=== PATIENT | male | born 1940 | race Caucasian/White ===

== ENCOUNTER → 2017-12-29 09:47 | Outpatient (CLI) | payer MEDICARE, SELFPAY ==
--- NOTE | 2017-12-29 09:50 | RDU_ITS ---
Reason For Study: CKD stage 3 Right Renal Artery Left Renal Artery Right renal artery ostium Left renal artery ostium 155.0/42.8 150.0/42.9 RSV/EDV. PSV/EDV. Right renal artery proximal Left renal artery proximal PSV/EDV 160.0/39.7 PSV/EDV. 166.0/50.1 . Right renal artery mid 163.0/51.6 Left renal artery mid 165.0/45.2 PSV/EDV. PSV/EDV . Right renal artery distal Left renal artery distal 144.0/32.0 144.0/38.5 PSV/EDV. PSV/EDV. Right RAR 1.8. Left RAR 1.9. Right Renal Parenchyma Left Renal Parenchyma Upper Pole Medula 34.8/12.2 Left upper pole medulla 47.1/13.4 PSV/EDV. PSV/EDV . Right upper pole medulla EDR .35 . Left upper pole medulla EDR .28 . Right upper pole medulla R.I. .65 . Left upper pole medulla R.I. .71 . Upper [place] Cortx 36.7/10.1 PSV/EDV. UP Cortex 38.5/11.6 PSV/EDV. Right upper pole cortex EDR .28 . Left upper pole cortex EDR .30 . Right upper pole cortex R.I. .73 . Left upper pole cortex R.I. .70 . Right lower Pole medulla 38.2/11.0 Left lower Pole medulla 31.2/6.4 PSV/EDV . PSV/EDV . Right lower pole medulla EDR .29 . Left lower pole medulla EDR .21 . Right lower pole medulla R.I. .71 . Left lower pole medulla R.I. .79 . Lower Pole Cortex 29.0/7.6 PSV/EDV. Lower Pole Cortx 30.9/8.3 PSV/EDV. Right lower pole cortex EDR .26 . Left lower pole cortex EDR .27 . Right lower pole cortex R.I. .74 . Left lower pole cortex R.I. .73 . Right Renal Hilar Left Renal Hilar Right Hilar avg 50.7/15.9 PSV/EDV. LT Hilar avg 52.3/15.3 PSV/EDV . Right hilar acceleration time 51 Left hilar acceleration time 51 m/sec. m/sec. Right Renal Dimensions Left Renal Dimensions Right kidney size 9.2 cm . Left kidney size 9.0 cm . Right cortical dimension 1.5 cm . Left cortical dimension 1.5 cm . Aorta Proximal abdominal aorta 1.9 x 1.9 cm . Distal abdominal aorta 1.5 x 1.6 cm . Proximal abdominal aorta peak systolic velocity is 88.5 cm/sec . Distal abdominal aorta peak systolic velocity is 97.6 cm/sec . Interpretation Summary Dimensions of the intra-abdominal aorta appear normal, without evidence of aneurysmal dilatation. Renal artery velocities are bilaterally normal. Acceleration times are normal bilaterally. Renal- aortic ratios are also bilaterally normal. There is no evidence of hemodynamically significant renal artery stenosis on either side. Renovascular resistance appears to be bilaterally elevated . Cortical dimensions are bilaterally normal. Kidneys appear normal in size bilaterally. Ordering Physician: Dick Chan Referring Physician: Dick Chan Performed By: Carol Amaya RVT
== END ==
PROVIDERS: Family Provider Family Medicine; PCP Family Medicine; Visit Provider Family Medicine
DX: N18.3 Chronic kidney disease, stage 3 (moderate) (principal); I73.9 Peripheral vascular disease, unspecified
CPT/HCPCS: 36415; 80048; 93975

== ENCOUNTER → 2017-12-29 11:40 | Outpatient (CLI) | payer MEDICARE, SELFPAY ==
[2017-12-29 14:33] LABS: Anion Gap 10 (5-15); BUN 36 mg/dL (7-18); BUN/Creat Ratio 20.9 RATIO (10-20); Calcium,Total 9.2 mg/dL (8.5-10.1); Chloride 108 mmol/L (98-107); Creatinine, Serum 1.72 mg/dL (0.70-1.30); EST Glomerular Filtration Rate 41 mL/min (>60); Est Glom Filt Rate - Afr Amer 50 mL/min (>60); Glucose 99 mg/dL (70-110); Potassium 4.6 mmol/L (3.5-5.1); Sodium Level 141 mmol/L (136-145)
== END ==
PROVIDERS: Family Provider Family Medicine; PCP Family Medicine; Visit Provider Family Medicine
DX: N18.3 Chronic kidney disease, stage 3 (moderate) (principal)
CPT/HCPCS: 36415; 80048

== ENCOUNTER → 2018-02-01 15:39 | Outpatient (CLI) | payer MEDICARE, SELFPAY ==
[2018-02-01 17:04] LABS: Albumin, Serum 3.8 g/dL (3.2-5.0); BUN 37 mg/dL (7-18); BUN/Creat Ratio 25.5 RATIO (10-20); Calcium,Total 9.1 mg/dL (8.5-10.1); Chloride 107 mmol/L (98-107); Creatinine, Serum 1.45 mg/dL (0.70-1.30); EST Glomerular Filtration Rate 50 mL/min (>60); Est Glom Filt Rate - Afr Amer 61 mL/min (>60); Glucose 77 mg/dL (74-106); Phosphorus 3.2 mg/dL (2.5-4.9); Potassium 4.2 mmol/L (3.5-5.1); Sodium Level 141 mmol/L (136-145)
== END ==
PROVIDERS: Family Provider Family Medicine; PCP Family Medicine; Visit Provider Internal Medicine Nephrology
DX: N17.9 Acute kidney failure, unspecified (principal)
CPT/HCPCS: 36415; 80069

== ENCOUNTER → 2018-02-04 10:12 | Outpatient (CLI) | payer MEDICARE, SELFPAY ==
--- NOTE | 2018-02-04 10:16 | US_ITS ---
STUDY: RENAL ULTRASOUND - COMPLETE REASON FOR EXAM: Male, 77 years old. Renal failure TECHNIQUE: Transverse and longitudinal imaging of the kidneys and bladder was obtained using real-time ultrasound. COMPARISON: None. FINDINGS: RIGHT KIDNEY: The right kidney is normal in location. The right kidney measures 10.0 x 5.3 x 5.0 cm. The renal cortex is normal in appearance. The renal cortex measures 1.2 cm. There is no demonstrated renal mass. There is no dilatation of the collecting system. LEFT KIDNEY: The left kidney is normal in location. The left kidney measures 9.7 x 5.1 x 4.3 cm. The renal cortex is normal in appearance. The renal cortex measures 1.4 cm. There is no demonstrated renal mass. There is no dilatation of the collecting system. BLADDER: The urinary bladder has a volume of 62 ml. The bladder shows a normal wall thickness. There is no demonstrated mass in the bladder. The right ureteral jet was not demonstrated. The left ureteral jet was visualized. US/Kidney and Bladder IMPRESSION: The kidneys are normal in size and echogenicity without hydronephrosis. Electronically Signed: Maureen Billings MD at 18:51 EST Tel Direct: [phone], Service support ,
== END ==
PROVIDERS: Family Provider Family Medicine; PCP Family Medicine; Visit Provider Internal Medicine Nephrology
DX: N17.9 Acute kidney failure, unspecified (principal)
CPT/HCPCS: 76770

== ENCOUNTER → 2018-02-08 09:27 | Outpatient (CLI) | payer MEDICARE, SELFPAY ==
[2018-02-08 13:54] LABS: Albumin, Serum 3.6 g/dL (3.2-5.0); BUN 27 mg/dL (7-18); BUN/Creat Ratio 16.9 RATIO (10-20); Calcium,Total 8.9 mg/dL (8.5-10.1); Chloride 104 mmol/L (98-107); EST Glomerular Filtration Rate 45 mL/min (>60); Est Glom Filt Rate - Afr Amer 54 mL/min (>60); Glucose 79 mg/dL (74-106); Phosphorus 2.8 mg/dL (2.5-4.9); Potassium 4.4 mmol/L (3.5-5.1); Sodium Level 139 mmol/L (136-145)
== END ==
PROVIDERS: Family Provider Family Medicine; PCP Family Medicine; Visit Provider Internal Medicine Nephrology
DX: N17.9 Acute kidney failure, unspecified (principal)
CPT/HCPCS: 36415; 80069

== ENCOUNTER → 2018-03-08 09:08 | Outpatient (CLI) | payer MEDICARE, SELFPAY ==
[2018-03-08 10:37] LABS: Albumin, Serum 3.6 g/dL (3.2-5.0); BUN 37 mg/dL (7-18); BUN/Creat Ratio 23.4 RATIO (10-20); Calcium,Total 8.4 mg/dL (8.5-10.1); Chloride 109 mmol/L (98-107); Creatinine, Serum 1.58 mg/dL (0.70-1.30); EST Glomerular Filtration Rate 45 mL/min (>60); Est Glom Filt Rate - Afr Amer 55 mL/min (>60); Glucose 73 mg/dL (74-106); Phosphorus 3.1 mg/dL (2.5-4.9); Potassium 4.1 mmol/L (3.5-5.1); Sodium Level 142 mmol/L (136-145)
== END ==
PROVIDERS: Family Provider Family Medicine; PCP Family Medicine; Visit Provider Internal Medicine Nephrology
DX: N17.9 Acute kidney failure, unspecified (principal); N18.9 Chronic kidney disease, unspecified
CPT/HCPCS: 36415; 80069

== ENCOUNTER → 2018-03-15 15:26 | Outpatient (CLI) | payer MEDICARE, SELFPAY ==
[2018-03-15 15:30] LABS: Bacteria 0 SEEN /hpf (None Seen); Squamous Epithelial Cells - UA 0 SEEN /hpf (0-5)
[2018-03-15 16:17] LABS: Color, Urine Yellow (Yellow); Glucose, Dipstick Normal (Normal); Ketone-Dipstick Negative (Negative); Leukocyte Esterase-Dipstick Negative /ul (Negative); Nitrite-Dipstick Negative (Negative); Occult Blood-Urine 10 /ul (Negative); Protein-Dipstick 30 mg/dl (Negative); Specific Gravity, Urine 1.015 (1.002-1.030); Urine Bilirubin Dipstick Negative (Negative); Urine Clarity Clear (Clear); Urine Urobilinogen 1 mg/dl (Normal)
[2018-03-15 16:29] LABS: Hyaline Cast 10-25 SEEN /lpf (0-5); Mucous, Urine 2+ /hpf (<or=2+)
[2018-03-15 16:32] LABS: White Blood Cells 0-5 SEEN /hpf (0-5)
[2018-03-15 16:33] LABS: Red Blood Cells-Urine 0-5 SEEN /hpf (0-5)
== END ==
PROVIDERS: Family Provider Family Medicine; PCP Family Medicine; Visit Provider Internal Medicine Nephrology
DX: N18.3 Chronic kidney disease, stage 3 (moderate) (principal)
CPT/HCPCS: 36415; 81001

== ENCOUNTER → 2018-04-15 09:51 | Outpatient (CLI) | payer MEDICARE, SELFPAY ==
--- NOTE | 2018-04-15 09:54 | CDU_ITS ---
Reason For Study: vertigo Rt. Velocities/BP Lt. Velocities/BP Prox CCA 67.6/7.86 cm/sec. Prox CCA 94.4/15.2 cm/sec. Mid CCA 60.9/11.0 cm/sec. Mid CCA 82.1/15.2 cm/sec. Dist CCA 65.2/11.0 cm/sec. Dist CCA 71.5/17.0 cm/sec. Prox ICA 41.3/14.5 cm/sec. Prox ICA 59.8/17.6 cm/sec. Mid ICA 60.9/16.1 cm/sec. Mid ICA 71.5/22.3 cm/sec. Dist ICA 94.4/29.3 cm/sec. Dist ICA 93.2/27.0 cm/sec. Rt. ICA/CCA = 94.4/60.9=1.5. Lt. ICA/CCA = 93.2/82.1=1.1. Prox ECA 97.9/7.62 cm/sec. Prox ECA 87.9/8.21 cm/sec. Rt. Vert. 43.2/9.82 cm/sec. Lt. Vert. 49.1/15.3 cm/sec. Right Extracranial There is intimal thickening but no significant atherosclerotic plaque noted in the right common carotid artery. There is homogeneous, smooth atherosclerotic plaque noted in the right internal carotid artery. There is intimal thickening but no significant atherosclerotic plaque noted in the right external carotid artery. Antegrade flow is noted in the right vertebral artery. Left Extracranial There is homogeneous, smooth atherosclerotic plaque noted in the left common carotid artery. There is homogeneous, smooth atherosclerotic plaque noted in the left internal carotid artery. There is intimal thickening but no significant atherosclerotic plaque noted in the left external carotid artery. Antegrade flow is noted in the left vertebral artery. Procedure Carotid Duplex 13720. The exam was diagnostic. Exam performed in department. Interpretation Summary No hemodynamically significant plague or stenosis bilateral extracranial internal carotids Normal flow bilateral external carotids Patent and antegrade bilateral vertebrals. Ordering Physician: Oscar Junior Referring Physician: Dick Chan Performed By: Lillie Carbone, CHATA, RVT
== END ==
PROVIDERS: Family Provider Family Medicine; PCP Family Medicine; Visit Provider Nurse Practitioner Family
DX: R00.1 Bradycardia, unspecified (principal); R42 Dizziness and giddiness; R55 Syncope and collapse
CPT/HCPCS: 93225; 93226; 93880

== ENCOUNTER → 2018-06-06 13:58 | Outpatient (CLI) | payer MEDICARE, SELFPAY ==
[2018-06-06 14:10] LABS: Bacteria 0 SEEN /hpf (None Seen); Mucous, Urine 0 SEEN /hpf (<or=2+); Red Blood Cells-Urine 0 SEEN /hpf (0-5); Squamous Epithelial Cells - UA 0 SEEN /hpf (0-5); White Blood Cells 0 SEEN /hpf (0-5)
[2018-06-06 15:17] LABS: Albumin, Serum 3.3 g/dL (3.2-5.0); BUN 35 mg/dL (7-18); BUN/Creat Ratio 23.6 RATIO (10-20); Calcium,Total 8.5 mg/dL (8.5-10.1); Chloride 108 mmol/L (98-107); Creatinine, Serum 1.48 mg/dL (0.70-1.30); EST Glomerular Filtration Rate 49 mL/min (>60); Est Glom Filt Rate - Afr Amer 59 mL/min (>60); Glucose 81 mg/dL (74-106); Phosphorus 3.5 mg/dL (2.5-4.9); Potassium 4.4 mmol/L (3.5-5.1); Sodium Level 143 mmol/L (136-145)
[2018-06-06 15:47] LABS: Color, Urine Yellow (Yellow); Glucose, Dipstick Normal (Normal); Ketone-Dipstick Negative (Negative); Leukocyte Esterase-Dipstick Negative /ul (Negative); Nitrite-Dipstick Negative (Negative); Occult Blood-Urine Negative /ul (Negative); Protein-Dipstick 30 mg/dl (Negative); Specific Gravity, Urine 1.015 (1.002-1.030); Urine Bilirubin Dipstick Negative (Negative); Urine Clarity Clear (Clear); Urine Urobilinogen Normal (Normal)
== END ==
PROVIDERS: Family Provider Family Medicine; PCP Family Medicine; Visit Provider Internal Medicine Nephrology
DX: N18.3 Chronic kidney disease, stage 3 (moderate) (principal)
CPT/HCPCS: 36415; 80069; 81001

== ENCOUNTER → 2018-06-16 10:29 | Outpatient (CLI) | payer MEDICARE, SELFPAY ==
--- NOTE | 2018-06-16 10:57 | MRI_ITS ---
STUDY: MRI BRAIN WITHOUT CONTRAST REASON FOR EXAM: Male, 77 years old. Dizziness, weakness x one year. Overall weakness. TECHNIQUE: Standardized multiplanar fat and water weighted pulse sequences were obtained. COMPARISON: None. FINDINGS: No restricted diffusion to suspect acute or subacute ischemic infarct. No remote cortical-based ischemic infarct. Normal size of the ventricles and extra-axial spaces for the patient's age. Subcortical white matter T2 FLAIR hyperintensity foci in both cerebral hemispheres are presumably chronic white matter ischemic changes. No midline shift and no mass effects. Normal bilateral basal ganglia. Normal thalami. There is no extra-axial fluid accumulation. Normal flow voids within the major intracranial circulation suggesting patency by spin echo criteria. Normal sella turcica, pituitary gland, infundibular stalk, optic chiasm and hypothalamus. Normal tectal plate and pineal gland. Normal midbrain, valentin and medulla. Normal cerebellum. Normal basal cisterns. Normal bilateral temporal bones. Normal bilateral internal auditory canals. No demonstrated orbital abnormality, within the constraints of a routine brain study. Normal visualized paranasal sinuses. Normal calvarium and skull base. Normal visualized soft tissue structures. Normal visualized upper cervical spine. MRI/Brain without Contrast IMPRESSION: 1. No MRI evidence of acute or subacute ischemic infarct. 2. No MRI evidence of remote cortical-based ischemic infarct. 3. Chronic subcortical white matter ischemic changes in both cerebral hemispheres. Electronically Signed: Keven Lopez MD at 15:48 EDT , Service support ,
--- NOTE | 2018-06-16 12:17 | NM_ITS ---
CLINICAL: 77-year-old male with history of early satiety. SEMI-SOLID PHASE 99m Tc SULFUR COLLOID GASTRIC EMPTYING STUDY COMPARISON: None available FINDINGS: The patient was administered 1.1 mCi of 99m Tc sulfur colloid mixed with oatmeal and consumed per os. Image acquisitions in the anterior-posterior projections for a total of 60 minutes. There is prompt visualization of the stomach with persistent delineation of the esophagus during imaging. There is no gastroesophageal reflux identified. The T1/2 linear fit was calculated to be 33.25 minutes, (Normal: 12-56 minutes). NM/Gastric Emptying Study IMPRESSION: 1. NORMAL 99m Tc sulfur colloid semi-solid phase (oatmeal) gastric emptying imaging examination. A. There is normal and preserved semi-solid phase gastric emptying compared to normal controls with maintained first order kinetics throughout all components of the examination. (Shelly et al, J Nucl Med Tech 38: 186, 2010). Electronically Signed: Jacky Williamson DO at 9:38 EDT Tel , Service support ,
== END ==
PROVIDERS: Family Provider Family Medicine; PCP Family Medicine; Visit Provider Family Medicine
DX: R42 Dizziness and giddiness (principal); R68.81 Early satiety
CPT/HCPCS: 70551; 78264; A9541

== ENCOUNTER → 2018-06-21 08:28 | Outpatient (CLI) | payer MEDICARE, SELFPAY ==
[2018-06-21 08:46] LABS: Hematocrit 41.6 % (40-54); Hemoglobin 14.1 g/dl (13.0-16.5); Mean Corp Hgb Conc 33.9 g/gl (32-36); Mean Corpuscular Hgb 29.3 pg (27.0-32.0); Mean Corpuscular Volume 86.3 fL (80-94); Mean Platelet Vol. 10.4 fl (6.2-12.0); Platelet Count 318 K/mm3 (150-450); RBC Distribution Width CV 14.2 % (11.6-14.6); RBC Distribution Width SD 44.6 fl (35.1-43.9); Red Blood Count 4.82 M/mm3 (4.6-6.2); White Blood Count 7.2 K/mm3 (4.4-11.0)
[2018-06-21 08:51] LABS: Scan Indicated on CBC? Y/N NO
[2018-06-21 09:04] LABS: Anion Gap 7 (5-15); BUN 24 mg/dL (7-18); BUN/Creat Ratio 15.6 RATIO (10-20); Calcium,Total 9.5 mg/dL (8.5-10.1); Chloride 106 mmol/L (98-107); Creatinine, Serum 1.54 mg/dL (0.70-1.30); EST Glomerular Filtration Rate 47 mL/min (>60); Est Glom Filt Rate - Afr Amer 57 mL/min (>60); Glucose 87 mg/dL (74-106); Potassium 4.3 mmol/L (3.5-5.1); Sodium Level 137 mmol/L (136-145)
== END ==
PROVIDERS: Family Provider Family Medicine; PCP Family Medicine; Visit Provider Psychiatry & Neurology Neurology
DX: R55 Syncope and collapse (principal)
CPT/HCPCS: 36415; 80048; 85027; 96523; J7030; A4216

== ENCOUNTER → 2018-06-24 07:15 | Outpatient (CLI) | payer MEDICARE, SELFPAY ==
--- NOTE | 2018-06-27 16:06 | EEG ---
- Electroencephalogram Date of service 06/24/2018 History EEG is being done in this 77 yr M to rule out seizures EEG Description: This is an 18 channel EEG with 10-20 lead placement system. Bipolar montages, Referential and Circumferential montages were reviewed. Photic stimulation and Hyperventilation were performed. The posterior dominant rhythm is 9 HZ synchronous, symmetric, reacting to eye opening and closing. Photo stimulation elicited normal driving response but no abnormal photoparoxysmal response, Hyperventilation did not elicit any abnormal photoparoxysmal response. Sleep was identified. There is no abnormal background slowing noted. There was no epileptiform discharges or electrographic seizures noted during this recording. EEG Interpretation This is a normal awake and asleep EEG. There is no epileptiform discharges or electrographic seizures noted during the record.
== END ==
PROVIDERS: Family Provider Family Medicine; PCP Family Medicine; Visit Provider Psychiatry & Neurology Neurology
DX: R55 Syncope and collapse (principal)

== ENCOUNTER → 2018-06-28 15:40 | Outpatient (CLI) | payer MEDICARE, SELFPAY ==
--- NOTE | 2018-06-28 15:42 | CT_ITS ---
STUDY: CT ABDOMEN WITH AND WITHOUT CONTRAST REASON FOR EXAM: Male, 77 years old. Upper abdominal pain radiating into flank. Feeling of fullness. RADIATION DOSAGE (If Supplied By Facility): CTDIvol = ( 21.05 ) mGy, DLP = ( 1482.21 ) mGycm TECHNIQUE: Transaxial images were obtained pre and post I.V. administration of 100 ml of Isovue 300, and oral contrast. Sagittal and coronal images were reconstructed. Individualized dose optimization techniques were used for this CT. COMPARISON: Renal ultrasound February 04, 2018. FINDINGS: The visualized lung bases are unremarkable. The visualized portions of the heart are within normal limits. Normal liver. Normal gallbladder and extrahepatic biliary system. Normal spleen. Normal pancreas. Normal bilateral adrenal glands. Normal right kidney. Normal left kidney. Normal visualized stomach. Suture line right upper quadrant. Normal small intestine. Stool present throughout the colon which may represent constipation. There is non-visualization of the appendix. Normal abdominal aorta. Normal inferior vena cava. Normal retroperitoneum. No intra-abdominal free air. Normal abdominal wall. Multilevel degenerative changes of the lumbar spine. Lumbar levoscoliosis. CT/Abdomen W/WO IV Contrast IMPRESSION: No acute findings in the abdomen or pelvis. No evidence of bowel obstruction. Possible constipation. Electronically Signed: Augustus Talamantes MD at 6:28 EDT , Service support ,
== END ==
PROVIDERS: Family Provider Family Medicine; PCP Family Medicine; Visit Provider Family Medicine
DX: R68.81 Early satiety (principal)
CPT/HCPCS: 74170; Q9967

== ENCOUNTER → 2018-07-04 15:46 | Outpatient (CLI) | payer MEDICARE, SELFPAY ==
--- NOTE | 2018-07-04 16:00 | RAD_ITS ---
STUDY: X-RAY - ABDOMEN/PELVIS REASON FOR EXAM: Male, 77 years old. CONSTIPATION SINCE CT ON 06/28 TECHNIQUE: AP supine and upright views of the abdomen and pelvis. COMPARISON: CT June 28, 2018 FINDINGS: The right hemidiaphragm is elevated. There are multiple air-fluid levels in the right abdomen without significant dilatation suggesting an enteritis. There is mild retained stool in the left colon. There is no demonstrated free abdominal air. The visualized liver, spleen and kidneys are grossly normal in size and morphology. Normal soft tissue structures. There are diffuse degenerative changes of the visualized lumbar spine. RAD/Abd Inc Decub and/or Erect IMPRESSION: There are multiple air-fluid levels in the right abdomen without significant dilatation suggesting an enteritis. There is mild retained stool in the left colon. Electronically Signed: America Simpson MD at 13:25 EDT , Service support ,
== END ==
PROVIDERS: Family Provider Family Medicine; PCP Family Medicine; Visit Provider Family Medicine
DX: K59.00 Constipation, unspecified (principal)
CPT/HCPCS: 74019

== ENCOUNTER → 2018-07-07 10:45 | Outpatient (REF) | payer MEDICARE, SELFPAY | LOC: CVS 10:45 | PROVIDERS: Family Provider Family Medicine; PCP Family Medicine; Visit Provider Internal Medicine Cardiovascular Disease | DX: R00.1 Bradycardia, unspecified (principal); R42 Dizziness and giddiness; R07.9 Chest pain, unspecified | CPT/HCPCS: 93270 ==

== ENCOUNTER 2018-07-07 15:46 | Emergency (ER) | payer MEDICARE, SELFPAY ==
[2018-07-07 15:47] VITALS: BP 135/77; PULSE 88; RESP 14; TEMP 37.3; O2SAT 99; BMI 22.6
--- NOTE | 2018-07-07 16:04 | ED.DCSUM_ITS ---
- ER Visit Summary Date of Service: 07/07/18 Chief Complaint: Needs pacemaker History of Present Illness: The patient is a 77 M presenting with lightheadedness. Patient states he has been lightheaded for the past year. He has been worked up by cardiology, neurology, and ENT. He has had multiple Holter monitors. Today he started a 30 day monitor. He was called after he was found to have a 4.[address] Nielson is out of town and transfer is recommended for pacemaker. Patient denies chest pain. He has chronic shortness of breath. This is not changed with exertion. Denies other complaints. Physical Examination: Vitals are stable. Patient is afebrile. Alert no acute distress. HEENT exam is unremarkable. Neck is supple. Lungs are clear and equal bilaterally. Heart is regular rate and rhythm. Abdomen is soft nontender nondistended. Extremities are unremarkable. Skin is warm and dry. No focal neurologic deficit. Remainder of exam is unremarkable. Emergency Department Course and Treatment: EKG is sinus rate is 76 with first- degree AV block. CBC shows hemoglobin 12.8. Chemistries show BUN 28, creatinine 1.53. INR is 1.1. Troponin 0.031. Chest x-ray shows no acute disease. While in the emergency department patient had an episode of dizziness. His heart rate went down to the 30s. This lasted approximately 5 minutes. He is now feeling improved. His blood pressure remained stable. Patient has [facility] care and is requesting transfer [facility]. Disposition: Transfer [facility] Impression: Bradycardia, sinus pause This note was generated with [employer] dictation software. It may contain incorrect words, spelling, and punctuation that were not noted in review of the chart prior to signing ED Disposition - Plan for ED Patient: Chief Complaint: Syncope Referrals: Dick Chan MD [Primary Care Provider] -
--- NOTE | 2018-07-07 16:05 | RAD_ITS ---
STUDY: X-RAY CHEST REASON FOR EXAM: Male, 77 years old. Chest pain TECHNIQUE: Single frontal view of the chest. COMPARISON: October 01, 2017 FINDINGS: New electronic device projects over the right upper quadrant of the abdomen. The lungs are clear and expanded. There is no demonstrated pleural abnormality. Normal size heart. Normal mediastinum and gopal. Normal visualized pulmonary arteries. Normal visualized aortic arch and descending thoracic aorta. Normal visualized thoracic spine. Normal visualized ribs, clavicles, and shoulders. There is no demonstrated abnormality of the visualized soft tissue structures of the upper abdomen. RAD/Chest 1 View (Portable) IMPRESSION: New Electronic device right upper quadrant abdomen otherwise no acute disease Electronically Signed: Clarence Burkett MD at 17:02 EDT , Service support ,
[2018-07-07 16:30] VITALS: BP 157/80; PULSE 73; RESP 17; O2SAT 98; O2SAT 99
[2018-07-07 16:38] LABS: Absolute Lymphocyte Count 2.53 X10^3/ul (0.83-4.51); Absolute Neutrophil Count 4.6 X10^3/uL (2.0-7.7); Basophil# 0.05 X10^3/uL; Basophil% 0.6 % (0-1); Eosinophil# 0.28 X10^3/uL; Eosinophils% 3.4 % (0-5); Hematocrit 38.3 % (40-54); Hemoglobin 12.8 g/dl (13.0-16.5); Lymphocyte # 2.53 X10^3/ul (4.0); Lymphocyte % 30.7 % (19-41); Mean Corp Hgb Conc 33.4 g/gl (32-36); Mean Corpuscular Hgb 29.1 pg (27.0-32.0); Mean Platelet Vol. 9.9 fl (6.2-12.0); Monocyte# 0.79 X10^3/uL; Monocyte% 9.6 % (0-10); Neutrophil # 4.59 X10^3/uL (2.7-7.7); Neutrophil % 55.7 % (47-70); Platelet Count 357 K/mm3 (150-450); RBC Distribution Width CV 14.6 % (11.6-14.6); RBC Distribution Width SD 46.1 fl (35.1-43.9); White Blood Count 8.2 K/mm3 (4.4-11.0)
[2018-07-07 16:42] LABS: POSITIVE COUNT NO; POSITIVE DIFFERENTIAL NO; POSITIVE MORPHOLOGY NO
[2018-07-07 16:44] LABS: Anion Gap 8 (5-15); BUN 28 mg/dL (7-18); BUN/Creat Ratio 18.3 RATIO (10-20); Calcium,Total 8.9 mg/dL (8.5-10.1); Chloride 109 mmol/L (98-107); Creatinine, Serum 1.53 mg/dL (0.70-1.30); EST Glomerular Filtration Rate 47 mL/min (>60); Est Glom Filt Rate - Afr Amer 57 mL/min (>60); Estimated Creatinine Clearance 44.62 ml/min; Glucose 114 mg/dL (74-106); Potassium 4.1 mmol/L (3.5-5.1); Sodium Level 142 mmol/L (136-145)
[2018-07-07 17:25] VITALS: BP 152/66; PULSE 44; RESP 14; O2SAT 100
[2018-07-07 17:27] LABS: International Normalized Ratio 1.1; Prothrombin Time (Protime)PT. 13.7 SECONDS (11.7-14.9)
[2018-07-07 18:49] VITALS: BP 158/64; PULSE 41; RESP 17; O2SAT 100
== END 2018-07-07 18:50 | disposition short-term general hospital (02) ==
LOC: ED 16:25
PROVIDERS: Emergency Provider Emergency Medicine; Family Provider Family Medicine; PCP Family Medicine
DX: R00.1 Bradycardia, unspecified (principal); I44.0 Atrioventricular block, first degree; R06.02 Shortness of breath; K21.9 Gastro-esophageal reflux disease without esophagitis; Z79.899 Other long term (current) drug therapy
CPT/HCPCS: 71045; 80048; 84484; 85025; 85610; 93005; 99285

== ENCOUNTER → 2018-07-27 11:53 | Outpatient (CLI) | payer MEDICARE, SELFPAY ==
[2018-07-27 14:19] LABS: Absolute Lymphocyte Count 2.26 X10^3/ul (0.83-4.51); Absolute Neutrophil Count 4.9 X10^3/uL (2.0-7.7); Basophil# 0.08 X10^3/uL; Basophil% 0.9 % (0-1); Eosinophil# 0.27 X10^3/uL; Eosinophils% 3.2 % (0-5); Hematocrit 38.7 % (40-54); Hemoglobin 12.8 g/dl (13.0-16.5); Lymphocyte # 2.26 X10^3/ul (4.0); Lymphocyte % 26.6 % (19-41); Mean Corp Hgb Conc 33.1 g/gl (32-36); Mean Corpuscular Volume 87.6 fL (80-94); Mean Platelet Vol. 9.9 fl (6.2-12.0); Monocyte# 0.98 X10^3/uL; Monocyte% 11.5 % (0-10); Neutrophil # 4.89 X10^3/uL (2.7-7.7); Neutrophil % 57.7 % (47-70); Platelet Count 403 K/mm3 (150-450); RBC Distribution Width CV 14.6 % (11.6-14.6); RBC Distribution Width SD 46.8 fl (35.1-43.9); Red Blood Count 4.42 M/mm3 (4.6-6.2); White Blood Count 8.5 K/mm3 (4.4-11.0)
[2018-07-27 14:21] LABS: POSITIVE COUNT NO; POSITIVE DIFFERENTIAL NO; POSITIVE MORPHOLOGY NO
[2018-07-27 14:46] LABS: ALB/GLOB Ratio 0.9 RATIO (0.9-2.4); AST(SGOT) 20 U/L (15-37); Alanine Aminotransfer ALT/SGPT 23 U/L (16-61); Albumin, Serum 3.7 g/dL (3.2-5.0); Alkaline Phosphatase 103 U/L (45-117); Anion Gap 13 (5-15); BUN 35 mg/dL (7-18); BUN/Creat Ratio 19.3 RATIO (10-20); CRP 3.18 mg/L (0.0-3.0); Calcium,Total 9.3 mg/dL (8.5-10.1); Chloride 104 mmol/L (98-107); Creatinine, Serum 1.81 mg/dL (0.70-1.30); EST Glomerular Filtration Rate 39 mL/min (>60); Est Glom Filt Rate - Afr Amer 47 mL/min (>60); Globulin 4.1 g/dL (2.2-4.2); Glucose 77 mg/dL (74-106); Magnesium 2.4 mg/dL (1.6-2.6); Potassium 4.2 mmol/L (3.5-5.1); Protein, Total 7.8 g/dL (6.4-8.2); Sodium Level 139 mmol/L (136-145); T4 Free Direct 1.58 ng/dL (0.76-1.46); Thyroid Stim Hormone (TSH) 5.07 uIU/mL (0.358-3.74)
[2018-07-27 18:29] LABS: Erythrocyte Sedimentation Rate 35 mm/hr (0-20)
== END ==
PROVIDERS: Family Provider Family Medicine; PCP Family Medicine; Visit Provider Family Medicine
DX: R53.83 Other fatigue (principal); M62.81 Muscle weakness (generalized); M62.9 Disorder of muscle, unspecified
CPT/HCPCS: 36415; 80053; 83735; 84439; 84443; 85025; 85652; 86140; 87040; 97162; G8978; G8979

== ENCOUNTER → 2018-08-02 10:22 | Outpatient (CLI) | payer MEDICARE, SELFPAY ==
[2018-08-02 12:36] LABS: ALB/GLOB Ratio 0.9 RATIO (0.9-2.4); AST(SGOT) 21 U/L (15-37); Alanine Aminotransfer ALT/SGPT 23 U/L (16-61); Albumin, Serum 3.5 g/dL (3.2-5.0); Alkaline Phosphatase 101 U/L (45-117); Anion Gap 14 (5-15); BUN 31 mg/dL (7-18); BUN/Creat Ratio 19.1 RATIO (10-20); CRP 3.53 mg/L (0.0-3.0); Calcium,Total 9.6 mg/dL (8.5-10.1); Chloride 107 mmol/L (98-107); Creatinine, Serum 1.62 mg/dL (0.70-1.30); EST Glomerular Filtration Rate 44 mL/min (>60); Est Glom Filt Rate - Afr Amer 53 mL/min (>60); Glucose 87 mg/dL (74-106); Potassium 4.2 mmol/L (3.5-5.1); Protein, Total 7.5 g/dL (6.4-8.2); Sodium Level 142 mmol/L (136-145)
[2018-08-02 12:39] LABS: Erythrocyte Sedimentation Rate 42 mm/hr (0-20)
[2018-08-02 12:40] LABS: Absolute Lymphocyte Count 1.79 X10^3/ul (0.83-4.51); Absolute Neutrophil Count 4.6 X10^3/uL (2.0-7.7); Basophil% 1.4 % (0-1); Eosinophil# 0.24 X10^3/uL; Eosinophils% 3.3 % (0-5); Hematocrit 36.9 % (40-54); Hemoglobin 12.6 g/dl (13.0-16.5); Lymphocyte # 1.79 X10^3/ul (4.0); Lymphocyte % 24.5 % (19-41); Mean Corp Hgb Conc 34.1 g/gl (32-36); Mean Corpuscular Hgb 29.6 pg (27.0-32.0); Mean Corpuscular Volume 86.8 fL (80-94); Mean Platelet Vol. 10.4 fl (6.2-12.0); Monocyte# 0.57 X10^3/uL; Monocyte% 7.8 % (0-10); Neutrophil # 4.61 X10^3/uL (2.7-7.7); Neutrophil % 62.9 % (47-70); Platelet Count 359 K/mm3 (150-450); RBC Distribution Width CV 14.5 % (11.6-14.6); RBC Distribution Width SD 45.3 fl (35.1-43.9); Red Blood Count 4.25 M/mm3 (4.6-6.2); White Blood Count 7.3 K/mm3 (4.4-11.0)
[2018-08-02 12:45] LABS: POSITIVE COUNT NO; POSITIVE DIFFERENTIAL NO; POSITIVE MORPHOLOGY NO
== END ==
PROVIDERS: Family Provider Family Medicine; PCP Family Medicine; Visit Provider Family Medicine
DX: R53.83 Other fatigue (principal)
CPT/HCPCS: 80053; 85025; 85652; 86140

== ENCOUNTER → 2018-08-08 11:27 | Outpatient (CLI) | payer MEDICARE, SELFPAY ==
[2018-08-08 14:11] LABS: CRP 4.87 mg/L (0.0-3.0)
[2018-08-08 14:30] LABS: Erythrocyte Sedimentation Rate 31 mm/hr (0-20)
[2018-08-08 14:42] LABS: Absolute Lymphocyte Count 2.01 X10^3/ul (0.83-4.51); Absolute Neutrophil Count 4.4 X10^3/uL (2.0-7.7); Basophil# 0.07 X10^3/uL; Basophil% 0.9 % (0-1); Eosinophil# 0.36 X10^3/uL; Eosinophils% 4.7 % (0-5); Hematocrit 38.4 % (40-54); Hemoglobin 12.6 g/dl (13.0-16.5); Lymphocyte # 2.01 X10^3/ul (4.0); Lymphocyte % 26.5 % (19-41); Mean Corp Hgb Conc 32.8 g/gl (32-36); Mean Corpuscular Hgb 28.7 pg (27.0-32.0); Mean Corpuscular Volume 87.5 fL (80-94); Mean Platelet Vol. 10.1 fl (6.2-12.0); Monocyte# 0.72 X10^3/uL; Monocyte% 9.5 % (0-10); Neutrophil # 4.41 X10^3/uL (2.7-7.7); Neutrophil % 58.3 % (47-70); POSITIVE DIFFERENTIAL NO; Platelet Count 363 K/mm3 (150-450); RBC Distribution Width CV 14.9 % (11.6-14.6); RBC Distribution Width SD 47.7 fl (35.1-43.9); Red Blood Count 4.39 M/mm3 (4.6-6.2); White Blood Count 7.6 K/mm3 (4.4-11.0)
[2018-08-08 14:43] LABS: POSITIVE COUNT NO; POSITIVE MORPHOLOGY NO
== END ==
PROVIDERS: Family Provider Family Medicine; PCP Family Medicine; Visit Provider Family Medicine
DX: R53.83 Other fatigue (principal)
CPT/HCPCS: 36415; 85025; 85652; 86140; 87040

== ENCOUNTER → 2018-08-12 12:06 | Outpatient (CLI) | payer MEDICARE, SELFPAY ==
--- NOTE | 2018-08-12 12:09 | RAD_ITS ---
STUDY: X-RAY - ABDOMEN/PELVIS REASON FOR EXAM: Male, 77 years old. ABDOMEN PAIN AND BLOATING FOR ABOUT 2 MONTHS. CONSTIPATION PER PATIENT OFF AND ON FOR YEARS. TECHNIQUE: AP supine and upright views of the abdomen and pelvis. COMPARISON: None. FINDINGS: Normal visualized lung bases. There is a moderate amount of colonic fecal material. There is no demonstrated free abdominal air. The visualized liver, spleen and kidneys are grossly normal in size and morphology. Normal soft tissue structures. There are diffuse degenerative changes of the visualized lumbar spine. RAD/Abd Inc Decub and/or Erect IMPRESSION: CONSTIPATION Electronically Signed: Irvin Scruggs MD at 22:28 EDT , Service support ,
== END ==
PROVIDERS: Family Provider Family Medicine; PCP Family Medicine; Visit Provider Family Medicine
DX: R10.9 Unspecified abdominal pain (principal)
CPT/HCPCS: 74019

== ENCOUNTER → 2018-09-05 11:20 | Outpatient (CLI) | payer MEDICARE, SELFPAY ==
--- NOTE | 2018-09-05 11:22 | RAD_ITS ---
STUDY: X-RAY - ABDOMEN/PELVIS REASON FOR EXAM: Male, 77 years old. Constipation. TECHNIQUE: AP supine and upright views. COMPARISON: 08/12/2018. FINDINGS: Normal visualized lung bases. Fecal contents throughout the colon suggesting constipation. No bowel obstruction. There is no demonstrated free abdominal air. The visualized liver, spleen and kidneys are grossly normal in size and morphology. Normal soft tissue structures. Mild dextroscoliosis. Pronounced at L3-L4 disc space height narrowing. Mild right lateral subluxation of L4 on L5. RAD/Abd Inc Decub and/or Erect IMPRESSION: 1. Mild constipation. 2. Pronounced at L3-L4 disc space height narrowing and mild right lateral subluxation of L4 on L5. 3. No significant interval change since 08/12/2018. Electronically Signed: Keven Lopez MD at 13:15 EDT , Service support ,
== END ==
PROVIDERS: Family Provider Family Medicine; PCP Family Medicine; Referring Provider Family Medicine; Visit Provider Family Medicine
DX: K59.00 Constipation, unspecified (principal)
CPT/HCPCS: 74019

== ENCOUNTER 2018-09-06 07:00 | Outpatient (RCR) | payer MEDICARE, SELFPAY ==
--- NOTE | 2018-08-09 07:39 | HP.PTEVAL_ITS ---
Patient's Visit Information ANTONIO HAGER is a 77 year old M referred to Physical Therapy by Dick Chan with a diagnosis of Generalized weakness. Date of Evaluation: 07/27/18 Physical Therapist: Monty Gold - Visit Plan Frequency: 2x /Week Duration: 8 weeks Plan: Start with BLE strengthening, CKC stability/exercises, progressing to functional strengthenign and cardio exercises as tolerated. Add in balance activities to increase stability in stance/gait. - Subjective Subjective: Pt. is here today for his initial evaluation with diagnosis of generalized weakness and muscle stiffness. Pt. reports getting worse over later year. Pt. did have a pacemaker a few months ago. He reports feeling well for ~2 weeks, but two weeks ago he started to feel off again. Pt. reports general fatigue, difficulty walking, muscle weakness as his main complaints. Pt. denies fever and chills. He reports being tested or PD, but was negative. He feels like he is getting weaker and weaker and does not know why. He is not doing much exercise at home, due to increased overall fatigue. He is to get is pacemaker checked out later this week. He reports prior to feeling ill 2 weeks ago he was starting to feel a lot better and was getting around I with all ADLs and light household work.He is hopeful to increas in engery and get back to all house hold and recreational activiteis without issues. - Objective POSTURE: Pt. has generally flexed posture, rounded shoulders, slumped posture. PALPATION: Pt. has not pain with all palaption. Pt. has decreased overall muscle girth in bilateral LEs. No pain with UE palpation. NEURO: normal DTR and senation. Pt. does ahve decreased difficulty with heel and toes raises secondary to balance. ROM: Pt. has normal hip ROM bilaterally, but does have tight HS and hip flexors bilaterally. Min loss globally throughout thoracic and lumbar spine without increase in pain. MMT: RLE- ankle 5/5 throught; knee- ext 4+/5, flexion 4+/5; hip- flexion 4/5, abd 4/5, ext 4/5. LLE ankle 5/5 throught; knee- ext 4+/5, flexion 4+/5; hip- flexion 4/5, abd 4/5, ext 4/5. COre strength - poor. GAIT: pt. ambulates today with cane, but decreased tempo throughout. Pt. reports no pain, but increased fatigue. Pt. decreased step length bilaterally. STAIRS: Pt. is able to negotiate with step to pattern with use of BHR. NO pain, increased fatigue noted. Pt. was able to ambulate 250ft. prior to needing to sit due to fatigue. - Balance Scores Functional Gait Assessment Score: 18 % Disability: 40.0000 - Goals Goal 1:: Pt. to be I with HEP. Goal Time Frame: 4-6 Weeks Goal 2:: Pt. to have increased BLE strength by 1/2 grade of all effected musculature. Goal Time Frame: 4-6 Weeks Goal 3:: Pt. to ambulate with least restrictive device 500+ft. with increased tolerance allowing for increased tolerance/safety with all community mobility. Goal Time Frame: 4-6 Weeks Goal 4:: Pt. to negotiate steps with reciprocal pattern with 1 HR without LOB, independently. - Rehabilitation Potential Physical Therapy Diagnosis: Pt. has signs and symptoms consistent with generalized weakness. Pt. would benefit from PT to increase BLE strength, increase stability with gait and increase general endurance to increase tolerance/safety to functional mobility. Rehabilitation Potential: Good - Anticipated Interventions Patient/Client Instruction: Educate patient on: Condition, Plan of Care, Risk Factors, Benefits of Fitness Program For the Purpose of:: To foster healthy habits, To improve decision making, To facilitate caregiver knowledge, To improve self management, To prevent re-injury , To improve ability to perform tasks related to life management, To improve tolerance to ADL's Therapeutic Exercise to Include: Strength training, Power training, Endurance training, Balance training, Body mechanics, Postural training, Flexibilty training, Gait and locomotor training, Passive ROM, Active ROM, Dynamic Lumbar Stabilization For the Purpose of:: To increase ROM, To improve nutrient delivery to tissue, To increase oxygenation perfusion, To improve muscle performance and motor function, To improve ability to perform ADL's, To improve ability of physical actions for home/community/work/leisure, To improve gait and locomotor functions , To improve health of tissue, To decrease soft tissue restriction, To increase flexibility/ROM, To improve endurance, To improve balance, To improve safety with gait Thank you for the opportunity to evaluate your patient. For Medicare and Medicare HMO plans, please review the plan of care and approve it. It will need to be FAXED BACK to us at [phone] for Medicare purposes. Please let me know if there are questions or concerns regarding this plan of care. Physician Signature: Date:
--- NOTE | 2019-01-26 15:36 | HP.PTDCNRP_ITS ---
HP - Discharge Summary (1) - Patient Information ANTONIO HAGER was seen in my office for initial evaluation on 07/27/18. The following Plan of Care was established for this patient: Initial Frequency: 2x /Week Initial Duration: 8 weeks - Anticipated Interventions Patient/Client Instruction: Educate patient on: Condition, Plan of Care, Risk Factors, Benefits of Fitness Program For the Purpose of:: To foster healthy habits, To improve decision making, To facilitate caregiver knowledge, To improve self management, To prevent re- injury, To improve ability to perform tasks related to life management, To improve tolerance to ADL's Therapeutic Exercise to Include: Strength training, Power training, Endurance training, Balance training, Body mechanics, Postural training, Flexibilty training, Gait and locomotor training, Passive ROM, Active ROM, Dynamic Lumbar Stabilization For the Purpose of:: To increase ROM, To improve nutrient delivery to tissue, To increase oxygenation perfusion, To improve muscle performance and motor function, To improve ability to perform ADL's, To improve ability of physical actions for home/community/work/leisure, To improve gait and locomotor functions, To improve health of tissue, To decrease soft tissue restriction, To increase flexibility/ROM, To improve endurance, To improve balance, To improve safety with gait This patient was last seen in our office 09/06/18. Pertinent comments regarding their Physical therapy will appear below: Pt. was treated for his general debility and weakness with BLE strengthening progressing to functional strenght. Pt. has not been seen in several month and jeanine be DC from PT at this point in time. At this point I will be discontinuing this patient from physical therapy. I would be happy to see this patient again in the future if found appropriate by the physician. Thank you! Monty Gold, DARCYT
== END 2018-09-06 19:00 | disposition home or self-care (01) ==
LOC: PT 07:00
PROVIDERS: Family Provider Family Medicine; PCP Family Medicine; Visit Provider Family Medicine
DX: M62.81 Muscle weakness (generalized) (principal)
CPT/HCPCS: 97110; 97162

== ENCOUNTER → 2018-12-13 11:14 | Outpatient (CLI) | payer MEDICARE, SELFPAY ==
[2018-12-16 09:33] LABS: H. PYLORI STOOL AG Negative (Negative)
== END ==
PROVIDERS: Family Provider Family Medicine; PCP Family Medicine; Visit Provider Family Medicine
DX: K21.9 Gastro-esophageal reflux disease without esophagitis (principal)

== ENCOUNTER → 2019-03-21 10:09 | Outpatient (CLI) | payer MEDICARE, SELFPAY ==
--- NOTE | 2019-03-21 10:13 | RAD_ITS ---
STUDY: X-RAY CHEST REASON FOR EXAM: Male, 78 years old. SOB TECHNIQUE: Frontal and lateral views of the chest. COMPARISON: 07/07/2018 FINDINGS: Dual-chamber pacemaker on the left. Central vascular congestion. Bibasilar atelectasis. Right pleural effusion. Normal size heart. Normal mediastinum and gopal. Normal visualized pulmonary arteries. Normal visualized aortic arch and descending thoracic aorta. Normal visualized thoracic spine. Normal visualized ribs, clavicles, and shoulders. There is no demonstrated abnormality of the visualized soft tissue structures of the upper abdomen. RAD/Chest PA and Lateral IMPRESSION: Central vascular congestion. Bibasilar atelectasis. Right pleural effusion. Electronically Signed: Dennis Cervantes MD at 10:35 EDT Tel , Service support ,
[2019-03-21 12:50] LABS: ALB/GLOB Ratio 0.8 RATIO (0.9-2.4); AST(SGOT) 30 U/L (15-37); Alanine Aminotransfer ALT/SGPT 23 U/L (16-61); Alkaline Phosphatase 169 U/L (45-117); Anion Gap 6 (5-15); BUN 31 mg/dL (7-18); BUN/Creat Ratio 16.9 RATIO (10-20); Calcium,Total 8.5 mg/dL (8.5-10.1); Chloride 113 mmol/L (98-107); Creatinine, Serum 1.83 mg/dL (0.70-1.30); EST Glomerular Filtration Rate 38 mL/min (>60); Est Glom Filt Rate - Afr Amer 46 mL/min (>60); Globulin 3.7 g/dL (2.2-4.2); Glucose 79 mg/dL (74-106); Potassium 3.7 mmol/L (3.5-5.1); Protein, Total 6.7 g/dL (6.4-8.2); Sodium Level 142 mmol/L (136-145); Thyroid Stim Hormone (TSH) 5.82 uIU/mL (0.358-3.74)
[2019-03-21 12:51] LABS: BNP,B-Type NATRIURETIC PEPTIDE 1005.5 pg/mL (0-100)
[2019-03-21 13:08] LABS: Absolute Lymphocyte Count 1.21 X10^3/ul (0.83-4.51); Basophil# 0.05 X10^3/uL; Basophil% 0.7 % (0-1); Eosinophil# 0.15 X10^3/uL; Hematocrit 22.9 % (40-54); Lymphocyte # 1.21 X10^3/ul (4.0); Lymphocyte % 16.5 % (19-41); Mean Corp Hgb Conc 30.6 g/gl (32-36); Mean Corpuscular Hgb 22.2 pg (27.0-32.0); Mean Corpuscular Volume 72.7 fL (80-94); Mean Platelet Vol. 9.7 fl (6.2-12.0); Monocyte# 0.94 X10^3/uL; Monocyte% 12.8 % (0-10); Neutrophil # 4.98 X10^3/uL (2.7-7.7); Neutrophil % 67.7 % (47-70); Platelet Count 581 K/mm3 (150-450); RBC Distribution Width CV 17.4 % (11.6-14.6); RBC Distribution Width SD 46.4 fl (35.1-43.9); Red Blood Count 3.15 M/mm3 (4.6-6.2); White Blood Count 7.4 K/mm3 (4.4-11.0)
[2019-03-21 13:13] LABS: Differential Indicated SCAN CRITERIA MET; POSITIVE COUNT NO; POSITIVE DIFFERENTIAL NO; POSITIVE MORPHOLOGY YES
== END ==
PROVIDERS: Family Provider Family Medicine; PCP Family Medicine; Referring Provider Nurse Practitioner Adult Health; Visit Provider Nurse Practitioner Adult Health
DX: R06.02 Shortness of breath (principal); R53.83 Other fatigue
CPT/HCPCS: 36415; 71046; 80053; 83880; 84443; 85025

== ENCOUNTER 2019-03-21 11:32 | Inpatient (IN) | payer MEDICARE, SELFPAY ==
[2019-03-21] VITALS (14 sets, daily range): BP systolic 114–150; BP diastolic 54–75; PULSE 72–84; RESP 10–24; TEMP 36.4–36.8; O2SAT 97–99; BMI 22.6; BMI 22.3; BMI 22.7
--- NOTE | 2019-03-21 12:13 | ED.VISSUMM ---
- ER Visit Summary Date of Service: 03/21/19 Chief Complaint: Edema and weight gain History of Present Illness: The patient is a 78 M who presents with edema and weight gain that has been getting worse over the past 4 days. Patient states he has gained 11 pounds in the last 12 days. Patient states the swelling is worse in his legs, hands, and eyes. Patient states he does have some shortness of breath with exertion. Patient denies any chest pain. Patient admits to a cough but denies any sputum production. Patient denies any fevers or chills. Patient denies any nausea or vomiting. Patient had some labs and a chest x-ray drawn today at the primary care physician's office prior to being transferred to the emergency department. Physical Examination: Vital signs are stable. Patient is afebrile. Patient is in no acute distress. Oral mucosa is pink and moist. Neck is supple. Trachea is midline. There is no JVD noted. Heart was regular rate and rhythm. Lungs are clear and equal bilateral. Abdomen is soft. Bowel sounds are normal. There is no tenderness. There is no guarding noted. Skin is warm dry. Cranial nerves II through XII are intact. There are no focal motor or sensory deficits noted. There is 1+ pitting edema of the lower extremities bilaterally. The remaining physical exam is within normal limits. Test Results: CBC showed a hemoglobin of 7.0. Hematocrit was 22.9. Creatinine was 1.83. Liver function tests were normal. INR was 1.2. Urinalysis does not show any evidence of urinary tract infection. BNP was elevated at 1005. Chest x-ray showed central vascular congestion and a right pleural effusion. Emergency Department Course and Treatment: Patient was given a dose of Lasix here. Patient was typed and crossmatched for 1 unit of packed red blood cells. Patient will be transfused 1 unit. Case was discussed with the hospitalist. She will admit the patient to her service. Patient understood and was agreeable with the plan. All questions were answered. Disposition: Admit to hospital Impression: 1. New onset congestive heart failure 2. Anemia This note was generated with [employer] dictation software. It may contain incorrect words, spelling, and punctuation that were not noted in review of the chart prior to signing ED Disposition - Plan for ED Patient: Disposition: Acute Care Hospital [facility] Diagnosis: New onset of congestive heart failure, Acute anemia
--- NOTE | 2019-03-21 12:18 | ED.DCSUM_ITS ---
- ER Visit Summary Date of Service: 03/21/19 Chief Complaint: Edema and weight gain History of Present Illness: The patient is a 78 M who presents with edema and weight gain that has been getting worse over the past 4 days. Patient states he has gained 11 pounds in the last 12 days. Patient states the swelling is worse in his legs, hands, and eyes. Patient states he does have some shortness of breath with exertion. Patient denies any chest pain. Patient admits to a cough but denies any sputum production. Patient denies any fevers or chills. Patient denies any nausea or vomiting. Patient had some labs and a chest x-ray drawn today at the primary care physician's office prior to being transferred to the emergency department. Physical Examination: Vital signs are stable. Patient is afebrile. Patient is in no acute distress. Oral mucosa is pink and moist. Neck is supple. Trachea is midline. There is no JVD noted. Heart was regular rate and rhythm. Lungs are clear and equal bilateral. Abdomen is soft. Bowel sounds are normal. There is no tenderness. There is no guarding noted. Skin is warm dry. Cranial nerves II through XII are intact. There are no focal motor or sensory deficits noted. There is 1+ pitting edema of the lower extremities bilaterally. The remaining physical exam is within normal limits. Test Results: CBC showed a hemoglobin of 7.0. Hematocrit was 22.9. Creatinine was 1.83. Liver function tests were normal. INR was 1.2. Urinalysis does not show any evidence of urinary tract infection. BNP was elevated at 1005. Chest x-ray showed central vascular congestion and a right pleural effusion. Emergency Department Course and Treatment: Patient was given a dose of Lasix here. Patient was typed and crossmatched for 1 unit of packed red blood cells. Patient will be transfused 1 unit. Case was discussed with the hospitalist. She will admit the patient to her service. Patient understood and was agreeable with the plan. All questions were answered. Disposition: Admit to hospital Impression: 1. New onset congestive heart failure 2. Anemia This note was generated with [employer] dictation software. It may contain incorrect words, spelling, and punctuation that were not noted in review of the chart prior to signing ED Disposition - Plan for ED Patient: Disposition: Acute Care Hospital [facility] Diagnosis: New onset of congestive heart failure, Acute anemia
[2019-03-21 12:22] LABS: International Normalized Ratio 1.2; Prothrombin Time (Protime)PT. 14.6 SECONDS (11.7-14.9)
[2019-03-21 12:23] LABS: Partial Thromboplast Time 32.2 Seconds (24.1-36.2)
[2019-03-21 12:32] LABS: Bacteria 0 SEEN /hpf (None Seen); Mucous, Urine 0 SEEN /hpf (<or=2+); Red Blood Cells-Urine 0 SEEN /hpf (0-5); Squamous Epithelial Cells - UA 0 SEEN /hpf (0-5); White Blood Cells 0 SEEN /hpf (0-5)
[2019-03-21 12:34] LABS: Color, Urine Yellow (Yellow); Glucose, Dipstick Normal (Normal); Ketone-Dipstick Negative (Negative); Leukocyte Esterase-Dipstick Negative /ul (Negative); Nitrite-Dipstick Negative (Negative); Occult Blood-Urine Negative /ul (Negative); Protein-Dipstick 100 mg/dl (Negative); Specific Gravity, Urine 1.015 (1.002-1.030); Urine Bilirubin Dipstick Negative (Negative); Urine Clarity Clear (Clear); Urine Urobilinogen Normal (Normal)
--- NOTE | 2019-03-21 14:37 | PCM.HP.STD ---
Problem List (1) CHF exacerbation Status: Acute Qualifiers: Heart failure type: unspecified Qualified Code(s): I50.9 - Heart failure, unspecified (2) Acute anemia Status: Acute (3) Bradycardia Status: Chronic (4) PVD (peripheral vascular disease) Status: Chronic (5) Hypothyroidism Status: Chronic Qualifiers: Hypothyroidism type: unspecified Qualified Code(s): E03.9 - Hypothyroidism, unspecified (6) GERD (gastroesophageal reflux disease) Status: Chronic Qualifiers: Esophagitis presence: esophagitis presence not specified Qualified Code(s): K21.9 - Gastro-esophageal reflux disease without esophagitis History of Present Illness Date of Admission: 03/21/19 Chief Complaint: Dyspnea, cough, BL LE edema, 11 lb weight gain The patient is a 78 y/o M w/ PMHx: CKD stage III (baseline Cr 1.6-1.8), Sinus Bradycardia s/p pacemaker, BPH, Hypothyroidism, Chronic Anemia who presents to the [facility] ED on 03/21/19 following PCP evaluation with history of ongoing progressively worsening dyspnea with dry cough x ~ 2 weeks with now onset over the last 4 days of BL LE edema as well as swelling in his hands w/ 11 lb weight gain over the last near 2 weeks w/ outpatient evaluation per his PCP office [employer] which included CBC w/ WBC 7.4, Hgb 7, Plts 581 without marked left shift (baseline Hgb noted 08/08/2018 prior 12), CMP w/ chloride 113, BUN/Cr 31/1.83, alk phos 169, BNP 1005.5, TSH 5.82, CXR w/ central vascular congestion with bibasilar atelectasis and a right pleural effusion. He denies any orthopnea associated w/ recent presentation. He does become fatigued and perhaps mild dyspnea with notable effort. He does report c-scope and upper endoscopy in 09/[address] Hightower w/ poly x 3 removed on c-scope and noted esophagus irritation only, placed on PPI at that time. ED work-up included unremarkable coags, unremarkable UA, EKG w/ SR, s/p pacemaker status. In the ED patient administered lasix 40 mg IV x 1. Past Medical History Past Medical History (Chronic Problems): Chronic Problems (Last Updated 04/07/18 @ 11:54 by Oscar Junior NP-C) Bradycardia (Chronic) Dizziness (Chronic) PVD (peripheral vascular disease) (Chronic) Hypothyroidism (Chronic) GERD (gastroesophageal reflux disease) (Chronic) Medical History: Medical History (Last Updated 04/07/18 @ 11:54 by BRINA Abrams) Bradycardia (Chronic) R00.1 Dizziness (Chronic) R42 PVD (peripheral vascular disease) (Chronic) I73.9 Syncope and collapse (Acute) R55 Hypothyroidism (Chronic) E03.9 GERD (gastroesophageal reflux disease) (Chronic) K21.9 Chest pain (Acute) R07.9 Postural vertigo H81.10 lower extremity vein surgery Allergies No Known Allergies Allergy (Verified 03/21/19 11:34) Home Medications: Ambulatory Orders Medication Instructions Recorded Levothyroxine [Synthroid] 50 mcg PO DAILY 12/30/15 Saw Waterproof Fruit [Saw Waterproof] 450 mg PO DAILY 10/01/17 Fludrocortisone Acetate 0.1 mg PO DAILY 03/21/19 Methylphenidate HCl 20 mg PO DAILY 03/21/19 [Methylphenidate HCl ER] Methylphenidate HCl [Ritalin (G)] 5 mg PO TID 03/21/19 Multivit-Min/FA/Lycopen/Lutein 1 tab PO DAILY 03/21/19 [Centrum Silver Men Tablet] Pantoprazole Sodium [Protonix] 40 mg PO DAILY 03/21/19 Surgical History: Surgical History (Last Reviewed 04/07/18 @ 09:34 by Monse Sofia) H/O cataract removal with insertion of prosthetic lens Z98.49, Z96.1 History of hydrocelectomy Z98.890 Surgical History: - - Cataract removal with insertion of prosthetic lens, pacemaker placement 06/2018 at [facility], left leg vein stripping, right hydrocele intervention. Psychiatric History: No pertinent psych hx Lives: Spouse/ Significant Other Smoking Status: Never smoker Tobacco Use: Non-smoker Alcohol: None Drugs: None - *Family History Maternal Family History: Family History (Last Reviewed 04/07/18 @ 09:34 by Monse Sofia) Brother CAD (coronary artery disease) History Items: Pulmonary Disease - Patient notes his mother with severe COPD, emphysema secondary to heavy tobacco use history. Paternal Family History: Family History (Last Reviewed 04/07/18 @ 09:34 by Monse Sofia) Brother CAD (coronary artery disease) History Items: - - Patient notes that his father was very healthy with no history of heart disease, diabetes or cancer. Review of Systems Constitutional: Reports: Malaise, Weakness, Fatigue. Denies: Chills, Fever, Weight Change HEENT: Denies: Head Aches, Sinus Drainage Cardiovascular: Reports: Edema, Light Headedness. Denies: Chest Pain, Chest Pressure, Chest Tightness, Heaviness, Orthopnea, Palpitations, Syncope Respiratory: Reports: Cough, Shortness of breath upon exertion. Denies: Shortness of breath at rest, Sputum production Gastrointestinal: Denies: Abdominal Pain, Nausea, Vomiting Genitourinary: Denies: Dysuria Musculoskeletal: Reports: Joint Pain. Denies: Joint Tenderness Skin: Reports: Skin Changes. Denies: Rash, Wounds Neurological: Denies: Numbness, Tingling, Focal weakness Psychiatric: Denies: Anxiety, Depression, Homicidal Ideations, Suicidal Ideations Hematologic/ Lymphatic: Reports: Anemia, Easy Bruising, Easy Bleeding VTE Information - Inpt Only VTE Present on Admission: No VTE Mechan Device Prophylaxis: SCD's VTE Pharm Prophylaxis ordered?: No Reason prophylaxis not ordered:: Medical Contraindication Patient Problems: Active and Suspected Problems (Last Updated 04/07/18 @ 11:54 by Oscar Junior [employer]PERATOR-C) CHF exacerbation (Acute) Acute anemia (Acute) Subjective: Seated upright in the ED bed, no acute distress, fatigued appearance, pale appearing. Objective: Physical Examination: General: awake, alert, oriented x 3 and cooperative, seated upright in the ED bed in no apparent distress, pale appearance. Skin: pale color, turgor, no icterus, cyanosis, LLE venous stasis skin changes, s/p ? vein stripping. HEENT: AT/NC, EOMI, PERRLA, mildly dry MM, no carotid bruits, mild JVD noted. Lungs: CTA bilaterally, moderate effort, moderate decrease BL bases, R>L, minimal R>L base rales, no ronchi or wheezing. Heart: Regular rate and rhythm; no gallop, rub audible. Abdomen: soft, NTTP, ND, normal BS, no HSM. Extremities: no cyanosis, clubbing, BL LE 2+ pitting pedal edema to proximal dugan BL. Neurological: patient awake, alert, oriented x 3; cognitive function intact; pupils equally reactive to light and accomodation; cranial nerves II-XII grossly normal, moving all 4 extremities, no focal deficits, strength moderately to severely globally decreased secondary to acute presentation. Psychiatric: affect appears fatigued, no acute evidence of depressive or anxiety feelings. - Physical Exam Vital Signs Temp Pulse Resp BP Pulse Ox 98.1 F 77 10 L 136/59 H 98 03/21/19 11:33 03/21/19 11:52 03/21/19 11:52 03/21/19 11:52 03/21/19 14:01 Oxygen Delivery Method Room Air Weight: 171 lb 11.841 oz Body Mass Index (BMI) 22.6 Laboratory Tests Past 24 Hrs 03/21/19 03/21/19 11:52 12:28 PT 14.6 INR 1.2 APTT 32.2 Urine Color Yellow Urine Clarity Clear Urine pH 5.0 Ur Specific [place] 1.015 Urine Protein 100 H Urine Glucose (UA) Normal Urine Ketones Negative Urine Occult Blood Negative Urine Nitrite Negative Urine Bilirubin Negative Urine Urobilinogen Normal Ur Leukocyte Esterase Negative Urine RBC 0 SEEN Urine WBC 0 SEEN Ur Squamous Epith Cells 0 SEEN Urine Bacteria 0 SEEN Urine Mucus 0 SEEN Assessment/Plan All Active Problems (Last Updated 04/07/18 @ 11:54 by Oscar Junior, [employer]PERATOR-C) CHF exacerbation (Acute) Acute anemia (Acute) Syncope and collapse (Acute) Chest pain (Acute) The patient is a 78 y/o M w/ PMHx: CKD stage III, Sinus Bradycardia s/p pacemaker, BPH, Hypothyroidism, Chronic Anemia who presents to the [facility] ED on 03/21/19 following PCP evaluation with history of ongoing progressively worsening dyspnea with dry cough x ~ 2 weeks with now onset over the last 4 days of BL LE edema as well as swelling in his hands w/ 11 lb weight gain over the last near 2 weeks. (1) Acute Decompensated CHF, Unclear Type: PCP [employer] evaluation included CBC w/ WBC 7.4, Hgb 7, Plts 581 without marked left shift (baseline Hgb noted 08/08/2018 prior 12), CMP w/ chloride 113, BUN/Cr 31/1.83, alk phos 169, BNP 1005.5, TSH 5.82, CXR w/ central vascular congestion with bibasilar atelectasis and a right pleural effusion. Patient administered IV lasix in the ED, will admit to PCU, maintain on cardiac telemetry obtain cardiac enzyme series, obtain serial EKGs, continue IV lasix diuresis, monitor I/Os, maintain on intake restriction, continue medical therapy w/ IV lasix as noted, consideration BB following improvement, FLP in AM w/ statin addition moderate dose given age. Holding ASA pending stool guiac given acute on chronic anemia, microcytic, unclear etiology. Will obtain TSH and magnesium level. Most recent ECHO > 6 months, will repeat. Patient following w/ Dr. Nielson, will request consultation given change in status. (2) Acute on Chronic Anemia, Microcytic: Patient w/ no history of hematemesis, hematochezia, melenotic stools w/ admission Hgb 7, prior baseline noted 2018 10. Pending T+C 1 u per ED. Will obtain serial H+H q 6 hours, will maintain on IV PPI. Will allow clears now and NPO after midnight w/ General surgery consultation requested. Patient s/p self reported c-scope and upper endoscopy 09/2018 with as noted polyps and irritation. (3) Hx Sinus Bradycardia, Symptomatic: s/p pacemaker, noted history prior of syncope events associated, chronic lightheadedness, dizziness he notes, maintained on fludrocortisone. (4) Chronic Kidney Disease Stage III: Admission BUN/Cr 31/1.83, baseline renal function 1.5-1.8, stable, repeat BMP in AM. (5) Hypothyroidism w/ elevated TSH: Recent outpatient TSH 5.82, will obtain FT4 level. (6) ? Somnolence: Not clear, placed on methylphenidate he notes secondary to marked fatigue, will continue, although given presentation may be secondary to worsening anemia. (7) GERD: PPI IV as noted. (8) DVT Prophylaxis: SCDs, defer chemoprophylaxis given acute anemia. Code Visit Inpatient E&M: 75814 Init Hosp L3
--- NOTE | 2019-03-21 14:56 | HP.PCM_ITS ---
Problem List (1) CHF exacerbation Status: Acute Qualifiers: Heart failure type: unspecified Qualified Code(s): I50.9 - Heart failure, unspecified (2) Acute anemia Status: Acute (3) Bradycardia Status: Chronic (4) PVD (peripheral vascular disease) Status: Chronic (5) Hypothyroidism Status: Chronic Qualifiers: Hypothyroidism type: unspecified Qualified Code(s): E03.9 - Hypothyroidism, unspecified (6) GERD (gastroesophageal reflux disease) Status: Chronic Qualifiers: Esophagitis presence: esophagitis presence not specified Qualified Code(s): K21.9 - Gastro-esophageal reflux disease without esophagitis History of Present Illness Date of Admission: 03/21/19 Chief Complaint: Dyspnea, cough, BL LE edema, 11 lb weight gain The patient is a 78 y/o M w/ PMHx: CKD stage III (baseline Cr 1.6-1.8), Sinus Bradycardia s/p pacemaker, BPH, Hypothyroidism, Chronic Anemia who presents to the [facility] ED on 03/21/19 following PCP evaluation with history of ongoing progressively worsening dyspnea with dry cough x ~ 2 weeks with now onset over the last 4 days of BL LE edema as well as swelling in his hands w/ 11 lb weight gain over the last near 2 weeks w/ outpatient evaluation per his PCP office [facility] [employer] which included CBC w/ WBC 7.4, Hgb 7, Plts 581 without marked left shift (baseline Hgb noted 08/08/2018 prior 12), CMP w/ chloride 113, BUN/Cr 31/1.83, alk phos 169, BNP 1005.5, TSH 5.82, CXR w/ central vascular congestion with bibasilar atelectasis and a right pleural effusion. He denies any orthopnea associated w/ recent presentation. He does become fatigued and perhaps mild dyspnea with notable effort. He does report c-scope and upper endoscopy in 09/[address] Hightower w/ poly x 3 removed on c-scope and noted esophagus irritation only, placed on PPI at that time. ED work-up included unremarkable coags, unremarkable UA, EKG w/ SR, s/p pacemaker status. In the ED patient adm inistered lasix 40 mg IV x 1. Past Medical History Past Medical History (Chronic Problems): Chronic Problems (Last Updated 04/07/18 @ 11:54 by Oscar Junior NP-C) Bradycardia (Chronic) Dizziness (Chronic) PVD (peripheral vascular disease) (Chronic) Hypothyroidism (Chronic) GERD (gastroesophageal reflux disease) (Chronic) Medical History: Medical History (Last Updated 04/07/18 @ 11:54 by BRINA Abrams) Bradycardia (Chronic) R00.1 Dizziness (Chronic) R42 PVD (peripheral vascular disease) (Chronic) I73.9 Syncope and collapse (Acute) R55 Hypothyroidism (Chronic) E03.9 GERD (gastroesophageal reflux disease) (Chronic) K21.9 Chest pain (Acute) R07.9 Postural vertigo H81.10 lower extremity vein surgery Allergies No Known Allergies Allergy (Verified 03/21/19 11:34) Home Medications: Ambulatory Orders Medication Instructions Recorded Levothyroxine [Synthroid] 50 mcg PO DAILY 12/30/15 Saw [place] Fruit [Saw [place]] 450 mg PO DAILY 10/01/17 Fludrocortisone Acetate 0.1 mg PO DAILY 03/21/19 Methylphenidate HCl 20 mg PO DAILY 03/21/19 [Methylphenidate HCl ER] Methylphenidate HCl [Ritalin (G)] 5 mg PO TID 03/21/19 Multivit-Min/FA/Lycopen/Lutein 1 tab PO DAILY 03/21/19 [Centrum Silver Men Tablet] Pantoprazole Sodium [Protonix] 40 mg PO DAILY 03/21/19 Surgical History: Surgical History (Last Reviewed 04/07/18 @ 09:34 by Monse Sofia) H/O cataract removal with insertion of prosthetic lens Z98.49, Z96.1 History of hydrocelectomy Z98.890 Surgical History: - - Cataract removal with insertion of prosthetic lens, pacema ker placement 06/2018 at [facility], left leg vein stripping, right hydrocele intervention. Psychiatric History: No pertinent psych hx Lives: Spouse/ Significant Other Smoking Status: Never smoker Tobacco Use: Non-smoker Alcohol: None Drugs: None - *Family History Maternal Family History: Family History (Last Reviewed 04/07/18 @ 09:34 by Monse Sofia) Brother CAD (coronary artery disease) History Items: Pulmonary Disease - Patient notes his mother with severe COPD, emphysema secondary to heavy tobacco use history. Paternal Family History: Family History (Last Reviewed 04/07/18 @ 09:34 by Monse Sofia) Brother CAD (coronary artery disease) History Items: - - Patient notes that his father was very healthy with no history of heart disease, diabetes or cancer. Review of Systems Constitutional: Reports: Malaise, Weakness, Fatigue. Denies: Chills, Fever, Weight Change HEENT: Denies: Head Aches, Sinus Drainage Cardiovascular: Reports: Edema, Light Headedness. Denies: Chest Pain, Chest Pressure, Chest Tightness, Heaviness, Orthopnea, Palpitations, Syncope Respiratory: Reports: Cough, Shortness of breath upon exertion. Denies: Shortness of breath at rest, Sputum production Gastrointestinal: Denies: Abdominal Pain, Nausea, Vomiting Genitourinary: Denies: Dysuria Musculoskeletal: Reports: Joint Pain. Denies: Joint Tenderness Skin: Reports: Skin Changes. Denies: Rash, Wounds Neurological: Denies: Numbness, Tingling, Focal weakness Psychiatric: Denies: Anxiety, Depression, Homicidal Ideations, Suicidal Ideations Hematologic/ Lymphatic: Reports: Anemia, Easy Bruising, Easy Bleeding VTE Information - Inpt Only VTE Present on Admission: No VTE Mechan Device Prophylaxis: SCD's VTE Pharm Prophylaxis ordered?: No Reason prophylaxis not ordered:: Medical Contraindication Patient Problems: Active and Suspected Problems (Last Updated 04/07/18 @ 11:54 by Oscar Junior, [employer]- C) CHF exacerbation (Acute) Acute anemia (Acute) Subjective: Seated upright in the ED bed, no acute distress, fatigued appearance, pale appearing. Objective: Physical Examination: General: awake, alert, oriented x 3 and cooperative, seated upright in the ED bed in no apparent distress, pale appearance. Skin: pale color, turgor, no icterus, cyanosis, LLE venous stasis skin changes, s/p ? vein stripping. HEENT: AT/NC, EOMI, PERRLA, mildly dry MM, no carotid bruits, mild JVD noted. Lungs: CTA bilaterally, moderate effort, moderate decrease BL bases, R>L, minimal R>L base rales, no ronchi or wheezing. Heart: Regular rate and rhythm; no gallop, rub audible. Abdomen: soft, NTTP, ND, normal BS, no HSM. Extremities: no cyanosis, clubbing, BL LE 2+ pitting pedal edema to proximal dugan BL. Neurological: patient awake, alert, oriented x 3; cognitive function intact; pupils equally reactive to light and accomodation; cranial nerves II-XII grossly normal, moving all 4 extremities, no focal deficits, strength moderately to severely globally decreased secondary to acute presentation. Psychiatric: affect appears fatigued, no acute evidence of depressive or anxiety feelings. - Physical Exam Vital Signs Temp Pulse Resp BP Pulse Ox 98.1 F 77 10 L 136/59 H 98 03/21/19 11:33 03/21/19 11:52 03/21/19 11:52 03/21/19 11:52 03/21/19 14:01 Oxygen Delivery Method Room Air Weight: 171 lb 11.841 oz Body Mass Index (BMI) 22.6 Laboratory Tests Past 24 Hrs 03/21/19 03/21/19 11:52 12:28 PT 14.6 INR 1.2 APTT 32.2 Urine Color Yellow Urine Clarity Clear Urine pH 5.0 Ur Specific [place] 1.015 Urine Protein 100 H Urine Glucose (UA) Normal Urine Ketones Negative Urine Occult Blood Negative Urine Nitrite Negative Urine Bilirubin Negative Urine Urobilinogen Normal Ur Leukocyte Esterase Negative Urine RBC 0 SEEN Urine WBC 0 SEEN Ur Squamous Epith Cells 0 SEEN Urine Bacteria 0 SEEN Urine Mucus 0 SEEN Assessment/Plan All Active Problems (Last Updated 04/07/18 @ 11:54 by Oscar Junior, BELEN-C) CHF exacerbation (Acute) Acute anemia (Acute) Syncope and collapse (Acute) Chest pain (Acute) The patient is a 78 y/o M w/ PMHx: CKD stage III, Sinus Bradycardia s/p pacemaker, BPH, Hypothyroidism, Chronic Anemia who presents to the [facility] ED on 03/21/19 following PCP evaluation with history of ongoing progressively worsening dyspnea with dry cough x ~ 2 weeks with now onset over the last 4 days of BL LE edema as well as swelling in his hands w/ 11 lb weight gain over the last near 2 weeks. (1) Acute Decompensated CHF, Unclear Type: PCP [employer] [employer] evaluation included CBC w/ WBC 7.4, Hgb 7, Plts 581 without marked left shift (baseline Hgb noted 08/08/2018 prior 12), CMP w/ chloride 113, BUN/Cr 31/1.83, alk phos 169, BNP 1005.5, TSH 5.82, CXR w/ central vascular congestion with bibasilar atelectasis and a right pleural effusion. Patient administered IV lasix in the ED, will admit to PCU, maintain on cardiac telemetry obtain cardiac enzyme series, obtain serial EKGs, continue IV lasix diuresis, monitor I/Os, maintain on intake restriction, continue medical therapy w/ IV lasix as noted, consideration BB following improvement, FLP in AM w/ statin addition moderate dose given age. Holding ASA pending stool guiac given acute on chronic anemia, microcytic, unclear etiology. Will obtain TSH and magnesium level. Most recent ECHO > 6 months, will repeat. Patient following w/ Dr. Nielson, will request consultation given change in status. (2) Acute on Chronic Anemia, Microcytic: Patient w/ no history of hematemesis, hematochezia, melenotic stools w/ admission Hgb 7, prior baseline noted 2018 10. Pending T+C 1 u per ED. Will obtain serial H+H q 6 hours, will maintain on IV PPI. Will allow clears now and NPO after midnight w/ General surgery consultation requested. Patient s/p self reported c-scope and upper endoscopy 09/2018 with as noted polyps and irritation. (3) Hx Sinus Bradycardia, Symptomatic: s/p pacemaker, noted history prior of syncope events associated, chronic lightheadedness, dizziness he notes, maintained on fludrocortisone. (4) Chronic Kidney Disease Stage III: Admission BUN/Cr 31/1.83, baseline renal function 1.5-1.8, stable, repeat BMP in AM. (5) Hypothyroidism w/ elevated TSH: Recent outpatient TSH 5.82, will obtain FT4 level. (6) ? Somnolence: Not clear, placed on methylphenidate he notes secondary to marked fatigue, will continue, although given presentation may be secondary to worsening anemia. (7) GERD: PPI IV as noted. (8) DVT Prophylaxis: SCDs, defer chemoprophylaxis given acute anemia. Code Visit Inpatient E&M: 80112 Init Hosp L3
--- NOTE | 2019-03-21 14:58 | EKG12_ITS ---
Test Reason : Blood Pressure : / mmHG Vent. Rate : 070 BPM Atrial Rate : 070 BPM P-R Int : 218 ms QRS Dur : 108 ms QT Int : 448 ms P-R-T Axes : 048 119 068 degrees QTc Int : 483 ms Suspect unspecified pacemaker failure Sinus rhythm with 1st degree A-V block with frequent Premature ventricular complexes Right axis deviation Anterior infarct , age undetermined Abnormal ECG Confirmed by NIGEL STEELE ([id number]), editor & co founder TIFFANIE PALMER ([id number]) on 03/23/2019 10:55:28 AM Referred By: ARLETH Confirmed By:NIGEL STEELE
[2019-03-21] MEDS: Furosemide 40 MG/4 ML Vial IV ×2 (15:05→22:33)
--- NOTE | 2019-03-21 15:18 | CASEMGMT ---
RN CM Assessment Introduced role of RN CM to patient and at bedside.? Patient is alert, oriented and able?to participate in RN CM Assessment. ?Care providers, pharmacy, and demographics verified. Presentation: Edema, Weight Gain-11Lbs in the last 12 days, SOB with exertion Admit Dx: CHF, Acute Anemia Re-Admit: No Barriers/Issues: None PCP: Dick Chan Specialists: Neuro- Dr Oseguera, Cardio- Dr Ball Preferred Pharmacy: [facility] Insurance: [employer] [facility] Rx Benefit:?Yes LNOK: Yari Mendez LW/HPOA: Yes, HPOA- Yari Mendez Living Arrangements:? Lives with in a SS home, 3 steps to enter ADL?s: Independent with ambulation but uses a Cane As needed, Independent with ADL's Transportation: [employer] and will upon DC DME: Cane, [employer]. has a Shower Chair that patient was Discussing on plan to use d/t Dizziness. HHC: None SNF: None Goal: Home DC PLAN: Home with no anticipated needs identified at this time. Dulce Bentley RNCM
--- NOTE | 2019-03-21 16:04 | ECHOD_ITS ---
Reason For Study: CHF Left Ventricle Moderately dilated left ventricle. The estimated ejection fraction is 55 %. Septal motion consistent with IVCD. There is mild global hypokinesis of the left ventricle. Right Ventricle Normal size and thickness. Normal systolic function. Atria The left atrium is moderately enlarged. Normal right atrium. Prominent eustachian valve. Normal atrial septum. Mitral Valve The mitral valve is structurally normal. No prolapse or stenosis seen. Trivial mitral valve insufficiency. Tricuspid Valve Normal tricuspid valve. Trivial tricuspid valve insufficiency. Right ventricular systolic pressure estimated to be 27 mmHg. Aortic Valve Trisinus/trileaflet aortic valve. Mild diffuse aortic valve thickening. Mild (1+) aortic valve insufficiency. Pulmonic Valve Normal pulmonic valve. Great Vessels Normal aortic root. Normal arch. Normal inferior vena cava. Inferior vena cava collapse with sniff. Pericardium/Pleural No pericardial effusion. Small left pleural effusion. MMode/2D Measurements & Calculations LVIDd: 5.8 cm IVSd: 1.4 cm Ao root diam: 3.4 cm LVIDs: 4.1 cm LVPWd: 1.4 cm RVDd: 3.4 cm FS: 28.6 % LAV(MOD-bp): 77.5 ml LVAd ap4: 36.6 cm2 SV(MOD-sp4): 68.8 ml LAV(MOD-bp) Indexed: 39.4 ml/m2 EDV(MOD-sp4): 132.5 ml LAV(MOD-sp2): 89.3 ml EDV(sp4-el): 136.8 ml LAV(MOD-sp4): 64.8 ml LVAs ap4: 23.6 cm2 ESV(MOD-sp4): 63.6 ml ESV(sp4-el): 63.5 ml EF(MOD-sp4): 52.0 % EF(sp4-el): 53.6 % SV(sp4-el): 73.3 ml LA dimension(2D): 4.5 cm LA A4 area: 21.6 cm2 RA A4 area: 17.1 cm2 Doppler Measurements & Calculations MV E max rian: 95.1 cm/sec Lat Peak E' Rian: 7.7 cm/sec Med Peak E' Rian: 3.6 cm/sec MV A max rian: 83.8 cm/sec E/E' lat: 12.3 E/E' med: 26.3 MV E/A: 1.1 Ao V2 max: 177.8 cm/sec AI max rian: 387.6 cm/sec LV V1 max: 104.2 cm/sec Ao max P.6 mmHg AI max P.3 mmHg LV V1 max P.3 mmHg Ao V2 mean: 124.2 cm/sec Ao mean P.7 mmHg AI dec slope: 219.6 cm/sec2 Ao V2 VTI: 38.4 cm AI P1/2t: 517.0 msec PA V2 max: 116.3 cm/sec TR max rian: 236.5 cm/sec TR max P.4 mmHg Interpretation Summary The estimated ejection fraction is 55 %. There is mild global hypokinesis of the left ventricle. The left atrium is moderately enlarged. Trivial mitral valve insufficiency. Trivial tricuspid valve insufficiency. Right ventricular systolic pressure estimated to be 27 mmHg. Small left pleural effusion. Compared to echo report dated 11/24/2017, no appreciable changes noted. Ordering Physician: Maria Luisa Tenorio Referring Physician: Dick Chan Performed By: Zuly Junior, CHATA, RVT
--- NOTE | 2019-03-21 16:26 | CHAPLAIN ---
Type of Pastoral Visit _x__ Initial Visit ___ Follow-up Visit ___ On-call Visit ___ General Patient Visit ___ Spiritual Assessment ___ Family Conference ___ Bereavement ___ Rapid Response ___ Code Blue ___ Other (describe below) Pastoral Care Referral From ___ Patient _x__ Family ___ Nurse ___ Physician ___ Flaring Machine Operator ___ Information Assurance Manager ___ Other (describe below) Sacrament/Intervention _x__ Active listening ___ Anointing ___ Islam ___ Bereavement ___ Communion ___ Leela exploration ___ ___ Life review _x__ Prayer ___ Reconciliation ___ Sacrament of Sick _x__ Supportive presence ___ Wedding ___ Other (describe below) Pastoral Comments spouse asked for ceramic mold designer to contact their sabianist about admission; contact made; prayer and presence given upon admission with offer of follow up as needed
--- NOTE | 2019-03-21 16:47 | CON.PCM_ITS ---
Problem List (1) CHF exacerbation Status: Acute Qualifiers: Heart failure type: unspecified Qualified Code(s): I50.9 - Heart failure, unspecified (2) Acute anemia Status: Acute Reason for Consult Date of Consultation: 03/21/19 Reason for Consultation: Acute anemia History of Present Illness: The patient is a 78 year old M who presents with a several week history of lightheadedness and swelling of the bilateral lower legs. Patient noted swelling of his hands and face 4 days ago. He was evaluated by his PCP today where he ob tained lab work showing a hemoglobin of 7. Patient was referred to the ED. He notes having a pacemaker. His office services associate is out of [facility]. He denies previous history of CHF or anemia. Patient notes he last had a colonoscopy in 09/2018, where Dr. Hightower removed 3 polyps with benign pathology. PAtient also had an EGD in 11/15 which demonstrated Rossi's esophagus and moderate gastritis. Pathology was positive for H. Pylori. Patient noted he was treated for this. Patient denies recent change in bowel habits. He notes having rabbit pellet stools his whole life. He notes taking Linzess without any difference in stool. Patient denies melena, bright red blood per rectum. He notes LUQ discomfort which has been ongoing for 1 year. He notes intermittent, sharp at times. He is unsure of any aggravating factors. Past Medical History Past Medical History (Chronic Problems): Chronic Problems (Last Reviewed 03/21/19 @ 16:50 by Jenny Manzano PA-C) Bradycardia (Chronic) Dizziness (Chronic) PVD (peripheral vascular disease) (Chronic) Hypothyroidism (Chronic) GERD (gastroesophageal reflux disease) (Chronic) Medical History: Medical History (Last Reviewed 03/21/19 @ 16:50 by Jenny Manzano PA-C) Bradycardia (Chronic) R00.1 Dizziness (Chronic) R42 PVD (peripheral vascular disease) (Chronic) I73.9 Syncope and collapse (Acute) R55 Hypothyroidism (Chronic) E03.9 GERD (gastroesophageal reflux disease) (Chronic) K21.9 Chest pain (Acute) R07.9 Postural vertigo H81.10 lower extremity vein surgery Allergies No Known Allergies Allergy (Verified 03/21/19 11:34) Home Medications: Ambulatory Orders Medication Instructions Recorded Levothyroxine [Synthroid] 50 mcg PO DAILY 12/30/15 Saw [place] Fruit [Saw [place]] 450 mg PO DAILY 10/01/17 Fludrocortisone Acetate 0.1 mg PO DAILY 03/21/19 Methylphenidate HCl 20 mg PO DAILY 03/21/19 [Methylphenidate HCl ER] Methylphenidate HCl [Ritalin (G)] 5 mg PO TID 03/21/19 Multivit-Min/FA/Lycopen/Lutein 1 tab PO DAILY 03/21/19 [Centrum Silver Men Tablet] Pantoprazole Sodium [Protonix] 40 mg PO DAILY 03/21/19 Surgical History: Surgical History (Last Reviewed 03/21/19 @ 16:50 by Jenny Manzano PA-C) H/O cataract removal with insertion of prosthetic lens Z98.49, Z96.1 History of hydrocelectomy Z98.890 Surgical History: - - Cataract removal with insertion of prosthetic lens, pacemaker placement 06/2018 at [facility], left leg vein stripping, right hydrocele intervention. Psychiatric History: No pertinent psych hx Lives: Spouse/ Significant Other Smoking Status: Never smoker Tobacco Use: Non-smoker Alcohol: None Drugs: None - *Family History Maternal Family History: Family History (Last Reviewed 03/21/19 @ 16:50 by Jenny Manzano PA-C) Brother CAD (coronary artery disease) History Items: Pulmonary Disease - Patient notes his mother with severe COPD, emphysema secondary to heavy tobacco use history. Paternal Family History: Family History (Last Reviewed 03/21/19 @ 16:50 by Jenny Manzano PA-C) Brother CAD (coronary artery disease) History Items: - - Patient notes that his father was very healthy with no history of heart disease, diabetes or cancer. Review of Systems Constitutional: Reports: Malaise, Weakness, Fatigue HEENT: Denies: Head Aches, Sinus Congestion, Sinus Drainage Cardiovascular: Denies: Chest Pain, Palpitations Respiratory: Reports: Shortness of Breath Gastrointestinal: Reports: Abdominal Pain, Constipation Genitourinary: Denies: Dysuria Musculoskeletal: Denies: Joint Pain, Joint Tenderness Skin: Denies: Rash, Wounds Neurological: Denies: Numbness, Tingling, Focal weakness Psychiatric: Denies: Anxiety, Depression, Homicidal Ideations, Suicidal Ideations Hematologic/ Lymphatic: Reports: Anemia. Denies: Easy Bruising, Easy Bleeding Patient Problems: Active and Suspected Problems (Last Reviewed 03/21/19 @ 16:50 by Jenny Manzano PA-C) CHF exacerbation (Acute) Acute anemia (Acute) - Physical Exam General: Alert, Oriented x3, Cooperative HEENT: Atraumatic, PERRLA, EOMI, Normocephalic Neck: Supple, No JVD, Negative Carotid Bruits Lungs: Clear to auscultation, Normal air movement Cardiovascular: Regular rate, No murmurs Abdomen: Bowel Sounds Present, Soft, Tender - LUQ Extremities: Capillary Refill Less than 3 Seconds, No Calf Tenderness, Edema Skin: No rashes, No breakdown Musculoskeletal: No Tenderness to Palpation of Joints or Extremities Neurological: Neuro grossly intact Psych/Mental Status: Normal Affect, Appropriate Vital Signs Temp Pulse Resp BP Pulse Ox 97.5 F L 84 16 124/54 H 99 03/21/19 16:12 03/21/19 16:12 03/21/19 16:12 03/21/19 16:14 03/21/19 16:12 Oxygen Delivery Method Room Air Weight: 168 lb 6.931 oz Body Mass Index (BMI) 22.3 Microbiology Past 72 Hours 03/21/19 15:00 Stool Occult Blood (FAITH) - Final Stool Laboratory Tests Past 24 Hrs 03/21/19 03/21/19 03/21/19 11:52 11:52 12:28 PT 14.6 INR 1.2 APTT 32.2 Magnesium Pending Free T4 Pending Urine Color Yellow Urine Clarity Clear Urine pH 5.0 Ur Specific [place] 1.015 Urine Protein 100 H Urine Glucose (UA) Normal Urine Ketones Negative Urine Occult Blood Negative Urine Nitrite Negative Urine Bilirubin Negative Urine Urobilinogen Normal Ur Leukocyte Esterase Negative Urine RBC 0 SEEN Urine WBC 0 SEEN Ur Squamous Epith Cells 0 SEEN Urine Bacteria 0 SEEN Urine Mucus 0 SEEN Blood Type Antibody Screen Crossmatch 03/21/19 03/21/19 15:15 15:15 PT INR APTT Magnesium Free T4 Urine Color Urine Clarity Urine pH Ur Specific [place] Urine Protein Urine Glucose (UA) Urine Ketones Urine Occult Blood Urine Nitrite Urine Bilirubin Urine Urobilinogen Ur Leukocyte Esterase Urine RBC Urine WBC Ur Squamous Epith Cells Urine Bacteria Urine Mucus Blood Type Pending Antibody Screen Pending Crossmatch See Detail Assessment/Plan All Active Problems (Last Reviewed 03/21/19 @ 16:50 by Jenny Manzano PA-C) CHF exacerbation (Acute) Acute anemia (Acute) Syncope and collapse (Acute) Chest pain (Acute) I have been consulted in conjunction with Dr. Padilla Impression: Acute anemia Plan: Patient was discussed with Dr. Padilla. Dr. Padilla will plan to perform an EGD with possible biopsies. Procedure details, risks and benefits have been explained to the patient. Patient and his have had the opportunity to ask and have questions answered. Patient verbally understands and agrees to proceed with the proposed procedure. Thank you for allowing us to participate in this patient's care. Code Visit Office Visits / Consults: [id number] IP Consult L3
[2019-03-21 16:50] LABS: Magnesium 2.5 mg/dL (1.6-2.6)
[2019-03-21 17:27] LABS: Hematocrit 22.3 % (40-54); Hemoglobin 6.9 g/dl (13.0-16.5)
--- NOTE | 2019-03-21 17:45 | PCM.CONS.C ---
Problem List (1) New onset of congestive heart failure Status: Acute (2) Bradycardia Status: Chronic (3) PAF (paroxysmal atrial fibrillation) Status: Chronic (4) Cardiac pacemaker Status: Chronic (5) GERD (gastroesophageal reflux disease) Status: Chronic Qualifiers: Esophagitis presence: esophagitis presence not specified Qualified Code(s): K21.9 - Gastro-esophageal reflux disease without esophagitis (6) Acute anemia Status: Acute Reason for Consult Date of Consultation: 03/21/19 History of Present Illness: The patient is a 78 year old white male with a past cardiovascular history based on previous outpatient ambulatory monitor reports demonstrates underlying sinus bradycardia, junctional rhythm, paroxysmal atrial fibrillation, and prolonged pauses greater than 4 seconds, status post permanent pacemaker placement placed at [facility] in [place], [place], who was referred for evaluation of concerns of new onset CHF in the setting of a history of GERD and the appearance of marked anemia. The patient notes he has been more tired and fatigued. He also notes that his appetite is been off. He states he eats but he gets full quickly thus he cannot continue eating. He notes that over the last 4 days he has noted edema which he believes involves his upper and lower extremities. There is been no ongoing chest discomfort. He has not noted any significant change in his respiratory status. There is been no near syncope or syncope. He denies any obvious gastrointestinal bleeding with respect to hematemesis hematochezia or melena. He states that he was evaluated by his senior water/wastewater engineer in [place], [place] in January of this year for his routine pacemaker interrogation. He notes was functioning appropriately at the time. He does not recall any other cardiovascular testing being performed. He has been evaluated laboratory studies. He has had a hemoglobin level reported at 6.9. A troponin I level was reported at 0.072. His ECG demonstrated what appeared to be an underlying pattern compatible with electronic ventricular paced rhythm with occasional PVCs and a rightward axis and low voltage QRS in the limb leads-however, based upon low amplitude pacemaker spikes an underlying sinus rhythm with a pattern compatible with an anterior [place] of indeterminate age cannot be excluded. He has been treated medically. He has received IV furosemide/Lasix. [] Past Medical History Allergies/Adverse Reactions: Allergies No Known Allergies Allergy (Verified 03/21/19 11:34) Home Medications: Ambulatory Orders Medication Instructions Recorded Levothyroxine [Synthroid] 50 mcg PO DAILY 12/30/15 Saw Gustine Fruit [Saw Gustine] 450 mg PO DAILY 10/01/17 Fludrocortisone Acetate 0.1 mg PO DAILY 03/21/19 Methylphenidate HCl 20 mg PO DAILY 03/21/19 [Methylphenidate HCl ER] Multivit-Min/FA/Lycopen/Lutein 1 tab PO DAILY 03/21/19 [Centrum Silver Men Tablet] Pantoprazole Sodium [Protonix] 40 mg PO DAILY 03/21/19 Past Medical History (Chronic Problems): Chronic Problems (Last Reviewed 03/21/19 @ 16:50 by Jenny Manzano PA-C) PAF (paroxysmal atrial fibrillation) (Chronic) Cardiac pacemaker (Chronic) Bradycardia (Chronic) Dizziness (Chronic) PVD (peripheral vascular disease) (Chronic) Hypothyroidism (Chronic) GERD (gastroesophageal reflux disease) (Chronic) Surgical History: pacemaker implantation, - - Cataract removal with insertion of prosthetic lens, pacemaker placement 06/2018 at [facility], left leg vein stripping, right hydrocele intervention. Psychiatric History: No pertinent psych hx - *Family History Maternal Family History: Family History (Last Reviewed 03/21/19 @ 16:50 by Jenny Manzaon PA-C) Brother CAD (coronary artery disease) History Items: Pulmonary Disease - Patient notes his mother with severe COPD, emphysema secondary to heavy tobacco use history. Paternal Family History: Family History (Last Reviewed 03/21/19 @ 16:50 by Jenny Manzano PA-C) Brother CAD (coronary artery disease) History Items: - - Patient notes that his father was very healthy with no history of heart disease, diabetes or cancer. Lives: Spouse/ Significant Other Smoking Status: Never smoker Tobacco Use: Non-smoker Alcohol: None Drugs: None Review of Systems - Review of Systems General: Reports: Fatigue, Decreased Appetite. Denies: Fever, Night Sweats Cardiovascular: Reports: Peripheral Edema. Denies: Chest Discomfort, Shortness of Breath, Orthopnea, PND, Palpitations, Lightheadedness, Dizziness, Near Syncope, Syncope Respiratory: Denies: Cough, Sputum Production, Hemoptysis Gastrointestinal: Denies: Hematemesis, Hematochezia, Melena Genitourinary: Reports: Dysuria Skin: Denies: Rash Subjectve: This is a 78-year-old white male who appears to be resting comfortably at the moment in no acute distress. Objective: Vital Signs Temp Pulse Resp BP Pulse Ox 97.5 F L 84 16 124/54 H 99 03/21/19 16:12 03/21/19 16:12 03/21/19 16:12 03/21/19 16:14 03/21/19 16:12 Oxygen Delivery Method Room Air Weight: 168 lb 6.931 oz Body Mass Index (BMI) 22.3 Intake and Output for Last 24 Hours 03/19/19 03/20/19 03/21/19 23:59 23:59 23:59 Intake Total 180 / 180 Balance 180 / 180 General: Awake, Alert, Oriented x 3, Cooperative, No Acute Distress HEENT: Atraumatic, Normocephalic, PERRL, EOMI, Sclera Non Icteric Oral: Moist Mucosa Neck: Supple, Good ROM, No JVD Lungs: Diminished Colin Bases Cardiovascular: Regular Rhythm, Premature Ectopic Beats, Normal S1, Normal S2 Vascular: No Carotid Bruits Abdomen: Bowel Sounds Present, Soft, Non Tender Extremities: Mild RLE Edema, Mild LLE Edema, - - Bilateral lower extremities now on Leo wraps Neurological: No Focal Motor or Sensory Deficit Psych/Mental Status: Appropriate 03/21/19 11:52: PT 14.6, INR 1.2, APTT 32.2 03/21/19 11:52: Magnesium 2.5 03/21/19 12:28: Urine Color Yellow, Urine Clarity Clear, Urine pH 5.0, Ur Specific [place] 1.015, Urine Protein 100 H, Urine Glucose (UA) Normal, Urine Ketones Negative, Urine Occult Blood Negative, Urine Nitrite Negative, Urine Bilirubin Negative, Urine Urobilinogen Normal, Ur Leukocyte Esterase Negative, Urine RBC 0 SEEN, Urine WBC 0 SEEN 03/21/19 16:40: Hgb 6.9 L, Hct 22.3 L 03/21/19 16:40: Troponin I 0.072 H Rhythm: Rhythm appearing compatible with episodes of sinus rhythm with AV synchronous pacing and occasional PVCs EKG: As noted above ECHO: 11/24/2017: Left ventricle reported with an LVEF of 50%; mild MR; Stress Test: 10/01/2017: Pharmacologic stress nuclear imaging study: Reported as negative with respect to myocardial perfusion changes concerning for stress-induced myocardial ischemia and a gated LVEF of 51% CXR: Preliminary evaluation: Dual-chamber permanent pacemaker present: Increased pulmonary vascularity: Positive bilateral pleural effusions: Please see official report Assessment/Plan 1. Congestive heart failure The patient presents with symptoms concerning for volume overload based upon his examination with respect to his pulmonary process and findings as well as his lower extremity edema. This is raise concerns about the possibility of congestive heart failure. However other etiologies that may present this way cannot necessarily be excluded. The present time the patient is being monitored. His cardiac enzymes will be followed. His ECG will be followed. He will have an echocardiogram to reassess his ventricular size, wall motion, and systolic function. He will be treated medically as deemed appropriate. At the moment this will include diuretic therapy with follow-up of his vital signs, electrolytes, renal function, etc. He also needs to be further evaluated for his anemia which may be contributing to these ongoing findings. Thus he is being evaluated for upcoming endoscopy procedures. 2. Cardiac dysrhythmia The patient has had various cardiac arrhythmias with respect to sinus bradycardia, junctional rhythm, paroxysmal atrial fibrillation, and prolonged pauses. He has received a permanent pacemaker. He states that has been functioning appropriately. His cardiac rate and rhythm will be followed. His pacemaker will be reassessed with respect to his battery status and to ensure that is functioning appropriately at this time. 3. Permanent pacemaker He states he has a [employer] permanent pacemaker. The details are unknown. He will be asked to have pacemaker interrogation to reassess the battery status and to assure that it is not functioning appropriately. 4. Hypertension The patient's blood pressure will be followed. His medications can be his adjusted as needed. 5. GERD The patient states he has a history of GERD previously diagnosed by endoscopy procedures. He has been on medical management. He now has a history of underlying anemia. There is concern of gastrointestinal bleeding. He is going to be reassessed with endoscopy procedures. 6. Anemia The patient has a marked anemia at this time. The etiology is unknown. He will undergo evaluation for the possibility of gastrointestinal bleeding. In the meantime based upon his cardiovascular concerns it is not unreasonable to consider PRBC transfusions which may help his oxygen carrying capacity. Comment: The above was discussed and reviewed with the patient. He was agreeable to this approach. This note was generated with [employer] software. It may contain incorrect words, spelling, and punctuation that were not noted in checking the note before signing.
[2019-03-21 22:15] LABS: Hematocrit 24.2 % (40-54); Hemoglobin 7.5 g/dl (13.0-16.5)
[2019-03-21] MEDS: 0.9% NaCl Peripheral Flush Adult/Peds IV ×2 (22:33→22:36)
[2019-03-22] VITALS (21 sets, daily range): BP systolic 110–143; BP diastolic 48–72; PULSE 59–89; RESP 16–22; TEMP 36.2–37.1; O2SAT 94–100
[2019-03-22 04:01] LABS: International Normalized Ratio 1.2; Prothrombin Time (Protime)PT. 14.7 SECONDS (11.7-14.9)
[2019-03-22 04:02] LABS: Partial Thromboplast Time 33.2 Seconds (24.1-36.2)
[2019-03-22 04:10] LABS: Absolute Lymphocyte Count 1.31 X10^3/ul (0.83-4.51); Absolute Neutrophil Count 4.6 X10^3/uL (2.0-7.7); Basophil# 0.06 X10^3/uL; Basophil% 0.8 % (0-1); Eosinophil# 0.17 X10^3/uL; Eosinophils% 2.2 % (0-5); Hematocrit 25.5 % (40-54); Lymphocyte # 1.31 X10^3/ul (4.0); Lymphocyte % 17.1 % (19-41); Mean Corp Hgb Conc 31.4 g/gl (32-36); Mean Corpuscular Volume 73.3 fL (80-94); Mean Platelet Vol. 9.1 fl (6.2-12.0); Monocyte# 1.52 X10^3/uL; Monocyte% 19.8 % (0-10); Neutrophil # 4.59 X10^3/uL (2.7-7.7); Platelet Count 518 K/mm3 (150-450); RBC Distribution Width CV 17.3 % (11.6-14.6); RBC Distribution Width SD 46.9 fl (35.1-43.9); Red Blood Count 3.48 M/mm3 (4.6-6.2); White Blood Count 7.7 K/mm3 (4.4-11.0)
[2019-03-22 04:12] LABS: Differential Indicated SCAN CRITERIA MET; POSITIVE COUNT NO; POSITIVE DIFFERENTIAL YES; POSITIVE MORPHOLOGY NO
[2019-03-22 04:58] LABS: Anion Gap 10 (5-15); BUN 31 mg/dL (7-18); BUN/Creat Ratio 15.3 RATIO (10-20); Calcium,Total 8.6 mg/dL (8.5-10.1); Chloride 111 mmol/L (98-107); Cholesterol 195 mg/dL (200); Creatinine, Serum 2.03 mg/dL (0.70-1.30); EST Glomerular Filtration Rate 34 mL/min (>60); Est Glom Filt Rate - Afr Amer 41 mL/min (>60); Estimated Creatinine Clearance 32.41 ml/min; Glucose 79 mg/dL (74-106); High Density Lipoprotein 55 mg/dL; Potassium 3.3 mmol/L (3.5-5.1); Sodium Level 146 mmol/L (136-145); Thyroid Stim Hormone (TSH) 4.89 uIU/mL (0.358-3.74); Triglycerides 83 mg/dL; Very Low Density Lipoprotein 17 mg/dL (5-40)
[2019-03-22] MEDS: Furosemide 40 MG/4 ML Vial IV ×3 (05:09→21:20)
[2019-03-22] MEDS: Levothyroxine 50 MCG Tablet PO (05:11)
[2019-03-22] MEDS: 0.9% NaCl Peripheral Flush Adult/Peds IV ×7 (05:11→22:26)
--- NOTE | 2019-03-22 05:55 | EKG12_ITS ---
Test Reason : AM EKG Blood Pressure : / mmHG Vent. Rate : 082 BPM Atrial Rate : 234 BPM P-R Int : 000 ms QRS Dur : 100 ms QT Int : 422 ms P-R-T Axes : 000 115 043 degrees QTc Int : 493 ms Atrial fibrillation with frequent ventricular-paced complexes Right axis deviation Septal infarct , age undetermined , cannot be excluded Abnormal ECG Confirmed by JOSE SOLORZANO, MELANY ([id number]), editorial cartoonist TIFFANIE PALMER ([id number]) on 03/27/2019 12:32:02 PM Referred By: Lora Blanco Confirmed By:MELANY GARCIA MD
[2019-03-22] MEDS: Potassium Chloride 10mEq/100mL 10 MEQ/100 ML IV.SOLN. 100 MEQ IV BOLUS ×2 (08:11→08:54)
[2019-03-22] MEDS: Fludrocortisone Acetate 0.1 MG Tablet PO (13:08)
--- NOTE | 2019-03-22 15:59 | PCM.PN.HOSP ---
Patient Problems: Active and Suspected Problems (Last Reviewed 03/21/19 @ 16:50 by Jenny Manzano PA-C) CHF exacerbation (Acute) Acute anemia (Acute) New onset of congestive heart failure (Acute) Subjective: Patient seen and examined. Patient had H&H 6.9/22.3 which went up/25.5 after 1 unit of PRBC transfusion. Stool for occult blood is negative. Patient had EGD done. Has bilateral lower extremity wrapped up. Shortness of breath is better. Patient seen by embossing toolsetter and surgeon Dr. Padilla Vitals/I&O's: Vital Signs Temp Pulse Resp BP Pulse Ox 97.6 F L 75 18 137/48 H 97 03/22/19 12:00 03/22/19 15:03 03/22/19 12:00 03/22/19 12:00 03/22/19 12:00 Oxygen Flow Rate (L/min) 2 Oxygen Delivery Method Room Air Weight: 163 lb 12.855 oz Body Mass Index (BMI) 22.3 Intake and Output for Last 24 Hours 03/20/19 03/21/19 03/22/19 23:59 23:59 23:59 Intake Total 1710 / 1710 440 / 440 Balance 1710 / 1710 440 / 440 General: Alert, Oriented x3, Cooperative HEENT: Atraumatic, PERRLA, EOMI, Normocephalic Neck: Supple, No JVD, Negative Carotid Bruits Lungs: Diminished, Rales - Air entry is diminished. Cardiovascular: Regular rate, Regular Rhythm, Normal S1, Normal S2, No murmurs Abdomen: Bowel Sounds Present, Soft, Non Tender, Non-Distended Extremities: Capillary Refill Less than 3 Seconds, Edema Skin: No rashes, No breakdown Musculoskeletal: No Tenderness to Palpation of Joints or Extremities, Arthritic Changes Lymphatic: No Cervical, Supraclavicular, or Inguinal Adenopathy Neurological: Cranial nerves II-XII grossly intact, Deep Tendon Reflexes 2+/4 and Symmetrical, Neuro grossly intact Psych/Mental Status: Normal Affect, Appropriate Microbiology Past 72 Hours 03/21/19 15:00 Stool Stool Occult Blood (FAITH) - Final Laboratory Results 03/21/19 11:52: Magnesium 2.5, Free T4 1.40 03/21/19 15:15: Blood Type B POSITIVE, Antibody Screen NEGATIVE 03/21/19 15:15: Crossmatch See Detail 03/21/19 16:40: Hgb 6.9 L, Hct 22.3 L 03/21/19 16:40: Troponin I 0.072 H 03/21/19 19:40: Troponin I 0.063 H 03/21/19 22:05: Hgb 7.5 L, Hct 24.2 L 03/21/19 22:05: Troponin I 0.067 H 03/22/19 03:46: WBC 7.7, RBC 3.48 L, Hgb 8.0 L, Hct 25.5 L, MCV 73.3 L, MCH 23.0 L, MCHC 31.4 L, RDW 17.3 H, RDW Differential 46.9 H, Plt Count 518 H, MPV 9.1, Immature Gran % (Auto) 0.100, Neut % (Auto) 60.0, Lymph % (Auto) 17.1 L, [place] % (Auto) 19.8 H, Eos % (Auto) 2.2, Baso % (Auto) 0.8, Absolute Neuts (auto) 4.6, Absolute Lymphs (auto) 1.31, Total Counted Not Reportable 03/22/19 03:46: Sodium 146 H, Potassium 3.3 L, Chloride 111 H, Carbon Dioxide 25.0, Anion Gap 10, BUN 31 H, Creatinine 2.03 H, Estim Creat Clear Calc 32.41, Est GFR (MDRD) Af Amer 41 L, Est GFR (MDRD) Non-Af 34 L, BUN/Creatinine Ratio 15.3, Glucose 79, Calcium 8.6, Triglycerides 83, Cholesterol 195, LDL Cholesterol 123, VLDL Cholesterol 17, HDL Cholesterol 55, TSH 4.89 H 03/22/19 03:46: PT 14.7, INR 1.2, APTT 33.2 Current Medications Acetaminophen (Tylenol) 650 mg PO Q6H PRN PRN PRN Reason: Non-cardiac pain (mod-severe) Hydrocodone Bitart/Acetaminophen ([place] 5mg-325mg) 1 - 2 tablet PO Q6H PRN PRN PRN Reason: MOD-SEVERE PAIN (4-10/10) Al Hydroxide/Mg Hydroxide (Mylanta Ii) 15 - 30 ml PO Q4H PRN PRN PRN Reason: INDIGESTION Albuterol Sulfate (Ventolin Aerosols) 2.5 mg INHALATION Q2H PRN PRN PRN Reason: dyspnea, wheezing Fludrocortisone Acetate (Florinef) 0.1 mg PO DAILY@0800 [facility] Last Admin: 03/22/19 13:08 Dose: 0.1 mg Furosemide (Lasix) 40 mg IV Q8 [facility] Last Admin: 03/22/19 13:08 Dose: 40 mg Hydralazine HCl (Apresoline Iv) 10 mg IV Q4H PRN PRN PRN Reason: SBP > 160 Pantoprazole Sodium 40 mg/ (Sodium Chloride) 110 mls @ 330 mls/hr IV Q12 [facility] Last Admin: 03/22/19 13:08 Dose: 330 mls/hr Levothyroxine Sodium (Synthroid) 50 mcg PO DAILY@0600 [facility] Last Admin: 03/22/19 05:11 Dose: 50 mcg Magnesium Hydroxide (Milk Of Magnesia) 30 ml PO DAILY PRN PRN Reason: Constipation Methylphenidate HCl (Methylphenidate Hcl Er (Cd)) 20 mg PO DAILY [facility] Last Admin: 03/22/19 13:08 Dose: 20 mg Morphine Sulfate () 1 - 2 mg IV Q4H PRN PRN PRN Reason: PAIN Nitroglycerin (Nitrostat) 0.4 mg SUBLINGUAL Q5M PRN PRN Reason: CARDIAC/CHEST PAIN Ondansetron HCl (Zofran) 4 mg IV Q8H PRN PRN PRN Reason: NAUSEA/VOMITING Sodium Chloride () 5 - 15 ml IV UD PRN PRN Reason: SALINE FLUSH Last Admin: 03/22/19 13:08 Dose: 10 ml Medical Necessity - Tobacco Use Smoking Status: Never smoker Tobacco Use: Non-smoker Assessment/Plan All Active Problems (Last Reviewed 03/21/19 @ 16:50 by Jenny Manzano PA-C) CHF exacerbation (Acute) Acute anemia (Acute) New onset of congestive heart failure (Acute) Syncope and collapse (Acute) Chest pain (Acute) The patient is a 78 y/o M with PMHx: CKD stage III, Sinus Bradycardia s/p pacemaker, BPH, Hypothyroidism, Chronic Anemia was admitted with progressive worsening of shortness of breath with dry cough for about 2 weeks, bilateral lower extremity edema and swelling and had an 11 pound weight gain over last 2 weeks consistent with acute decompensated heart failure. Patient also had low hemoglobin on admission, hemoglobin 7.0, with baseline around 12 in July 2018. (1) Acute on chronic heart failure, systolic: BNP 1005.5, TSH 5.82, CXR w/ central vascular congestion with bibasilar atelectasis and a right pleural effusion. Patient is on IV Lasix. Seen by embossing toolsetter. Patient had good diuresis and decrease Lasix to 40 mg q. 12 hourly. Troponin is mildly elevated at 0.072, 0.063 and 0.067; ALT mildly elevated, plateau and indeterminate range, Reflects demand ischemia. TSH 4.89. Free T4 1.4 normal range. Last echo in October 2017 reported as EF 50% with systolic function lower limit of normal. Normal LV size. Impaired relaxation of LV. No regional wall motion abnormality. mild eccentric MR and AR. Repeat echo is ordered. (2) Acute on Chronic Anemia, Microcytic: Patient w/ no history of hematemesis, hematochezia, melenotic stools w/ admission Hgb 7, prior baseline noted 2018 10. Patient had 1 unit of PRBC transfusion done. Repeat H&H ordered. Patient had EGD and colonoscopy done and no significant lesion found as per verbal report. (3) Hx Sinus Bradycardia, Symptomatic: s/p pacemaker, noted history prior of syncope events associated, chronic lightheadedness, dizziness he notes, maintained on fludrocortisone. Patient had pacemaker interrogation done today. (4) Chronic Kidney Disease Stage III: Admission BUN/Cr 31/1.83, baseline renal function 1.5-1.8, stable. BUN/creatinine 31/2.03. K3.3. Mostly secondary to diuretic effect (5) Hypothyroidism w/ elevated TSH: Recent outpatient TSH 5.82. Free T4 normal (6) GERD: PPI IV as noted. (7) DVT Prophylaxis: SCDs, defer chemoprophylaxis given acute anemia. Active Medications Acetaminophen (Tylenol) 650 mg PO Q6H PRN PRN PRN Reason: Non-cardiac pain (mod-severe) Hydrocodone Bitart/Acetaminophen ([place] 5mg-325mg) 1 - 2 tablet PO Q6H PRN PRN PRN Reason: MOD-SEVERE PAIN (4-10/10) Al Hydroxide/Mg Hydroxide (Mylanta Ii) 15 - 30 ml PO Q4H PRN PRN PRN Reason: INDIGESTION Albuterol Sulfate (Ventolin Aerosols) 2.5 mg INHALATION Q2H PRN PRN PRN Reason: dyspnea, wheezing Fludrocortisone Acetate (Florinef) 0.1 mg PO DAILY@0800 [facility] Last Admin: 03/22/19 13:08 Dose: 0.1 mg Furosemide (Lasix) 40 mg IV Q8 [facility] Last Admin: 03/22/19 13:08 Dose: 40 mg Hydralazine HCl (Apresoline Iv) 10 mg IV Q4H PRN PRN PRN Reason: SBP > 160 Pantoprazole Sodium 40 mg/ (Sodium Chloride) 110 mls @ 330 mls/hr IV Q12 [facility] Last Admin: 03/22/19 13:08 Dose: 330 mls/hr Levothyroxine Sodium (Synthroid) 50 mcg PO DAILY@0600 [facility] Last Admin: 03/22/19 05:11 Dose: 50 mcg Magnesium Hydroxide (Milk Of Magnesia) 30 ml PO DAILY PRN PRN Reason: Constipation Methylphenidate HCl (Methylphenidate Hcl Er (Cd)) 20 mg PO DAILY [facility] Last Admin: 03/22/19 13:08 Dose: 20 mg Morphine Sulfate () 1 - 2 mg IV Q4H PRN PRN PRN Reason: PAIN Nitroglycerin (Nitrostat) 0.4 mg SUBLINGUAL Q5M PRN PRN Reason: CARDIAC/CHEST PAIN Ondansetron HCl (Zofran) 4 mg IV Q8H PRN PRN PRN Reason: NAUSEA/VOMITING Sodium Chloride () 5 - 15 ml IV UD PRN PRN Reason: SALINE FLUSH Last Admin: 03/22/19 13:08 Dose: 10 ml Microbiology Past 72 Hours 03/21/19 15:00 Stool Stool Occult Blood (FAITH) - Final Laboratory Results 03/21/19 11:52: Magnesium 2.5, Free T4 1.40 03/21/19 15:15: Blood Type B POSITIVE, Antibody Screen NEGATIVE 03/21/19 15:15: Crossmatch See Detail 03/21/19 16:40: Hgb 6.9 L, Hct 22.3 L 03/21/19 16:40: Troponin I 0.072 H 03/21/19 19:40: Troponin I 0.063 H 03/21/19 22:05: Hgb 7.5 L, Hct 24.2 L 03/21/19 22:05: Troponin I 0.067 H 03/22/19 03:46: WBC 7.7, RBC 3.48 L, Hgb 8.0 L, Hct 25.5 L, MCV 73.3 L, MCH 23.0 L, MCHC 31.4 L, RDW 17.3 H, RDW Differential 46.9 H, Plt Count 518 H, MPV 9.1, Immature Gran % (Auto) 0.100, Neut % (Auto) 60.0, Lymph % (Auto) 17.1 L, [place] % (Auto) 19.8 H, Eos % (Auto) 2.2, Baso % (Auto) 0.8, Absolute Neuts (auto) 4.6, Absolute Lymphs (auto) 1.31, Total Counted Not Reportable 03/22/19 03:46: Sodium 146 H, Potassium 3.3 L, Chloride 111 H, Carbon Dioxide 25.0, Anion Gap 10, BUN 31 H, Creatinine 2.03 H, Estim Creat Clear Calc 32.41, Est GFR (MDRD) Af Amer 41 L, Est GFR (MDRD) Non-Af 34 L, BUN/Creatinine Ratio 15.3, Glucose 79, Calcium 8.6, Triglycerides 83, Cholesterol 195, LDL Cholesterol 123, VLDL Cholesterol 17, HDL Cholesterol 55, TSH 4.89 H 03/22/19 03:46: PT 14.7, INR 1.2, APTT 33.2 Code Visit Inpatient E&M: 35125 Subs Hosp L3
--- NOTE | 2019-03-22 16:13 | PN_ITS ---
Patient Problems: Active and Suspected Problems (Last Reviewed 03/21/19 @ 16:50 by Jenny Manzano PA-C) CHF exacerbation (Acute) Acute anemia (Acute) New onset of congestive heart failure (Acute) Subjective: Patient seen and examined. Patient had H&H 6.9/22.3 which went up/25.5 after 1 unit of PRBC transfusion. Stool for occult blood is negative. Patient had EGD done. Has bilateral lower extremity wrapped up. Shortness of breath is better. Patient seen by help desk analyst and surgeon Dr. Padilla Vitals/I&O's: Vital Signs Temp Pulse Resp BP Pulse Ox 97.6 F L 75 18 137/48 H 97 03/22/19 12:00 03/22/19 15:03 03/22/19 12:00 03/22/19 12:00 03/22/19 12:00 Oxygen Flow Rate (L/min) 2 Oxygen Delivery Method Room Air Weight: 163 lb 12.855 oz Body Mass Index (BMI) 22.3 Intake and Output for Last 24 Hours 03/20/19 03/21/19 03/22/19 23:59 23:59 23:59 Intake Total 1710 / 1710 440 / 440 Balance 1710 / 1710 440 / 440 General: Alert, Oriented x3, Cooperative HEENT: Atraumatic, PERRLA, EOMI, Normocephalic Neck: Supple, No JVD, Negative Carotid Bruits Lungs: Diminished, Rales - Air entry is diminished. Cardiovascular: Regular rate, Regular Rhythm, Normal S1, Normal S2, No murmurs Abdomen: Bowel Sounds Present, Soft, Non Tender, Non-Distended Extremities: Capillary Refill Less than 3 Seconds, Edema Skin: No rashes, No breakdown Musculoskeletal: No Tenderness to Palpation of Joints or Extremities, Arthritic Changes Lymphatic: No Cervical, Supraclavicular, or Inguinal Adenopathy Neurological: Cranial nerves II-XII grossly intact, Deep Tendon Reflexes 2+/4 and Symmetrical, Neuro grossly intact Psych/Mental Status: Normal Affect, Appropriate Microbiology Past 72 Hours 03/21/19 15:00 Stool Stool Occult Blood (FAITH) - Final Laboratory Results 03/21/19 11:52: Magnesium 2.5, Free T4 1.40 03/21/19 15:15: Blood Type B POSITIVE, Antibody Screen NEGATIVE 03/21/19 15:15: Crossmatch See Detail 03/21/19 16:40: Hgb 6.9 L, Hct 22.3 L 03/21/19 16:40: Troponin I 0.072 H 03/21/19 19:40: Troponin I 0.063 H 03/21/19 22:05: Hgb 7.5 L, Hct 24.2 L 03/21/19 22:05: Troponin I 0.067 H 03/22/19 03:46: WBC 7.7, RBC 3.48 L, Hgb 8.0 L, Hct 25.5 L, MCV 73.3 L, MCH 23.0 L, MCHC 31.4 L, RDW 17.3 H, RDW Differential 46.9 H, Plt Count 518 H, MPV 9.1, Immature Gran % (Auto) 0.100, Neut % (Auto) 60.0, Lymph % (Auto) 17.1 L, [place] % (Auto) 19.8 H, Eos % (Auto) 2.2, Baso % (Auto) 0.8, Absolute Neuts (auto) 4.6, Absolute Lymphs (auto) 1.31, Total Counted Not Reportable 03/22/19 03:46: Sodium 146 H, Potassium 3.3 L, Chloride 111 H, Carbon Dioxide 25.0, Anion Gap 10, BUN 31 H, Creatinine 2.03 H, Estim Creat Clear Calc 32.41, Est GFR (MDRD) Af Amer 41 L, Est GFR (MDRD) Non-Af 34 L, BUN/Creatinine Ratio 15.3, Glucose 79, Calcium 8.6, Triglycerides 83, Cholesterol 195, LDL Cholesterol 123, VLDL Cholesterol 17, HDL Cholesterol 55, TSH 4.89 H 03/22/19 03:46: PT 14.7, INR 1.2, APTT 33.2 Current Medications Acetaminophen (Tylenol) 650 mg PO Q6H PRN PRN PRN Reason: Non-cardiac pain (mod-severe) Hydrocodone Bitart/Acetaminophen ([place] 5mg-325mg) 1 - 2 tablet PO Q6H PRN PRN PRN Reason: MOD-SEVERE PAIN (4-10/10) Al Hydroxide/Mg Hydroxide (Mylanta Ii) 15 - 30 ml PO Q4H PRN PRN PRN Reason: INDIGESTION Albuterol Sulfate (Ventolin Aerosols) 2.5 mg INHALATION Q2H PRN PRN PRN Reason: dyspnea, wheezing Fludrocortisone Acetate (Florinef) 0.1 mg PO DAILY@0800 [facility] Last Admin: 03/22/19 13:08 Dose: 0.1 mg Furosemide (Lasix) 40 mg IV Q8 [facility] Last Admin: 03/22/19 13:08 Dose: 40 mg Hydralazine HCl (Apresoline Iv) 10 mg IV Q4H PRN PRN PRN Reason: SBP > 160 Pantoprazole Sodium 40 mg/ (Sodium Chloride) 110 mls @ 330 mls/hr IV Q12 [facility] Last Admin: 03/22/19 13:08 Dose: 330 mls/hr Levothyroxine Sodium (Synthroid) 50 mcg PO DAILY@0600 [facility] Last Admin: 03/22/19 05:11 Dose: 50 mcg Magnesium Hydroxide (Milk Of Magnesia) 30 ml PO DAILY PRN PRN Reason: Constipation Methylphenidate HCl (Methylphenidate Hcl Er (Cd)) 20 mg PO DAILY [facility] Last Admin: 03/22/19 13:08 Dose: 20 mg Morphine Sulfate () 1 - 2 mg IV Q4H PRN PRN PRN Reason: PAIN Nitroglycerin (Nitrostat) 0.4 mg SUBLINGUAL Q5M PRN PRN Reason: CARDIAC/CHEST PAIN Ondansetron HCl (Zofran) 4 mg IV Q8H PRN PRN PRN Reason: NAUSEA/VOMITING Sodium Chloride () 5 - 15 ml IV UD PRN PRN Reason: SALINE FLUSH Last Admin: 03/22/19 13:08 Dose: 10 ml Medical Necessity - Tobacco Use Smoking Status: Never smoker Tobacco Use: Non-smoker Assessment/Plan All Active Problems (Last Reviewed 03/21/19 @ 16:50 by Jenny Manzano PA-C) CHF exacerbation (Acute) Acute anemia (Acute) New onset of congestive heart failure (Acute) Syncope and collapse (Acute) Chest pain (Acute) The patient is a 78 y/o M with PMHx: CKD stage III, Sinus Bradycardia s/p pacemaker, BPH, Hypothyroidism, Chronic Anemia was admitted with progressive worsening of shortness of breath with dry cough for about 2 weeks, bilateral lower extremity edema and swelling and had an 11 pound weight gain over last 2 weeks consistent with acute decompensated heart failure. Patient also had low hemoglobin on admission, hemoglobin 7.0, with baseline around 12 in July 2018. (1) Acute on chronic heart failure, systolic: BNP 1005.5, TSH 5.82, CXR w/ central vascular congestion with bibasilar atelectasis and a right pleural effusion. Patient is on IV Lasix. Seen by help desk analyst. Patient had good diuresis and decrease Lasix to 40 mg q. 12 hourly. Troponin is mildly elevated at 0.072, 0.063 and 0.067; ALT mildly elevated, plateau and indeterminate range, Reflects demand ischemia. TSH 4.89. Free T4 1.4 normal range. Last echo in October 2017 reported as EF 50% with systolic function lower limit of normal. Normal LV size. Impaired relaxation of LV. No regional wall motion abnormality. mild eccentric MR and AR. Repeat echo is ordered. (2) Acute on Chronic Anemia, Microcytic: Patient w/ no history of hematemesis, hematochezia, melenotic stools w/ admission Hgb 7, prior baseline noted 2018 10. Patient had 1 unit of PRBC transfusion done. Repeat H&H ordered. Patient had EGD and colonoscopy done and no significant lesion found as per verbal report. (3) Hx Sinus Bradycardia, Symptomatic: s/p pacemaker, noted history prior of syncope events associated, chronic lightheadedness, dizziness he notes, maintained on fludrocortisone. Patient had pacemaker interrogation done today. (4) Chronic Kidney Disease Stage III: Admission BUN/Cr 31/1.83, baseline renal function 1.5-1.8, stable. BUN/creatinine 31/2.03. K3.3. Mostly secondary to diuretic effect (5) Hypothyroidism w/ elevated TSH: Recent outpatient TSH 5.82. Free T4 normal (6) GERD: PPI IV as noted. (7) DVT Prophylaxis: SCDs, defer chemoprophylaxis given acute anemia. Active Medications Acetaminophen (Tylenol) 650 mg PO Q6H PRN PRN PRN Reason: Non-cardiac pain (mod-severe) Hydrocodone Bitart/Acetaminophen ([place] 5mg-325mg) 1 - 2 tablet PO Q6H PRN PRN PRN Reason: MOD-SEVERE PAIN (4-10/10) Al Hydroxide/Mg Hydroxide (Mylanta Ii) 15 - 30 ml PO Q4H PRN PRN PRN Reason: INDIGESTION Albuterol Sulfate (Ventolin Aerosols) 2.5 mg INHALATION Q2H PRN PRN PRN Reason: dyspnea, wheezing Fludrocortisone Acetate (Florinef) 0.1 mg PO DAILY@0800 [facility] Last Admin: 03/22/19 13:08 Dose: 0.1 mg Furosemide (Lasix) 40 mg IV Q8 [facility] Last Admin: 03/22/19 13:08 Dose: 40 mg Hydralazine HCl (Apresoline Iv) 10 mg IV Q4H PRN PRN PRN Reason: SBP > 160 Pantoprazole Sodium 40 mg/ (Sodium Chloride) 110 mls @ 330 mls/hr IV Q12 [facility] Last Admin: 03/22/19 13:08 Dose: 330 mls/hr Levothyroxine Sodium (Synthroid) 50 mcg PO DAILY@0600 [facility] Last Admin: 03/22/19 05:11 Dose: 50 mcg Magnesium Hydroxide (Milk Of Magnesia) 30 ml PO DAILY PRN PRN Reason: Constipation Methylphenidate HCl (Methylphenidate Hcl Er (Cd)) 20 mg PO DAILY [facility] Last Admin: 03/22/19 13:08 Dose: 20 mg Morphine Sulfate () 1 - 2 mg IV Q4H PRN PRN PRN Reason: PAIN Nitroglycerin (Nitrostat) 0.4 mg SUBLINGUAL Q5M PRN PRN Reason: CARDIAC/CHEST PAIN Ondansetron HCl (Zofran) 4 mg IV Q8H PRN PRN PRN Reason: NAUSEA/VOMITING Sodium Chloride () 5 - 15 ml IV UD PRN PRN Reason: SALINE FLUSH Last Admin: 03/22/19 13:08 Dose: 10 ml Microbiology Past 72 Hours 03/21/19 15:00 Stool Stool Occult Blood (FAITH) - Final Laboratory Results 03/21/19 11:52: Magnesium 2.5, Free T4 1.40 03/21/19 15:15: Blood Type B POSITIVE, Antibody Screen NEGATIVE 03/21/19 15:15: Crossmatch See Detail 03/21/19 16:40: Hgb 6.9 L, Hct 22.3 L 03/21/19 16:40: Troponin I 0.072 H 03/21/19 19:40: Troponin I 0.063 H 03/21/19 22:05: Hgb 7.5 L, Hct 24.2 L 03/21/19 22:05: Troponin I 0.067 H 03/22/19 03:46: WBC 7.7, RBC 3.48 L, Hgb 8.0 L, Hct 25.5 L, MCV 73.3 L, MCH 23.0 L, MCHC 31.4 L, RDW 17.3 H, RDW Differential 46.9 H, Plt Count 518 H, MPV 9.1, Immature Gran % (Auto) 0.100, Neut % (Auto) 60.0, Lymph % (Auto) 17.1 L, [place] % (Auto) 19.8 H, Eos % (Auto) 2.2, Baso % (Auto) 0.8, Absolute Neuts (auto) 4.6, Absolute Lymphs (auto) 1.31, Total Counted Not Reportable 03/22/19 03:46: Sodium 146 H, Potassium 3.3 L, Chloride 111 H, Carbon Dioxide 25.0, Anion Gap 10, BUN 31 H, Creatinine 2.03 H, Estim Creat Clear Calc 32.41, Est GFR (MDRD) Af Amer 41 L, Est GFR (MDRD) Non-Af 34 L, BUN/Creatinine Ratio 15.3, Glucose 79, Calcium 8.6, Triglycerides 83, Cholesterol 195, LDL Cholesterol 123, VLDL Cholesterol 17, HDL Cholesterol 55, TSH 4.89 H 03/22/19 03:46: PT 14.7, INR 1.2, APTT 33.2 Code Visit Inpatient E&M: 91355 Subs Hosp L3
--- NOTE | 2019-03-22 16:41 | OP.ENDO_ITS ---
03/22/2019 Dick Chan [address] [place] [address] Re : Upper GI endoscopy procedure for Shailesh Wootenz Dear Dr. Chan This procedure was performed on Friday, March 22, 2019. My impressions and recommendations are as follows: Impressions : - LA Grade D reflux esophagitis. No specimens collected. - Normal stomach. No specimens collected. - Normal examined duodenum. No specimens collected. Recommendations : - Return patient to hospital wills for ongoing care. - Advance diet as tolerated. - Continue present medications. - Repeat upper endoscopy in 3 months to evaluate the response to therapy. - Return to my office in 1 week. My findings are described in the full procedure note, which is enclosed. If I can be of further assistance, please feel free to contact me at Doctor phone number(s): , Fax: [phone], Work: . Sincerely, MD Flip Joe MD 03/22/2019 4:40:57 PM This report has been signed electronically.
--- NOTE | 2019-03-22 19:07 | PCM.PN.CARD ---
Subjectve: The patient states he is feeling better with respect to his breathing. He notes his lower extremity edema is better. Objective: Vital Signs Temp Pulse Resp BP Pulse Ox 98.0 F 74 20 H 129/57 H 98 03/22/19 16:45 03/22/19 16:45 03/22/19 16:45 03/22/19 16:45 03/22/19 16:45 Oxygen Flow Rate (L/min) 2 Oxygen Delivery Method Room Air Weight: 163 lb 12.855 oz Body Mass Index (BMI) 22.3 Intake and Output for Last 24 Hours 03/20/19 03/21/19 03/22/19 23:59 23:59 23:59 Intake Total 1710 / 1710 829 / 829 Balance 1710 / 1710 829 / 829 General: Awake, Alert, Oriented x 3, Cooperative, No Acute Distress HEENT: Atraumatic, Normocephalic, PERRL, EOMI Oral: Moist Mucosa Neck: Supple, Good ROM, No JVD Lungs: Diminished Colin Bases Cardiovascular: Regular Rhythm, Premature Ectopic Beats, Normal S1, Normal S2 Abdomen: Bowel Sounds Present, Soft, Non Tender Extremities: Mild RLE Edema, Mild LLE Edema, - - Bilateral lower extremity Leo wraps Psych/Mental Status: Appropriate 03/21/19 19:40: Troponin I 0.063 H 03/21/19 22:05: Hgb 7.5 L, Hct 24.2 L 03/21/19 22:05: Troponin I 0.067 H 03/22/19 03:46: WBC 7.7, RBC 3.48 L, Hgb 8.0 L, Hct 25.5 L, MCV 73.3 L, MCH 23.0 L, MCHC 31.4 L, RDW 17.3 H, RDW Differential 46.9 H, Plt Count 518 H, MPV 9.1, Immature Gran % (Auto) 0.100, Neut % (Auto) 60.0, Lymph % (Auto) 17.1 L, [place] % (Auto) 19.8 H, Eos % (Auto) 2.2, Baso % (Auto) 0.8, Absolute Neuts (auto) 4.6, Total Counted Not Reportable 03/22/19 03:46: Sodium 146 H, Potassium 3.3 L, Chloride 111 H, Carbon Dioxide 25.0, Anion Gap 10, BUN 31 H, Creatinine 2.03 H, Est GFR (MDRD) Af Amer 41 L, Est GFR (MDRD) Non-Af 34 L, BUN/Creatinine Ratio 15.3, Glucose 79, Calcium 8.6, Triglycerides 83, Cholesterol 195, LDL Cholesterol 123, VLDL Cholesterol 17, HDL Cholesterol 55 03/22/19 03:46: PT 14.7, INR 1.2, APTT 33.2 ECHO: Interpretation Summary The estimated ejection fraction is 55 %. There is mild global hypokinesis of the left ventricle. The left atrium is moderately enlarged. Trivial mitral valve insufficiency. Trivial tricuspid valve insufficiency. Right ventricular systolic pressure estimated to be 27 mmHg. Small left pleural effusion. Compared to echo report dated 11/24/2017, no appreciable changes noted. PPM: PPM interrogation performed earlier this day: Battery longevity approximately 13 years: Atrial pacing approximately 39% of the time and ventricular pacing approximately 14% of the time: Episodes of atrial fibrillation noted on 03/22/2019 early a.m.: 2 episodes of nonsustained wide-complex tachycardia concerning for nonsustained VT being reported on 03/15/19 and 03/21/19 lasting approximately 8-9 beats in duration. Overall normal pacemaker function. Medical Necessity - Tobacco Use Smoking Status: Never smoker Tobacco Use: Non-smoker Assessment/Plan 1. Congestive heart failure The patient presents with symptoms concerning for volume overload based upon his examination with respect to his pulmonary process and findings as well as his lower extremity edema. This is raise concerns about the possibility of congestive heart failure. However other etiologies that may present this way cannot necessarily be excluded. The present time the patient is being monitored. He has undergone evaluation with cardiac enzymes which have been indeterminate. He is undergone evaluation with a transthoracic echocardiogram with the findings as noted above He will be treated medically as deemed appropriate. At the moment this will include diuretic therapy with follow-up of his vital signs, electrolytes, renal function, etc. In addition to diuretic therapy would not be unreasonable, based upon a combination of his cardiovascular findings, to consider additional medical therapy such as beta blockers and afterload reducing agents. 2. Cardiac dysrhythmia The patient has had various cardiac arrhythmias with respect to sinus bradycardia, junctional rhythm, paroxysmal atrial fibrillation, and prolonged pauses. He has received a permanent pacemaker. His pacemaker interrogation is as noted above. Present time he will continue to be followed. Again it would not be unreasonable to consider additional agents such as beta blockers. Ideally he would be on anticoagulant secondary to concerns of atrial fibrillation however this would be on hold based on concerns of his anemia and possible gastrointestinal bleeding process. 3. Permanent pacemaker He states he has a Medtronic permanent pacemaker. His pacemaker interrogation is as noted above. 4. Hypertension The patient's blood pressure will be followed. His medications can be his adjusted as needed. 5. GERD The patient states he has a history of GERD previously diagnosed by endoscopy procedures. He has been on medical management. He has undergoing evaluation with EGD. He was found to have esophagitis. It is unclear as to whether this is the sole etiology for his anemia. He is being treated medically. 6. Anemia The patient has a marked anemia at this time. Again it is unclear whether his anemia is only related to his esophagitis. He may need additional evaluation care depending upon his response to medical therapy and clinical course. In the interim he did receive 1 unit of PRBCs. His hemoglobin improved somewhat. However it still remains low which may be a concerning factor in light of his underlying cardiovascular disease. Thus it may not be unreasonable to provide him with an additional unit of PRBCs and follow his response. Comment: The above was discussed and reviewed with the patient. He was agreeable to this approach. This note was generated with [employer] software. It may contain incorrect words, spelling, and punctuation that were not noted in checking the note before signing.
[2019-03-22] MEDS: Metoprolol Tartrate 25 MG Tablet PO (21:23)
[2019-03-23] VITALS (16 sets, daily range): BP systolic 127–146; BP diastolic 65–82; PULSE 59–83; RESP 16–24; TEMP 36.3–37.1; O2SAT 96–98
[2019-03-23] MEDS: 0.9% NaCl Peripheral Flush Adult/Peds IV ×4 (02:27→21:47)
[2019-03-23] MEDS: Furosemide 40 MG/4 ML Vial IV (02:38)
[2019-03-23] MEDS: Levothyroxine 50 MCG Tablet PO (05:47)
[2019-03-23 06:29] LABS: Absolute Lymphocyte Count 1.35 X10^3/ul (0.83-4.51); Absolute Neutrophil Count 5.6 X10^3/uL (2.0-7.7); Basophil# 0.05 X10^3/uL; Basophil% 0.6 % (0-1); Eosinophil# 0.16 X10^3/uL; Eosinophils% 1.9 % (0-5); Hematocrit 29.2 % (40-54); Hemoglobin 9.2 g/dl (13.0-16.5); Lymphocyte # 1.35 X10^3/ul (4.0); Lymphocyte % 16.3 % (19-41); Mean Corp Hgb Conc 31.5 g/gl (32-36); Mean Corpuscular Hgb 23.5 pg (27.0-32.0); Mean Corpuscular Volume 74.7 fL (80-94); Mean Platelet Vol. 9.4 fl (6.2-12.0); Monocyte# 1.17 X10^3/uL; Monocyte% 14.1 % (0-10); Neutrophil # 5.55 X10^3/uL (2.7-7.7); Platelet Count 537 K/mm3 (150-450); RBC Distribution Width CV 17.6 % (11.6-14.6); RBC Distribution Width SD 47.7 fl (35.1-43.9); Red Blood Count 3.91 M/mm3 (4.6-6.2); White Blood Count 8.3 K/mm3 (4.4-11.0)
[2019-03-23 06:30] LABS: POSITIVE COUNT NO; POSITIVE DIFFERENTIAL NO; POSITIVE MORPHOLOGY NO
[2019-03-23 06:39] LABS: Anion Gap 10 (5-15); BUN 44 mg/dL (7-18); BUN/Creat Ratio 12.5 RATIO (10-20); Calcium,Total 8.3 mg/dL (8.5-10.1); Chloride 108 mmol/L (98-107); Creatinine, Serum 3.52 mg/dL (0.70-1.30); EST Glomerular Filtration Rate 18 mL/min (>60); Est Glom Filt Rate - Afr Amer 22 mL/min (>60); Estimated Creatinine Clearance 18.15 ml/min; Glucose 106 mg/dL (74-106); Potassium 3.8 mmol/L (3.5-5.1); Sodium Level 144 mmol/L (136-145)
[2019-03-23] MEDS: Fludrocortisone Acetate 0.1 MG Tablet PO (08:10)
[2019-03-23] MEDS: Metoprolol Tartrate 25 MG Tablet PO ×2 (08:14→21:47)
--- NOTE | 2019-03-23 09:56 | PN.CARD_ITS ---
Subjectve: The patient is awake and alert. He states he feels better overall. According to the nursing staff he has been incontinent. Thus it is difficulty engaging his eyes and O's. Objective: Vital Signs Temp Pulse Resp BP Pulse Ox 98.8 F 83 21 H 141/65 H 97 03/23/19 04:20 03/23/19 08:14 03/23/19 04:20 03/23/19 04:20 03/23/19 07:46 Oxygen Flow Rate (L/min) 2 Oxygen Delivery Method Room Air Weight: 163 lb 9.328 oz Body Mass Index (BMI) 22.3 Intake and Output for Last 24 Hours 03/21/19 03/22/19 03/23/19 23:59 23:59 23:59 Intake Total 1710 / 1710 1668 / 1668 706 / 706 Balance 1710 / 1710 1668 / 1668 706 / 706 General: Awake, Alert, Oriented x 3, Cooperative, No Acute Distress HEENT: Atraumatic, Normocephalic, PERRL Oral: Moist Mucosa Neck: Supple, Good ROM Lungs: Diminished Colin Bases Cardiovascular: Regular Rhythm, Premature Ectopic Beats, Normal S1, Normal S2 Abdomen: Bowel Sounds Present, Soft, Non Tender Extremities: No edema Psych/Mental Status: Appropriate 03/23/19 05:45: WBC 8.3, RBC 3.91 L, Hgb 9.2 L, Hct 29.2 L, MCV 74.7 L, MCH 23.5 L, MCHC 31.5 L, RDW 17.6 H, RDW Differential 47.7 H, Plt Count 537 H, MPV 9.4, Immature Gran % (Auto) 0.100, Neut % (Auto) 67.0, Lymph % (Auto) 16.3 L, [place] % (Auto) 14.1 H, Eos % (Auto) 1.9, Baso % (Auto) 0.6, Absolute Neuts (auto) 5.6, Total Counted Not Reportable 03/23/19 05:45: Sodium 144, Potassium 3.8, Chloride 108 H, Carbon Dioxide 26.0, Anion Gap 10, BUN 44 H, Creatinine 3.52 H, Est GFR (MDRD) Af Amer 22 L, Est GFR (MDRD) Non-Af 18 L, BUN/Creatinine Ratio 12.5, Glucose 106, Calcium 8.3 L Rhythm: Sinus rhythm; electronic atrial paced rhythm; PVCs Medical Necessity - Tobacco Use Smoking Status: Never smoker Tobacco Use: Non-smoker Assessment/Plan 1. Congestive heart failure The patient has been undergoing noninvasive evaluation. He has been treated medically with IV diuretics. He states he does feel better. His lower extremity edema appears improved. His creatinine level is increasing. Thus his diuretics will be placed on hold at this time pending further evaluation and follow-up. 2. Cardiac dysrhythmia The patient has had various cardiac arrhythmias with respect to sinus bradycardia, junctional rhythm, paroxysmal atrial fibrillation, and prolonged pauses. He has received a permanent pacemaker. He has pacemaker was reported as functioning appropriately. He has been placed on beta-edgar therapy which hopefully will help with resp ect to his PAF and his nonsustained wide-complex tachycardia. Depending upon his follow-up he may or may not need additional evaluation and/or therapy. 3. Permanent pacemaker He states he has a Medtronic permanent pacemaker. His pacemaker was interrogated. It appears to be functioning appropriately. 4. Hypertension The patient's blood pressure will be followed. His medications can be his adjusted as needed. 5. GERD The patient states he has a history of GERD previously diagnosed by endoscopy procedures. He has been on medical management. He has undergoing evaluation with EGD. He was found to have esophagitis. It is unclear as to whether this is the sole etiology for his anemia. He is being treated medically. 6. Anemia He is now status post 2 units of PRBC. His hemoglobin has improved to greater than 9. Hopefully this will help from a cardiovascular standpoint with his oxygen carrying capacity. Comment: The above was discussed and reviewed with the patient and Dr. Lassiter. This note was generated with [employer] software. It may contain incorrect words, spelling, and punctuation that were not noted in checking the note before signing.
--- NOTE | 2019-03-23 10:33 | PCM.PN.SRG ---
Patient Problems: Active and Suspected Problems (Last Reviewed 03/21/19 @ 16:50 by Jenny Manzano PA-C) CHF exacerbation (Acute) Acute anemia (Acute) New onset of congestive heart failure (Acute) Subjective: Patient evaluated resting comfortably in bed. He denies abdominal pain/discomfort. He notes feeling improved. Dr. Padilla found esophagitis on patient's upper scope. No active bleeding noted. - Physical Exam General: Alert, Oriented x3, Cooperative Abdomen: Bowel Sounds Present, Soft, Non Tender Vital Signs Temp Pulse Resp BP Pulse Ox 98.8 F 83 21 H 141/65 H 97 03/23/19 04:20 03/23/19 08:14 03/23/19 04:20 03/23/19 04:20 03/23/19 07:46 Oxygen Flow Rate (L/min) 2 Oxygen Delivery Method Room Air Weight: 163 lb 9.328 oz Body Mass Index (BMI) 22.3 Intake and Output for Last 24 Hours 03/21/19 03/22/19 03/23/19 23:59 23:59 23:59 Intake Total 1710 / 1710 1668 / 1668 706 / 706 Balance 1710 / 1710 1668 / 1668 706 / 706 Microbiology Past 72 Hours 03/21/19 15:00 Stool Occult Blood (FAITH) - Final Stool Laboratory Tests Past 24 Hrs 03/22/19 03/23/19 03/23/19 15:15 05:45 05:45 WBC 8.3 RBC 3.91 L Hgb 9.2 L Hct 29.2 L MCV 74.7 L MCH 23.5 L MCHC 31.5 L RDW 17.6 H RDW Differential 47.7 H Plt Count 537 H MPV 9.4 Immature Gran % (Auto) 0.100 Neut % (Auto) 67.0 Lymph % (Auto) 16.3 L [place] % (Auto) 14.1 H Eos % (Auto) 1.9 Baso % (Auto) 0.6 Absolute Neuts (auto) 5.6 Absolute Lymphs (auto) 1.35 Total Counted Not Reportable Sodium 144 Potassium 3.8 Chloride 108 H Carbon Dioxide 26.0 Anion Gap 10 BUN 44 H Creatinine 3.52 H Estim Creat Clear Calc 18.15 Est GFR (MDRD) Af Amer 22 L Est GFR (MDRD) Non-Af 18 L BUN/Creatinine Ratio 12.5 Glucose 106 Calcium 8.3 L Crossmatch See Detail Medical Necessity - Tobacco Use Smoking Status: Never smoker Tobacco Use: Non-smoker Assessment/Plan All Active Problems (Last Reviewed 03/21/19 @ 16:50 by Jenny Manzano PA-C) CHF exacerbation (Acute) Acute anemia (Acute) New onset of congestive heart failure (Acute) Syncope and collapse (Acute) Chest pain (Acute) I am following this patient in conjunction with Dr. Padilla. Acute anemia. Esophagitis Recommend Protonix 40 mg orally as an outpatient for 3 months Follow-up upper scope in [address] Padilla We will sign off. Please reconsult if needed. Code Visit Inpatient E&M: 09699 Subs Hosp L1
--- NOTE | 2019-03-23 15:05 | CASEMGMT ---
KEIKO spoke with patient and his . KEIKO let them know [facility] does not have a copy of his HCPOA or HCLW. His gave SW a laminated card which had patient's living will wishes and his Healthcare POA agents. SW copied the card and placed them in his chart. Aline JAMES MSW
--- NOTE | 2019-03-23 15:58 | PCM.PN.HOSP ---
Patient Problems: Active and Suspected Problems (Last Reviewed 03/21/19 @ 16:50 by Jenny Manzano PA-C) CHF exacerbation (Acute) Acute anemia (Acute) New onset of congestive heart failure (Acute) Subjective: Patient had EGD which showed esophagitis. On Protonix. Discussed with Dr. Domínguez. Diuretic is being held as creatinine went up. Blood pressure is good. Heart rate in 60s- 70s. On 2 L of oxygen. Vitals/I&O's: Vital Signs Temp Pulse Resp BP Pulse Ox 97.3 F L 61 18 146/68 H 98 03/23/19 10:20 03/23/19 14:53 03/23/19 10:20 03/23/19 10:20 03/23/19 10:20 Oxygen Flow Rate (L/min) 2 Oxygen Delivery Method Room Air Weight: 163 lb 9.328 oz Body Mass Index (BMI) 22.3 Intake and Output for Last 24 Hours 03/21/19 03/22/19 03/23/19 23:59 23:59 23:59 Intake Total 1710 / 1710 1668 / 1668 1066 / 1066 Balance 1710 / 1710 1668 / 1668 1066 / 1066 General: Alert, Oriented x3, Cooperative HEENT: Atraumatic, PERRLA, EOMI, Normocephalic Neck: Supple, No JVD, Negative Carotid Bruits Lungs: Clear to auscultation, No rhonchi, No wheeze, No rales, Diminished Cardiovascular: Regular rate, Regular Rhythm, Normal S1, Normal S2, No murmurs Abdomen: Bowel Sounds Present, Soft, Non Tender, Non-Distended Extremities: No edema, Capillary Refill Less than 3 Seconds Skin: No rashes, No breakdown Musculoskeletal: No Tenderness to Palpation of Joints or Extremities, Arthritic Changes Neurological: Cranial nerves II-XII grossly intact, Deep Tendon Reflexes 2+/4 and Symmetrical, Neuro grossly intact Psych/Mental Status: Normal Affect, Appropriate Microbiology Past 72 Hours 03/21/19 15:00 Stool Stool Occult Blood (FAITH) - Final Laboratory Results 03/22/19 15:15: Crossmatch See Detail 03/23/19 05:45: WBC 8.3, RBC 3.91 L, Hgb 9.2 L, Hct 29.2 L, MCV 74.7 L, MCH 23.5 L, MCHC 31.5 L, RDW 17.6 H, RDW Differential 47.7 H, Plt Count 537 H, MPV 9.4, Immature Gran % (Auto) 0.100, Neut % (Auto) 67.0, Lymph % (Auto) 16.3 L, [place] % (Auto) 14.1 H, Eos % (Auto) 1.9, Baso % (Auto) 0.6, Absolute Neuts (auto) 5.6, Absolute Lymphs (auto) 1.35, Total Counted Not Reportable 03/23/19 05:45: Sodium 144, Potassium 3.8, Chloride 108 H, Carbon Dioxide 26.0, Anion Gap 10, BUN 44 H, Creatinine 3.52 H, Estim Creat Clear Calc 18.15, Est GFR (MDRD) Af Amer 22 L, Est GFR (MDRD) Non-Af 18 L, BUN/Creatinine Ratio 12.5, Glucose 106, Calcium 8.3 L Current Medications Acetaminophen (Tylenol) 650 mg PO Q6H PRN PRN PRN Reason: Non-cardiac pain (mod-severe) Hydrocodone Bitart/Acetaminophen ([place] 5mg-325mg) 1 - 2 tablet PO Q6H PRN PRN PRN Reason: MOD-SEVERE PAIN (4-10/10) Al Hydroxide/Mg Hydroxide (Mylanta Ii) 15 - 30 ml PO Q4H PRN PRN PRN Reason: INDIGESTION Albuterol Sulfate (Ventolin Aerosols) 2.5 mg INHALATION Q2H PRN PRN PRN Reason: dyspnea, wheezing Fludrocortisone Acetate (Florinef) 0.1 mg PO DAILY@0800 [facility] Last Admin: 03/23/19 08:10 Dose: 0.1 mg Hydralazine HCl (Apresoline Iv) 10 mg IV Q4H PRN PRN PRN Reason: SBP > 160 Pantoprazole Sodium 40 mg/ (Sodium Chloride) 110 mls @ 330 mls/hr IV Q12 [facility] Last Admin: 03/23/19 08:11 Dose: 330 mls/hr Levothyroxine Sodium (Synthroid) 50 mcg PO DAILY@0600 [facility] Last Admin: 03/23/19 05:47 Dose: 50 mcg Magnesium Hydroxide (Milk Of Magnesia) 30 ml PO DAILY PRN PRN Reason: Constipation Methylphenidate HCl (Methylphenidate Hcl Er (Cd)) 20 mg PO DAILY [facility] Last Admin: 03/23/19 08:11 Dose: 20 mg Metoprolol Tartrate (Lopressor (Beta Daryl)) 25 mg PO BID [facility] Last Admin: 03/23/19 08:14 Dose: 25 mg Morphine Sulfate () 1 - 2 mg IV Q4H PRN PRN PRN Reason: PAIN Nitroglycerin (Nitrostat) 0.4 mg SUBLINGUAL Q5M PRN PRN Reason: CARDIAC/CHEST PAIN Ondansetron HCl (Zofran) 4 mg IV Q8H PRN PRN PRN Reason: NAUSEA/VOMITING Sodium Chloride () 5 - 15 ml IV UD PRN PRN Reason: SALINE FLUSH Last Admin: 03/23/19 08:11 Dose: 10 ml Medical Necessity - Tobacco Use Smoking Status: Never smoker Tobacco Use: Non-smoker Assessment/Plan All Active Problems (Last Reviewed 03/21/19 @ 16:50 by Jenny Manzano PA-C) CHF exacerbation (Acute) Acute anemia (Acute) New onset of congestive heart failure (Acute) Syncope and collapse (Acute) Chest pain (Acute) The patient is a 78 y/o M with PMHx: CKD stage III, Sinus Bradycardia s/p pacemaker, BPH, Hypothyroidism, Chronic Anemia was admitted with progressive worsening of shortness of breath with dry cough for about 2 weeks, bilateral lower extremity edema and swelling and had an 11 pound weight gain over last 2 weeks consistent with acute decompensated heart failure. Patient also had low hemoglobin on admission, hemoglobin 7.0, with baseline around 12 in July 2018. (1) Acute on chronic heart failure, systolic: BNP 1005.5, TSH 5.82, CXR w/ central vascular congestion with bibasilar atelectasis and a right pleural effusion. The patient was started on IV Lasix but was held on 03/23 secondary to elevated creatinine. Discussed with manufacturing planner. Troponin is mildly elevated at 0.072, 0.063 and 0.067; ALT mildly elevated, plateau and indeterminate range, Reflects demand ischemia. TSH 4.89. Free T4 1.4 normal range. Last echo in October 2017 reported as EF 50% with systolic function lower limit of normal. Normal LV size. Impaired relaxation of LV. No regional wall motion abnormality. mild eccentric MR and AR. Repeat echo (2) Acute on Chronic Anemia, Microcytic: Patient w/ no history of hematemesis, hematochezia, melenotic stools w/ admission Hgb 7, prior baseline noted 2018 10. Patient had 1 unit of PRBC transfusion done. Repeat H&H ordered. Patient had EGD and colonoscopy done and mild esophagitis was found. Was advised Protonix 40 mg daily for 3 months and then follow-up with Dr. Padilla as an outpatient. Probably will need repeat EGD after 3 months. General surgery signed off. (3) Hx Sinus Bradycardia, Symptomatic: s/p pacemaker, noted history prior of syncope events associated, chronic lightheadedness, dizziness he notes, maintained on fludrocortisone. Patient had pacemaker interrogation done today. (4) acute kidney injury on CKD stage III: Admission BUN/Cr 31/1.83, baseline renal function 1.5-1.8. BUN/creatinine 31/2.03. K3.3. On 03/23 BUN, 44, creatinine 3.52. Diuretic on hold. (5) Hypothyroidism w/ elevated TSH: Recent outpatient TSH 5.82. Free T4 normal (6) GERD: PPI IV as noted. (7) DVT Prophylaxis: SCDs, defer chemoprophylaxis given acute anemia. Active Medications Acetaminophen (Tylenol) 650 mg PO Q6H PRN PRN PRN Reason: Non-cardiac pain (mod-severe) Hydrocodone Bitart/Acetaminophen ([place] 5mg-325mg) 1 - 2 tablet PO Q6H PRN PRN PRN Reason: MOD-SEVERE PAIN (4-10/10) Al Hydroxide/Mg Hydroxide (Mylanta Ii) 15 - 30 ml PO Q4H PRN PRN PRN Reason: INDIGESTION Albuterol Sulfate (Ventolin Aerosols) 2.5 mg INHALATION Q2H PRN PRN PRN Reason: dyspnea, wheezing Fludrocortisone Acetate (Florinef) 0.1 mg PO DAILY@0800 [facility] Last Admin: 03/23/19 08:10 Dose: 0.1 mg Hydralazine HCl (Apresoline Iv) 10 mg IV Q4H PRN PRN PRN Reason: SBP > 160 Pantoprazole Sodium 40 mg/ (Sodium Chloride) 110 mls @ 330 mls/hr IV Q12 [facility] Last Admin: 03/23/19 08:11 Dose: 330 mls/hr Levothyroxine Sodium (Synthroid) 50 mcg PO DAILY@0600 [facility] Last Admin: 03/23/19 05:47 Dose: 50 mcg Magnesium Hydroxide (Milk Of Magnesia) 30 ml PO DAILY PRN PRN Reason: Constipation Methylphenidate HCl (Methylphenidate Hcl Er (Cd)) 20 mg PO DAILY [facility] Last Admin: 03/23/19 08:11 Dose: 20 mg Metoprolol Tartrate (Lopressor (Beta Daryl)) 25 mg PO BID [facility] Last Admin: 03/23/19 08:14 Dose: 25 mg Morphine Sulfate () 1 - 2 mg IV Q4H PRN PRN PRN Reason: PAIN Nitroglycerin (Nitrostat) 0.4 mg SUBLINGUAL Q5M PRN PRN Reason: CARDIAC/CHEST PAIN Ondansetron HCl (Zofran) 4 mg IV Q8H PRN PRN PRN Reason: NAUSEA/VOMITING Sodium Chloride () 5 - 15 ml IV UD PRN PRN Reason: SALINE FLUSH Last Admin: 03/23/19 08:11 Dose: 10 ml Code Visit Inpatient E&M: 61204 Subs Hosp L2
--- NOTE | 2019-03-23 16:06 | PN_ITS ---
Patient Problems: Active and Suspected Problems (Last Reviewed 03/21/19 @ 16:50 by Jenny Manzano PA-C) CHF exacerbation (Acute) Acute anemia (Acute) New onset of congestive heart failure (Acute) Subjective: Patient had EGD which showed esophagitis. On Protonix. Discussed with Dr. Domínguez. Diuretic is being held as creatinine went up. Blood pressure is good. Heart rate in 60s- 70s. On 2 L of oxygen. Vitals/I&O's: Vital Signs Temp Pulse Resp BP Pulse Ox 97.3 F L 61 18 146/68 H 98 03/23/19 10:20 03/23/19 14:53 03/23/19 10:20 03/23/19 10:20 03/23/19 10:20 Oxygen Flow Rate (L/min) 2 Oxygen Delivery Method Room Air Weight: 163 lb 9.328 oz Body Mass Index (BMI) 22.3 Intake and Output for Last 24 Hours 03/21/19 03/22/19 03/23/19 23:59 23:59 23:59 Intake Total 1710 / 1710 1668 / 1668 1066 / 1066 Balance 1710 / 1710 1668 / 1668 1066 / 1066 General: Alert, Oriented x3, Cooperative HEENT: Atraumatic, PERRLA, EOMI, Normocephalic Neck: Supple, No JVD, Negative Carotid Bruits Lungs: Clear to auscultation, No rhonchi, No wheeze, No rales, Diminished Cardiovascular: Regular rate, Regular Rhythm, Normal S1, Normal S2, No murmurs Abdomen: Bowel Sounds Present, Soft, Non Tender, Non-Distended Extremities: No edema, Capillary Refill Less than 3 Seconds Skin: No rashes, No breakdown Musculoskeletal: No Tenderness to Palpation of Joints or Extremities, Arthritic Changes Neurological: Cranial nerves II-XII grossly intact, Deep Tendon Reflexes 2+/4 and Symmetrical, Neuro grossly intact Psych/Mental Status: Normal Affect, Appropriate Microbiology Past 72 Hours 03/21/19 15:00 Stool Stool Occult Blood (FAITH) - Final Laboratory Results 03/22/19 15:15: Crossmatch See Detail 03/23/19 05:45: WBC 8.3, RBC 3.91 L, Hgb 9.2 L, Hct 29.2 L, MCV 74.7 L, MCH 23.5 L, MCHC 31.5 L, RDW 17.6 H, RDW Differential 47.7 H, Plt Count 537 H, MPV 9.4, Immature Gran % (Auto) 0.100, Neut % (Auto) 67.0, Lymph % (Auto) 16.3 L, [place] % (Auto) 14.1 H, Eos % (Auto) 1.9, Baso % (Auto) 0.6, Absolute Neuts (auto) 5.6, Absolute Lymphs (auto) 1.35, Total Counted Not Reportable 03/23/19 05:45: Sodium 144, Potassium 3.8, Chloride 108 H, Carbon Dioxide 26.0, Anion Gap 10, BUN 44 H, Creatinine 3.52 H, Estim Creat Clear Calc 18.15, Est GFR (MDRD) Af Amer 22 L, Est GFR (MDRD) Non-Af 18 L, BUN/Creatinine Ratio 12.5, Glucose 106, Calcium 8.3 L Current Medications Acetaminophen (Tylenol) 650 mg PO Q6H PRN PRN PRN Reason: Non-cardiac pain (mod-severe) Hydrocodone Bitart/Acetaminophen ([place] 5mg-325mg) 1 - 2 tablet PO Q6H PRN PRN PRN Reason: MOD-SEVERE PAIN (4-10/10) Al Hydroxide/Mg Hydroxide (Mylanta Ii) 15 - 30 ml PO Q4H PRN PRN PRN Reason: INDIGESTION Albuterol Sulfate (Ventolin Aerosols) 2.5 mg INHALATION Q2H PRN PRN PRN Reason: dyspnea, wheezing Fludrocortisone Acetate (Florinef) 0.1 mg PO DAILY@0800 [facility] Last Admin: 03/23/19 08:10 Dose: 0.1 mg Hydralazine HCl (Apresoline Iv) 10 mg IV Q4H PRN PRN PRN Reason: SBP > 160 Pantoprazole Sodium 40 mg/ (Sodium Chloride) 110 mls @ 330 mls/hr IV Q12 [facility] Last Admin: 03/23/19 08:11 Dose: 330 mls/hr Levothyroxine Sodium (Synthroid) 50 mcg PO DAILY@0600 [facility] Last Admin: 03/23/19 05:47 Dose: 50 mcg Magnesium Hydroxide (Milk Of Magnesia) 30 ml PO DAILY PRN PRN Reason: Constipation Methylphenidate HCl (Methylphenidate Hcl Er (Cd)) 20 mg PO DAILY [facility] Last Admin: 03/23/19 08:11 Dose: 20 mg Metoprolol Tartrate (Lopressor (Beta Daryl)) 25 mg PO BID [facility] Last Admin: 03/23/19 08:14 Dose: 25 mg Morphine Sulfate () 1 - 2 mg IV Q4H PRN PRN PRN Reason: PAIN Nitroglycerin (Nitrostat) 0.4 mg SUBLINGUAL Q5M PRN PRN Reason: CARDIAC/CHEST PAIN Ondansetron HCl (Zofran) 4 mg IV Q8H PRN PRN PRN Reason: NAUSEA/VOMITING Sodium Chloride () 5 - 15 ml IV UD PRN PRN Reason: SALINE FLUSH Last Admin: 03/23/19 08:11 Dose: 10 ml Medical Necessity - Tobacco Use Smoking Status: Never smoker Tobacco Use: Non-smoker Assessment/Plan All Active Problems (Last Reviewed 03/21/19 @ 16:50 by Jenny Manzano PA-C) CHF exacerbation (Acute) Acute anemia (Acute) New onset of congestive heart failure (Acute) Syncope and collapse (Acute) Chest pain (Acute) The patient is a 78 y/o M with PMHx: CKD stage III, Sinus Bradycardia s/p pacemaker, BPH, Hypothyroidism, Chronic Anemia was admitted with progressive worsening of shortness of breath with dry cough for about 2 weeks, bilateral lower extremity edema and swelling and had an 11 pound weight gain over last 2 weeks consistent with acute decompensated heart failure. Patient also had low hemoglobin on admission, hemoglobin 7.0, with baseline around 12 in July 2018. (1) Acute on chronic heart failure, systolic: BNP 1005.5, TSH 5.82, CXR w/ central vascular congestion with bibasilar atelectasis and a right pleural effusion. The patient was started on IV Lasix but was held on 03/23 secondary to elevated creatinine. Discussed with pumper helper. Troponin is mildly elevated at 0.072, 0.063 and 0.067; ALT mildly elevated, plateau and indeterminate range, Reflects demand ischemia. TSH 4.89. Free T4 1.4 normal range. Last echo in October 2017 reported as EF 50% with systolic function lower limit of normal. Normal LV size. Impaired relaxation of LV. No regional wall motion abnormality. mild eccentric MR and AR. Repeat echo (2) Acute on Chronic Anemia, Microcytic: Patient w/ no history of hematemesis, hematochezia, melenotic stools w/ admission Hgb 7, prior baseline noted 2018 10. Patient had 1 unit of PRBC transfusion done. Repeat H&H ordered. Patient had EGD and colonoscopy done and mild esophagitis was found. Was advised Protonix 40 mg daily for 3 months and then follow-up with Dr. Padilla as an outpatient. Probably will need repeat EGD after 3 months. General surgery signed off. (3) Hx Sinus Bradycardia, Symptomatic: s/p pacemaker, noted history prior of syncope events associated, chronic lightheadedness, dizziness he notes, maint ained on fludrocortisone. Patient had pacemaker interrogation done today. (4) acute kidney injury on CKD stage III: Admission BUN/Cr 31/1.83, baseline renal function 1.5-1.8. BUN/creatinine 31/2.03. K3.3. On 03/23 BUN, 44, creatinine 3.52. Diuretic on hold. (5) Hypothyroidism w/ elevated TSH: Recent outpatient TSH 5.82. Free T4 normal (6) GERD: PPI IV as noted. (7) DVT Prophylaxis: SCDs, defer chemoprophylaxis given acute anemia. Active Medications Acetaminophen (Tylenol) 650 mg PO Q6H PRN PRN PRN Reason: Non-cardiac pain (mod-severe) Hydrocodone Bitart/Acetaminophen ([place] 5mg-325mg) 1 - 2 tablet PO Q6H PRN PRN PRN Reason: MOD-SEVERE PAIN (4-10/10) Al Hydroxide/Mg Hydroxide (Mylanta Ii) 15 - 30 ml PO Q4H PRN PRN PRN Reason: INDIGESTION Albuterol Sulfate (Ventolin Aerosols) 2.5 mg INHALATION Q2H PRN PRN PRN Reason: dyspnea, wheezing Fludrocortisone Acetate (Florinef) 0.1 mg PO DAILY@0800 [facility] Last Admin: 03/23/19 08:10 Dose: 0.1 mg Hydralazine HCl (Apresoline Iv) 10 mg IV Q4H PRN PRN PRN Reason: SBP > 160 Pantoprazole Sodium 40 mg/ (Sodium Chloride) 110 mls @ 330 mls/hr IV Q12 [facility] Last Admin: 03/23/19 08:11 Dose: 330 mls/hr Levothyroxine Sodium (Synthroid) 50 mcg PO DAILY@0600 [facility] Last Admin: 03/23/19 05:47 Dose: 50 mcg Magnesium Hydroxide (Milk Of Magnesia) 30 ml PO DAILY PRN PRN Reason: Constipation Methylphenidate HCl (Methylphenidate Hcl Er (Cd)) 20 mg PO DAILY [facility] Last Admin: 03/23/19 08:11 Dose: 20 mg Metoprolol Tartrate (Lopressor (Beta Daryl)) 25 mg PO BID [facility] Last Admin: 03/23/19 08:14 Dose: 25 mg Morphine Sulfate () 1 - 2 mg IV Q4H PRN PRN PRN Reason: PAIN Nitroglycerin (Nitrostat) 0.4 mg SUBLINGUAL Q5M PRN PRN Reason: CARDIAC/CHEST PAIN Ondansetron HCl (Zofran) 4 mg IV Q8H PRN PRN PRN Reason: NAUSEA/VOMITING Sodium Chloride () 5 - 15 ml IV UD PRN PRN Reason: SALINE FLUSH Last Admin: 03/23/19 08:11 Dose: 10 ml Code Visit Inpatient E&M: 53838 Subs Hosp L2
--- NOTE | 2019-03-23 16:57 | CHAPLAIN ---
Type of Pastoral Visit ___ Initial Visit _x__ Follow-up Visit ___ On-call Visit ___ General Patient Visit ___ Spiritual Assessment ___ Family Conference ___ Bereavement ___ Rapid Response ___ Code Blue ___ Other (describe below) Pastoral Care Referral From _x__ Patient ___ Family ___ Nurse ___ Physician ___ Chipper Operator ___ Broadcast News Producer ___ Other (describe below) Sacrament/Intervention _x__ Active listening ___ Anointing ___ Congregation ___ Bereavement ___ Communion ___ Leela exploration ___ ___ Life review ___ Prayer ___ Reconciliation ___ Sacrament of Sick ___ Supportive presence ___ Wedding ___ Other (describe below) Pastoral Comments
[2019-03-24] VITALS (12 sets, daily range): BP systolic 122–142; BP diastolic 56–70; PULSE 60–67; RESP 12–18; TEMP 36.5–37; O2SAT 95–98
[2019-03-24 06:28] LABS: Absolute Lymphocyte Count 1.54 X10^3/ul (0.83-4.51); Absolute Neutrophil Count 5.7 X10^3/uL (2.0-7.7); Basophil# 0.04 X10^3/uL; Basophil% 0.5 % (0-1); Eosinophil# 0.19 X10^3/uL; Eosinophils% 2.1 % (0-5); Hematocrit 28.3 % (40-54); Lymphocyte # 1.54 X10^3/ul (4.0); Lymphocyte % 17.4 % (19-41); Mean Corp Hgb Conc 31.8 g/gl (32-36); Mean Corpuscular Hgb 23.6 pg (27.0-32.0); Mean Corpuscular Volume 74.3 fL (80-94); Monocyte# 1.36 X10^3/uL; Monocyte% 15.4 % (0-10); Neutrophil % 64.4 % (47-70); Platelet Count 536 K/mm3 (150-450); RBC Distribution Width CV 18.2 % (11.6-14.6); RBC Distribution Width SD 47.3 fl (35.1-43.9); Red Blood Count 3.81 M/mm3 (4.6-6.2); White Blood Count 8.9 K/mm3 (4.4-11.0)
[2019-03-24 06:29] LABS: POSITIVE COUNT NO; POSITIVE DIFFERENTIAL NO; POSITIVE MORPHOLOGY NO
[2019-03-24 06:51] LABS: Anion Gap 9 (5-15); BUN 54 mg/dL (7-18); BUN/Creat Ratio 12.9 RATIO (10-20); Calcium,Total 8.3 mg/dL (8.5-10.1); Chloride 109 mmol/L (98-107); EST Glomerular Filtration Rate 15 mL/min (>60); Est Glom Filt Rate - Afr Amer 18 mL/min (>60); Estimated Creatinine Clearance 15.34 ml/min; Glucose 86 mg/dL (74-106); Potassium 3.8 mmol/L (3.5-5.1); Sodium Level 143 mmol/L (136-145)
[2019-03-24] MEDS: Levothyroxine 50 MCG Tablet PO (06:52)
[2019-03-24] MEDS: 0.9% NaCl Peripheral Flush Adult/Peds IV ×2 (06:53→09:00)
[2019-03-24] MEDS: Metoprolol Tartrate 25 MG Tablet PO ×2 (09:01→21:04)
[2019-03-24] MEDS: Fludrocortisone Acetate 0.1 MG Tablet PO (09:01)
--- NOTE | 2019-03-24 09:33 | RAD_ITS ---
STUDY: X-RAY CHEST REASON FOR EXAM: Male, 78 years old. Shortness of breath, cough TECHNIQUE: Single AP portable view of the chest. COMPARISON: 03/21/2019 FINDINGS: EKG leads overlie the chest Dual-chamber pacemaker on the left. Central vascular congestion. Bibasilar atelectasis. Right pleural effusion. Normal size heart. Normal mediastinum and gopal. Normal visualized pulmonary arteries. Normal visualized aortic arch and descending thoracic aorta. Normal visualized thoracic spine. Normal visualized ribs, clavicles, and shoulders. There is no demonstrated abnormality of the visualized soft tissue structures of the upper abdomen. RAD/Chest 1 View (Portable) IMPRESSION: Central vascular congestion. Bibasilar atelectasis. Right pleural effusion. No interval change Electronically Signed: Armando Terrazas MD at 10:23 EDT , Service support ,
--- NOTE | 2019-03-24 09:35 | PN.CARD_ITS ---
Subjectve: The patient believes his breathing has improved overall since medical management and PRBCs. He denies ongoing chest discomfort. Objective: Vital Signs Temp Pulse Resp BP Pulse Ox 97.9 F 63 12 130/70 H 98 03/24/19 09:32 03/24/19 09:32 03/24/19 09:32 03/24/19 09:32 03/24/19 09:32 Oxygen Flow Rate (L/min) 2 Oxygen Delivery Method Room Air Weight: 164 lb 14.492 oz Body Mass Index (BMI) 22.3 Intake and Output for Last 24 Hours 03/22/19 03/23/19 03/24/19 23:59 23:59 23:59 Intake Total 1668 / 1668 1726 / 1726 50 / 50 Balance 1668 / 1668 1726 / 1726 50 / 50 General: Awake, Alert, Oriented x 3, Cooperative, No Acute Distress HEENT: Atraumatic, Normocephalic, PERRL, EOMI, Sclera Non Icteric Oral: Moist Mucosa Neck: Supple, Good ROM, No JVD Lungs: Rales - Colin Bases Cardiovascular: Regular Rhythm, Premature Ectopic Beats, Normal S1, Normal S2 Abdomen: Bowel Sounds Present, Soft, Non Tender Extremities: No edema Psych/Mental Status: Appropriate 03/24/19 06:00: WBC 8.9, RBC 3.81 L, Hgb 9.0 L, Hct 28.3 L, MCV 74.3 L, MCH 23.6 L, MCHC 31.8 L, RDW 18.2 H, RDW Differential 47.3 H, Plt Count 536 H, MPV 10.0, Immature Gran % (Auto) 0.200, Neut % (Auto) 64.4, Lymph % (Auto) 17.4 L, [place] % (Auto) 15.4 H, Eos % (Auto) 2.1, Baso % (Auto) 0.5, Absolute Neuts (auto) 5.7, Total Counted Not Reportable 03/24/19 06:00: Sodium 143, Potassium 3.8, Chloride 109 H, Carbon Dioxide 25.0, Anion Gap 9, BUN 54 H, Creatinine 4.20 H, Est GFR (MDRD) Af Amer 18 L, Est GFR (MDRD) Non-Af 15 L, BUN/Creatinine Ratio 12.9, Glucose 86, Calcium 8.3 L Rhythm: Electronic atrial paced rhythm; PVCs Medical Necessity - Tobacco Use Smoking Status: Never smoker Tobacco Use: Non-smoker Assessment/Plan 1. Congestive heart failure The patient has been undergoing noninvasive evaluation. He has been treated medically with IV diuretics. He states he does feel better. His lower extremity edema appears improved. His creatinine level is increasing. His diuretics will continue to be on hold at this time. He will have a follow-up chest x-ray to reassess his pulmonary process/pleural effusions. 2. Cardiac dysrhythmia The patient has had various cardiac arrhythmias with respect to sinus bradycardia, junctional rhythm, paroxysmal atrial fibrillation, and prolonged pauses. He has received a permanent pacemaker. He has pacemaker was reported as functioning appropriately. He has been placed on beta-edgar therapy which hopefully will help with respect to his PAF and his nonsustained wide-complex tachycardia. Depending upon his follow-up he may or may not need additional evaluation and/or therapy. 3. Permanent pacemaker He states he has a [employer]tronic permanent pacemaker. His pacemaker was interrogated. It appears to be functioning appropriately. 4. Hypertension The patient's blood pressure will be followed. His medications can be his adjusted as needed. 5. GERD The patient states he has a history of GERD previously diagnosed by endoscopy procedures. He has been on medical management. He has undergoing evaluation with EGD. He was found to have esophagitis. It is unclear as to whether this is the sole etiology for his anemia. He is being treated medically. 6. Anemia He is now status post 2 units of PRBC. His hemoglobin has improved to greater than 9. Hopefully this will help from a cardiovascular standpoint with his oxygen carrying capacity. Comment: The above was discussed and reviewed with the patient and his spouse. This note was generated with [employer] software. It may contain incorrect words, spelling, and punctuation that were not noted in checking the note before signing.
--- NOTE | 2019-03-24 12:19 | PCM.CONS.R ---
Problem List (1) ABEL (acute kidney injury) Status: Acute Consultation - Renal 03/24/19 PCP/ Referring MD: Requesting physician: Dr Lassiter Primary care physician: Dick Chan MD Reason for Consultation:: ABEL - History of Present Illness History of Present Illness: The patient is a 78 year old M who was admitted to the hospital about 2 days ago with progressively worsening lower extremity edema, severe anemia. He has known history of coronary artery disease with prior pacemaker placement at [facility]. Admitted with lower extremity edema. Echocardiogram showed ejection fraction of 55%. Incidentally found to have severe anemia with hemoglobin of 6.9. Prior baseline hemoglobin was around 12 or so. No history of melena, hematemesis, hemoptysis, bright red blood per rectum. Endoscopy showed esophagitis with no significant ulceration. Received blood transfusion and hemoglobin has improved. Received diuretics and that improved edema. Creatinine was around 1.6-1.8 at baseline has now increased to 4.2. History of prostate enlargement in the past. Takes saw [facility]. Currently does not offer any complaints. - Allergies Allergies: Allergies No Known Allergies Allergy (Verified 03/21/19 11:34) - Current Medications Current Medications: Current Medications Acetaminophen (Tylenol) 650 mg PO Q6H PRN PRN PRN Reason: Non-cardiac pain (mod-severe) Hydrocodone Bitart/Acetaminophen ([place] 5mg-325mg) 1 - 2 tablet PO Q6H PRN PRN PRN Reason: MOD-SEVERE PAIN (4-10/10) Al Hydroxide/Mg Hydroxide (Mylanta Ii) 15 - 30 ml PO Q4H PRN PRN PRN Reason: INDIGESTION Albuterol Sulfate (Ventolin Aerosols) 2.5 mg INHALATION Q2H PRN PRN PRN Reason: dyspnea, wheezing Fludrocortisone Acetate (Florinef) 0.1 mg PO DAILY@0800 [facility] Last Admin: 03/24/19 09:01 Dose: 0.1 mg Hydralazine HCl (Apresoline Iv) 10 mg IV Q4H PRN PRN PRN Reason: SBP > 160 Levothyroxine Sodium (Synthroid) 50 mcg PO DAILY@0600 [facility] Last Admin: 03/24/19 06:52 Dose: 50 mcg Magnesium Hydroxide (Milk Of Magnesia) 30 ml PO DAILY PRN PRN Reason: Constipation Methylphenidate HCl (Methylphenidate Hcl Er (Cd)) 20 mg PO DAILY [facility] Last Admin: 03/24/19 09:02 Dose: 20 mg Metoprolol Tartrate (Lopressor (Beta Daryl)) 25 mg PO BID [facility] Last Admin: 03/24/19 09:01 Dose: 25 mg Morphine Sulfate () 1 - 2 mg IV Q4H PRN PRN PRN Reason: PAIN Nitroglycerin (Nitrostat) 0.4 mg SUBLINGUAL Q5M PRN PRN Reason: CARDIAC/CHEST PAIN Ondansetron HCl (Zofran) 4 mg IV Q8H PRN PRN PRN Reason: NAUSEA/VOMITING Pantoprazole Sodium (Protonix) 40 mg PO BID [facility] Sodium Chloride () 5 - 15 ml IV UD PRN PRN Reason: SALINE FLUSH Last Admin: 03/24/19 09:00 Dose: 10 ml Tamsulosin HCl (Flomax) 0.4 mg PO DAILY@1730 [facility] Tamsulosin HCl (Flomax) 0.4 mg PO DAILY@1730 [facility] - Past Medical History Past Medical History (Chronic Problems): Chronic Problems (Last Reviewed 03/21/19 @ 16:50 by Jenny Manzano PA-C) PAF (paroxysmal atrial fibrillation) (Chronic) Cardiac pacemaker (Chronic) Bradycardia (Chronic) Dizziness (Chronic) PVD (peripheral vascular disease) (Chronic) Hypothyroidism (Chronic) GERD (gastroesophageal reflux disease) (Chronic) - Past Surgical History Surgical History: pacemaker implantation, - - Cataract removal with insertion of prosthetic lens, pacemaker placement 06/2018 at [facility], left leg vein stripping, right hydrocele intervention. - Social History Smoking Status: Never smoker Alcohol: None Drugs: None - Family History Maternal Family History: Family History (Last Reviewed 03/21/19 @ 16:50 by Jenny Manzano PA-C) Brother CAD (coronary artery disease) History Items: Pulmonary Disease - Patient notes his mother with severe COPD, emphysema secondary to heavy tobacco use history. Paternal Family History: Family History (Last Reviewed 03/21/19 @ 16:50 by Jenny Manzano PA-C) Brother CAD (coronary artery disease) History Items: - - Patient notes that his father was very healthy with no history of heart disease, diabetes or cancer. Review of Systems Constitutional: Denies: Chills, Fever, Weight Change HEENT: Denies: Head Aches, Sinus Congestion, Sinus Drainage Cardiovascular: Denies: Chest Pain, Palpitations Respiratory: Denies: Cough, Shortness of breath at rest, Sputum production Gastrointestinal: Denies: Abdominal Pain, Nausea, Vomiting Genitourinary: Denies: Dysuria Musculoskeletal: Denies: Joint Pain, Joint Tenderness Skin: Denies: Rash, Wounds Neurological: Denies: Numbness, Tingling, Focal weakness Psychiatric: Denies: Anxiety, Depression, Homicidal Ideations, Suicidal Ideations Hematologic/ Lymphatic: Denies: Easy Bruising, Easy Bleeding Patient Problems: Active and Suspected Problems (Last Reviewed 03/21/19 @ 16:50 by Jenny Manzano PA-C) CHF exacerbation (Acute) Acute anemia (Acute) New onset of congestive heart failure (Acute) ABEL (acute kidney injury) (Acute) - Physical Exam General: Alert, Oriented x3, Cooperative HEENT: Atraumatic, PERRLA, EOMI, Normocephalic Neck: Supple, No JVD, Negative Carotid Bruits Lungs: Clear to auscultation, Normal air movement Cardiovascular: Regular rate, No murmurs Abdomen: Bowel Sounds Present, Soft, Non Tender Extremities: No edema, Capillary Refill Less than 3 Seconds Skin: No rashes, No breakdown Musculoskeletal: No Tenderness to Palpation of Joints or Extremities Neurological: Cranial nerves II-XII grossly intact Psych/Mental Status: Normal Affect, Appropriate Vital Signs Temp Pulse Resp BP Pulse Ox 97.9 F 63 12 130/70 H 98 03/24/19 09:32 03/24/19 09:32 03/24/19 09:32 03/24/19 09:32 03/24/19 09:32 Oxygen Flow Rate (L/min) 2 Oxygen Delivery Method Room Air Weight: 74.8 kg Body Mass Index (BMI) 22.3 Intake and Output for Last 24 Hours 03/22/19 03/23/19 03/24/19 23:59 23:59 23:59 Intake Total 1668 / 1668 1726 / 1726 50 / 50 Balance 1668 / 1668 1726 / 1726 50 / 50 Microbiology Past 72 Hours 03/21/19 15:00 Stool Occult Blood (FAITH) - Final Stool Laboratory Tests Past 24 Hrs 03/24/19 03/24/19 06:00 06:00 WBC 8.9 RBC 3.81 L Hgb 9.0 L Hct 28.3 L MCV 74.3 L MCH 23.6 L MCHC 31.8 L RDW 18.2 H RDW Differential 47.3 H Plt Count 536 H MPV 10.0 Immature Gran % (Auto) 0.200 Neut % (Auto) 64.4 Lymph % (Auto) 17.4 L [place] % (Auto) 15.4 H Eos % (Auto) 2.1 Baso % (Auto) 0.5 Absolute Neuts (auto) 5.7 Absolute Lymphs (auto) 1.54 Total Counted Not Reportable Sodium 143 Potassium 3.8 Chloride 109 H Carbon Dioxide 25.0 Anion Gap 9 BUN 54 H Creatinine 4.20 H Estim Creat Clear Calc 15.34 Est GFR (MDRD) Af Amer 18 L Est GFR (MDRD) Non-Af 15 L BUN/Creatinine Ratio 12.9 Glucose 86 Calcium 8.3 L Assessment/Plan All Active Problems (Last Reviewed 03/21/19 @ 16:50 by Jenny Manzano PA-C) CHF exacerbation (Acute) Acute anemia (Acute) New onset of congestive heart failure (Acute) ABEL (acute kidney injury) (Acute) Syncope and collapse (Acute) Chest pain (Acute) Acute renal failure CKD stage III. Plan creatinine was around 1.6-1.8 in the past. Urine analysis looks fairly benign except for 2+ protein. Blood pressure is acceptable. On examination he has significant suprapubic fullness. Bedside bladder scan was done immediately and he had more than 1000 cc of urine. We will place a Avila catheter. He will also need urology evaluation for suspected prostate enlargement. Agree with holding Lasix. Volume status looks acceptable. Anemia. Suspected GI bleed. Better with blood transfusion CHF. Volume status looks acceptable. Continue to hold Lasix for now. Not sure why he takes Florinef. He tells me at some point he was fairly dizzy with low blood pressure. No documented history of adrenal insufficiency. We will try to find out from primary care doctor. discussed with hospitalist
--- NOTE | 2019-03-24 12:23 | CON.PCM_ITS ---
Problem List (1) ABEL (acute kidney injury) Status: Acute Consultation - Renal 03/24/19 PCP/ Referring MD: Requesting physician: Dr Lassiter Primary care physician: Dick Chan MD Reason for Consultation:: ABEL - History of Present Illness History of Present Illness: The patient is a 78 year old M who was admitted to the hospital about 2 days ago with progressively worsening lower extremity edema, severe anemia. He has known history of coronary artery disease with prior pacemaker placement at [facility]. Admitted with lower extremity edema. Echocardiogram showed ejection fraction of 55%. Incidentally found to have severe anemia with hemoglobin of 6.9. Prior baseline hemoglobin was around 12 or so. No history of melena, hematemesis, hemoptysis, bright red blood per rectum. Endoscopy showed esophagitis with no significant ulceration. Received blood transfusion and hemoglobin has improved. Received diuretics and that improved edema. Creatinine was around 1.6-1.8 at baseline has now increased to 4.2. History of prostate enlargement in the past. Takes saw [facility]. Currently does not offer any complaints. - Allergies Allergies: Allergies No Known Allergies Allergy (Verified 03/21/19 11:34) - Current Medications Current Medications: Current Medications Acetaminophen (Tylenol) 650 mg PO Q6H PRN PRN PRN Reason: Non-cardiac pain (mod-severe) Hydrocodone Bitart/Acetaminophen ([place] 5mg-325mg) 1 - 2 tablet PO Q6H PRN PRN PRN Reason: MOD-SEVERE PAIN (4-10/10) Al Hydroxide/Mg Hydroxide (Mylanta Ii) 15 - 30 ml PO Q4H PRN PRN PRN Reason: INDIGESTION Albuterol Sulfate (Ventolin Aerosols) 2.5 mg INHALATION Q2H PRN PRN PRN Reason: dyspnea, wheezing Fludrocortisone Acetate (Florinef) 0.1 mg PO DAILY@0800 [facility] Last Admin: 03/24/19 09:01 Dose: 0.1 mg Hydralazine HCl (Apresoline Iv) 10 mg IV Q4H PRN PRN PRN Reason: SBP > 160 Levothyroxine Sodium (Synthroid) 50 mcg PO DAILY@0600 [facility] Last Admin: 03/24/19 06:52 Dose: 50 mcg Magnesium Hydroxide (Milk Of Magnesia) 30 ml PO DAILY PRN PRN Reason: Constipation Methylphenidate HCl (Methylphenidate Hcl Er (Cd)) 20 mg PO DAILY [facility] Last Admin: 03/24/19 09:02 Dose: 20 mg Metoprolol Tartrate (Lopressor (Beta Daryl)) 25 mg PO BID [facility] Last Admin: 03/24/19 09:01 Dose: 25 mg Morphine Sulfate () 1 - 2 mg IV Q4H PRN PRN PRN Reason: PAIN Nitroglycerin (Nitrostat) 0.4 mg SUBLINGUAL Q5M PRN PRN Reason: CARDIAC/CHEST PAIN Ondansetron HCl (Zofran) 4 mg IV Q8H PRN PRN PRN Reason: NAUSEA/VOMITING Pantoprazole Sodium (Protonix) 40 mg PO BID [facility] Sodium Chloride () 5 - 15 ml IV UD PRN PRN Reason: SALINE FLUSH Last Admin: 03/24/19 09:00 Dose: 10 ml Tamsulosin HCl (Flomax) 0.4 mg PO DAILY@1730 [facility] Tamsulosin HCl (Flomax) 0.4 mg PO DAILY@1730 [facility] - Past Medical History Past Medical History (Chronic Problems): Chronic Problems (Last Reviewed 03/21/19 @ 16:50 by Jenny Manzano PA-C) PAF (paroxysmal atrial fibrillation) (Chronic) Cardiac pacemaker (Chronic) Bradycardia (Chronic) Dizziness (Chronic) PVD (peripheral vascular disease) (Chronic) Hypothyroidism (Chronic) GERD (gastroesophageal reflux disease) (Chronic) - Past Surgical History Surgical History: pacemaker implantation, - - Cataract removal with insertion of prosthetic lens, pacemaker placement 06/2018 at [facility], left leg vein stripping, right hydrocele intervention. - Social History Smoking Status: Never smoker Alcohol: None Drugs: None - Family History Maternal Family History: Family History (Last Reviewed 03/21/19 @ 16:50 by Jenny Manzano PA-C) Brother CAD (coronary artery disease) History Items: Pulmonary Disease - Patient notes his mother with severe COPD, emphysema secondary to heavy tobacco use history. Paternal Family History: Family History (Last Reviewed 03/21/19 @ 16:50 by Jenny Manzano PA-C) Brother CAD (coronary artery disease) History Items: - - Patient notes that his father was very healthy with no history of heart disease, diabetes or cancer. Review of Systems Constitutional: Denies: Chills, Fever, Weight Change HEENT: Denies: Head Aches, Sinus Congestion, Sinus Drainage Cardiovascular: Denies: Chest Pain, Palpitations Respiratory: Denies: Cough, Shortness of breath at rest, Sputum production Gastrointestinal: Denies: Abdominal Pain, Nausea, Vomiting Genitourinary: Denies: Dysuria Musculoskeletal: Denies: Joint Pain, Joint Tenderness Skin: Denies: Rash, Wounds Neurological: Denies: Numbness, Tingling, Focal weakness Psychiatric: Denies: Anxiety, Depression, Homicidal Ideations, Suicidal Ideations Hematologic/ Lymphatic: Denies: Easy Bruising, Easy Bleeding Patient Problems: Active and Suspected Problems (Last Reviewed 03/21/19 @ 16:50 by Jenny Manzano PA-C) CHF exacerbation (Acute) Acute anemia (Acute) New onset of congestive heart failure (Acute) ABEL (acute kidney injury) (Acute) - Physical Exam General: Alert, Oriented x3, Cooperative HEENT: Atraumatic, PERRLA, EOMI, Normocephalic Neck: Supple, No JVD, Negative Carotid Bruits Lungs: Clear to auscultation, Normal air movement Cardiovascular: Regular rate, No murmurs Abdomen: Bowel Sounds Present, Soft, Non Tender Extremities: No edema, Capillary Refill Less than 3 Seconds Skin: No rashes, No breakdown Musculoskeletal: No Tenderness to Palpation of Joints or Extremities Neurological: Cranial nerves II-XII grossly intact Psych/Mental Status: Normal Affect, Appropriate Vital Signs Temp Pulse Resp BP Pulse Ox 97.9 F 63 12 130/70 H 98 03/24/19 09:32 03/24/19 09:32 03/24/19 09:32 03/24/19 09:32 03/24/19 09:32 Oxygen Flow Rate (L/min) 2 Oxygen Delivery Method Room Air Weight: 74.8 kg Body Mass Index (BMI) 22.3 Intake and Output for Last 24 Hours 03/22/19 03/23/19 03/24/19 23:59 23:59 23:59 Intake Total 1668 / 1668 1726 / 1726 50 / 50 Balance 1668 / 1668 1726 / 1726 50 / 50 Microbiology Past 72 Hours 03/21/19 15:00 Stool Occult Blood ([facility]ITH) - Final Stool Laboratory Tests Past 24 Hrs 03/24/19 03/24/19 06:00 06:00 WBC 8.9 RBC 3.81 L Hgb 9.0 L Hct 28.3 L MCV 74.3 L MCH 23.6 L MCHC 31.8 L RDW 18.2 H RDW Differential 47.3 H Plt Count 536 H MPV 10.0 Immature Gran % (Auto) 0.200 Neut % (Auto) 64.4 Lymph % (Auto) 17.4 L [place] % (Auto) 15.4 H Eos % (Auto) 2.1 Baso % (Auto) 0.5 Absolute Neuts (auto) 5.7 Absolute Lymphs (auto) 1.54 Total Counted Not Reportable Sodium 143 Potassium 3.8 Chloride 109 H Carbon Dioxide 25.0 Anion Gap 9 BUN 54 H Creatinine 4.20 H Estim Creat Clear Calc 15.34 Est GFR (MDRD) Af Amer 18 L Est GFR (MDRD) Non-Af 15 L BUN/Creatinine Ratio 12.9 Glucose 86 Calcium 8.3 L Assessment/Plan All Active Problems (Last Reviewed 03/21/19 @ 16:50 by Jenny Manzano PA-C) CHF exacerbation (Acute) Acute anemia (Acute) New onset of congestive heart failure (Acute) ABEL (acute kidney injury) (Acute) Syncope and collapse (Acute) Chest pain (Acute) Acute renal failure CKD stage III. Plan creatinine was around 1.6-1.8 in the past. Urine analysis looks fairly benign except for 2+ protein. Blood pressure is acceptable. On examination he has significant suprapubic fullness. Bedside bladder scan was done immediately and he had more than 1000 cc of urine. We will place a Avila catheter. He will also need urology evaluation for suspected prostate enlargement. Agree with holding Lasix. Volume status looks acceptable. Anemia. Suspected GI bleed. Better with blood transfusion CHF. Volume status looks acceptable. Continue to hold Lasix for now. Not sure why he takes Florinef. He tells me at some point he was fairly dizzy with low blood pressure. No documented history of adrenal insufficiency. We will try to find out from primary care doctor. discussed with hospitalist
[2019-03-24] MEDS: Lidocaine Jelly 2% 20 ML Syringe (URO-JET) 20 APPLIC TOPICAL (12:24)
[2019-03-24] MEDS: Tamsulosin HCl 0.4 MG Capsule PO (12:33)
--- NOTE | 2019-03-24 14:26 | PCM.CONS.U ---
Reason for Consult Date of Consultation: 03/24/19 Reason for Consultation: Retention of urine History of Present Illness: The patient is a 78 year old male admitted to the hospital with congestive heart failure he was given a lot of fluids and Lasix to try to do reduce the patient's fluid load perhaps this caused the distention of the bladder he then developed retention of urine elevated creatinine Avila catheter was placed. He does relate having difficulty urinating for the last several years but just described as a slow flow and no other significant symptoms. He reports that his family physician checked his prostate torment a prostate a 50-year-old. Is been started on Flomax which is reasonable. He can go home with a catheter and see me in the office to remove the catheter and do a prostate check and evaluation with a prostate ultrasound to see the size of the prostate. Past Medical History Past Medical History (Chronic Problems): Chronic Problems (Last Reviewed 03/21/19 @ 16:50 by Jenny Manzano PA-C) PAF (paroxysmal atrial fibrillation) (Chronic) Cardiac pacemaker (Chronic) Bradycardia (Chronic) Dizziness (Chronic) PVD (peripheral vascular disease) (Chronic) Hypothyroidism (Chronic) GERD (gastroesophageal reflux disease) (Chronic) Medical History: Medical History (Last Reviewed 03/24/19 @ 14:27 by Kurt Resendez MD) Bradycardia (Chronic) R00.1 Dizziness (Chronic) R42 PVD (peripheral vascular disease) (Chronic) I73.9 Syncope and collapse (Acute) R55 Hypothyroidism (Chronic) E03.9 GERD (gastroesophageal reflux disease) (Chronic) K21.9 Chest pain (Acute) R07.9 Postural vertigo H81.10 lower extremity vein surgery Allergies No Known Allergies Allergy (Verified 03/21/19 11:34) Home Medications: Ambulatory Orders Medication Instructions Recorded Levothyroxine [Synthroid] 50 mcg PO DAILY 12/30/15 Saw Mulino Fruit [Saw Mulino] 450 mg PO DAILY 10/01/17 Fludrocortisone Acetate 0.1 mg PO DAILY 03/21/19 Methylphenidate HCl 20 mg PO DAILY 03/21/19 [Methylphenidate HCl ER] Multivit-Min/FA/Lycopen/Lutein 1 tab PO DAILY 03/21/19 [Centrum Silver Men Tablet] Pantoprazole Sodium [Protonix] 40 mg PO DAILY 03/21/19 Surgical History: Surgical History (Last Reviewed 03/24/19 @ 14:27 by Kurt Resendez MD) H/O cataract removal with insertion of prosthetic lens Z98.49, Z96.1 History of hydrocelectomy Z98.890 Surgical History: pacemaker implantation, - - Cataract removal with insertion of prosthetic lens, pacemaker placement 06/2018 at [facility], left leg vein stripping, right hydrocele intervention. Lives: Spouse/ Significant Other Smoking Status: Never smoker Tobacco Use: Non-smoker Alcohol: None Drugs: None - *Family History Maternal Family History: Family History (Last Reviewed 03/24/19 @ 14:27 by Kurt Resendez MD) Brother CAD (coronary artery disease) History Items: Pulmonary Disease - Patient notes his mother with severe COPD, emphysema secondary to heavy tobacco use history. Paternal Family History: Family History (Last Reviewed 03/24/19 @ 14:27 by Kurt Resendez MD) Brother CAD (coronary artery disease) History Items: - - Patient notes that his father was very healthy with no history of heart disease, diabetes or cancer. Review of Systems Constitutional: Denies: Chills, Fever, Weight Change HEENT: Denies: Head Aches, Sinus Congestion, Sinus Drainage Cardiovascular: Denies: Chest Pain, Palpitations Respiratory: Denies: Cough, Shortness of breath at rest, Sputum production Gastrointestinal: Denies: Abdominal Pain, Nausea, Vomiting Genitourinary: Reports: Nocturia, Retention Musculoskeletal: Denies: Joint Pain, Joint Tenderness Skin: Denies: Rash, Wounds Neurological: Denies: Numbness, Tingling, Focal weakness Psychiatric: Denies: Anxiety, Depression, Homicidal Ideations, Suicidal Ideations Hematologic/ Lymphatic: Denies: Easy Bruising, Easy Bleeding Physical Exam - Physical Exam Vital Signs Temp 97.9 F 03/24/19 09:32 Pulse 63 03/24/19 09:32 Resp 12 03/24/19 09:32 BP 130/70 H 03/24/19 09:32 Pulse Ox 98 03/24/19 09:32 Intake & Output 03/22/19 03/23/19 03/24/19 23:59 23:59 23:59 Intake Total 1668 / 1668 1726 / 1726 575 / 575 Output Total 850 / 850 Balance 1668 / 1668 1726 / 1726 -275 / -275 Weight: 74.3 kg 74.2 kg 74.8 kg Intake: Oral 797 / 797 860 / 860 425 / 425 IV fluid/meds 871 / 871 466 / 466 150 / 150 IV #1 200 / 200 Blood Product 0 / 0 400 / 400 Leuko-Reduced Red Blood Cells 0 / 0 400 / 400 Unit [id number] Output: Urine 850 / 850 Other: Number of Voids 1 Number of times incontinent 1 1 2 Incontinent Amount Large Large Incontinent Amount Urine #2 Large Number of times incontinent 2 Urine #2 General: Alert, Oriented x3 HEENT: Atraumatic Oral: Moist Mucosa Neck: Supple Lungs: Normal air movement Cardiovascular: Regular rate Abdomen: Soft Rectal: Exam deferred Microbiology Past 72 Hours 03/21/19 15:00 Stool Occult Blood (FAITH) - Final Stool Laboratory Tests Past 24 Hrs 03/24/19 03/24/19 06:00 06:00 WBC 8.9 RBC 3.81 L Hgb 9.0 L Hct 28.3 L MCV 74.3 L MCH 23.6 L MCHC 31.8 L RDW 18.2 H RDW Differential 47.3 H Plt Count 536 H MPV 10.0 Immature Gran % (Auto) 0.200 Neut % (Auto) 64.4 Lymph % (Auto) 17.[address] [place] % (Auto) 15.4 H Eos % (Auto) 2.1 Baso % (Auto) 0.5 Absolute Neuts (auto) 5.7 Absolute Lymphs (auto) 1.54 Total Counted Not Reportable Sodium 143 Potassium 3.8 Chloride 109 H Carbon Dioxide 25.0 Anion Gap 9 BUN 54 H Creatinine 4.20 H Estim Creat Clear Calc 15.34 Est GFR (MDRD) Af Amer 18 L Est GFR (MDRD) Non-Af 15 L BUN/Creatinine Ratio 12.9 Glucose 86 Calcium 8.3 L Assessment/Plan All Active Problems (Last Reviewed 03/21/19 @ 16:50 by Jenny Manzano PA-C) CHF exacerbation (Acute) Acute anemia (Acute) New onset of congestive heart failure (Acute) ABEL (acute kidney injury) (Acute) Syncope and collapse (Acute) Chest pain (Acute) 78-year-old male with admission to the hospital for edemaCHF he was undergoing Lasix treatments during hospitalization apparently developed retention of urine Avila catheter was placed started on Flomax he can go home with a catheter and follow-up in my office for removal of the catheter probably will do work-up of his prostate BPH symptoms to see what would be necessary to restore normal voiding he can follow-up in my office call with any questions.
--- NOTE | 2019-03-24 15:15 | PCM.PN.HOSP ---
Patient Problems: Active and Suspected Problems (Last Reviewed 03/24/19 @ 14:27 by Kurt Resendez MD) CHF exacerbation (Acute) Acute anemia (Acute) New onset of congestive heart failure (Acute) ABEL (acute kidney injury) (Acute) Subjective: Patient has retention of more than 1000 mL urine on bladder scan. Patient denies shortness of breath, chest pain. Overall kidney function worsened. Patient denies any suprapubic pain. Silk Screen Etcher consulted. Discussed with exhibition organiser. Avila catheter inserted. Kidneys and bladder ultrasound ordered. Urology is consulted too. Vitals/I&O's: Vital Signs Temp Pulse Resp BP Pulse Ox 97.7 F L 67 14 122/68 H 96 03/24/19 15:11 03/24/19 15:11 03/24/19 15:11 03/24/19 15:11 03/24/19 15:11 Oxygen Flow Rate (L/min) 2 Oxygen Delivery Method Room Air Weight: 164 lb 14.492 oz Body Mass Index (BMI) 22.3 Intake and Output for Last 24 Hours 03/22/19 03/23/19 03/24/19 23:59 23:59 23:59 Intake Total 1668 / 1668 1726 / 1726 575 / 575 Output Total 850 / 850 Balance 1668 / 1668 1726 / 1726 -275 / -275 General: Alert, Oriented x3, Cooperative HEENT: Atraumatic, PERRLA, EOMI, Normocephalic Neck: Supple, No JVD, Negative Carotid Bruits Lungs: Clear to auscultation, No rhonchi, No wheeze, No rales, Diminished Cardiovascular: Regular rate, Regular Rhythm, Normal S1, No murmurs Abdomen: Bowel Sounds Present, Soft, Non Tender, Non-Distended, - - Suprapubic fullness. Bladder scans is more than 1000 mL. On Avila catheterization 850 mill urine output Extremities: No edema, Capillary Refill Less than 3 Seconds Skin: No rashes, No breakdown Musculoskeletal: No Tenderness to Palpation of Joints or Extremities, Arthritic Changes Neurological: Cranial nerves II-XII grossly intact, Deep Tendon Reflexes 2+/4 and Symmetrical, Neuro grossly intact Psych/Mental Status: Normal Affect, Appropriate Microbiology Past 72 Hours 03/21/19 15:00 Stool Stool Occult Blood (FAITH) - Final Laboratory Results 03/24/19 06:00: WBC 8.9, RBC 3.81 L, Hgb 9.0 L, Hct 28.3 L, MCV 74.3 L, MCH 23.6 L, MCHC 31.8 L, RDW 18.2 H, RDW Differential 47.3 H, Plt Count 536 H, MPV 10.0, Immature Gran % (Auto) 0.200, Neut % (Auto) 64.4, Lymph % (Auto) 17.4 L, [place] % (Auto) 15.4 H, Eos % (Auto) 2.1, Baso % (Auto) 0.5, Absolute Neuts (auto) 5.7, Absolute Lymphs (auto) 1.54, Total Counted Not Reportable 03/24/19 06:00: Sodium 143, Potassium 3.8, Chloride 109 H, Carbon Dioxide 25.0, Anion Gap 9, BUN 54 H, Creatinine 4.20 H, Estim Creat Clear Calc 15.34, Est GFR (MDRD) Af Amer 18 L, Est GFR (MDRD) Non-Af 15 L, BUN/Creatinine Ratio 12.9, Glucose 86, Calcium 8.3 L Current Medications Acetaminophen (Tylenol) 650 mg PO Q6H PRN PRN PRN Reason: Non-cardiac pain (mod-severe) Hydrocodone Bitart/Acetaminophen (Winn 5mg-325mg) 1 - 2 tablet PO Q6H PRN PRN PRN Reason: MOD-SEVERE PAIN (4-10/10) Al Hydroxide/Mg Hydroxide (Mylanta Ii) 15 - 30 ml PO Q4H PRN PRN PRN Reason: INDIGESTION Albuterol Sulfate (Ventolin Aerosols) 2.5 mg INHALATION Q2H PRN PRN PRN Reason: dyspnea, wheezing Fludrocortisone Acetate (Florinef) 0.1 mg PO DAILY@0800 [facility] Last Admin: 03/24/19 09:01 Dose: 0.1 mg Hydralazine HCl (Apresoline Iv) 10 mg IV Q4H PRN PRN PRN Reason: SBP > 160 Levothyroxine Sodium (Synthroid) 50 mcg PO DAILY@0600 [facility] Last Admin: 03/24/19 06:52 Dose: 50 mcg Magnesium Hydroxide (Milk Of Magnesia) 30 ml PO DAILY PRN PRN Reason: Constipation Methylphenidate HCl (Methylphenidate Hcl Er (Cd)) 20 mg PO DAILY [facility] Last Admin: 03/24/19 09:02 Dose: 20 mg Metoprolol Tartrate (Lopressor (Beta Daryl)) 25 mg PO BID [facility] Last Admin: 03/24/19 09:01 Dose: 25 mg Morphine Sulfate () 1 - 2 mg IV Q4H PRN PRN PRN Reason: PAIN Nitroglycerin (Nitrostat) 0.4 mg SUBLINGUAL Q5M PRN PRN Reason: CARDIAC/CHEST PAIN Ondansetron HCl (Zofran) 4 mg IV Q8H PRN PRN PRN Reason: NAUSEA/VOMITING Pantoprazole Sodium (Protonix) 40 mg PO BID [facility] Sodium Chloride () 5 - 15 ml IV UD PRN PRN Reason: SALINE FLUSH Last Admin: 03/24/19 09:00 Dose: 10 ml Tamsulosin HCl (Flomax) 0.4 mg PO DAILY@1730 [facility] Last Admin: 03/24/19 12:33 Dose: 0.4 mg Tamsulosin HCl (Flomax) 0.4 mg PO DAILY@1730 [facility] Medical Necessity - Tobacco Use Smoking Status: Never smoker Tobacco Use: Non-smoker Assessment/Plan All Active Problems (Last Reviewed 03/24/19 @ 14:27 by Kurt Resendez MD) CHF exacerbation (Acute) Acute anemia (Acute) New onset of congestive heart failure (Acute) ABEL (acute kidney injury) (Acute) Syncope and collapse (Acute) Chest pain (Acute) The patient is a 78 y/o M with PMHx: CKD stage III, Sinus Bradycardia s/p pacemaker, BPH, Hypothyroidism, Chronic Anemia was admitted with progressive worsening of shortness of breath with dry cough for about 2 weeks, bilateral lower extremity edema and swelling and had an 11 pound weight gain over last 2 weeks consistent with acute decompensated heart failure. Patient also had low hemoglobin on admission, hemoglobin 7.0, with baseline around 12 in July 2018. (1) Acute on chronic heart failure, systolic: BNP 1005.5, TSH 5.82, CXR w/ central vascular congestion with bibasilar atelectasis and a right pleural effusion. The patient was started on IV Lasix but was held on 03/23 secondary to elevated creatinine. Discussed with supervisor cigar making machine. Troponin is mildly elevated at 0.072, 0.063 and 0.067; ALT mildly elevated, plateau and indeterminate range, Reflects demand ischemia. TSH 4.89. Free T4 1.4 normal range. Last echo in October 2017 reported as EF 50% with systolic function lower limit of normal. Normal LV size. Impaired relaxation of LV. No regional wall motion abnormality. mild eccentric MR and AR. Repeat echo on 03/23 reported as EF 55% with moderately dilated LV. Mild global hypokinesis. Total motion consistent with IVCD. Normal RV size and function. Left moderately enlarged. Normal right atrium. Trivial MR, trivial TR. RVSP 37 mmHg. (2) Acute on Chronic Anemia, Microcytic: Patient w/ no history of hematemesis, hematochezia, melenotic stools w/ admission Hgb 7, prior baseline noted 2018 10. Patient had 1 unit of PRBC transfusion done. Patient had EGD and colonoscopy done and mild esophagitis was found. Was advised Protonix 40 mg daily for 3 months and then follow-up with Dr. Padilla as an outpatient. Probably will need repeat EGD after 3 months. General surgery signed off. Repeat H&H is improved 9.0/25.3. Platelet count 536. (3) Hx Sinus Bradycardia, Symptomatic: s/p pacemaker, noted history prior of syncope events associated, chronic lightheadedness, dizziness he notes, maintained on fludrocortisone. Patient had pacemaker interrogation done today. (4) acute kidney injury on CKD stage III; mostly secondary to diuretic and urine retention/postobstructive uropathy: Admission BUN/Cr 31/1.83, baseline renal function 1.5-1.8. Patient has history of BPH and is on saw palmetto. Started on Flomax. Urologist consulted. Kidneys and bladder ultrasound ordered. BUN/creatinine 31/2.03. K3.3. On 03/23 BUN, 44, creatinine 3.52. On 03/24 BUN/creatinine 54/4.2. Diuretic on hold. Nephrology is consulted, note reviewed and appreciated. (5) Hypothyroidism w/ elevated TSH: Recent outpatient TSH 5.82. Free T4 normal (6) GERD: PPI IV as noted. (7) DVT Prophylaxis: SCDs, defer chemoprophylaxis given acute anemia. Active Medications Acetaminophen (Tylenol) 650 mg PO Q6H PRN PRN PRN Reason: Non-cardiac pain (mod-severe) Hydrocodone Bitart/Acetaminophen (Winn 5mg-325mg) 1 - 2 tablet PO Q6H PRN PRN PRN Reason: MOD-SEVERE PAIN (4-10/10) Al Hydroxide/Mg Hydroxide (Mylanta Ii) 15 - 30 ml PO Q4H PRN PRN PRN Reason: INDIGESTION Albuterol Sulfate (Ventolin Aerosols) 2.5 mg INHALATION Q2H PRN PRN PRN Reason: dyspnea, wheezing Fludrocortisone Acetate (Florinef) 0.1 mg PO DAILY@0800 [facility] Last Admin: 03/23/19 08:10 Dose: 0.1 mg Hydralazine HCl (Apresoline Iv) 10 mg IV Q4H PRN PRN PRN Reason: SBP > 160 Pantoprazole Sodium 40 mg/ (Sodium Chloride) 110 mls @ 330 mls/hr IV Q12 [facility] Last Admin: 03/23/19 08:11 Dose: 330 mls/hr Levothyroxine Sodium (Synthroid) 50 mcg PO DAILY@0600 [facility] Last Admin: 03/23/19 05:47 Dose: 50 mcg Magnesium Hydroxide (Milk Of Magnesia) 30 ml PO DAILY PRN PRN Reason: Constipation Methylphenidate HCl (Methylphenidate Hcl Er (Cd)) 20 mg PO DAILY [facility] Last Admin: 03/23/19 08:11 Dose: 20 mg Metoprolol Tartrate (Lopressor (Beta Daryl)) 25 mg PO BID [facility] Last Admin: 03/23/19 08:14 Dose: 25 mg Morphine Sulfate () 1 - 2 mg IV Q4H PRN PRN PRN Reason: PAIN Nitroglycerin (Nitrostat) 0.4 mg SUBLINGUAL Q5M PRN PRN Reason: CARDIAC/CHEST PAIN Ondansetron HCl (Zofran) 4 mg IV Q8H PRN PRN PRN Reason: NAUSEA/VOMITING Sodium Chloride () 5 - 15 ml IV UD PRN PRN Reason: SALINE FLUSH Last Admin: 03/23/19 08:11 Dose: 10 ml Clinical Impression(s) from Imaging Studies Chest X-Ray 03/24/19 09:33 IMPRESSION: Central vascular congestion. Bibasilar atelectasis. Right pleural effusion. Code Visit Inpatient E&M: [id number] [facility] Hosp
--- NOTE | 2019-03-24 15:22 | PN_ITS ---
Patient Problems: Active and Suspected Problems (Last Reviewed 03/24/19 @ 14:27 by Kurt Resendez MD) CHF exacerbation (Acute) Acute anemia (Acute) New onset of congestive heart failure (Acute) ABEL (acute kidney injury) (Acute) Subjective: Patient has retention of more than 1000 mL urine on bladder scan. Patient denies shortness of breath, chest pain. Overall kidney function worsened. Patient denies any suprapubic pain. Music Educator consulted. Discussed with pricing supervisor. Avila catheter inserted. Kidneys and bladder ultrasound ordered. Urology is consulted too. Vitals/I&O's: Vital Signs Temp Pulse Resp BP Pulse Ox 97.7 F L 67 14 122/68 H 96 03/24/19 15:11 03/24/19 15:11 03/24/19 15:11 03/24/19 15:11 03/24/19 15:11 Oxygen Flow Rate (L/min) 2 Oxygen Delivery Method Room Air Weight: 164 lb 14.492 oz Body Mass Index (BMI) 22.3 Intake and Output for Last 24 Hours 03/22/19 03/23/19 03/24/19 23:59 23:59 23:59 Intake Total 1668 / 1668 1726 / 1726 575 / 575 Output Total 850 / 850 Balance 1668 / 1668 1726 / 1726 -275 / -275 General: Alert, Oriented x3, Cooperative HEENT: Atraumatic, PERRLA, EOMI, Normocephalic Neck: Supple, No JVD, Negative Carotid Bruits Lungs: Clear to auscultation, No rhonchi, No wheeze, No rales, Diminished Cardiovascular: Regular rate, Regular Rhythm, Normal S1, No murmurs Abdomen: Bowel Sounds Present, Soft, Non Tender, Non-Distended, - - Suprapubic fullness. Bladder scans is more than 1000 mL. On Avila catheterization 850 mill urine output Extremities: No edema, Capillary Refill Less than 3 Seconds Skin: No rashes, No breakdown Musculoskeletal: No Tenderness to Palpation of Joints or Extremities, Arthritic Changes Neurological: Cranial nerves II-XII grossly intact, Deep Tendon Reflexes 2+/4 and Symmetrical, Neuro grossly intact Psych/Mental Status: Normal Affect, Appropriate Microbiology Past 72 Hours 03/21/19 15:00 Stool Stool Occult Blood ([facility]) - Final Laboratory Results 03/24/19 06:00: WBC 8.9, RBC 3.81 L, Hgb 9.0 L, Hct 28.3 L, MCV 74.3 L, MCH 23.6 L, MCHC 31.8 L, RDW 18.2 H, RDW Differential 47.3 H, Plt Count 536 H, MPV 10.0, Immature Gran % (Auto) 0.200, Neut % (Auto) 64.4, Lymph % (Auto) 17.4 L, [place] % (Auto) 15.4 H, Eos % (Auto) 2.1, Baso % (Auto) 0.5, Absolute Neuts (auto) 5.7, Absolute Lymphs (auto) 1.54, Total Counted Not Reportable 03/24/19 06:00: Sodium 143, Potassium 3.8, Chloride 109 H, Carbon Dioxide 25.0, Anion Gap 9, BUN 54 H, Creatinine 4.20 H, Estim Creat Clear Calc 15.34, Est GFR (MDRD) Af Amer 18 L, Est GFR (MDRD) Non-Af 15 L, BUN/Creatinine Ratio 12.9, Glucose 86, Calcium 8.3 L Current Medications Acetaminophen (Tylenol) 650 mg PO Q6H PRN PRN PRN Reason: Non-cardiac pain (mod-severe) Hydrocodone Bitart/Acetaminophen ([place] 5mg-325mg) 1 - 2 tablet PO Q6H PRN PRN PRN Reason: MOD-SEVERE PAIN (4-10/10) Al Hydroxide/Mg Hydroxide (Mylanta Ii) 15 - 30 ml PO Q4H PRN PRN PRN Reason: INDIGESTION Albuterol Sulfate (Ventolin Aerosols) 2.5 mg INHALATION Q2H PRN PRN PRN Reason: dyspnea, wheezing Fludrocortisone Acetate (Florinef) 0.1 mg PO DAILY@0800 [facility] Last Admin: 03/24/19 09:01 Dose: 0.1 mg Hydralazine HCl (Apresoline Iv) 10 mg IV Q4H PRN PRN PRN Reason: SBP > 160 Levothyroxine Sodium (Synthroid) 50 mcg PO DAILY@0600 [facility] Last Admin: 03/24/19 06:52 Dose: 50 mcg Magnesium Hydroxide (Milk Of Magnesia) 30 ml PO DAILY PRN PRN Reason: Constipation Methylphenidate HCl (Methylphenidate Hcl Er (Cd)) 20 mg PO DAILY [facility] Last Admin: 03/24/19 09:02 Dose: 20 mg Metoprolol Tartrate (Lopressor (Beta Daryl)) 25 mg PO BID [facility] Last Admin: 03/24/19 09:01 Dose: 25 mg Morphine Sulfate () 1 - 2 mg IV Q4H PRN PRN PRN Reason: PAIN Nitroglycerin (Nitrostat) 0.4 mg SUBLINGUAL Q5M PRN PRN Reason: CARDIAC/CHEST PAIN Ondansetron HCl (Zofran) 4 mg IV Q8H PRN PRN PRN Reason: NAUSEA/VOMITING Pantoprazole Sodium (Protonix) 40 mg PO BID [facility] Sodium Chloride () 5 - 15 ml IV UD PRN PRN Reason: SALINE FLUSH Last Admin: 03/24/19 09:00 Dose: 10 ml Tamsulosin HCl (Flomax) 0.4 mg PO DAILY@1730 [facility] Last Admin: 03/24/19 12:33 Dose: 0.4 mg Tamsulosin HCl (Flomax) 0.4 mg PO DAILY@1730 [facility] Medical Necessity - Tobacco Use Smoking Status: Never smoker Tobacco Use: Non-smoker Assessment/Plan All Active Problems (Last Reviewed 03/24/19 @ 14:27 by Kurt Resendez MD) CHF exacerbation (Acute) Acute anemia (Acute) New onset of congestive heart failure (Acute) ABEL (acute kidney injury) (Acute) Syncope and collapse (Acute) Chest pain (Acute) The patient is a 78 y/o M with PMHx: CKD stage III, Sinus Bradycardia s/p pacemaker, BPH, Hypothyroidism, Chronic Anemia was admitted with progressive worsening of shortness of breath with dry cough for about 2 weeks, bilateral lower extremity edema and swelling and had an 11 pound weight gain over last 2 weeks consistent with acute decompensated heart failure. Patient also had low hemoglobin on admission, hemoglobin 7.0, with baseline around 12 in July 2018. (1) Acute on chronic heart failure, systolic: BNP 1005.5, TSH 5.82, CXR w/ central vascular congestion with bibasilar atelectasis and a right pleural effusion. The patient was started on IV Lasix but was held on 03/23 secondary to elevated creatinine. Discussed with executive coach. Troponin is mildly elevated at 0.072, 0.063 and 0.067; ALT mildly elevated, plateau and indeterminate range, Reflects demand ischemia. TSH 4.89. Free T4 1.4 normal range. Last echo in October 2017 reported as EF 50% with systolic function lower limit of normal. Normal LV size. Impaired relaxation of LV. No regional wall motion abnormality. mild eccentric MR and AR. Repeat echo on 03/23 reported as EF 55% with moderately dilated LV. Mild global hypokinesis. Total motion consistent with IVCD. Normal RV size and function. Left moderately enlarged. Normal right atrium. Trivial MR, trivial TR. RVSP 37 mmHg. (2) Acute on Chronic Anemia, Microcytic: Patient w/ no history of hematemesis, hematochezia, melenotic stools w/ admission Hgb 7, prior baseline noted 2018 10. Patient had 1 unit of PRBC transfusion done. Patient had EGD and colonoscopy done and mild esophagitis was found. Was advised Protonix 40 mg daily for 3 months and then follow-up with Dr. Padilla as an outpatient. Probably will need repeat EGD after 3 months. General surgery signed off. Repeat H&H is improved 9.0/25.3. Platelet count 536. (3) Hx Sinus Bradycardia, Symptomatic: s/p pacemaker, noted history prior of syncope events associated, chronic lightheadedness, dizziness he notes, zacharyi elsy on fludrocortisone. Patient had pacemaker interrogation done today. (4) acute kidney injury on CKD stage III; mostly secondary to diuretic and urine retention/postobstructive uropathy: Admission BUN/Cr 31/1.83, baseline renal function 1.5-1.8. Patient has history of BPH and is on saw palmetto. Started on Flomax. Urologist consulted. Kidneys and bladder ultrasound ordered. BUN/creatinine 31/2.03. K3.3. On 03/23 BUN, 44, creatinine 3.52. On 03/24 BUN/creatinine 54/4.2. Diuretic on hold. Nephrology is consulted, note reviewed and appreciated. (5) Hypothyroidism w/ elevated TSH: Recent outpatient TSH 5.82. Free T4 normal (6) GERD: PPI IV as noted. (7) DVT Prophylaxis: SCDs, defer chemoprophylaxis given acute anemia. Active Medications Acetaminophen (Tylenol) 650 mg PO Q6H PRN PRN PRN Reason: Non-cardiac pain (mod-severe) Hydrocodone Bitart/Acetaminophen (Jackson 5mg-325mg) 1 - 2 tablet PO Q6H PRN PRN PRN Reason: MOD-SEVERE PAIN (4-10/10) Al Hydroxide/Mg Hydroxide (Mylanta Ii) 15 - 30 ml PO Q4H PRN PRN PRN Reason: INDIGESTION Albuterol Sulfate (Ventolin Aerosols) 2.5 mg INHALATION Q2H PRN PRN PRN Reason: dyspnea, wheezing Fludrocortisone Acetate (Florinef) 0.1 mg PO DAILY@0800 [facility] Last Admin: 03/23/19 08:10 Dose: 0.1 mg Hydralazine HCl (Apresoline Iv) 10 mg IV Q4H PRN PRN PRN Reason: SBP > 160 Pantoprazole Sodium 40 mg/ (Sodium Chloride) 110 mls @ 330 mls/hr IV Q12 [facility] Last Admin: 03/23/19 08:11 Dose: 330 mls/hr Levothyroxine Sodium (Synthroid) 50 mcg PO DAILY@0600 [facility] Last Admin: 03/23/19 05:47 Dose: 50 mcg Magnesium Hydroxide (Milk Of Magnesia) 30 ml PO DAILY PRN PRN Reason: Constipation Methylphenidate HCl (Methylphenidate Hcl Er (Cd)) 20 mg PO DAILY [facility] Last Admin: 03/23/19 08:11 Dose: 20 mg Metoprolol Tartrate (Lopressor (Beta Daryl)) 25 mg PO BID [facility] Last Admin: 03/23/19 08:14 Dose: 25 mg Morphine Sulfate () 1 - 2 mg IV Q4H PRN PRN PRN Reason: PAIN Nitroglycerin (Nitrostat) 0.4 mg SUBLINGUAL Q5M PRN PRN Reason: CARDIAC/CHEST PAIN Ondansetron HCl (Zofran) 4 mg IV Q8H PRN PRN PRN Reason: NAUSEA/VOMITING Sodium Chloride () 5 - 15 ml IV UD PRN PRN Reason: SALINE FLUSH Last Admin: 03/23/19 08:11 Dose: 10 ml Clinical Impression(s) from Imaging Studies Chest X-Ray 03/24/19 09:33 IMPRESSION: Central vascular congestion. Bibasilar atelectasis. Right pleural effusion. Code Visit Inpatient E&M: [id number] [facility] Hosp L3
[2019-03-24] MEDS: Pantoprazole Sodium 40 MG Tablet PO (21:04)
[2019-03-25] VITALS (13 sets, daily range): BP systolic 130–143; BP diastolic 58–75; PULSE 60–78; RESP 12–18; TEMP 36.6–36.8; O2SAT 95–98
[2019-03-25] MEDS: Levothyroxine 50 MCG Tablet PO (06:25)
[2019-03-25 06:53] LABS: Absolute Lymphocyte Count 1.27 X10^3/ul (0.83-4.51); Absolute Neutrophil Count 7.3 X10^3/uL (2.0-7.7); Basophil# 0.04 X10^3/uL; Basophil% 0.4 % (0-1); Eosinophil# 0.16 X10^3/uL; Eosinophils% 1.6 % (0-5); Hematocrit 28.2 % (40-54); Hemoglobin 8.9 g/dl (13.0-16.5); Lymphocyte # 1.27 X10^3/ul (4.0); Lymphocyte % 12.5 % (19-41); Mean Corp Hgb Conc 31.6 g/gl (32-36); Mean Corpuscular Hgb 23.4 pg (27.0-32.0); Monocyte# 1.36 X10^3/uL; Monocyte% 13.3 % (0-10); Neutrophil # 7.34 X10^3/uL (2.7-7.7); POSITIVE COUNT NO; POSITIVE DIFFERENTIAL NO; POSITIVE MORPHOLOGY NO; Platelet Count 563 K/mm3 (150-450); RBC Distribution Width CV 18.5 % (11.6-14.6); RBC Distribution Width SD 47.9 fl (35.1-43.9); Red Blood Count 3.81 M/mm3 (4.6-6.2); White Blood Count 10.2 K/mm3 (4.4-11.0)
[2019-03-25 07:08] LABS: Anion Gap 8 (5-15); BUN 53 mg/dL (7-18); BUN/Creat Ratio 16.1 RATIO (10-20); Calcium,Total 8.1 mg/dL (8.5-10.1); Chloride 113 mmol/L (98-107); Creatinine, Serum 3.29 mg/dL (0.70-1.30); EST Glomerular Filtration Rate 19 mL/min (>60); Est Glom Filt Rate - Afr Amer 24 mL/min (>60); Glucose 106 mg/dL (74-106); Potassium 3.4 mmol/L (3.5-5.1); Sodium Level 146 mmol/L (136-145)
[2019-03-25] MEDS: Pantoprazole Sodium 40 MG Tablet PO ×2 (09:18→21:36)
[2019-03-25] MEDS: Metoprolol Tartrate 25 MG Tablet PO ×2 (09:18→21:36)
[2019-03-25] MEDS: Fludrocortisone Acetate 0.1 MG Tablet PO (09:18)
--- NOTE | 2019-03-25 12:51 | PN.CARD_ITS ---
Subjectve: The patient has been up in the chair. He states he has done some ambulation in the hallway. He denies ongoing chest discomfort. His breathing has improved overall. He now has a Avila catheter in place. Objective: Vital Signs Temp Pulse Resp BP Pulse Ox 98.3 F 60 16 143/70 H 97 03/25/19 08:19 03/25/19 09:18 03/25/19 08:19 03/25/19 08:19 03/25/19 08:19 Oxygen Flow Rate (L/min) 2 Oxygen Delivery Method Room Air Weight: 164 lb 3.91 oz Body Mass Index (BMI) 22.3 Intake and Output for Last 24 Hours 03/23/19 03/24/19 03/25/19 23:59 23:59 23:59 Intake Total 1726 / 1726 950 / 950 715 / 715 Output Total 1600 / 1600 2049 / 2049 Balance 1726 / 1726 -650 / -650 -1335 / -1335 General: Awake, Alert, Oriented x 3, Cooperative, No Acute Distress HEENT: Atraumatic, Normocephalic, PERRL, EOMI, Sclera Non Icteric Oral: Moist Mucosa Neck: Supple, Good ROM, No JVD Lungs: Diminished Left Base Cardiovascular: Regular Rhythm, Premature Ectopic Beats, Normal S1, Normal S2 Abdomen: Bowel Sounds Present, Soft, Non Tender Extremities: No edema Psych/Mental Status: Appropriate 03/25/19 06:36: Sodium 146 H, Potassium 3.4 L, Chloride 113 H, Carbon Dioxide 25.0, Anion Gap 8, BUN 53 H, Creatinine 3.29 H, Est GFR (MDRD) Af Amer 24 L, Est GFR (MDRD) Non-Af 19 L, BUN/Creatinine Ratio 16.1, Glucose 106, Calcium 8.1 L 03/25/19 06:36: WBC 10.2, RBC 3.81 L, Hgb 8.9 L, Hct 28.2 L, MCV 74.0 L, MCH 23.4 L, MCHC 31.6 L, RDW 18.5 H, RDW Differential 47.9 H, Plt Count 563 H, MPV 10.0, Immature Gran % (Auto) 0.200, Neut % (Auto) 72.0 H, Lymph % (Auto) 12.5 L, [place] % (Auto) 13.3 H, Eos % (Auto) 1.6, Baso % (Auto) 0.4, Absolute Neuts (auto) 7.3, Total Counted Not Reportable Rhythm: Electronic atrial paced rhythm; PVCs Medical Necessity - Tobacco Use Smoking Status: Never smoker Tobacco Use: Non-smoker Assessment/Plan 1. Congestive heart failure The patient has been undergoing noninvasive evaluation. He has been treated medically with IV diuretics. He states he does feel better. His lower extremity edema appears improved. His portable chest x-ray from yesterday demonstrated the improvement of fluid status with respect to his right pleural effusion. His diuretics have been placed on hold secondary to his elevated creatinine level. His creatinine level is now noted to be decreasing. He will continue to be followed with respect to his volume status and need for additional diuretic therapy. 2. Cardiac dysrhythmia The patient has had various cardiac arrhythmias with respect to sinus bradycardia, junctional rhythm, paroxysmal atrial fibrillation, and prolonged pauses. He has received a permanent pacemaker. He has pacemaker was reported as functioning appropriately. He has been placed on beta-edgar therapy which hopefully will help with respect to his PAF and his nonsustained wide-complex tachycardia. Depending upon his follow-up he may or may not need additional evaluation and/or therapy. 3. Permanent pacemaker He states he has a Medtronic permanent pacemaker. His pacemaker was interrogated. It appears to be functioning appropriately. 4. Hypertension The patient's blood pressure will be followed. His medications can be his adjusted as needed. 5. GERD The patient states he has a history of GERD previously diagnosed by endoscopy procedures. He has been on medical management. He has undergoing evaluation with EGD. He was found to have esophagitis. It is unclear as to whether this is the sole etiology for his anemia. He is being treated medically. 6. Anemia He is now status post 2 units of PRBC. His hemoglobin has improved overall. Comment: The above was discussed and reviewed with the patient. This note was generated with [employer] dictation software. It may contain incorrect words, spelling, and punctuation that were not noted in checking the note before signing.
--- NOTE | 2019-03-25 13:04 | PCM.PN.HOSP ---
Patient Problems: Active and Suspected Problems (Last Reviewed 03/24/19 @ 14:27 by Kurt Resendez MD) CHF exacerbation (Acute) Acute anemia (Acute) New onset of congestive heart failure (Acute) ABEL (acute kidney injury) (Acute) Subjective: Patient seen and examined. He had no complaints this morning. Review of symptoms otherwise negative. Labs and vitals reviewed. Vitals/I&O's: Vital Signs Temp Pulse Resp BP Pulse Ox 98.3 F 60 16 143/70 H 97 03/25/19 08:19 03/25/19 09:18 03/25/19 08:19 03/25/19 08:19 03/25/19 08:19 Oxygen Flow Rate (L/min) 2 Oxygen Delivery Method Room Air Weight: 164 lb 3.91 oz Body Mass Index (BMI) 22.3 Intake and Output for Last 24 Hours 03/23/19 03/24/19 03/25/19 23:59 23:59 23:59 Intake Total 1726 / 1726 950 / 950 715 / 715 Output Total 1600 / 1600 2049 Balance 1726 / 1726 -650 / -650 -1335 / -1335 General: Alert, Oriented x3, Cooperative, No apparent distress HEENT: Atraumatic, PERRLA, EOMI, Normocephalic Oral: Moist Mucosa Neck: Supple, No JVD, Negative Carotid Bruits Lungs: Clear to auscultation, Normal air movement, No rhonchi, No wheeze, No rales Cardiovascular: Regular rate, Regular Rhythm, Normal S1, Normal S2, No murmurs Abdomen: Bowel Sounds Present, Soft, Non Tender, Non-Distended, No Hepato-splenomegaly Extremities: No clubbing, No cyanosis, No edema, Capillary Refill Less than 3 Seconds Skin: No rashes, No breakdown Musculoskeletal: No Tenderness to Palpation of Joints or Extremities Lymphatic: No Cervical, Supraclavicular, or Inguinal Adenopathy Neurological: Cranial nerves II-XII grossly intact, Neuro grossly intact, Motor Exam 5/5 strength throughout Psych/Mental Status: Normal Affect, Appropriate, Alert and oriented to time, place, person, mood and affect Laboratory Results 03/25/19 06:36: Sodium 146 H, Potassium 3.4 L, Chloride 113 H, Carbon Dioxide 25.0, Anion Gap 8, BUN 53 H, Creatinine 3.29 H, Estim Creat Clear Calc 19.50, Est GFR (MDRD) Af Amer 24 L, Est GFR (MDRD) Non-Af 19 L, BUN/Creatinine Ratio 16.1, Glucose 106, Calcium 8.1 L 03/25/19 06:36: WBC 10.2, RBC 3.81 L, Hgb 8.9 L, Hct 28.2 L, MCV 74.0 L, MCH 23.4 L, MCHC 31.6 L, RDW 18.5 H, RDW Differential 47.9 H, Plt Count 563 H, MPV 10.0, Immature Gran % (Auto) 0.200, Neut % (Auto) 72.0 H, Lymph % (Auto) 12.5 L, [place] % (Auto) 13.3 H, Eos % (Auto) 1.6, Baso % (Auto) 0.4, Absolute Neuts (auto) 7.3, Absolute Lymphs (auto) 1.27, Total Counted Not Reportable Diagnostic Data Chest X-Ray 03/24/19 09:33 IMPRESSION: Central vascular congestion. Bibasilar atelectasis. Right pleural effusion. No interval change Electronically Signed: Armando Terrazas MD at 10:23 EDT , Service support , Current Medications Acetaminophen (Tylenol) 650 mg PO Q6H PRN PRN PRN Reason: Non-cardiac pain (mod-severe) Hydrocodone Bitart/Acetaminophen ([place] 5mg-325mg) 1 - 2 tablet PO Q6H PRN PRN PRN Reason: MOD-SEVERE PAIN (4-10/10) Al Hydroxide/Mg Hydroxide (Mylanta Ii) 15 - 30 ml PO Q4H PRN PRN PRN Reason: INDIGESTION Albuterol Sulfate (Ventolin Aerosols) 2.5 mg INHALATION Q2H PRN PRN PRN Reason: dyspnea, wheezing Fludrocortisone Acetate (Florinef) 0.1 mg PO DAILY@0800 [facility] Last Admin: 03/25/19 09:18 Dose: 0.1 mg Hydralazine HCl (Apresoline Iv) 10 mg IV Q4H PRN PRN PRN Reason: SBP > 160 Levothyroxine Sodium (Synthroid) 50 mcg PO DAILY@0600 [facility] Last Admin: 03/25/19 06:25 Dose: 50 mcg Magnesium Hydroxide (Milk Of Magnesia) 30 ml PO DAILY PRN PRN Reason: Constipation Methylphenidate HCl (Methylphenidate Hcl Er (Cd)) 20 mg PO DAILY [facility] Last Admin: 03/25/19 09:22 Dose: 20 mg Metoprolol Tartrate (Lopressor (Beta Daryl)) 25 mg PO BID [facility] Last Admin: 03/25/19 09:18 Dose: 25 mg Morphine Sulfate () 1 - 2 mg IV Q4H PRN PRN PRN Reason: PAIN Nitroglycerin (Nitrostat) 0.4 mg SUBLINGUAL Q5M PRN PRN Reason: CARDIAC/CHEST PAIN Ondansetron HCl (Zofran) 4 mg IV Q8H PRN PRN PRN Reason: NAUSEA/VOMITING Pantoprazole Sodium (Protonix) 40 mg PO BID [facility] Last Admin: 03/25/19 09:18 Dose: 40 mg Sodium Chloride () 5 - 15 ml IV UD PRN PRN Reason: SALINE FLUSH Last Admin: 03/24/19 09:00 Dose: 10 ml Tamsulosin HCl (Flomax) 0.4 mg PO DAILY@1730 [facility] Last Admin: 03/24/19 12:33 Dose: 0.4 mg Medical Necessity - Tobacco Use Smoking Status: Never smoker Tobacco Use: Non-smoker Assessment/Plan All Active Problems (Last Reviewed 03/24/19 @ 14:27 by Kurt Resendez MD) CHF exacerbation (Acute) Acute anemia (Acute) New onset of congestive heart failure (Acute) ABEL (acute kidney injury) (Acute) Syncope and collapse (Acute) Chest pain (Acute) 1. 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 found to have urinary retention lasix on hold and has Avila catheter in situ urology on board; recommend that patient be discharged with Avila catheter and to follow-up with urology for prostate assessment. Creatinine is trended down to 3.29. 2. Acute on chronic diastolic heart failure Known EF was 55%. BNP was 7000 on admission. Lasix currently on hold on account of ABEL on CKD will monitor; in cumulative positive balance by 3.1L since admission' urine output was 1.6L over last 24 hours 3. Acute on chronic anemia Hemoglobin on admission was 7. Status post 2 units of PRBC transfusion. EGD and colonoscopy done showed mild esophagitis. Currently on p.o. Protonix. Hemoglobin today is 8.9. 4. Hypernatremia: Na is 146 today. May be due to lasix being dc'd. Will monitor for now. 5. Hypokalemia: K is 3.4 today. Will replace and monitor 6. History of sinus bradycardia: Status post pacemaker. Currently stable. Pacemaker interrogated during this admission. On fludrocortisone. 7. Hypothyroidism: TSH was 4.89 on admission. Free T4 was 1.4. Will maintain current Synthroid dose. 8. GERD: PPI. 9. DVT prophylaxis: SCDs. Code Visit Inpatient E&M: 27198 Subs Hosp L3
--- NOTE | 2019-03-25 13:13 | PN_ITS ---
Patient Problems: Active and Suspected Problems (Last Reviewed 03/24/19 @ 14:27 by Kurt Resendez MD) CHF exacerbation (Acute) Acute anemia (Acute) New onset of congestive heart failure (Acute) ABEL (acute kidney injury) (Acute) Subjective: Patient seen and examined. He had no complaints this morning. Review of symptoms otherwise negative. Labs and vitals reviewed. Vitals/I&O's: Vital Signs Temp Pulse Resp BP Pulse Ox 98.3 F 60 16 143/70 H 97 03/25/19 08:19 03/25/19 09:18 03/25/19 08:19 03/25/19 08:19 03/25/19 08:19 Oxygen Flow Rate (L/min) 2 Oxygen Delivery Method Room Air Weight: 164 lb 3.91 oz Body Mass Index (BMI) 22.3 Intake and Output for Last 24 Hours 03/23/19 03/24/19 03/25/19 23:59 23:59 23:59 Intake Total 1726 / 1726 950 / 950 715 / 715 Output Total 1600 / 1600 2049 Balance 1726 / 1726 -650 / -650 -1335 / -1335 General: Alert, Oriented x3, Cooperative, No apparent distress HEENT: Atraumatic, PERRLA, EOMI, Normocephalic Oral: Moist Mucosa Neck: Supple, No JVD, Negative Carotid Bruits Lungs: Clear to auscultation, Normal air movement, No rhonchi, No wheeze, No rales Cardiovascular: Regular rate, Regular Rhythm, Normal S1, Normal S2, No murmurs Abdomen: Bowel Sounds Present, Soft, Non Tender, Non-Distended, No Hepato- splenomegaly Extremities: No clubbing, No cyanosis, No edema, Capillary Refill Less than 3 Seconds Skin: No rashes, No breakdown Musculoskeletal: No Tenderness to Palpation of Joints or Extremities Lymphatic: No Cervical, Supraclavicular, or Inguinal Adenopathy Neurological: Cranial nerves II-XII grossly intact, Neuro grossly intact, Motor Exam 5/5 strength throughout Psych/Mental Status: Normal Affect, Appropriate, Alert and oriented to time, place, person, mood and affect Laboratory Results 03/25/19 06:36: Sodium 146 H, Potassium 3.4 L, Chloride 113 H, Carbon Dioxide 25.0, Anion Gap 8, BUN 53 H, Creatinine 3.29 H, Estim Creat Clear Calc 19.50, Est GFR (MDRD) Af Amer 24 L, Est GFR (MDRD) Non-Af 19 L, BUN/Creatinine Ratio 16.1, Glucose 106, Calcium 8.1 L 03/25/19 06:36: WBC 10.2, RBC 3.81 L, Hgb 8.9 L, Hct 28.2 L, MCV 74.0 L, MCH 23.4 L, MCHC 31.6 L, RDW 18.5 H, RDW Differential 47.9 H, Plt Count 563 H, MPV 10.0, Immature Gran % (Auto) 0.200, Neut % (Auto) 72.0 H, Lymph % (Auto) 12.5 L, [place] % (Auto) 13.3 H, Eos % (Auto) 1.6, Baso % (Auto) 0.4, Absolute Neuts (auto) 7.3, Absolute Lymphs (auto) 1.27, Total Counted Not Reportable Diagnostic Data Chest X-Ray 03/24/19 09:33 IMPRESSION: Central vascular congestion. Bibasilar atelectasis. Right pleural effusion. No interval change Electronically Signed: Armando Terrazas MD at 10:23 EDT , Service support , Current Medications Acetaminophen (Tylenol) 650 mg PO Q6H PRN PRN PRN Reason: Non-cardiac pain (mod-severe) Hydrocodone Bitart/Acetaminophen ([place] 5mg-325mg) 1 - 2 tablet PO Q6H PRN PRN PRN Reason: MOD-SEVERE PAIN (4-10/10) Al Hydroxide/Mg Hydroxide (Mylanta Ii) 15 - 30 ml PO Q4H PRN PRN PRN Reason: INDIGESTION Albuterol Sulfate (Ventolin Aerosols) 2.5 mg INHALATION Q2H PRN PRN PRN Reason: dyspnea, wheezing Fludrocortisone Acetate (Florinef) 0.1 mg PO DAILY@0800 [facility] Last Admin: 03/25/19 09:18 Dose: 0.1 mg Hydralazine HCl (Apresoline Iv) 10 mg IV Q4H PRN PRN PRN Reason: SBP > 160 Levothyroxine Sodium (Synthroid) 50 mcg PO DAILY@0600 [facility] Last Admin: 03/25/19 06:25 Dose: 50 mcg Magnesium Hydroxide (Milk Of Magnesia) 30 ml PO DAILY PRN PRN Reason: Constipation Methylphenidate HCl (Methylphenidate Hcl Er (Cd)) 20 mg PO DAILY [facility] Last Admin: 03/25/19 09:22 Dose: 20 mg Metoprolol Tartrate (Lopressor (Beta Daryl)) 25 mg PO BID [facility] Last Admin: 03/25/19 09:18 Dose: 25 mg Morphine Sulfate () 1 - 2 mg IV Q4H PRN PRN PRN Reason: PAIN Nitroglycerin (Nitrostat) 0.4 mg SUBLINGUAL Q5M PRN PRN Reason: CARDIAC/CHEST PAIN Ondansetron HCl (Zofran) 4 mg IV Q8H PRN PRN PRN Reason: NAUSEA/VOMITING Pantoprazole Sodium (Protonix) 40 mg PO BID [facility] Last Admin: 03/25/19 09:18 Dose: 40 mg Sodium Chloride () 5 - 15 ml IV UD PRN PRN Reason: SALINE FLUSH Last Admin: 03/24/19 09:00 Dose: 10 ml Tamsulosin HCl (Flomax) 0.4 mg PO DAILY@1730 [facility] Last Admin: 03/24/19 12:33 Dose: 0.4 mg Medical Necessity - Tobacco Use Smoking Status: Never smoker Tobacco Use: Non-smoker Assessment/Plan All Active Problems (Last Reviewed 03/24/19 @ 14:27 by Kurt Resendez MD) CHF exacerbation (Acute) Acute anemia (Acute) New onset of congestive heart failure (Acute) ABEL (acute kidney injury) (Acute) Syncope and collapse (Acute) Chest pain (Acute) 1. ABEL on CKD 3 * due to post obstructive uropathy * Cr trended up to 4.2, with baseline of 1.8. * found to have urinary retention * lasix on hold and has Avila catheter in situ * urology on board; recommend that patient be discharged with Avila catheter and to follow-up with urology for prostate assessment. * Creatinine is trended down to 3.29. * * 2. Acute on chronic diastolic heart failure * Known EF was 55%. BNP was 7000 on admission. * Lasix currently on hold on account of ABEL on CKD * will monitor; in cumulative positive balance by 3.1L since admission' * urine output was 1.6L over last 24 hours * 3. Acute on chronic anemia * Hemoglobin on admission was 7. Status post 2 units of PRBC transfusion. * EGD and colonoscopy done showed mild esophagitis. Currently on p.o. Protonix. * Hemoglobin today is 8.9. * 4. Hypernatremia: Na is 146 today. May be due to lasix being dc'd. Will monitor for now. 5. Hypokalemia: K is 3.4 today. Will replace and monitor 6. History of sinus bradycardia: Status post pacemaker. Currently stable. Pacemaker interrogated during this admission. On fludrocortisone. 7. Hypothyroidism: TSH was 4.89 on admission. Free T4 was 1.4. Will maintain current Synthroid dose. 8. GERD: PPI. 9. DVT prophylaxis: SCDs. Code Visit Inpatient E&M: 48127 Subs Hosp L3
--- NOTE | 2019-03-25 16:11 | PCM.PN.REN ---
Patient Problems: Active and Suspected Problems (Last Reviewed 03/24/19 @ 14:27 by Kurt Resendez MD) CHF exacerbation (Acute) Acute anemia (Acute) New onset of congestive heart failure (Acute) ABEL (acute kidney injury) (Acute) Subjective: No acute complaints. Breathing is stable. edema is improving. No CP No nausea No vomiting - Physical Exam General: Alert, Oriented x3 HEENT: Atraumatic Oral: Moist Mucosa Neck: Supple, No JVD Lungs: - - B/L lungs bases crackles Cardiovascular: Regular rate, Regular Rhythm, Normal S1, Normal S2 Abdomen: Bowel Sounds Present, Soft, Non Tender Extremities: No clubbing, No cyanosis, No edema Skin: No rashes Musculoskeletal: No Tenderness to Palpation of Joints or Extremities Lymphatic: No Cervical, Supraclavicular, or Inguinal Adenopathy Neurological: Cranial nerves II-XII grossly intact, Neuro grossly intact Psych/Mental Status: Appropriate Vital Signs Temp Pulse Resp BP Pulse Ox 98.3 F 60 16 143/70 H 97 03/25/19 08:19 03/25/19 09:18 03/25/19 08:19 03/25/19 08:19 03/25/19 08:19 Oxygen Flow Rate (L/min) 2 Oxygen Delivery Method Room Air Weight: 74.5 kg Body Mass Index (BMI) 22.3 Intake and Output for Last 24 Hours 03/23/19 03/24/19 03/25/19 23:59 23:59 23:59 Intake Total 1726 / 1726 950 / 950 715 / 715 Output Total 1600 / 1600 2049 / 2049 Balance 1726 / 1726 -650 / -650 -1335 / -1335 Laboratory Tests Past 24 Hrs 03/25/19 03/25/19 06:36 06:36 WBC 10.2 RBC 3.81 L Hgb 8.9 L Hct 28.2 L MCV 74.0 L MCH 23.4 L MCHC 31.6 L RDW 18.5 H RDW Differential 47.9 H Plt Count 563 H MPV 10.0 Immature Gran % (Auto) 0.200 Neut % (Auto) 72.0 H Lymph % (Auto) 12.5 L [place] % (Auto) 13.3 H Eos % (Auto) 1.6 Baso % (Auto) 0.4 Absolute Neuts (auto) 7.3 Absolute Lymphs (auto) 1.27 Total Counted Not Reportable Sodium 146 H Potassium 3.4 L Chloride 113 H Carbon Dioxide 25.0 Anion Gap 8 BUN 53 H Creatinine 3.29 H Estim Creat Clear Calc 19.50 Est GFR (MDRD) Af Amer 24 L Est GFR (MDRD) Non-Af 19 L BUN/Creatinine Ratio 16.1 Glucose 106 Calcium 8.1 L Medical Necessity - Tobacco Use Smoking Status: Never smoker Tobacco Use: Non-smoker Assessment/Plan All Active Problems (Last Reviewed 03/24/19 @ 14:27 by Kurt Resendez MD) CHF exacerbation (Acute) Acute anemia (Acute) New onset of congestive heart failure (Acute) ABEL (acute kidney injury) (Acute) Syncope and collapse (Acute) Chest pain (Acute) 1- ABEL due to post renal from MEEK. s/p jones cath. kidney function is improving 2- CKD stage 3 3- Hypokalemia 4- Hypernatremia. mild 5- CHF. better. 6- Anemia: s/p RBC transfusion. EGD showed esophagitis Plan: Continue urine drain via [email or web address] renal function in am Jones care as per urology service K was replaced. monitor K level Might use lasix if resp status worsens Monitor H and H continue PPI Renal team will continue please call if any question Terrence Espinoza MD [phone]
[2019-03-25] MEDS: Tamsulosin HCl 0.4 MG Capsule PO (17:19)
[2019-03-26] VITALS (14 sets, daily range): BP systolic 121–144; BP diastolic 53–64; PULSE 60–91; RESP 16–20; TEMP 36.4–36.8; O2SAT 96–99
[2019-03-26 06:10] LABS: Absolute Lymphocyte Count 1.55 X10^3/ul (0.83-4.51); Absolute Neutrophil Count 4.8 X10^3/uL (2.0-7.7); Basophil% 1.3 % (0-1); Eosinophils% 2.6 % (0-5); Hematocrit 28.3 % (40-54); Hemoglobin 8.8 g/dl (13.0-16.5); Lymphocyte # 1.55 X10^3/ul (4.0); Lymphocyte % 20.1 % (19-41); Mean Corp Hgb Conc 31.1 g/gl (32-36); Mean Corpuscular Hgb 23.2 pg (27.0-32.0); Mean Corpuscular Volume 74.7 fL (80-94); Mean Platelet Vol. 9.5 fl (6.2-12.0); Monocyte# 1.03 X10^3/uL; Monocyte% 13.3 % (0-10); Neutrophil # 4.83 X10^3/uL (2.7-7.7); Neutrophil % 62.4 % (47-70); Platelet Count 522 K/mm3 (150-450); RBC Distribution Width CV 18.2 % (11.6-14.6); RBC Distribution Width SD 49.9 fl (35.1-43.9); Red Blood Count 3.79 M/mm3 (4.6-6.2); White Blood Count 7.7 K/mm3 (4.4-11.0)
[2019-03-26 06:19] LABS: POSITIVE COUNT NO; POSITIVE DIFFERENTIAL NO; POSITIVE MORPHOLOGY NO
[2019-03-26] MEDS: Levothyroxine 50 MCG Tablet PO (06:37)
[2019-03-26 07:02] LABS: Anion Gap 8 (5-15); BUN 46 mg/dL (7-18); BUN/Creat Ratio 20.6 RATIO (10-20); Calcium,Total 8.2 mg/dL (8.5-10.1); Chloride 115 mmol/L (98-107); Creatinine, Serum 2.23 mg/dL (0.70-1.30); EST Glomerular Filtration Rate 30 mL/min (>60); Est Glom Filt Rate - Afr Amer 37 mL/min (>60); Estimated Creatinine Clearance 28.38 ml/min; Glucose 85 mg/dL (74-106); Magnesium 2.3 mg/dL (1.6-2.6); Potassium 3.8 mmol/L (3.5-5.1); Sodium Level 147 mmol/L (136-145)
[2019-03-26] MEDS: Metoprolol Tartrate 25 MG Tablet PO ×2 (09:15→22:11)
[2019-03-26] MEDS: Pantoprazole Sodium 40 MG Tablet PO ×2 (09:15→22:11)
--- NOTE | 2019-03-26 10:06 | PCM.PN.HOSP ---
Patient Problems: Active and Suspected Problems (Last Reviewed 03/24/19 @ 14:27 by Kurt Resendez MD) CHF exacerbation (Acute) Acute anemia (Acute) New onset of congestive heart failure (Acute) ABEL (acute kidney injury) (Acute) Subjective: Patient seen and examined. He had no complaints. Review of systems otherwise negative. Vitals/I&O's: Vital Signs Temp Pulse Resp BP Pulse Ox 97.8 F 63 17 142/57 H 96 03/26/19 08:55 03/26/19 09:15 03/26/19 08:55 03/26/19 08:55 03/26/19 08:55 Oxygen Flow Rate (L/min) 2 Oxygen Delivery Method Room Air Weight: 162 lb 0.636 oz Body Mass Index (BMI) 22.3 Intake and Output for Last 24 Hours 03/24/19 03/25/19 03/26/19 23:59 23:59 23:59 Intake Total 950 / 950 1100 / 1100 240 / 240 Output Total 1600 / 1600 2650 / 2650 1400 / 1400 Balance -650 / -650 -1550 / -1550 -1160 / -1160 General: Alert, Oriented x3, Cooperative, No apparent distress HEENT: Atraumatic, PERRLA, EOMI, Normocephalic Oral: Moist Mucosa Neck: Supple, No JVD, Negative Carotid Bruits Lungs: Clear to auscultation, Normal air movement, No rhonchi, No wheeze, No rales Cardiovascular: Regular rate, Regular Rhythm, Normal S1, Normal S2, No murmurs Abdomen: Bowel Sounds Present, Soft, Non Tender, Non-Distended, No Hepato-splenomegaly Extremities: No clubbing, No cyanosis, No edema, Capillary Refill Less than 3 Seconds Skin: No rashes, No breakdown Musculoskeletal: No Tenderness to Palpation of Joints or Extremities Lymphatic: No Cervical, Supraclavicular, or Inguinal Adenopathy Neurological: Cranial nerves II-XII grossly intact, Neuro grossly intact, Motor Exam 5/5 strength throughout Psych/Mental Status: Normal Affect, Appropriate, Alert and oriented to time, place, person, mood and affect Laboratory Results 03/26/19 05:42: WBC 7.7, RBC 3.79 L, Hgb 8.8 L, Hct 28.3 L, MCV 74.7 L, MCH 23.2 L, MCHC 31.1 L, RDW 18.2 H, RDW Differential 49.9 H, Plt Count 522 H, MPV 9.5, Immature Gran % (Auto) 0.300, Neut % (Auto) 62.4, Lymph % (Auto) 20.1, [place] % (Auto) 13.3 H, Eos % (Auto) 2.6, Baso % (Auto) 1.3 H, Absolute Neuts (auto) 4.8, Absolute Lymphs (auto) 1.55, Total Counted Not Reportable 03/26/19 05:42: Sodium 147 H, Potassium 3.8, Chloride 115 H, Carbon Dioxide 24.0, Anion Gap 8, BUN 46 H, Creatinine 2.23 H, Estim Creat Clear Calc 28.38, Est GFR (MDRD) Af Amer 37 L, Est GFR (MDRD) Non-Af 30 L, BUN/Creatinine Ratio 20.6 H, Glucose 85, Calcium 8.2 L, Magnesium 2.3 Current Medications Acetaminophen (Tylenol) 650 mg PO Q6H PRN PRN PRN Reason: Non-cardiac pain (mod-severe) Hydrocodone Bitart/Acetaminophen ([place] 5mg-325mg) 1 - 2 tablet PO Q6H PRN PRN PRN Reason: MOD-SEVERE PAIN (4-10/10) Al Hydroxide/Mg Hydroxide (Mylanta Ii) 15 - 30 ml PO Q4H PRN PRN PRN Reason: INDIGESTION Albuterol Sulfate (Ventolin Aerosols) 2.5 mg INHALATION Q2H PRN PRN PRN Reason: dyspnea, wheezing Fludrocortisone Acetate (Florinef) 0.1 mg PO DAILY@0800 [facility] Last Admin: 03/25/19 09:18 Dose: 0.1 mg Hydralazine HCl (Apresoline Iv) 10 mg IV Q4H PRN PRN PRN Reason: SBP > 160 Levothyroxine Sodium (Synthroid) 50 mcg PO DAILY@0600 [facility] Last Admin: 03/26/19 06:37 Dose: 50 mcg Magnesium Hydroxide (Milk Of Magnesia) 30 ml PO DAILY PRN PRN Reason: Constipation Methylphenidate HCl (Methylphenidate Hcl Er (Cd)) 20 mg PO DAILY [facility] Last Admin: 03/26/19 09:17 Dose: 20 mg Metoprolol Tartrate (Lopressor (Beta Daryl)) 25 mg PO BID [facility] Last Admin: 03/26/19 09:15 Dose: 25 mg Morphine Sulfate () 1 - 2 mg IV Q4H PRN PRN PRN Reason: PAIN Nitroglycerin (Nitrostat) 0.4 mg SUBLINGUAL Q5M PRN PRN Reason: CARDIAC/CHEST PAIN Ondansetron HCl (Zofran) 4 mg IV Q8H PRN PRN PRN Reason: NAUSEA/VOMITING Pantoprazole Sodium (Protonix) 40 mg PO BID [facility] Last Admin: 03/26/19 09:15 Dose: 40 mg Sodium Chloride () 5 - 15 ml IV UD PRN PRN Reason: SALINE FLUSH Last Admin: 03/24/19 09:00 Dose: 10 ml Tamsulosin HCl (Flomax) 0.4 mg PO DAILY@1730 [facility] Last Admin: 03/25/19 17:19 Dose: 0.4 mg Medical Necessity - Tobacco Use Smoking Status: Never smoker Tobacco Use: Non-smoker Assessment/Plan All Active Problems (Last Reviewed 03/24/19 @ 14:27 by Kurt Resendez MD) CHF exacerbation (Acute) Acute anemia (Acute) New onset of congestive heart failure (Acute) ABEL (acute kidney injury) (Acute) Syncope and collapse (Acute) Chest pain (Acute) 1. 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 Creatinine today is down to 2.23. lasix on hold and has Avila catheter in situ urology on board; recommend that patient be discharged with Avila catheter and to follow-up with urology for prostate assessment. nephrology on board 2. Acute on chronic diastolic heart failure Known EF was 55%. BNP was on admission was 1000 Lasix currently on hold on account of ABEL on CKD will monitor; in cumulative positive balance by 1.74L since admission urine output was 2.65L over last 24 hours 3. Acute on chronic anemia Hemoglobin on admission was 7. Status post 2 units of PRBC transfusion. EGD and colonoscopy done showed mild esophagitis. Currently on p.o. Protonix. Hemoglobin today is 88.8 4. Hypernatremia: Na is 147 today. May be due to lasix being dc'd. will hold fludrocortisone as it can cause sodium retention; if Na keeps rising, will consider resuming lasix. 5. Hypokalemia: resolved 6. History of sinus bradycardia: Status post pacemaker. Currently stable. Pacemaker interrogated during this admission. 7. Hypothyroidism: TSH was 4.89 on admission. Free T4 was 1.4. Will maintain current Synthroid dose. 8. GERD: PPI. 9. DVT prophylaxis: SCDs. Code Visit Inpatient E&M: 52088 Subs Hosp L3
--- NOTE | 2019-03-26 10:20 | PN_ITS ---
Patient Problems: Active and Suspected Problems (Last Reviewed 03/24/19 @ 14:27 by Kurt Resendez MD) CHF exacerbation (Acute) Acute anemia (Acute) New onset of congestive heart failure (Acute) ABEL (acute kidney injury) (Acute) Subjective: Patient seen and examined. He had no complaints. Review of systems otherwise negative. Vitals/I&O's: Vital Signs Temp Pulse Resp BP Pulse Ox 97.8 F 63 17 142/57 H 96 03/26/19 08:55 03/26/19 09:15 03/26/19 08:55 03/26/19 08:55 03/26/19 08:55 Oxygen Flow Rate (L/min) 2 Oxygen Delivery Method Room Air Weight: 162 lb 0.636 oz Body Mass Index (BMI) 22.3 Intake and Output for Last 24 Hours 03/24/19 03/25/19 03/26/19 23:59 23:59 23:59 Intake Total 950 / 950 1100 / 1100 240 / 240 Output Total 1600 / 1600 2650 / 2650 1400 / 1400 Balance -650 / -650 -1550 / -1550 -1160 / -1160 General: Alert, Oriented x3, Cooperative, No apparent distress HEENT: Atraumatic, PERRLA, EOMI, Normocephalic Oral: Moist Mucosa Neck: Supple, No JVD, Negative Carotid Bruits Lungs: Clear to auscultation, Normal air movement, No rhonchi, No wheeze, No rales Cardiovascular: Regular rate, Regular Rhythm, Normal S1, Normal S2, No murmurs Abdomen: Bowel Sounds Present, Soft, Non Tender, Non-Distended, No Hepato- splenomegaly Extremities: No clubbing, No cyanosis, No edema, Capillary Refill Less than 3 Seconds Skin: No rashes, No breakdown Musculoskeletal: No Tenderness to Palpation of Joints or Extremities Lymphatic: No Cervical, Supraclavicular, or Inguinal Adenopathy Neurological: Cranial nerves II-XII grossly intact, Neuro grossly intact, Motor Exam 5/5 strength throughout Psych/Mental Status: Normal Affect, Appropriate, Alert and oriented to time, place, person, mood and affect Laboratory Results 03/26/19 05:42: WBC 7.7, RBC 3.79 L, Hgb 8.8 L, Hct 28.3 L, MCV 74.7 L, MCH 23.2 L, MCHC 31.1 L, RDW 18.2 H, RDW Differential 49.9 H, Plt Count 522 H, MPV 9.5, Immature Gran % (Auto) 0.300, Neut % (Auto) 62.4, Lymph % (Auto) 20.1, Charlton % (Auto) 13.3 H, Eos % (Auto) 2.6, Baso % (Auto) 1.3 H, Absolute Neuts (auto) 4.8, Absolute Lymphs (auto) 1.55, Total Counted Not Reportable 03/26/19 05:42: Sodium 147 H, Potassium 3.8, Chloride 115 H, Carbon Dioxide 24.0, Anion Gap 8, BUN 46 H, Creatinine 2.23 H, Estim Creat Clear Calc 28.38, Est GFR (MDRD) Af Amer 37 L, Est GFR (MDRD) Non-Af 30 L, BUN/Creatinine Ratio 20.6 H, Glucose 85, Calcium 8.2 L, Magnesium 2.3 Current Medications Acetaminophen (Tylenol) 650 mg PO Q6H PRN PRN PRN Reason: Non-cardiac pain (mod-severe) Hydrocodone Bitart/Acetaminophen ([place] 5mg-325mg) 1 - 2 tablet PO Q6H PRN PRN PRN Reason: MOD-SEVERE PAIN (4-10/10) Al Hydroxide/Mg Hydroxide (Mylanta Ii) 15 - 30 ml PO Q4H PRN PRN PRN Reason: INDIGESTION Albuterol Sulfate (Ventolin Aerosols) 2.5 mg INHALATION Q2H PRN PRN PRN Reason: dyspnea, wheezing Fludrocortisone Acetate (Florinef) 0.1 mg PO DAILY@0800 PENDING SALE TO [facility] Last Admin: 03/25/19 09:18 Dose: 0.1 mg Hydralazine HCl (Apresoline Iv) 10 mg IV Q4H PRN PRN PRN Reason: SBP > 160 Levothyroxine Sodium (Synthroid) 50 mcg PO DAILY@0600 PENDING SALE TO [facility] Last Admin: 03/26/19 06:37 Dose: 50 mcg Magnesium Hydroxide (Milk Of Magnesia) 30 ml PO DAILY PRN PRN Reason: Constipation Methylphenidate HCl (Methylphenidate Hcl Er (Cd)) 20 mg PO DAILY PENDING SALE TO [facility] Last Admin: 03/26/19 09:17 Dose: 20 mg Metoprolol Tartrate (Lopressor (Beta Daryl)) 25 mg PO BID PENDING SALE TO [facility] Last Admin: 03/26/19 09:15 Dose: 25 mg Morphine Sulfate () 1 - 2 mg IV Q4H PRN PRN PRN Reason: PAIN Nitroglycerin (Nitrostat) 0.4 mg SUBLINGUAL Q5M PRN PRN Reason: CARDIAC/CHEST PAIN Ondansetron HCl (Zofran) 4 mg IV Q8H PRN PRN PRN Reason: NAUSEA/VOMITING Pantoprazole Sodium (Protonix) 40 mg PO BID PENDING SALE TO [facility] Last Admin: 03/26/19 09:15 Dose: 40 mg Sodium Chloride () 5 - 15 ml IV UD PRN PRN Reason: SALINE FLUSH Last Admin: 03/24/19 09:00 Dose: 10 ml Tamsulosin HCl (Flomax) 0.4 mg PO DAILY@1730 PENDING SALE TO [facility] Last Admin: 03/25/19 17:19 Dose: 0.4 mg Medical Necessity - Tobacco Use Smoking Status: Never smoker Tobacco Use: Non-smoker Assessment/Plan All Active Problems (Last Reviewed 03/24/19 @ 14:27 by Kurt Resendez MD) CHF exacerbation (Acute) Acute anemia (Acute) New onset of congestive heart failure (Acute) ABEL (acute kidney injury) (Acute) Syncope and collapse (Acute) Chest pain (Acute) 1. ABEL on CKD 3 * due to post obstructive uropathy * Cr trended up to 4.2, with baseline of 1.8. * Creatinine today is down to 2.23. * lasix on hold and has Avila catheter in situ * urology on board; recommend that patient be discharged with Avila catheter and to follow-up with urology for prostate assessment. * nephrology on board * * 2. Acute on chronic diastolic heart failure * Known EF was 55%. BNP was on admission was 1000 * Lasix currently on hold on account of ABEL on CKD * will monitor; in cumulative positive balance by 1.74L since admission * urine output was 2.65L over last 24 hours * 3. Acute on chronic anemia * Hemoglobin on admission was 7. Status post 2 units of PRBC transfusion. * EGD and colonoscopy done showed mild esophagitis. Currently on p.o. Protonix. * Hemoglobin today is 88.8 * 4. Hypernatremia: * Na is 147 today. May be due to lasix being dc'd. * will hold fludrocortisone as it can cause sodium retention; * if Na keeps rising, will consider resuming lasix. 5. Hypokalemia: resolved 6. History of sinus bradycardia: Status post pacemaker. Currently stable. Pacemaker interrogated during this admission. 7. Hypothyroidism: TSH was 4.89 on admission. Free T4 was 1.4. Will maintain current Synthroid dose. 8. GERD: PPI. 9. DVT prophylaxis: SCDs. Code Visit Inpatient E&M: 69827 Subs Hosp L3
--- NOTE | 2019-03-26 13:03 | PCM.PN.CARD ---
Subjectve: The patient states he continues to feel his breathing is stable. He has had no significant recurrence of lower extremity edema. He has no other acute complaint at this time. Objective: Vital Signs Temp Pulse Resp BP Pulse Ox 97.8 F 66 17 142/57 H 96 03/26/19 08:55 03/26/19 12:02 03/26/19 08:55 03/26/19 08:55 03/26/19 09:35 Oxygen Flow Rate (L/min) 2 Oxygen Delivery Method Room Air Weight: 162 lb 0.636 oz Body Mass Index (BMI) 22.3 Intake and Output for Last 24 Hours 03/24/19 03/25/19 03/26/19 23:59 23:59 23:59 Intake Total 950 / 950 1100 / 1100 240 / 240 Output Total 1600 / 1600 2650 / 2650 1400 / 1400 Balance -650 / -650 -1550 / -1550 -1160 / -1160 General: Awake, Alert, Oriented x 3, Cooperative, No Acute Distress HEENT: Atraumatic, Normocephalic, PERRL, EOMI Oral: Moist Mucosa Neck: Supple, Good ROM, No JVD Lungs: Diminished Left Base Cardiovascular: Regular Rhythm, Normal S1, Normal S2 Abdomen: Bowel Sounds Present, Soft, Non Tender Extremities: No edema Psych/Mental Status: Appropriate 03/26/19 05:42: WBC 7.7, RBC 3.79 L, Hgb 8.8 L, Hct 28.3 L, MCV 74.7 L, MCH 23.2 L, MCHC 31.1 L, RDW 18.2 H, RDW Differential 49.9 H, Plt Count 522 H, MPV 9.5, Immature Gran % (Auto) 0.300, Neut % (Auto) 62.4, Lymph % (Auto) 20.1, [place] % (Auto) 13.3 H, Eos % (Auto) 2.6, Baso % (Auto) 1.3 H, Absolute Neuts (auto) 4.8, Total Counted Not Reportable 03/26/19 05:42: Sodium 147 H, Potassium 3.8, Chloride 115 H, Carbon Dioxide 24.0, Anion Gap 8, BUN 46 H, Creatinine 2.23 H, Est GFR (MDRD) Af Amer 37 L, Est GFR (MDRD) Non-Af 30 L, BUN/Creatinine Ratio 20.6 H, Glucose 85, Calcium 8.2 L, Magnesium 2.3 Rhythm: Electronic atrial/ventricular paced rhythm Medical Necessity - Tobacco Use Smoking Status: Never smoker Tobacco Use: Non-smoker Assessment/Plan 1. Congestive heart failure The patient has been undergoing noninvasive evaluation. He has been treated medically with IV diuretics. He states he does feel better. His right-sided pleural effusion appears to have improved. His lower extremity edema appears improved. His diuretics have been placed on hold secondary to his elevated creatinine level. His creatinine level is now noted to be decreasing. He will continue to be followed with respect to his volume status and need for additional diuretic therapy. 2. Cardiac dysrhythmia The patient has had various cardiac arrhythmias with respect to sinus bradycardia, junctional rhythm, paroxysmal atrial fibrillation, and prolonged pauses. He has received a permanent pacemaker. He has pacemaker was reported as functioning appropriately. He has been placed on beta-edgar therapy which hopefully will help with respect to his PAF and his nonsustained wide-complex tachycardia. Depending upon his follow-up he may or may not need additional evaluation and/or therapy. 3. Permanent pacemaker He states he has a Medtronic permanent pacemaker. His pacemaker was interrogated. It appears to be functioning appropriately. 4. Hypertension The patient's blood pressure will be followed. His medications can be his adjusted as needed. 5. GERD The patient states he has a history of GERD previously diagnosed by endoscopy procedures. He has been on medical management. He has undergoing evaluation with EGD. He was found to have esophagitis. It is unclear as to whether this is the sole etiology for his anemia. He is being treated medically. 6. Anemia He is now status post 2 units of PRBC. His hemoglobin has improved overall. 7. Renal insufficiency His creatinine level is improving. He has a Avila catheter and placed. His urine appears to be clear today than yesterday. He has been evaluated by nephrology and urology. Comment: The above was discussed and reviewed with the patient. This note was generated with [employer] dictation software. It may contain incorrect words, spelling, and punctuation that were not noted in checking the note before signing.
[2019-03-26] MEDS: Tamsulosin HCl 0.4 MG Capsule PO (16:41)
[2019-03-27] VITALS (7 sets, daily range): BP systolic 115–145; BP diastolic 56–64; PULSE 58–69; RESP 18; TEMP 36.7–36.8; O2SAT 95–97
[2019-03-27] MEDS: Levothyroxine 50 MCG Tablet PO (06:32)
[2019-03-27 07:06] LABS: Anion Gap 5 (5-15); BUN 46 mg/dL (7-18); BUN/Creat Ratio 21.8 RATIO (10-20); Calcium,Total 8.3 mg/dL (8.5-10.1); Chloride 114 mmol/L (98-107); Creatinine, Serum 2.11 mg/dL (0.70-1.30); EST Glomerular Filtration Rate 32 mL/min (>60); Est Glom Filt Rate - Afr Amer 39 mL/min (>60); Estimated Creatinine Clearance 29.67 ml/min; Glucose 92 mg/dL (74-106); Sodium Level 143 mmol/L (136-145)
[2019-03-27 07:07] LABS: Absolute Lymphocyte Count 1.55 X10^3/ul (0.83-4.51); Absolute Neutrophil Count 5.3 X10^3/uL (2.0-7.7); Basophil# 0.13 X10^3/uL; Basophil% 1.5 % (0-1); Eosinophil# 0.28 X10^3/uL; Eosinophils% 3.2 % (0-5); Hematocrit 29.2 % (40-54); Lymphocyte # 1.55 X10^3/ul (4.0); Lymphocyte % 17.8 % (19-41); Mean Corp Hgb Conc 30.8 g/gl (32-36); Mean Corpuscular Hgb 23.1 pg (27.0-32.0); Mean Corpuscular Volume 75.1 fL (80-94); Mean Platelet Vol. 9.7 fl (6.2-12.0); Monocyte# 1.38 X10^3/uL; Monocyte% 15.9 % (0-10); Neutrophil # 5.33 X10^3/uL (2.7-7.7); Neutrophil % 61.4 % (47-70); Platelet Count 555 K/mm3 (150-450); RBC Distribution Width CV 18.5 % (11.6-14.6); RBC Distribution Width SD 50.8 fl (35.1-43.9); Red Blood Count 3.89 M/mm3 (4.6-6.2); White Blood Count 8.7 K/mm3 (4.4-11.0)
[2019-03-27 07:19] LABS: POSITIVE COUNT NO; POSITIVE DIFFERENTIAL NO; POSITIVE MORPHOLOGY NO
[2019-03-27] MEDS: Pantoprazole Sodium 40 MG Tablet PO (09:24)
[2019-03-27] MEDS: Metoprolol Tartrate 25 MG Tablet PO (09:24)
--- NOTE | 2019-03-27 09:36 | PCM.PN.REN ---
Patient Problems: Active and Suspected Problems (Last Reviewed 03/24/19 @ 14:27 by Kurt Resendez MD) CHF exacerbation (Acute) Acute anemia (Acute) New onset of congestive heart failure (Acute) ABEL (acute kidney injury) (Acute) Subjective: No complaints. No nausea No vomiting. No SOB - Physical Exam General: Alert, Oriented x3 HEENT: Atraumatic Oral: Moist Mucosa Neck: Supple, No JVD Lungs: Clear to auscultation, Normal air movement, No rhonchi, No wheeze Cardiovascular: Regular rate, Regular Rhythm, Normal S1, Normal S2 Abdomen: Bowel Sounds Present, Soft, Non Tender, Non-Distended Extremities: No clubbing, No cyanosis, No edema Skin: No rashes Musculoskeletal: No Tenderness to Palpation of Joints or Extremities Lymphatic: No Cervical, Supraclavicular, or Inguinal Adenopathy Neurological: Cranial nerves II-XII grossly intact, Neuro grossly intact Psych/Mental Status: Normal Affect Vital Signs Temp Pulse Resp BP Pulse Ox 98.2 F 64 18 145/64 H 95 03/27/19 07:51 03/27/19 09:24 03/27/19 07:51 03/27/19 07:51 03/27/19 07:51 Oxygen Flow Rate (L/min) 2 Oxygen Delivery Method Room Air Weight: 72.7 kg Body Mass Index (BMI) 22.3 Intake and Output for Last 24 Hours 03/25/19 03/26/19 03/27/19 23:59 23:59 23:59 Intake Total 1100 / 1100 590 / 590 440 / 440 Output Total 2650 / 2650 2150 / 2150 1550 / 1550 Balance -1550 / -1550 -1560 / -1560 -1110 / -1110 Laboratory Tests Past 24 Hrs 03/27/19 03/27/19 06:05 06:05 WBC 8.7 RBC 3.89 L Hgb 9.0 L Hct 29.2 L MCV 75.1 L MCH 23.1 L MCHC 30.8 L RDW 18.5 H RDW Differential 50.8 H Plt Count 555 H MPV 9.7 Immature Gran % (Auto) 0.200 Neut % (Auto) 61.4 Lymph % (Auto) 17.8 L [place] % (Auto) 15.9 H Eos % (Auto) 3.2 Baso % (Auto) 1.5 H Absolute Neuts (auto) 5.3 Absolute Lymphs (auto) 1.55 Total Counted Not Reportable Sodium 143 Potassium 4.0 Chloride 114 H Carbon Dioxide 24.0 Anion Gap 5 BUN 46 H Creatinine 2.11 H Estim Creat Clear Calc 29.67 Est GFR (MDRD) Af Amer 39 L Est GFR (MDRD) Non-Af 32 L BUN/Creatinine Ratio 21.8 H Glucose 92 Calcium 8.3 L Medical Necessity - Tobacco Use Smoking Status: Never smoker Tobacco Use: Non-smoker Assessment/Plan All Active Problems (Last Reviewed 03/24/19 @ 14:27 by Kurt Resendez MD) CHF exacerbation (Acute) Acute anemia (Acute) New onset of congestive heart failure (Acute) ABEL (acute kidney injury) (Acute) Syncope and collapse (Acute) Chest pain (Acute) 1- ABEL on CKD stage 3. Baseline Cr 1.8 mg/dL. ABEL is due to post renal from MEEK. kidney function is improving after relieving the obstruction with jones cath placement. last Cr trend 2.23->2.11 mg/dL No polyuria. electrolytes are okay. volume status is well controlled Will continue to monitor kidney function, volume status Check renal panel in am if remains inpatient 2- Bladder outlet obstruction from BPH. Pt will be discharged with jones in and to follow with outpatient urology clinic 3- Hypokalemia. resolved. 4- Hypernatremia.resolved with holding lasix. 5- CHF. improved. Cardiology service is following. Last EF is 40% might use lasix 6- Anemia: s/p RBC transfusion. EGD showed esophagitis H and H have been stable Renal team will continue please call if any question Plan of care was discussed with Dr. Maikol Espinoza MD [phone]
--- NOTE | 2019-03-27 11:34 | DCINST_ITS ---
- Discharge Diagnoses Current Active Problems: Current Active and Chronic Problems (Last Reviewed 03/24/19 @ 14:27 by Kurt Resendez MD) CHF exacerbation (Acute) Acute anemia (Acute) New onset of congestive heart failure (Acute) PAF (paroxysmal atrial fibrillation) (Chronic) Cardiac pacemaker (Chronic) ABEL (acute kidney injury) (Acute) You will use the following diet at home:: Cardiac Your liquids should be the consistency of: Regular/Thin Discharge Activity: May Not Drive Call your doctor if you observe: Fever of 101 or Higher, Inability to have a bowel movement, Shortness of breath, Fainting spells, Chest pain Allergies/Adverse Reactions: Allergies No Known Allergies Allergy (Verified 03/21/19 11:34) Medications to take at Discharge Levothyroxine [Synthroid] 50 mcg PO DAILY 12/30/15 Fludrocortisone Acetate 0.1 mg PO DAILY 03/21/19 Methylphenidate HCl [Methylphenidate HCl ER (Cd)] 20 mg PO DAILY 03/21/19 Multivit-Min/FA/Lycopen/Lutein [Centrum Silver Men Tablet] 1 tab PO DAILY 03/21/19 Metoprolol Tartrate [Lopressor (beta edgar)] 25 mg PO BID #60 tablet 03/27/19 Pantoprazole Sodium [Protonix] 40 mg PO DAILY #30 tablet 03/27/19 Tamsulosin HCl [Flomax] 0.4 mg PO DAILY@1730 #30 capsule 03/27/19 The following prescriptions were given: Pantoprazole Sodium [Protonix] 40 mg PO DAILY #30 tablet Tamsulosin HCl [Flomax] 0.4 mg PO DAILY@1730 #30 capsule Metoprolol Tartrate [Lopressor (beta edgar)] 25 mg PO BID #60 tablet Primary Care Physician: Dick Chan MD [Primary Care Provider] - Please follow up with your Primary Care Physician in: in 2 week Test Results: Test results from this visit will be discussed in further detail at your follow- up appointment, if applicable. Please Follow Up With: Terrence Espinoza MD When: in 2-3 week Please Follow Up With: Kurt Resendez MD When: in 1 week for jones removal Please Follow Up With: Tyree Domínguez MD When: in 2-3 week
--- NOTE | 2019-03-27 11:34 | PCM.DC.SUM ---
Discharge Date and Diagnosis Date of Admission: 03/21/19 Date of Discharge: 03/27/19 - Primary Discharge Diagnosis Active and Suspected Problems (Last Reviewed 03/24/19 @ 14:27 by Kurt Resendez MD) CHF exacerbation (Acute) Acute anemia (Acute) New onset of congestive heart failure (Acute) ABEL (acute kidney injury) (Acute) - Secondary Discharge Diagnosis Chronic Problems (Last Reviewed 03/24/19 @ 14:27 by Kurt Resendez MD) PAF (paroxysmal atrial fibrillation) (Chronic) Cardiac pacemaker (Chronic) Bradycardia (Chronic) Dizziness (Chronic) PVD (peripheral vascular disease) (Chronic) Hypothyroidism (Chronic) GERD (gastroesophageal reflux disease) (Chronic) Hospital Course and Treatment Operations: None Summary of Care Provided: [] The patient is a 78 y/o M with PMHx: CKD stage III, Sinus Bradycardia s/p pacemaker, BPH, Hypothyroidism, Chronic Anemia was admitted with progressive worsening of shortness of breath with dry cough for about 2 weeks, bilateral lower extremity edema and swelling and had an 11 pound weight gain over last 2 weeks consistent with acute decompensated heart failure. Patient also had low hemoglobin on admission, hemoglobin 7.0, with baseline around 12 in July 2018. (1) Acute on chronic heart failure, systolic: BNP 1005.5, TSH 5.82, CXR w/ central vascular congestion with bibasilar atelectasis and a right pleural effusion. The patient was started on IV Lasix but was held on 03/23 secondary to elevated creatinine. Discussed with homicide squad commanding officer. Troponin is mildly elevated at 0.072, 0.063 and 0.067; ALT mildly elevated, plateau and indeterminate range, Reflects demand ischemia. TSH 4.89. Free T4 1.4 normal range. Last echo in October 2017 reported as EF 50% with systolic function lower limit of normal. Normal LV size. Impaired relaxation of LV. No regional wall motion abnormality. mild eccentric MR and AR. Repeat echo on 03/23 reported as EF 55% with moderately dilated LV. Mild global hypokinesis. Total motion consistent with IVCD. Normal RV size and function. Left moderately enlarged. Normal right atrium. Trivial MR, trivial TR. RVSP 37 mmHg. (2) Acute on Chronic Anemia, Microcytic: Patient w/ no history of hematemesis, hematochezia, melenotic stools w/ admission Hgb 7, prior baseline noted 2018 10. Patient had 1 unit of PRBC transfusion done. Patient had EGD and colonoscopy done and mild esophagitis was found. Was advised Protonix 40 mg daily for 3 months and then follow-up with Dr. Padilla as an outpatient. Probably will need repeat EGD after 3 months. General surgery signed off. Repeat H&H is improved 9.0/25.3. Platelet count 536. H&H is stable. On Protonix 40 mg daily (3) Hx Sinus Bradycardia, Symptomatic: s/p pacemaker, noted history prior of syncope events associated, chronic lightheadedness, dizziness he notes, maintained on fludrocortisone. Patient had pacemaker interrogation done today. (4) acute kidney injury on CKD stage III; mostly secondary to diuretic and urine retention/postobstructive uropathy: Admission BUN/Cr 31/1.83, baseline renal function 1.5-1.8. Patient has history of BPH and is on saw palmetto. Started on Flomax. Patient was seen by urologist. BUN/creatinine 31/2.03. K3.3. On 03/23 BUN, 44, creatinine 3.52. On 03/24 BUN/creatinine 54/4.2. Lasix is being held but it can be resumed at lower doses when patient feels symptomatic with ankle edema or shortness of breath. Nephrology is consulted, note reviewed and appreciated and discussed with him. (5) Hypothyroidism w/ elevated TSH: Recent outpatient TSH 5.82. Free T4 normal. (6) GERD: PPI IV as noted. (7) DVT Prophylaxis: SCDs, defer chemoprophylaxis given acute anemia. Discharge medication reconciliation done. Discharge follow-up instructions completed. Discharge process discussed with the patient and all questions were answered to patient's satisfaction. Patient is being discharged with Jones catheter on Flomax 0.4 mg daily. Follow-up with the urologist Dr. Resendez in 1 week for Jones catheter removal and spontaneous voiding trial. Follow-up with nephrology in 2 weeks. Total time spent, exact 35 minutes on discharge meds reconciliation, examination, review of imaging and blood test and discussion with the patient on follow-up instructions. Clinical Impression(s) from Imaging Studies Chest X-Ray 03/24/19 09:33 IMPRESSION: Central vascular congestion. Bibasilar atelectasis. Right pleural effusion. No interval change Subjective: Seen and examined. Urine output is 2100 mL since midnight. - Physical Exam General: Alert, Oriented x3, Cooperative HEENT: Atraumatic, PERRLA, EOMI, Normocephalic Neck: Supple, No JVD, Negative Carotid Bruits Lungs: Clear to auscultation, Normal air movement, No rhonchi, No wheeze, No rales Cardiovascular: Regular rate, Regular Rhythm, Normal S1, Normal S2, No murmurs Abdomen: Bowel Sounds Present, Soft, Non Tender, Non-Distended Extremities: No edema, Capillary Refill Less than 3 Seconds Skin: No rashes, No breakdown, - - Chronic skin changes of stasis dermatitis. Musculoskeletal: No Tenderness to Palpation of Joints or Extremities, Arthritic Changes Neurological: Cranial nerves II-XII grossly intact, Deep Tendon Reflexes 2+/4 and Symmetrical, Neuro grossly intact Psych/Mental Status: Normal Affect, Appropriate Vital Signs Temp Pulse Resp BP Pulse Ox 98.2 F 64 18 145/64 H 95 03/27/19 07:51 03/27/19 09:24 03/27/19 07:51 03/27/19 07:51 03/27/19 07:51 Oxygen Flow Rate (L/min) 2 Oxygen Delivery Method Room Air Weight: 160 lb 4.417 oz Body Mass Index (BMI) 22.3 Intake and Output for Last 24 Hours 03/25/19 03/26/19 03/27/19 23:59 23:59 23:59 Intake Total 1100 / 1100 590 / 590 440 / 440 Output Total 2650 / 2650 2150 / 2150 1550 / 1550 Balance -1550 / -1550 -1560 / -1560 -1110 / -1110 Laboratory Tests Past 24 Hrs 03/27/19 03/27/19 06:05 06:05 WBC 8.7 RBC 3.89 L Hgb 9.0 L Hct 29.2 L MCV 75.1 L MCH 23.1 L MCHC 30.8 L RDW 18.5 H RDW Differential 50.8 H Plt Count 555 H MPV 9.7 Immature Gran % (Auto) 0.200 Neut % (Auto) 61.4 Lymph % (Auto) 17.8 L [place] % (Auto) 15.9 H Eos % (Auto) 3.2 Baso % (Auto) 1.5 H Absolute Neuts (auto) 5.3 Absolute Lymphs (auto) 1.55 Total Counted Not Reportable Sodium 143 Potassium 4.0 Chloride 114 H Carbon Dioxide 24.0 Anion Gap 5 BUN 46 H Creatinine 2.11 H Estim Creat Clear Calc 29.67 Est GFR (MDRD) Af Amer 39 L Est GFR (MDRD) Non-Af 32 L BUN/Creatinine Ratio 21.8 H Glucose 92 Calcium 8.3 L Discharge Activity: May Not Drive Call your doctor if you observe: Fever of 101 or Higher, Inability to have a bowel movement, Shortness of breath, Fainting spells, Chest pain Home Medications: Medications to take at Discharge Levothyroxine [Synthroid] 50 mcg PO DAILY 12/30/15 Fludrocortisone Acetate 0.1 mg PO DAILY 03/21/19 Methylphenidate HCl [Methylphenidate HCl ER (Cd)] 20 mg PO DAILY 03/21/19 Multivit-Min/FA/Lycopen/Lutein [Centrum Silver Men Tablet] 1 tab PO DAILY 03/21/19 Metoprolol Tartrate [Lopressor (beta edgar)] 25 mg PO BID #60 tablet 03/27/19 Pantoprazole Sodium [Protonix] 40 mg PO DAILY #30 tablet 03/27/19 Tamsulosin HCl [Flomax] 0.4 mg PO DAILY@1730 #30 capsule 03/27/19 Following Prescrptions Were Given to Patient: Pantoprazole Sodium [Protonix] 40 mg PO DAILY #30 tablet Tamsulosin HCl [Flomax] 0.4 mg PO DAILY@1730 #30 capsule Metoprolol Tartrate [Lopressor (beta edgar)] 25 mg PO BID #60 tablet Primary Care Physician: Dick Chan MD [Primary Care Provider] - Please follow up with your Primary Care Physician in: in 2 week Please Follow Up With: Terrence Espinoza MD When: in 2-3 week Please Follow Up With: Kurt Resendez MD When: in 1 week for jones removal Please Follow Up With: Tyree Domínguez MD When: in 2-3 week Medical Necessity - Tobacco Use Smoking Status: Never smoker Tobacco Use: Non-smoker Meaningful Use Info Meaningful Use Diagnoses (Choose all that apply): None applicable Code Visit Inpatient E&M: 03043 Disch Hosp
--- NOTE | 2019-03-29 13:56 | CASEMGMT ---
KYLE DUNBAR Discharge F/U Phone Call LACE: 12 Strata: 4 Discharge date: 03/27/19 Call date: 03/29/19 Call time: [id number] Duration: 2 minutes Admission dx: CHF, Acute anemia Pt states has been doing 'ok' since discharge. Pt states no questions regarding discharge instructions/medications at this time. Pt states has all f/u appt's scheduled and plans to keep them. Pt states no suggestions for [facility] at this time. Pt voices no further questions/concerns/needs at this time. [place] KYLE DUNBAR
== END 2019-03-27 14:29 | disposition home or self-care (01) | DRG 291 ==
LOC: ED 12:17 → PCU 15:06
PROVIDERS: Internal Medicine Cardiovascular Disease; Student in an Organized Health Care Education/Training Program; Surgery; Admitting Provider Family Medicine; Emergency Provider Emergency Medicine; Family Provider Family Medicine; PCP Family Medicine; Visit Provider Internal Medicine
PROC: 0DJ08ZZ Inspection of Upper Intestinal Tract, Via Natural or Artificial Opening Endoscopic (ICD-10-PCS; CPT 43235; principal; 2019-03-22 10:15)
DX: I13.0 Hypertensive heart and chronic kidney disease with heart failure and stage 1 through stage 4 chronic kidney disease, or unspecified chronic kidney disease (principal); I50.23 Acute on chronic systolic (congestive) heart failure; E87.0 Hyperosmolality and hypernatremia; N17.9 Acute kidney failure, unspecified; I24.8 Other forms of acute ischemic heart disease; D64.9 Anemia, unspecified; K21.0 Gastro-esophageal reflux disease with esophagitis; N40.1 Benign prostatic hyperplasia with lower urinary tract symptoms; R33.8 Other retention of urine; E87.6 Hypokalemia; E03.9 Hypothyroidism, unspecified; N18.3 Chronic kidney disease, stage 3 (moderate); I48.0 Paroxysmal atrial fibrillation; Z95.0 Presence of cardiac pacemaker; I73.9 Peripheral vascular disease, unspecified
CPT/HCPCS: 36415; 71045; 71046; 80048; 80053; 80061; 81001; 82274; 83735; 83880; 84439; 84443; 84484; 85014; 85018; 85025; 85610; 85730; 86850; 86900; 86920; 86922; 93005; 93306; 97110; 97116; 97162; 97165; 97530; 97535; 97803; 99285; J7040; P9016; Q9957; A4216; J1940; J2405

== ENCOUNTER 2019-03-29 14:45 | Emergency (ER) | payer MEDICARE, SELFPAY ==
[2019-03-21 15:25] VITALS: BMI 22.3
[2019-03-29 14:47] VITALS: PULSE 66; RESP 16; TEMP 36.8; O2SAT 93
--- NOTE | 2019-03-29 14:47 | CT_ITS ---
STUDY: CTA OF THE BRAIN REASON FOR EXAM: Male, 78 years old. Sudden onset left facial droop RADIATION DOSAGE (If Supplied By Facility): CTDIvol = ( 28.11 ) mGy, DLP = ( 727.71 ) mGycm TECHNIQUE: CT angiography was performed with a multi-detector CT scanner. Data acquisition was obtained from the skull base through the vertex following intravenous administration of 100mL IV Isovue 370. MIP images were reconstructed from the axial data set. Post-processing of the angiographic images was performed, with multiplanar reformation and 3D reconstruction. Individualized dose optimization techniques were used for this CT. COMPARISON: CT head 03/29/2019. FINDINGS: Normal bilateral petrous carotid arteries. There is calcified plaque formation of the right cavernous carotid artery, without a cross-sectional luminal stenosis. Normal left cavernous carotid artery with a normal supraclinoid bifurcation. Normal right A1 segments of the anterior cerebral artery. Normal left A1 segments of the anterior cerebral artery. Normal intact anterior communicating artery (ACOM). Normal bilateral A2 segments of the anterior cerebral arteries. Normal right M1 and M2 segments of the middle cerebral arteries, with a normal M1 bifurcation. There is complete occlusion of the left M2 and M3 segments at their origin/bifurcation. There is a general paucity of the left M3 cortical segments throughout the left frontoparietal and temporal lobes. Normal left M1 segment of the middle cerebral artery. Normal right posterior communicating artery (PCOM). Normal left posterior communicating artery (PCOM). Normal bilateral vertebral arteries. Normal basilar artery with a normal basilar bifurcation. The visualized bilateral superior cerebellar (SCA) arteries are normal. Normal bilateral P1, P2 and visualized P3 segments of the posterior cerebral arteries. There is no demonstrated aneurysm of the [place] of [place]. There is no demonstrated abnormality of the visualized brain. CT/CTA Head W/WO Contrast IMPRESSION: There is complete, focal occlusion of the left M2 and M3 segments at their origin/bifurcation. There is a general paucity of the left M3 cortical segments throughout the left frontoparietal and temporal lobes. Normal left M1 segment of the middle cerebral artery. N.B. : The above information has been verbally conveyed by Phill Bobo to Mark Carrera on 03/29/2019 15:27:51 (ET). Electronically Signed: Phill Bobo, at 15:31 EDT Tel , Service support ,
--- NOTE | 2019-03-29 14:47 | CT_ITS ---
STUDY: CTA NECK WITH CONTRAST REASON FOR EXAM: Male, 78 years old. Left facial droop RADIATION DOSAGE (If Supplied By Facility): CTDIvol = ( 28.11 ) mGy, DLP = ( 727.71 ) mGycm TECHNIQUE: CT angiography with multi-detector data acquisition was performed from the aortic arch to the skull base following intravenous administration of 100mL IV Isovue 370. MIP images were reconstructed from the axial data set. Post-processing of the angiographic images was performed, with multiplanar reformation and 3D reconstruction. Individualized dose optimization techniques were used for this CT. COMPARISON: CT head performed earlier the same day. FINDINGS: AORTIC ARCH: Normal visualized aortic arch. Normal origins of the brachiocephalic, left common carotid, and left subclavian arteries. RIGHT CAROTID ARTERIES: Normal right common carotid artery (CCA). There is trace atherosclerotic plaque formation without narrowing of the right carotid bulb. Normal origin of the right internal carotid (ICA) artery without a hemodynamically significant stenosis. Normal visualized cervical portion of the right internal carotid artery. Normal origin of the right external carotid artery (ECA). LEFT CAROTID ARTERIES: Normal left common carotid artery (CCA). Normal left common carotid bulb. Normal origin of the left internal carotid (ICA) artery without a hemodynamically significant stenosis. Normal visualized cervical portion of the left internal carotid artery. Normal origin of the left external carotid artery (ECA). VERTEBRAL ARTERIES: Normal bilateral vertebral arteries. There are shotty mediastinal lymph nodes seen in the visualized mediastinum pretracheal region. There is biapical pleural-parenchymal scarring. There is a partially visualized left pleural effusion. There is multilevel degenerative disc disease. CT/CTA Neck W/WO Contrast IMPRESSION: Normal bilateral cervical carotid and vertebral arteries. Partially visualized left pleural effusion. N.B. : The above information has been verbally conveyed by Phill Bobo to Mark Carrera on 03/29/2019 15:31:03 (ET). Electronically Signed: Phill Bobo, at 15:36 EDT Tel , Service support ,
--- NOTE | 2019-03-29 14:48 | CT_ITS ---
STUDY: CT BRAIN WITHOUT CONTRAST REASON FOR EXAM: Male, 78 years old. Left facial droop RADIATION DOSAGE (If Supplied By Facility): CTDIvol = ( 44.99 ) mGy, DLP = ( 1592.22 ) mGycm TECHNIQUE: Transaxial CT imaging of the brain was performed without administration of intravenous contrast material. Individualized dose optimization techniques were used for this CT. COMPARISON: Brain MRI 06/16/2018. FINDINGS: There is a hyperdense left MCA, M2 segment seen in the left sylvian fissure consistent with acute thromboembolus. There is no apparent loss of the rai-white matter differentiation at this time. Normal soft tissue structures. Normal calvarium. Normal size ventricles and extra-axial spaces for the patient's age. Normal white matter tracts of the cerebral hemispheres. Normal basal ganglia and thalami. Normal brainstem. Normal cerebellum. There is no intracranial hemorrhage. Normal visualized paranasal sinuses. CT/Brain/Head without Contrast IMPRESSION: There is a hyperdense left MCA, and 2 segments in the left sylvian fissure consistent with acute thromboembolus. There is no apparent loss of the rai-white matter differentiation at this time. No intracranial hemorrhage. N.B. : The above information has been verbally conveyed by Phill Bobo to Mark Carrera MD, on 03/29/2019 15:20:16 (ET). Electronically Signed: Phill Bobo, at 15:08 EDT Tel , Service support ,
--- NOTE | 2019-03-29 14:48 | RAD_ITS ---
STUDY: X-RAY CHEST REASON FOR EXAM: Male, 78 years old. The kidney TECHNIQUE: Frontal view of the chest COMPARISON: 03/24/2019 FINDINGS: There are moderate congestive changes noted. The lungs are otherwise clear. There are no pleural effusions. There is no pneumothorax. The heart is normal in size. Again noted is a pacemaker. The visualized osseous structures are within normal limits. RAD/Chest 1 View IMPRESSION: Moderate pulmonary vascular congestion. Electronically Signed: Seamus Ramirez, at 15:46 EDT Tel , Service support ,
--- NOTE | 2019-03-29 14:48 | EKG12_ITS ---
Test Reason : STROKE S/SX Blood Pressure : / mmHG Vent. Rate : 064 BPM Atrial Rate : 064 BPM P-R Int : 314 ms QRS Dur : 168 ms QT Int : 514 ms P-R-T Axes : 000 209 069 degrees QTc Int : 530 ms AV dual-paced rhythm with prolonged AV conduction in a pattern of bigeminy Abnormal ECG Confirmed by RISHABH MORIN ([id number]), primer expeditor and drier SHARIF BAKER ([id number]) on 04/03/2019 2:00:51 PM Referred By: Lora Blanco Confirmed By:JENIFFER MORIN
--- NOTE | 2019-03-29 14:53 | ED.VIS.STROK ---
History of Present Illness Chief Complaint: Neuro S/Sx Informant: Level Vial Sealer Onset: Today Context: Sudden Onset Timing: Continuous Quality and Location: Left Facial Droop, Right Arm Weakness, Right Leg Weakness Current Severity: Severe Maximum Severity: Severe Worsened by: Nothing Relieved by: Nothing Associated Symptoms: - - Aphasic Narrative: Abrupt onset of aphasia, facial droop and weakness. Patient arrived. He is preferentially turn his head to the left. His eyes are forced deviated to the left. He does not respond to verbal stimuli. He does respond to painful stimuli on the left. Minimal movement right upper and lower extremity to noxious stimuli. - Past Medical History (1) ABEL (acute kidney injury) Status: Acute (2) CHF exacerbation Status: Acute (3) Bradycardia Status: Chronic (4) Cardiac pacemaker Status: Chronic (5) PAF (paroxysmal atrial fibrillation) Status: Chronic (6) PVD (peripheral vascular disease) Status: Chronic Past Medical History - Allergies and Home Meds Allergies/Adverse Reactions: Allergies No Known Allergies Allergy (Verified 03/21/19 11:34) Primary Care Physician: Dick Chan MD [Primary Care Provider] - Prior records reviewed: Yes - Recent admission to the hospital Surgical History: pacemaker implantation, - - Cataract removal with insertion of prosthetic lens, pacemaker placement 06/2018 at [facility], left leg vein stripping, right hydrocele intervention. Smoking Status: Never smoker Alcohol: None Drugs: - - Negative per old records - Family History Maternal Family History: Family History (Last Reviewed 03/24/19 @ 14:27 by Kurt Resendez MD) Brother CAD (coronary artery disease) Family History: Reports: Pulmonary Disease - Patient notes his mother with severe COPD, emphysema secondary to heavy tobacco use history. Paternal Family History: Family History (Last Reviewed 03/24/19 @ 14:27 by Kurt Resendez MD) Brother CAD (coronary artery disease) Family History: Reports: - - Patient notes that his father was very healthy with no history of heart disease, diabetes or cancer. Review of Systems ROS: Unable to Obtain - Patient with a aphasia Physical Exam - NIH Stroke Scale 1a Level of Consciousness: 2 1b LOC Questions (Score 2 if aphasic/stupor): 2 1c LOC Commands (Only score 1st attempt): 2 2 Best Gaze (If aphasic, use reflexive mvmts.): 2 4 Facial Palsy: 1 5 Motor Arm Right (UN = amputation/fusion): 3 5 Motor Arm Left: 0 6 Motor Leg Right: 3 6 Motor Leg Left: 0 7 Limb ataxia (Only + if out of proportion): UN 8 Sensory (Aphasia/stupor=0 or 1, coma=2): 1 9 Best Language: 3 10 Dysarthria (mute, coma=2, intubated=UN): 2 11 Extinction and Inattention (only scored if +): 2 Total Score: 23 General: Well nourished, Well developed Head: Normocephalic, Atraumatic Eyes: Perrl. Negative for: EOMI, Pale conjunctiva, Scleral icterus ENT: Moist mucous membranes, No rhinorrhea, TM's clear Neck: Supple, Nontender, No lymphadenopathy, No JVD Cardiovascular: Regular rate, Regular rhythm, Normal S1, Normal S2 Respiratory: No distress, CTA bilaterally Abdomen: Soft Extremities: - - Venous stasis dermatitis and stigmata of peripheral arterial disease Skin: Normal color, No rash Neurological: Negative for: Alert, Oriented x3, Cranial nerves II-XII grossly intact, Normal Strength, Normal Sensation, Normal DTR - Babinski on right Diagnostic/Tx/Re-eval CTA of the head neck reveals minimal flow to the left consistent with patient's findings. Awaiting formal read. I did receive a call from Dr. Mendoza at 12/03/2008 that there was no hemorrhage or contraindication to TPA. Spoke with . He does have a living will. Is living will states no aggressive intervention if they are reversible. Since this is potentially reversible she did consent to TPA. She was explained risk of TPA. - Rhythm Strip Rhythm Strip: Atrial paced rhythm with delayed AV conduction Rate: 64 Ectopy: None - EKG Initial EKG Interpretation: - - Atrial paced rhythm ventricular rate 64 with delayed AV conduction. - Medical Decision Making Stroke Team Activated: Yes - Pre-arrival IV TPA Administered: Yes - Read medical decision making Patient evaluated. Patient has significant stroke based on physical exam. CT of the head, CTA of the head and neck were obtained to assess for intracranial bleed, thrombotic versus embolic phenomenon especially since patient has history of paroxysmal atrial fib. states pacemaker was placed June [address] Jeremy Chan at [facility]. If he requires transfer she would like him to go to [facility]. Prior to transfer will contact to determine if there is interventional radiologist on duty to perform procedure. Transferred to: [facility] Critical care time (excluding procedures): 30-74 minutes - Critical care time 32 minutes. Discussion with family, discussion with senior environmental consultant,. Discussion with transfer team and direct care. ED Disposition - Plan for ED Patient: Disposition: [facility] Diagnosis: Left acute arterial ischemic stroke, MCA (middle cerebral artery) Referrals: Dick Chan MD [Primary Care Provider] -
--- NOTE | 2019-03-29 14:57 | ED.DCSUM_ITS ---
History of Present Illness Chief Complaint: Neuro S/Sx Informant: Visitor Services Technician Onset: Today Context: Sudden Onset Timing: Continuous Quality and Location: Left Facial Droop, Right Arm Weakness, Right Leg Weakness Current Severity: Severe Maximum Severity: Severe Worsened by: Nothing Relieved by: Nothing Associated Symptoms: - - Aphasic Narrative: Abrupt onset of aphasia, facial droop and weakness. Patient arrived. He is preferentially turn his head to the left. His eyes are forced deviated to the left. He does not respond to verbal stimuli. He does respond to painful stimuli on the left. Minimal movement right upper and lower extremity to noxious stimuli. - Past Medical History (1) ABEL (acute kidney injury) Status: Acute (2) CHF exacerbation Status: Acute (3) Bradycardia Status: Chronic (4) Cardiac pacemaker Status: Chronic (5) PAF (paroxysmal atrial fibrillation) Status: Chronic (6) PVD (peripheral vascular disease) Status: Chronic Past Medical History - Allergies and Home Meds Allergies/Adverse Reactions: Allergies No Known Allergies Allergy (Verified 03/21/19 11:34) Primary Care Physician: Dick Chan MD [Primary Care Provider] - Prior records reviewed: Yes - Recent admission to the hospital Surgical History: pacemaker implantation, - - Cataract removal with insertion of prosthetic lens, pacemaker placement 06/2018 at [facility], left leg vein stripping, right hydrocele intervention. Smoking Status: Never smoker Alcohol: None Drugs: - - Negative per old records - Family History Maternal Family History: Family History (Last Reviewed 03/24/19 @ 14:27 by Kurt Resendez MD) Brother CAD (coronary artery disease) Family History: Reports: Pulmonary Disease - Patient notes his mother with severe COPD, emphysema secondary to heavy tobacco use history. Paternal Family History: Family History (Last Reviewed 03/24/19 @ 14:27 by Kurt Resendez MD) Brother CAD (coronary artery disease) Family History: Reports: - - Patient notes that his father was very healthy with no history of heart disease, diabetes or cancer. Review of Systems ROS: Unable to Obtain - Patient with a aphasia Physical Exam - NIH Stroke Scale 1a Level of Consciousness: 2 1b LOC Questions (Score 2 if aphasic/stupor): 2 1c LOC Commands (Only score 1st attempt): 2 2 Best Gaze (If aphasic, use reflexive mvmts.): 2 4 Facial Palsy: 1 5 Motor Arm Right (UN = amputation/fusion): 3 5 Motor Arm Left: 0 6 Motor Leg Right: 3 6 Motor Leg Left: 0 7 Limb ataxia (Only + if out of proportion): UN 8 Sensory (Aphasia/stupor=0 or 1, coma=2): 1 9 Best Language: 3 10 Dysarthria (mute, coma=2, intubated=UN): 2 11 Extinction and Inattention (only scored if +): 2 Total Score: 23 General: Well nourished, Well developed Head: Normocephalic, Atraumatic Eyes: Perrl. Negative for: EOMI, Pale conjunctiva, Scleral icterus ENT: Moist mucous membranes, No rhinorrhea, TM's clear Neck: Supple, Nontender, No lymphadenopathy, No JVD Cardiovascular: Regular rate, Regular rhythm, Normal S1, Normal S2 Respiratory: No distress, CTA bilaterally Abdomen: Soft Extremities: - - Venous stasis dermatitis and stigmata of peripheral arterial disease Skin: Normal color, No rash Neurological: Negative for: Alert, Oriented x3, Cranial nerves II-XII grossly intact, Normal Strength, Normal Sensation, Normal DTR - Babinski on right Diagnostic/Tx/Re-eval CTA of the head neck reveals minimal flow to the left consistent with patient's findings. Awaiting formal read. I did receive a call from Dr. Mendoza at 12/03/2008 that there was no hemorrhage or contraindication to TPA. Spoke with . He does have a living will. Is living will states no aggressive intervention if they are reversible. Since this is potentially reversible she did consent to TPA. She was explained risk of TPA. - Rhythm Strip Rhythm Strip: Atrial paced rhythm with delayed AV conduction Rate: 64 Ectopy: None - EKG Initial EKG Interpretation: - - Atrial paced rhythm ventricular rate 64 with delayed AV conduction. - Medical Decision Making Stroke Team Activated: Yes - Pre-arrival IV TPA Administered: Yes - Read medical decision making Patient evaluated. Patient has significant stroke based on physical exam. CT of the head, CTA of the head and neck were obtained to assess for intracranial bleed, thrombotic versus embolic phenomenon especially since patient has history of paroxysmal atrial fib. states pacemaker was placed June [address] Jeremy Chan at [facility]. If he requires transfer she would like him to go to [facility]. Prior to transfer will contact to determine if there is interventional radiologist on duty to perform procedure. Transferred to: [facility] Critical care time (excluding procedures): 30-74 minutes - Critical care time 32 minutes. Discussion with family, discussion with python consultant,. Discussion with transfer team and direct care. ED Disposition - Plan for ED Patient: Disposition: [facility] Diagnosis: Left acute arterial ischemic stroke, MCA (middle cerebral artery) Referrals: Dick Chan MD [Primary Care Provider] -
[2019-03-29 15:01] VITALS: BP 131/65; PULSE 66; RESP 16; TEMP 36.8; O2SAT 93; BMI 21.9
[2019-03-29 15:10] VITALS: BP 131/65; PULSE 65; RESP 24; O2SAT 96
--- NOTE | 2019-03-29 15:11 | ED.RN ---
Oohly SENT TO LAB FOR TPA [id number]. Oscar MALLORY RN [id number]
[2019-03-29 15:20] VITALS: BP 130/71; PULSE 67; RESP 21; O2SAT 96
[2019-03-29 15:21] LABS: International Normalized Ratio 1.3; Prothrombin Time (Protime)PT. 15.5 SECONDS (11.7-14.9)
[2019-03-29 15:22] LABS: Partial Thromboplast Time 32.7 Seconds (24.1-36.2)
[2019-03-29 15:30] LABS: Anion Gap 9 (5-15); BUN 41 mg/dL (7-18); BUN/Creat Ratio 21.2 RATIO (10-20); Calcium,Total 8.3 mg/dL (8.5-10.1); Chloride 108 mmol/L (98-107); Creatinine, Serum 1.93 mg/dL (0.70-1.30); EST Glomerular Filtration Rate 36 mL/min (>60); Est Glom Filt Rate - Afr Amer 44 mL/min (>60); Estimated Creatinine Clearance 34.62 ml/min; Glucose 74 mg/dL (74-106); Potassium 4.2 mmol/L (3.5-5.1); Sodium Level 140 mmol/L (136-145)
[2019-03-29 15:37] LABS: Absolute Lymphocyte Count 1.86 X10^3/ul (0.83-4.51); Absolute Neutrophil Count 5.2 X10^3/uL (2.0-7.7); Basophil% 1.2 % (0-1); Eosinophil# 0.17 X10^3/uL; Hematocrit 24.5 % (40-54); Hemoglobin 7.7 g/dl (13.0-16.5); Lymphocyte # 1.86 X10^3/ul (4.0); Mean Corp Hgb Conc 31.4 g/gl (32-36); Mean Corpuscular Hgb 23.4 pg (27.0-32.0); Mean Corpuscular Volume 74.5 fL (80-94); Mean Platelet Vol. 9.5 fl (6.2-12.0); Monocyte# 1.11 X10^3/uL; Monocyte% 13.1 % (0-10); Neutrophil # 5.19 X10^3/uL (2.7-7.7); Neutrophil % 61.3 % (47-70); POSITIVE COUNT NO; POSITIVE DIFFERENTIAL NO; POSITIVE MORPHOLOGY NO; Platelet Count 493 K/mm3 (150-450); RBC Distribution Width CV 18.9 % (11.6-14.6); RBC Distribution Width SD 51.4 fl (35.1-43.9); Red Blood Count 3.29 M/mm3 (4.6-6.2); White Blood Count 8.5 K/mm3 (4.4-11.0)
[2019-03-29 15:38] VITALS: BP 132/72; PULSE 64; RESP 16; O2SAT 96
--- NOTE | 2019-03-29 15:57 | ED.RN ---
TPA BOLUS GIVEN BY Oscar MALLORY RN. [facility] RN RASHMI REQUESTED DRIP BE INITIATED BY THEM ON THEIR EQUIPMENT. MEDICATION WAS VERIFIED WITH INSIDE FINISHER PRIOR TO INITIATION. Oscar MALLORY RN [id number]
--- NOTE | 2019-03-29 16:01 | CASEMGMT ---
Per Patient Insurance Kaylene Acevedo [facility] Advantage, patient In [facility]: TANIKA Maurice, Roseline, . Dulce Bentley, KYLECM
--- NOTE | 2019-03-29 16:11 | CHAPLAIN ---
Type of Pastoral Visit ___ Initial Visit ___ Follow-up Visit ___ On-call Visit ___ General Patient Visit ___ Spiritual Assessment ___ Family Conference ___ Bereavement _x__ Rapid Response ___ Code Blue ___ Other (describe below) Pastoral Care Referral From ___ Patient _x__ Family ___ Nurse ___ Physician ___ Box Blank Machine Operator ___ Computer Mechanic _x__ Other (describe below) Sacrament/Intervention _x__ Active listening ___ Anointing ___ Zoroastrian ___ Bereavement ___ Communion ___ Leela exploration ___ ___ Life review _x__ Prayer ___ Reconciliation ___ Sacrament of Sick _x__ Supportive presence ___ Wedding ___ Other (describe below) Pastoral Comments gave presence to spouse upon her arrival to hospital following squad arrival of patient; family and this patient have been seen before by this plate worker helper at this hospital; offered spiritual care and prayer support; met with other family members as they arrived; remained with family until pt was taken by life flight; gave family directions to [facility]
[2019-03-29 16:12] VITALS: BP 141/68; PULSE 65; RESP 20; O2SAT 96
[2019-03-30 14:06] LABS: Bedside Glucose 69 mg/dL (70-110)
== END 2019-03-29 16:28 | disposition short-term general hospital (02) ==
PROVIDERS: Emergency Provider Emergency Medicine; Family Provider Family Medicine; PCP Family Medicine
DX: I63.512 Cerebral infarction due to unspecified occlusion or stenosis of left middle cerebral artery (principal); R47.01 Aphasia; G81.91 Hemiplegia, unspecified affecting right dominant side; R29.810 Facial weakness; S50.312A Abrasion of left elbow, initial encounter; Z23 Encounter for immunization; I48.0 Paroxysmal atrial fibrillation; I73.9 Peripheral vascular disease, unspecified; R00.1 Bradycardia, unspecified; Z79.899 Other long term (current) drug therapy; Z95.0 Presence of cardiac pacemaker
CPT/HCPCS: 70450; 70496; 70498; 71045; 80048; 82962; 84484; 85025; 85610; 85730; 93005; 96374; 99285; J2997; J7050; Q9967; A4216; J3490

== ENCOUNTER 2019-04-06 13:03 | Inpatient (IN) | payer MEDICARE, SELFPAY ==
[2019-04-06 13:41] VITALS: BP 106/66; PULSE 68; RESP 18; TEMP 36.4; O2SAT 96; BMI 22.1
--- NOTE | 2019-04-06 15:16 | PCM.HP.COS ---
History of Present Illness Date of Admission: 04/06/19 The patient is a 78 year old M PMH paroxysmal atrial fibrillation, HTN, CHF,bradycardia post cardiac pacemaker, PVD, hypothyroidism, and GERD admitted [facility] on 04/06/2019 with debility secondary to Left acute arterial ischemic stroke, MCA for greater of 3 hours of therapy daily with a goal of returning back home at or near her prior level of functional dependence. Patient was previously admitted to on March 21 for new onset of CHF and Per compactor driver's note pt had various cardiac arrhythmias with respect to sinus bradycardia, junctional rhythm, paroxysmal atrial fibrillation, and prolonged pauses and on 03/22/2019 PPM did show episodes of atrial fibrillation. 03/22/2019 EKG Patient was discharged home on March 28, 2019 with Jones catheter due to urinary retention Dr. Resendez to follow. She returned back to [facility] emergency room on February 27, 2019 with Abrupt onset of aphasia, facial droop and weakness. NIH was 23. Diagnosis of left acute arterial ischemic stroke, MCA and patient received TPA and transferred to [facility]. At [facility] on 03/29/2019, patient had an endovascular stroke treatment of the left MCA M2 occlusion using the [place] stent retriever and circumflex system. There was reperfusion of the left MCA territory after 1 pass. On 03/30/2019 CT without contrast done for post TPA impression acute infarct of the left basal ganglia with involvement of the head of the left caudate, subtle loss of rai?white matter differentiation in the left insular cortex, which may also represent changes of acute ischemia, no intracranial hemorrhage noted. On 03/30/2019 transthoracic echocardiogram completed which showed no obvious evidence of an embolic source. On 03/31/2019 venous duplex completed to bilateral lower extremities negative for DVT. Patient lives in a 1 level home with spouse. Patient was independent with all mobility, ADLs, and driving prior to stroke. Patient does use a cane in the community. Past Medical History Past Medical History (Chronic Problems): Chronic Problems (Last Updated 04/06/19 @ 15:19 by Rosario Tran, BELEN-C) CHF exacerbation (Chronic) PAF (paroxysmal atrial fibrillation) (Chronic) Cardiac pacemaker (Chronic) d/t bradycardia Stroke (Chronic) Left MCA Esophagitis (Chronic) EGD 03/22/19 PVD (peripheral vascular disease) (Chronic) Hypothyroidism (Chronic) GERD (gastroesophageal reflux disease) (Chronic) Medical History: Medical History (Last Updated 04/06/19 @ 15:19 by BRINA Snell) PVD (peripheral vascular disease) (Chronic) I73.9 Hypothyroidism (Chronic) E03.9 GERD (gastroesophageal reflux disease) (Chronic) K21.9 Stroke I63.9 Postural vertigo H81.10 lower extremity vein surgery Allergies No Known Allergies Allergy (Verified 03/21/19 11:34) Home Medications: Ambulatory Orders Medication Instructions Recorded Levothyroxine [Synthroid] 50 mcg PO DAILY 12/30/15 Pantoprazole Sodium [Protonix] 40 mg PO DAILY #30 tablet 03/27/19 Tamsulosin HCl [Flomax] 0.4 mg PO DAILY@1730 04/06/19 Surgical History: Surgical History (Last Reviewed 03/24/19 @ 14:27 by Kurt Resendez MD) H/O cataract removal with insertion of prosthetic lens Z98.49, Z96.1 History of hydrocelectomy Z98.890 Surgical History: cataract, pacemaker implantation, - - right hydrocele Psychiatric History: No pertinent psych hx Lives: Spouse/ Significant Other Smoking Status: Never smoker Tobacco Use: Non-smoker Alcohol: None Drugs: None - *Family History Maternal Family History: Family History (Last Reviewed 04/06/19 @ 17:26 by BRINA Melchor) Brother CAD (coronary artery disease) History Items: Pulmonary Disease - Patient notes his mother with severe COPD, emphysema secondary to heavy tobacco use history. Paternal Family History: Family History (Last Reviewed 04/06/19 @ 17:26 by BRINA Melchor) Brother CAD (coronary artery disease) History Items: - - Patient notes that his father was very healthy with no history of heart disease, diabetes or cancer. Review of Systems Constitutional: Reports: Weakness - Per patient everywhere. Denies: Chills, Fever, Weight Change Eyes: Denies: Blurred vision, Double vision, Pain, Redness, Vision Change HEENT: Denies: Difficulty Hearing, Difficulty Swallowing, Head Aches, Sinus Congestion, Sinus Drainage, Visual Changes Cardiovascular: Denies: Chest Pain, Chest Pressure, Chest Tightness, Palpitations Respiratory: Denies: Cough, Shortness of breath at rest, Sputum production Gastrointestinal: Denies: Abdominal Pain, Constipation, Diarrhea, Nausea, Vomiting Genitourinary: Reports: Retention - jones catheter placed by Dr. Resendez prior to stroke Musculoskeletal: Denies: Joint Pain, Joint Tenderness Skin: Denies: Rash, Wounds Neurological: Reports: Balance problems, Slurred speech, Incoordination. Denies: Blurred vision, Double vision, Difficulty swallowing, Headaches, Numbness, Tingling Psychiatric: Denies: Anxiety, Depression, Homicidal Ideations, Suicidal Ideations Hematologic/ Lymphatic: Reports: Hx of blood transfusion - 2 units February 2019, no reactions per spouse. Denies: Hx of blood clot VTE Information - Inpt Only VTE Present on Admission: No VTE Mechan Device Prophylaxis: SCD's, Knee High GEMINI Hose VTE Pharm Prophylaxis ordered?: Yes - Physical Exam General: Alert, Oriented x3, Cooperative HEENT: Atraumatic, PERRLA Oral: Moist Mucosa Neck: Supple, No JVD Lungs: Clear to auscultation, Normal air movement Cardiovascular: Regular rate, Regular Rhythm Abdomen: Bowel Sounds Present, Soft, Non Tender Extremities: No clubbing, No cyanosis, No edema, - - bilateral lower extremities dark brown from PVD, pedal pulses +2 Musculoskeletal: No Tenderness to Palpation of Joints or Extremities Neurological: Cranial nerves II-XII grossly intact, Deep Tendon Reflexes 2+/4 and Symmetrical, Neuro grossly intact, Facial Droop - left, - - Strength: Right upper and lower extremity 5/5, Left upper extremity 3/5, Left lower extremity 2/5, speech slurred, NIH 1 Psych/Mental Status: Normal Affect, Appropriate, Alert and oriented to time, place, person, mood and affect Vital Signs Temp Pulse Resp BP Pulse Ox 97.6 F L 68 18 106/66 96 04/06/19 13:41 04/06/19 13:41 04/06/19 13:41 04/06/19 13:41 04/06/19 13:41 Oxygen Delivery Method Room Air Weight: 76.204 kg Body Mass Index (BMI) 22.1 Finger Stick Blood Glucose 69 Assessment/Plan The patient is a 78 year old M PMH paroxysmal atrial fibrillation, HTN, CHF, bradycardia post cardiac pacemaker, PVD, hypothyroidism, and GERD admitted [facility] on 04/06/2019 with debility secondary to Left acute arterial ischemic stroke, MCA for greater of 3 hours of therapy daily with a goal of returning back home at or near her prior level of functional dependence. Patient was previously admitted to on March 21 for new onset of CHF and Per compactor driver's note pt had various cardiac arrhythmias with respect to sinus bradycardia, junctional rhythm, paroxysmal atrial fibrillation, and prolonged pauses and on 03/22/2019 PPM did show episodes of atrial fibrillation. 03/22/2019 EKG Patient was discharged home on March 28, 2019 with Jones catheter due to Bladder outlet obstruction from BPH, Dr. Resendez to follow. She returned back to [facility] emergency room on February 27, 2019 with Abrupt onset of aphasia, facial droop and weakness. NIH was 23. Diagnosis of left acute arterial ischemic stroke, MCA and patient received TPA and transferred to [facility]. At [facility] on 03/29/2019, patient had an endovascular stroke treatment of the left MCA M2 occlusion using the [place] stent retriever and circumflex system. There was reperfusion of the left MCA territory after 1 pass. On 03/30/2019 CT without contrast done for post TPA impression acute infarct of the left basal ganglia with involvement of the head of the left caudate, subtle loss of rai?white matter differentiation in the left insular cortex, which may also represent changes of acute ischemia, no intracranial hemorrhage noted. On 03/30/2019 transthoracic echocardiogram completed which showed no obvious evidence of an embolic source. On 03/31/2019 venous duplex completed to bilateral lower extremities negative for DVT. Patient lives in a 1 level home with spouse. Patient was independent with all mobility, ADLs, and driving prior to stroke. Patient does use a cane in the community. Plan - PT for mobility - OT for ADLs - ST speech and cognition - Analgesics PRN - Bowel protocol - Left MCA stroke post TPA - aspirin, metoprolol, lipitor repeat CT of brain without contrast on 04/07/2019 evaluate for anticoagulation - Paroxysmal atrial fibrillation on aspirin, metoprolol - HTN on metoprolol - CHF on metoprolol - Hypothyroidism on levothyroxine - GERD on protonix - Bladder outlet obstruction from BPH - on flomax, Jones in place - consult Dr. Resendez - DVT prophylaxis- heparin 5,000 units SQ BID, SCDs, Knee-high teds - Fall precautions - Further medical management per hospitalist recommendation, hospitalist consult - F/U with PCP, Neurology, Cardiology, and Urology -
--- NOTE | 2019-04-06 15:20 | HP.PCM.COS_ITS ---
History of Present Illness Date of Admission: 04/06/19 The patient is a 78 year old M PMH paroxysmal atrial fibrillation, HTN, CHF,bradycardia post cardiac pacemaker, PVD, hypothyroidism, and GERD admitted [facility] IP on 04/06/2019 with debility secondary to Left acute arterial ischemic stroke, MCA for greater of 3 hours of therapy daily with a goal of returning back home at or near her prior level of functional dependence. Patient was previously admitted to [facility] on March 21 for new onset of CHF and Per brand leader's note pt had various cardiac arrhythmias with respect to sinus bradycardia, junctional rhythm, paroxysmal atrial fibrillation, and prolonged pauses and on 03/22/2019 PPM did show episodes of atrial fibrillation. 03/22/2019 EKG Patient was discharged home on March 28, 2019 with Jones catheter due to urinary retention Dr. Resendez to follow. She returned back to [facility] emergency room on February 27, 2019 with Abrupt onset of aphasia, facial droop and weakness. NIH was 23. Diagnosis of left acute arterial ischemic stroke, MCA and patient received TPA and transferred to [facility]. At [facility] on 03/29/2019, patient had an endovascular stroke treatment of the left MCA M2 occlusion using the [place] stent retriever and circumflex system. There was reperfusion of the left MCA territory after 1 pass. On 03/30/2019 CT without contrast done for post TPA impression acute infarct of the left basal ganglia with involvement of the head of the left caudate, subtle loss of rai?white matter differentiation in the left insular cortex, which may also represent changes of acute ischemia, no intracranial hemorrhage noted. On 03/30/2019 transthoracic echocardiogram completed which showed no obvious evidence of an embolic source. On 03/31/2019 venous duplex completed to bilateral lower extremities negative for DVT. Patient lives in a 1 level home with spouse. Patient was independent with all mobility, ADLs, and driving prior to stroke. Patient does use a cane in the ommunity. Past Medical History Past Medical History (Chronic Problems): Chronic Problems (Last Updated 04/06/19 @ 15:19 by Rosario Tran, BELEN-C) CHF exacerbation (Chronic) PAF (paroxysmal atrial fibrillation) (Chronic) Cardiac pacemaker (Chronic) d/t bradycardia Stroke (Chronic) Left MCA Esophagitis (Chronic) EGD 03/22/19 PVD (peripheral vascular disease) (Chronic) Hypothyroidism (Chronic) GERD (gastroesophageal reflux disease) (Chronic) Medical History: Medical History (Last Updated 04/06/19 @ 15:19 by BRINA Snell) PVD (peripheral vascular disease) (Chronic) I73.9 Hypothyroidism (Chronic) E03.9 GERD (gastroesophageal reflux disease) (Chronic) K21.9 Stroke I63.9 Postural vertigo H81.10 lower extremity vein surgery Allergies No Known Allergies Allergy (Verified 03/21/19 11:34) Home Medications: Ambulatory Orders Medication Instructions Recorded Levothyroxine [Synthroid] 50 mcg PO DAILY 12/30/15 Pantoprazole Sodium [Protonix] 40 mg PO DAILY #30 tablet 03/27/19 Tamsulosin HCl [Flomax] 0.4 mg PO DAILY@1730 04/06/19 Surgical History: Surgical History (Last Reviewed 03/24/19 @ 14:27 by Kurt Resendez MD) H/O cataract removal with insertion of prosthetic lens Z98.49, Z96.1 History of hydrocelectomy Z98.890 Surgical History: cataract, pacemaker implantation, - - right hydrocele Psychiatric History: No pertinent psych hx Lives: Spouse/ Significant Other Smoking Status: Never smoker Tobacco Use: Non-smoker Alcohol: None Drugs: None - *Family History Maternal Family History: Family History (Last Reviewed 04/06/19 @ 17:26 by BRINA Melchor) Brother CAD (coronary artery disease) History Items: Pulmonary Disease - Patient notes his mother with severe COPD, emphysema secondary to heavy tobacco use history. Paternal Family History: Family History (Last Reviewed 04/06/19 @ 17:26 by BRINA Melchor) Brother CAD (coronary artery disease) History Items: - - Patient notes that his father was very healthy with no history of heart disease, diabetes or cancer. Review of Systems Constitutional: Reports: Weakness - Per patient everywhere. Denies: Chills, Fever, Weight Change Eyes: Denies: Blurred vision, Double vision, Pain, Redness, Vision Change HEENT: Denies: Difficulty Hearing, Difficulty Swallowing, Head Aches, Sinus Congestion, Sinus Drainage, Visual Changes Cardiovascular: Denies: Chest Pain, Chest Pressure, Chest Tightness, Palpitations Respiratory: Denies: Cough, Shortness of breath at rest, Sputum production Gastrointestinal: Denies: Abdominal Pain, Constipation, Diarrhea, Nausea, Vomiting Genitourinary: Reports: Retention - jones catheter placed by Dr. Resendez prior to stroke Musculoskeletal: Denies: Joint Pain, Joint Tenderness Skin: Denies: Rash, Wounds Neurological: Reports: Balance problems, Slurred speech, Incoordination. Denies: Blurred vision, Double vision, Difficulty swallowing, Headaches, Numbn ess, Tingling Psychiatric: Denies: Anxiety, Depression, Homicidal Ideations, Suicidal Ideations Hematologic/ Lymphatic: Reports: Hx of blood transfusion - 2 units February 2019, no reactions per spouse. Denies: Hx of blood clot VTE Information - Inpt Only VTE Present on Admission: No VTE Mechan Device Prophylaxis: SCD's, Knee High GEMINI Hose VTE Pharm Prophylaxis ordered?: Yes - Physical Exam General: Alert, Oriented x3, Cooperative HEENT: Atraumatic, PERRLA Oral: Moist Mucosa Neck: Supple, No JVD Lungs: Clear to auscultation, Normal air movement Cardiovascular: Regular rate, Regular Rhythm Abdomen: Bowel Sounds Present, Soft, Non Tender Extremities: No clubbing, No cyanosis, No edema, - - bilateral lower extremities dark brown from PVD, pedal pulses +2 Musculoskeletal: No Tenderness to Palpation of Joints or Extremities Neurological: Cranial nerves II-XII grossly intact, Deep Tendon Reflexes 2+/4 and Symmetrical, Neuro grossly intact, Facial Droop - left, - - Strength: Right upper and lower extremity 5/5, Left upper extremity 3/5, Left lower extremity 2/5, speech slurred, NIH 1 Psych/Mental Status: Normal Affect, Appropriate, Alert and oriented to time, pl daniela, person, mood and affect Vital Signs Temp Pulse Resp BP Pulse Ox 97.6 F L 68 18 106/66 96 04/06/19 13:41 04/06/19 13:41 04/06/19 13:41 04/06/19 13:41 04/06/19 13:41 Oxygen Delivery Method Room Air Weight: 76.204 kg Body Mass Index (BMI) 22.1 Finger Stick Blood Glucose 69 Assessment/Plan The patient is a 78 year old M PMH paroxysmal atrial fibrillation, HTN, CHF, bradycardia post cardiac pacemaker, PVD, hypothyroidism, and GERD admitted to [facility] on 04/06/2019 with debility secondary to Left acute arterial ischemic stroke, MCA for greater of 3 hours of therapy daily with a goal of returning back home at or near her prior level of functional d ependence. Patient was previously admitted to [facility] on March 21 for new onset of CHF and Per brand leader's note pt had various cardiac arrhythmias with respect to sinus bradycardia, junctional rhythm, paroxysmal atrial fibrillation, and prolonged pauses and on 03/22/2019 PPM did show episodes of atrial fibrillation. 03/22/2019 EKG Patient was discharged home on March 28, 2019 with Jones catheter due to Bladder outlet obstruction from BPH, Dr. Resendez to follow. She returned back to [facility] emergency room on February 27, 2019 with Abrupt onset of aphasia, facial droop and weakness. NIH was 23. Diagnosis of left acute arterial ischemic stroke, MCA and patient received TPA and transferred to [facility]. At [facility] on 03/29/2019, patient had an endovascular stroke treatment of the left MCA M2 occlusion using the [place] stent retriever and circumflex system. There was reperfusion of the left MCA territory after 1 pass. On 03/30/2019 CT without contrast done for post TPA impression acute infarct of the left basal ganglia with involvement of the head of the left caudate, subtle loss of rai?white matter differentiation in the left insular cortex, which may also represent changes of acute ischemia, no intracranial hemorrhage noted. On 03/30/2019 transthoracic echocardiogram completed which showed no obvious evidence of an embolic source. On 03/31/2019 venous duplex completed to bilateral lower extremities negative for DVT. Patient lives in a 1 level home with spouse. Patient was independent with all mobility, ADLs, and driving prior to stroke. Patient does use a cane in the community. Plan - PT for mobility - OT for ADLs - ST speech and cognition - Analgesics PRN - Bowel protocol - Left MCA stroke post TPA - aspirin, metoprolol, lipitor repeat CT of brain without contrast on 04/07/2019 evaluate for anticoagulation - Paroxysmal atrial fibrillation on aspirin, metoprolol - HTN on metoprolol - CHF on metoprolol - Hypothyroidism on levothyroxine - GERD on protonix - Bladder outlet obstruction from BPH - on flomax, Jones in place - consult Dr. Resendez - DVT prophylaxis- heparin 5,000 units SQ BID, SCDs, Knee-high teds - Fall precautions - Further medical management per hospitalist recommendation, hospitalist consult - F/U with PCP, Neurology, Cardiology, and Urology -
--- NOTE | 2019-04-06 16:05 | PCM.RU.PYE ---
Admission Information Status Changes from Prescreening?: No changes Identified Actual Problem List:: Mobility Impaired, Self Care Deficit Potential Problem List:: DVT, Bleeding, Infection, UTI, Aspiration, Falls, Skin Integrity, Depression Risk of Complications DVT: LMWH, GEMINI Hose, Sequential Compression Device Bleeding: Monitor Lab Values, Nursing to Teach Precautions for anti-coagulation therapy., Wound, if applicable, to be assessed every shift., Stroke patients assessed for lethargy or change in status. Infection: Clinical Staff to Monitor for S/S of infection:, S/S of infection include fever, redness, warmth, etc. Urinary Tract Infection: Monitor for frequency, burning, discomfort, or incontinence., Nursing will obtain urine sample for urinalysis and C&S when ordered. Aspiration: Clinical staff will monitor for coughing, drooling, congestion., Speech will evaluate swallowing and dsyphasia., Nursing will monitor patient swallowing during meals. Falls: Patient will be evaluated for Fall Precautions, Patient will be placed on Fall Precautions as indicated per protocol. Skin Breakdown: Nursing will assess skin daily using assessment tool., Nursing will place on Skin Breakdown Precautions as indicated. Pain: Clinical staff will assess patient's pain level per protocol., Medications will be given, if needed, and the pain level reassessed., Other methods: Massage, distraction, decrease stimulus, etc. used PRN. Plan of Care Patient requires physician specializing in physical medicine and rehab oversight to provide close medical supervision of rehab issues including: Pain Management, Sleep Problems, Bowel and Bladder, Medical and co-morbidity Management, DVT prophylaxis, Rehabilitation Leadership, Coordination of treatment team Patient needs Physical Therapy: For a minimum of 1 hour, At least 5 out of 7 days Patient needs Physical Therapy to improve:: Mobility, Mobility, Mobility, Strengthening, Transfers, Stretching, ROM, Endurance, Stairs, Gait, Balance Patient needs Occupational Therapy: For a minimum of 1 hour, At least 5 out of 7 days Patient needs Occupational Therapy to improve ADL's incl.: Eating, Grooming, Bathing, Dressing, Toileting, Toilet transfers, Community Reintegration, Higher functioning activities, Household tasks, Adaptive Equipment, Splinting, Other activities as determined Patient requires speech therapy: For a minimum of 1 hour, At least 5 out of 7 days Patient requires speech therapy for: Swallowing, Cognition, Language Skills, Compensatory Strategies Patient requires 24/ Rehabilitation Nursing for: Pain Issues, Identifying and preventing risk factors, Monitoring and reporting current medical conditions, Assisting with ambulation, transfer, and all ADL's, Teaching patients about disease process and medications, Family teaching, Providing safe environment, Bowel and Bladder Issues, Skin integrity, Medication Management Patient needs Grades 1 Through 5 Teacher/ Case Management for: Discharge Planning, Arranging Home Equipment or Services, Family Interventions Patient needs Dietary and Nutrition Services for: Adequate Nutrition, Nutritional Supplements, Nutritional Education Goals Patient will remain: free from falls, or injury at time of discharge. Patient will perform bed mobility at: MOD I level of assist. Patient will complete transfers from bed to chair at: MOD I level of assist. Patient will ambulate: 100 feet, with MOD I assist, with LRD Patient will complete upper body dressing at: MOD I level of assist. Patient will complete lower body dressing at: MOD I level of assist. Patient will complete toileting at: MOD I level of assist. Patient will perform bathing at: MOD I level of assist. Patient will complete grooming at: MOD I level of assist. Patient will complete home management skills at: MOD I level of assist. Patient will achieve: 12 stairs, at MOD I assist Patient will have pain level of: of 3 or less Patient's skin will: remain intact, free from infection. Patient will receive: adequate nutrition. Discharge Planning Pt Prognosis for Sig. Practical Improv. w/in Reasonable Time: Good Estimated Length of stay (days): 16 Anticipated D/C Destination: Home with Outpt Therapy Was Preadmission Assessment Accurate?: Yes
--- NOTE | 2019-04-06 17:15 | PCM.CONS.GEN ---
<Sonya Franz - Last Filed: 04/06/19 17:40> Problem List (1) CHF exacerbation Status: Chronic Qualifiers: Heart failure type: diastolic Qualified Code(s): I50.33 - Acute on chronic diastolic (congestive) heart failure (2) PAF (paroxysmal atrial fibrillation) Status: Chronic (3) Cardiac pacemaker Status: Chronic Comment: d/t bradycardia (4) PVD (peripheral vascular disease) Status: Chronic (5) Hypothyroidism Status: Chronic Qualifiers: Hypothyroidism type: unspecified Qualified Code(s): E03.9 - Hypothyroidism, unspecified (6) GERD (gastroesophageal reflux disease) Status: Chronic Qualifiers: Esophagitis presence: esophagitis presence not specified Qualified Code(s): K21.9 - Gastro-esophageal reflux disease without esophagitis (7) Stroke Status: Chronic Comment: Left MCA (8) Esophagitis Status: Chronic Comment: EGD 03/22/19 Reason for Consult Date of Consultation: 04/06/19 Reason for Consultation: Debility, recent left MCA stroke. History of Present Illness: The patient is a 78 year old M admitted to rehab unit 04/06/2019 due to debility following recent left MCA stroke. Patient initially presented to [facility] ER 03/29/2019 and was diagnosed with left acute arterial ischemic stroke, MCA and received TPA and was subsequently transferred to [facility]. He reports residual aphasia, left-sided weakness, left facial droop. Patient previously from home with and was fairly independent. Denies new neurologic symptoms. He does have a Avila in place due to urinary retention in which he was to follow-up with Dr. Resendez. His other past medical history includes paroxysmal atrial fibrillation, hypertension, diastolic CHF, bradycardia status post cardiac pacemaker placement, PVD, hypothyroidism, GERD. Past Medical History Past Medical History (Chronic Problems): Chronic Problems (Last Updated 04/06/19 @ 15:19 by BRINA Snell) CHF exacerbation (Chronic) PAF (paroxysmal atrial fibrillation) (Chronic) Cardiac pacemaker (Chronic) d/t bradycardia Stroke (Chronic) Left MCA Esophagitis (Chronic) EGD 03/22/19 PVD (peripheral vascular disease) (Chronic) Hypothyroidism (Chronic) GERD (gastroesophageal reflux disease) (Chronic) Medical History: Medical History (Last Updated 04/06/19 @ 15:19 by BRINA Snell) Bradycardia (Chronic) R00.1 Dizziness (Chronic) R42 PVD (peripheral vascular disease) (Chronic) I73.9 Syncope and collapse (Acute) R55 Hypothyroidism (Chronic) E03.9 GERD (gastroesophageal reflux disease) (Chronic) K21.9 Chest pain (Acute) R07.9 Stroke I63.9 Postural vertigo H81.10 lower extremity vein surgery Allergies No Known Allergies Allergy (Verified 03/21/19 11:34) Home Medications: Ambulatory Orders Medication Instructions Recorded Levothyroxine [Synthroid] 50 mcg PO DAILY 12/30/15 Pantoprazole Sodium [Protonix] 40 mg PO DAILY #30 tablet 03/27/19 Tamsulosin HCl [Flomax] 0.4 mg PO DAILY@1730 04/06/19 Surgical History: Surgical History (Last Reviewed 03/24/19 @ 14:27 by Kurt Resendez MD) H/O cataract removal with insertion of prosthetic lens Z98.49, Z96.1 History of hydrocelectomy Z98.890 Surgical History: cataract, pacemaker implantation, - - right hydrocele, thrombectomy. Psychiatric History: No pertinent psych hx Lives: Spouse/ Significant Other Smoking Status: Never smoker Tobacco Use: Non-smoker Alcohol: None Drugs: None - *Family History Maternal Family History: Family History (Last Reviewed 04/06/19 @ 17:26 by BRINA Melchor) Brother CAD (coronary artery disease) History Items: Pulmonary Disease - Patient notes his mother with severe COPD, emphysema secondary to heavy tobacco use history. Paternal Family History: Family History (Last Reviewed 04/06/19 @ 17:26 by BRINA Melchor) Brother CAD (coronary artery disease) History Items: - - Patient notes that his father was very healthy with no history of heart disease, diabetes or cancer. Review of Systems Constitutional: Denies: Chills, Fever, Weight Change HEENT: Denies: Head Aches, Sinus Congestion, Sinus Drainage Cardiovascular: Denies: Chest Pain, Palpitations Respiratory: Denies: Cough, Shortness of breath at rest, Sputum production Gastrointestinal: Denies: Abdominal Pain, Nausea, Vomiting Genitourinary: Reports: Retention. Denies: Dysuria, Hematuria Musculoskeletal: Denies: Joint Pain, Joint Tenderness Skin: Denies: Rash, Wounds Neurological: Reports: - - Left-sided weakness, left facial droop, aphasia.. Denies: Focal weakness, Numbness, Tingling Psychiatric: Denies: Anxiety, Depression, Homicidal Ideations, Suicidal Ideations Hematologic/ Lymphatic: Denies: Easy Bruising, Easy Bleeding - Physical Exam General: Alert, Oriented x3, Cooperative HEENT: Atraumatic, PERRLA, EOMI, Normocephalic Neck: Supple, No JVD, Negative Carotid Bruits Lungs: Clear to auscultation, Normal air movement Cardiovascular: Regular rate, Regular Rhythm, Normal S1, Normal S2, No murmurs Abdomen: Bowel Sounds Present, Soft, Non Tender, Non-Distended Extremities: No clubbing, No cyanosis, No edema, Capillary Refill Less than 3 Seconds Skin: No rashes, No breakdown Musculoskeletal: No Tenderness to Palpation of Joints or Extremities Neurological: Cranial nerves II-XII grossly intact, Neuro grossly intact, - - Mild left facial droop, aphasia, 4/5 left sided strength upper and lower. Psych/Mental Status: Normal Affect, Appropriate Vital Signs Temp Pulse Resp BP Pulse Ox 97.6 F L 68 18 106/66 96 04/06/19 13:41 04/06/19 13:41 04/06/19 13:41 04/06/19 13:41 04/06/19 13:41 Oxygen Delivery Method Room Air Weight: 168 lb Body Mass Index (BMI) 22.1 Finger Stick Blood Glucose 69 Assessment/Plan 1. Debility following recent Left MCA CVA- s/p TPA and thrombectomy at [facility]. PT/OT/ST. Aspirin, statin. 2. BPH/urinary retention-Avila in place. Continue Flomax regimen. Consult Dr. Resendez. 3. Bradycardia status post pacemaker placement 4. Paroxysmal atrial fibrillation-continue metoprolol regimen. 5. Esophagitis/GERD-EGD 03/22/2019 with esophagitis. Continue PPI. 6. PVD-continue aspirin, statin. 7. Hypothyroidism-continue Synthroid regimen. 8. Chronic diastolic CHF-no acute exacerbation. Echocardiogram 03/23/2019 with EF 55%. DVT prophylaxis- heparin sc This patient was seen by BRINA Melchor under the supervision of Dr. Thomas. <Yesika Thomas E - Last Filed: 04/06/19 17:53> Reason for Consult History of Present Illness: The patient is a 78 year old M [] Past Medical History Medical History: Medical History (Last Updated 04/06/19 @ 15:19 by Rosario Tran NP-C) PVD (peripheral vascular disease) (Chronic) I73.9 Hypothyroidism (Chronic) E03.9 GERD (gastroesophageal reflux disease) (Chronic) K21.9 Stroke I63.9 Postural vertigo H81.10 lower extremity vein surgery Allergies No Known Allergies Allergy (Verified 03/21/19 11:34) Surgical History: Surgical History (Last Reviewed 03/24/19 @ 14:27 by Kurt Resendez MD) H/O cataract removal with insertion of prosthetic lens Z98.49, Z96.1 History of hydrocelectomy Z98.890 - *Family History Maternal Family History: Family History (Last Reviewed 04/06/19 @ 17:26 by BRINA Melchor) Brother CAD (coronary artery disease) Paternal Family History: Family History (Last Reviewed 04/06/19 @ 17:26 by BRINA Melchor) Brother CAD (coronary artery disease) - Physical Exam Vital Signs Temp Pulse Resp BP Pulse Ox 97.6 F L 68 18 106/66 96 04/06/19 13:41 04/06/19 13:41 04/06/19 13:41 04/06/19 13:41 04/06/19 13:41 Oxygen Delivery Method Room Air Weight: 168 lb Body Mass Index (BMI) 22.1 Finger Stick Blood Glucose 69 Assessment/Plan Hospitalist note: I am seeing this patient in conjunction with Sonya Franz. I independently seen and examined the patient. Consultation note above reviewed and I agree with above treatment plan. Patient admitted to the inpatient rehabilitation unit after he suffered left MCA infarct status post TPA and thrombectomy at [facility]. He does have resultant minimal dysarthria, minimal left facial droop and minimal weakness on the left side of his body. At this time, patient denied any significant symptoms. He does have urinary retention, has been on Avila catheter and he has been on Flomax. He has a history of paroxysmal atrial fibrillation and he has not been on any rate control medicine or anticoagulation but was started on metoprolol today. He has a history of benign prostatic hypertrophy with recent urinary retention, On Avila catheter and he is on Flomax. He has history of hypothyroidism and he has been on levothyroxine. His vital signs are stable. - Physical Exam General: Alert, Oriented x3, Cooperative, No apparent distress. HEENT: Atraumatic, PERRLA, EOMI. Neck: Supple, No JVD, Negative Carotid Bruits, Trachea Midline, Thyroid Normal. Lungs: Clear to auscultation, Normal air movement, No rhonchi, No wheeze, No rales. Cardiovascular: Regular rate, Regular Rhythm, Normal S1, Normal S2, PMI Normal. Abdomen: Bowel Sounds Present, Soft, Non Tender, Non-Distended, No Hepato-splenomegaly. Extremities: No clubbing, No cyanosis, No edema Skin: No rashes, No breakdown Neurological: Minimal left facial droop/dysarthria. Power on the left upper and lower extremity is 4+ by 5, power on the right side is 5 x 5 Vital Signs are stable. Assessment and plan: #1 left MCA stroke: Status post TPA and thrombectomy, with resultant minimal left facial droop, dysarthria and minimal left side hemiparesis. Vital signs are stable, on aspirin and statins. Plan for PT OT according to rehab team. #2 urinary retention: With history of benign prostatic hypertrophy, on Avila catheter, on Flomax. Urology consulted. #3 paroxysmal atrial ablation, at this time, rate is controlled, started on metoprolol for rate control. He is not on anticoagulation. #4 other chronic medical problems are stable, continue current medications as above. This note was generated with [employer] dictation software. It may contain incorrect words, spelling, and punctuation that were not noted in checking the note before signing. Code Visit Inpatient E&M: 81858 Init Hosp L2
[2019-04-06] MEDS: Tamsulosin HCl 0.4 MG Capsule PO (17:20)
[2019-04-06 17:44] VITALS: BMI 22.1
[2019-04-06 20:17] VITALS: BP 108/64; PULSE 68; RESP 16; TEMP 36.6; O2SAT 95
[2019-04-06] MEDS: Atorvastatin Calcium 40 MG Tablet PO (22:07)
[2019-04-06] MEDS: Heparin Injection (Vial) 5,000 UNIT/ML VIAL 5000 UNIT SC (22:07)
[2019-04-07 05:56] LABS: Absolute Lymphocyte Count 1.81 X10^3/ul (0.83-4.51); Absolute Neutrophil Count 6.4 X10^3/uL (2.0-7.7); Basophil# 0.05 X10^3/uL; Basophil% 0.5 % (0-1); Eosinophil# 0.34 X10^3/uL; Eosinophils% 3.4 % (0-5); Hematocrit 22.9 % (40-54); Hemoglobin 6.9 g/dl (13.0-16.5); Lymphocyte # 1.81 X10^3/ul (4.0); Lymphocyte % 18.1 % (19-41); Mean Corp Hgb Conc 30.1 g/gl (32-36); Mean Corpuscular Hgb 22.8 pg (27.0-32.0); Mean Corpuscular Volume 75.8 fL (80-94); Mean Platelet Vol. 10.7 fl (6.2-12.0); Monocyte# 1.39 X10^3/uL; Monocyte% 13.9 % (0-10); Neutrophil # 6.37 X10^3/uL (2.7-7.7); Neutrophil % 63.8 % (47-70); Platelet Count 500 K/mm3 (150-450); RBC Distribution Width CV 19.9 % (11.6-14.6); Red Blood Count 3.02 M/mm3 (4.6-6.2)
[2019-04-07 05:57] LABS: POSITIVE COUNT NO; POSITIVE DIFFERENTIAL NO; POSITIVE MORPHOLOGY NO
[2019-04-07] MEDS: Pantoprazole Sodium 40 MG Tablet PO ×2 (05:57→09:35)
[2019-04-07 06:15] LABS: ALB/GLOB Ratio 0.7 RATIO (0.9-2.4); AST(SGOT) 24 U/L (15-37); Alanine Aminotransfer ALT/SGPT 20 U/L (16-61); Albumin, Serum 2.3 g/dL (3.2-5.0); Alkaline Phosphatase 211 U/L (45-117); Anion Gap 5 (5-15); BUN 44 mg/dL (7-18); BUN/Creat Ratio 25.7 RATIO (10-20); Calcium,Total 8.4 mg/dL (8.5-10.1); Chloride 108 mmol/L (98-107); Creatinine, Serum 1.71 mg/dL (0.70-1.30); EST Glomerular Filtration Rate 41 mL/min (>60); Est Glom Filt Rate - Afr Amer 50 mL/min (>60); Estimated Creatinine Clearance 38.37 ml/min; Globulin 3.3 g/dL (2.2-4.2); Glucose 85 mg/dL (74-106); Potassium 4.7 mmol/L (3.5-5.1); Protein, Total 5.6 g/dL (6.4-8.2); Sodium Level 139 mmol/L (136-145)
--- NOTE | 2019-04-07 08:00 | CT_ITS ---
STUDY: CT BRAIN WITHOUT CONTRAST REASON FOR EXAM: Male, 78 years old. History of recent CVA and TPA administration. Hypertension. RADIATION DOSAGE (If Supplied By Facility): CTDIvol = ( 44.99 ) mGy, DLP = ( 779.24 ) mGycm TECHNIQUE: Transaxial CT imaging of the brain was performed without administration of intravenous contrast material. Individualized dose optimization techniques were used for this CT. COMPARISON: Comparison is made with prior study dated March 29, 2019. FINDINGS: Normal soft tissue structures. Normal calvarium. There is mild cerebral atrophy with widening of the extra-axial spaces and ventricular dilatation. There is evidence of a decreased attenuation in the left frontal temporal parietal lobe extending into the left basal ganglion and head of the caudate nucleus. This is in keeping with recent infarction. No significant edema is seen at this time. Persistent hyperdensity of the left middle cerebral artery in the M2 segment seen in the left sylvian fissure. Normal brainstem. Normal cerebellum. There is no intracranial hemorrhage. There are no findings of an acute ischemic infarction. Mucosal thickening at the base of the left maxillary sinus. CT/Brain/Head without Contrast IMPRESSION: Focal area of decreased attenuation in the left frontal temporal parietal lobes in keeping with recent infarction. This extends into the left basal ganglion. Persistent hyperdensity within the M2 segment of the left middle cerebral artery in the sylvian fissure. Electronically Signed: Mariano Stewart, at 9:55 EDT , Service support ,
[2019-04-07 09:33] VITALS: BP 117/70; PULSE 85; RESP 18; TEMP 36.3; O2SAT 96
[2019-04-07 09:35] VITALS: BP 117/70; PULSE 86
[2019-04-07] MEDS: Metoprolol(XL)Succ 25 MG Tablet PO (09:35)
[2019-04-07 10:17] LABS: Absolute Neutrophil Count 7.8 X10^3/uL (2.0-7.7); Basophil% 0.9 % (0-1); Eosinophil# 0.29 X10^3/uL; Eosinophils% 2.7 % (0-5); Hematocrit 24.8 % (40-54); Hemoglobin 7.7 g/dl (13.0-16.5); Lymphocyte % 11.3 % (19-41); Mean Corpuscular Hgb 23.3 pg (27.0-32.0); Mean Corpuscular Volume 75.2 fL (80-94); Mean Platelet Vol. 9.3 fl (6.2-12.0); Monocyte# 1.17 X10^3/uL; Neutrophil # 7.84 X10^3/uL (2.7-7.7); Neutrophil % 73.9 % (47-70); POSITIVE COUNT NO; POSITIVE DIFFERENTIAL NO; POSITIVE MORPHOLOGY NO; Platelet Count 539 K/mm3 (150-450); RBC Distribution Width CV 19.8 % (11.6-14.6); RBC Distribution Width SD 54.5 fl (35.1-43.9); White Blood Count 10.6 K/mm3 (4.4-11.0)
--- NOTE | 2019-04-07 12:01 | NURSING ---
Per Dr. Resendez we are to take out jones and do voiding trials with pt.
--- NOTE | 2019-04-07 12:57 | CASEMGMT ---
SW spoke w/pt in room in regard to LW/POA, as there is a wallet card scanned in for LW, but no other documents. Pt thinks he has the documents for POA with his trust. The second person listed on the wallet card is the person who helped arranged the trust. SUJATHA Frazier
--- NOTE | 2019-04-07 13:33 | PCM.PN.NEU ---
Subjective: Per nursing no issues overnight. Hgb 6.9 this am, rechecked 7.7. Cr 1.71, which decreased from 1.93 on 03/29/2019. Patient asymptomatic. Dr. Hdz discontinued SQ Heparin and ordered stool for occult blood. Dr. Oseguera spoke with Dr. Hdz about wanting to start Eliquis, per Dr. Hdz Hgb is at his baseline. Recheck CT done this am, Eliquis 2.5 mg BID will be started and ASA d/c. Dr. Resendez consulted d/t Jones insertion during previous hospitalization at [facility], per Dr. Resendez D/C jones and start voiding trials. Per patient he is able to tolerate the therapies. Patient denies further questions or concerns. - Physical Exam General: Alert, Oriented x3, Cooperative HEENT: Atraumatic, PERRLA Oral: Moist Mucosa Neck: Supple, No JVD Lungs: Clear to auscultation, Normal air movement Cardiovascular: Regular rate, Regular Rhythm Abdomen: Bowel Sounds Present, Soft, Non Tender Extremities: No clubbing, No cyanosis, No edema Musculoskeletal: No Tenderness to Palpation of Joints or Extremities Neurological: - - ranial nerves II-XII grossly intact, Deep Tendon Reflexes 2+/4 and Symmetrical, Neuro grossly intact, minimal facial droop - left, - - Strength: Right upper and lower extremity 5/5, Left upper extremity 4/5, Left lower extremity 3/5, speech slurred, NIH 1 Psych/Mental Status: Normal Affect, Appropriate, Alert and oriented to time, place, person, mood and affect Vital Signs Temp Pulse Resp BP Pulse Ox 97.3 F L 86 18 117/70 96 04/07/19 09:33 04/07/19 09:35 04/07/19 09:33 04/07/19 09:35 04/07/19 09:33 Oxygen Delivery Method Room Air Weight: 76.204 kg Body Mass Index (BMI) 22.1 Finger Stick Blood Glucose 69 Intake and Output for Last 24 Hours 04/05/19 04/06/19 04/07/19 23:59 23:59 23:59 Intake Total 180 / 180 1200 / 1200 Output Total 650 / 650 1100 / 1100 Balance -470 / -470 100 / 100 Laboratory Tests Past 24 Hrs 04/07/19 04/07/19 04/07/19 05:15 05:15 10:00 WBC 10.0 10.6 RBC 3.02 L 3.30 L Hgb 6.9 L 7.7 L Hct 22.9 L 24.8 L MCV 75.8 L 75.2 L MCH 22.8 L 23.3 L MCHC 30.1 L 31.0 L RDW 19.9 H 19.8 H RDW Differential 53.0 H 54.5 H Plt Count 500 H 539 H MPV 10.7 9.3 Immature Gran % (Auto) 0.300 0.200 Neut % (Auto) 63.8 73.9 H Lymph % (Auto) 18.1 L 11.3 L Vernon % (Auto) 13.9 H 11.0 H Eos % (Auto) 3.4 2.7 Baso % (Auto) 0.5 0.9 Absolute Neuts (auto) 6.4 7.8 H Absolute Lymphs (auto) 1.81 1.20 Total Counted Not Reportable Not Reportable Sodium 139 Potassium 4.7 Chloride 108 H Carbon Dioxide 26.0 Anion Gap 5 BUN 44 H Creatinine 1.71 H Estim Creat Clear Calc 38.37 Est GFR (MDRD) Af Amer 50 L Est GFR (MDRD) Non-Af 41 L BUN/Creatinine Ratio 25.7 H Glucose 85 Calcium 8.4 L Total Bilirubin 0.30 AST 24 ALT 20 Alkaline Phosphatase 211 H Total Protein 5.6 L Albumin 2.3 L Globulin 3.3 Albumin/Globulin Ratio 0.7 L Medical Necessity - Tobacco Use Smoking Status: Never smoker Tobacco Use: Non-smoker Assessment/Plan The patient is a 78 year old M PMH paroxysmal atrial fibrillation, HTN, CHF, bradycardia post cardiac pacemaker, PVD, hypothyroidism, and GERD admitted [facility] IP [facility] on 04/06/2019 with debility secondary to Left acute arterial ischemic stroke, MCA for greater of 3 hours of therapy daily with a goal of returning back home at or near her prior level of functional dependence. Patient was previously admitted to [facility] on March 21 for new onset of CHF and Per child study team director's note pt had various cardiac arrhythmias with respect to sinus bradycardia, junctional rhythm, paroxysmal atrial fibrillation, and prolonged pauses and on 03/22/2019 PPM did show episodes of atrial fibrillation. 03/22/2019 EKG Patient was discharged home on March 28, 2019 with Jones catheter due to Bladder outlet obstruction from BPH, Dr. Resendez to follow. She returned back to [facility] emergency room on February 27, 2019 with Abrupt onset of aphasia, facial droop and weakness. NIH was 23. Diagnosis of left acute arterial ischemic stroke, MCA and patient received TPA and transferred to [facility]. At [facility] on 03/29/2019, patient had an endovascular stroke treatment of the left MCA M2 occlusion using the [place] stent retriever and circumflex system. There was reperfusion of the left MCA territory after 1 pass. On 03/30/2019 CT without contrast done for post TPA impression acute infarct of the left basal ganglia with involvement of the head of the left caudate, subtle loss of rai?white matter differentiation in the left insular cortex, which may also represent changes of acute ischemia, no intracranial hemorrhage noted. On 03/30/2019 transthoracic echocardiogram completed which showed no obvious evidence of an embolic source. On 03/31/2019 venous duplex completed to bilateral lower extremities negative for DVT. Patient lives in a 1 level home with spouse. Patient was independent with all mobility, ADLs, and driving prior to stroke. Patient does use a cane in the community. Plan - PT for mobility - OT for ADLs - ST speech and cognition - Analgesics PRN - Bowel protocol - Left MCA stroke post TPA - aspirin, metoprolol, lipitor Hgb 7.7 baseline, Heparin SQ d/c, recheck CT in am and Eliquis 2.5 mg bid started and ASA d/c. - Paroxysmal atrial fibrillation on aspirin, metoprolol - HTN on metoprolol - CHF on metoprolol - Hypothyroidism on levothyroxine - GERD on protonix - Bladder outlet obstruction from BPH - on flomax, consult Dr. Resendez, [place] D/C and voiding trials started per Dr. Resendez - Chronic anemia Hgb 7.7 at baseline, obtain stool for occult blood - DVT prophylaxis- heparin 5,000 units SQ BID D/C d/t Hgb , SCDs, Knee-high teds - Fall precautions - Further medical management per hospitalist recommendation, hospitalist consult - F/U with PCP, Neurology, Cardiology, and Urology -
--- NOTE | 2019-04-07 13:38 | PN.NEURO_ITS ---
Subjective: Per nursing no issues overnight. Hgb 6.9 this am, rechecked 7.7. Cr 1.71, which decreased from 1.93 on 03/29/[address]. Patient asymptomatic. Dr. Hdz discontinued SQ Heparin and ordered stool for occult blood. Dr. Oseguera spoke with Dr. Hdz about wanting to start Eliquis, per Dr. Hdz Hgb is at his baseline. Recheck CT done this am, Eliquis 2.5 mg BID will be started and ASA d/c. Dr. Resendez consulted d/t Jones insertion during previous hospitalization at [facility], per Dr. Resendez D/C jones and start voiding trials. Per patient he is able to tolerate the therapies. Patient denies further questions or concerns. - Physical Exam General: Alert, Oriented x3, Cooperative HEENT: Atraumatic, PERRLA Oral: Moist Mucosa Neck: Supple, No JVD Lungs: Clear to auscultation, Normal air movement Cardiovascular: Regular rate, Regular Rhythm Abdomen: Bowel Sounds Present, Soft, Non Tender Extremities: No clubbing, No cyanosis, No edema Musculoskeletal: No Tenderness to Palpation of Joints or Extremities Neurological: - - ranial nerves II-XII grossly intact, Deep Tendon Reflexes 2+/4 and Symmetrical, Neuro grossly intact, minimal facial droop - left, - - Strength: Right upper and lower extremity 5/5, Left upper extremity 4/5, Left lower extremity 3/5, speech slurred, NIH 1 Psych/Mental Status: Normal Affect, Appropriate, Alert and oriented to time, place, person, mood and affect Vital Signs Temp Pulse Resp BP Pulse Ox 97.3 F L 86 18 117/70 96 04/07/19 09:33 04/07/19 09:35 04/07/19 09:33 04/07/19 09:35 04/07/19 09:33 Oxygen Delivery Method Room Air Weight: 76.204 kg Body Mass Index (BMI) 22.1 Finger Stick Blood Glucose 69 Intake and Output for Last 24 Hours 04/05/19 04/06/19 04/07/19 23:59 23:59 23:59 Intake Total 180 / 180 1200 / 1200 Output Total 650 / 650 1100 / 1100 Balance -470 / -470 100 / 100 Laboratory Tests Past 24 Hrs 04/07/19 04/07/19 04/07/19 05:15 05:15 10:00 WBC 10.0 10.6 RBC 3.02 L 3.30 L Hgb 6.9 L 7.7 L Hct 22.9 L 24.8 L MCV 75.8 L 75.2 L MCH 22.8 L 23.3 L MCHC 30.1 L 31.0 L RDW 19.9 H 19.8 H RDW Differential 53.0 H 54.5 H Plt Count 500 H 539 H MPV 10.7 9.3 Immature Gran % (Auto) 0.300 0.200 Neut % (Auto) 63.8 73.9 H Lymph % (Auto) 18.1 L 11.3 L [place] % (Auto) 13.9 H 11.0 H Eos % (Auto) 3.4 2.7 Baso % (Auto) 0.5 0.9 Absolute Neuts (auto) 6.4 7.8 H Absolute Lymphs (auto) 1.81 1.20 Total Counted Not Reportable Not Reportable Sodium 139 Potassium 4.7 Chloride 108 H Carbon Dioxide 26.0 Anion Gap 5 BUN 44 H Creatinine 1.71 H Estim Creat Clear Calc 38.37 Est GFR (MDRD) Af Amer 50 L Est GFR (MDRD) Non-Af 41 L BUN/Creatinine Ratio 25.7 H Glucose 85 Calcium 8.4 L Total Bilirubin 0.30 AST 24 ALT 20 Alkaline Phosphatase 211 H Total Protein 5.6 L Albumin 2.3 L Globulin 3.3 Albumin/Globulin Ratio 0.7 L Medical Necessity - Tobacco Use Smoking Status: Never smoker Tobacco Use: Non-smoker Assessment/Plan The patient is a 78 year old M PMH paroxysmal atrial fibrillation, HTN, CHF, bradycardia post cardiac pacemaker, PVD, hypothyroidism, and GERD admitted to [facility] on 04/06/2019 with debility secondary to Left acute arterial ischemic stroke, MCA for greater of 3 hours of therapy daily with a goal of returning back home at or near her prior level of functional dependence. Patient was previously admitted to [facility] on March 21 for new onset of CHF and Per wet process assistant head miller's note pt had various cardiac arrhythmias with respect to sinus bradycardia, junctional rhythm, paroxysmal atrial fibrillation, and prolonged pauses and on 03/22/2019 PPM did show episodes of atrial fibrillation. 03/22/2019 EKG Patient was discharged home on March 28, 2019 with Jones catheter due to Bladder outlet obstruction from BPH, Dr. Resendez to follow. She returned back to [facility] emergency room on February 27, 2019 with Abrupt onset of aphasia, facial droop and weakness. NIH was 23. Diagnosis of left acute arterial ischemic stroke, MCA and patient received TPA and transferred to [facility]. At [facility] on 03/29/2019, patient had an endovascular stroke treatment of the left MCA M2 occlusion using the [place] stent retriever and circumflex system. There was reperfusion of the left MCA territory after 1 pass. On 03/30/2019 CT without contrast done for post TPA impression acute infarct of the left basal ganglia with involvement of the head of the left caudate, subtle loss of rai?white matter differentiation in the left insular cortex, which may also represent changes of acute ischemia, no intracranial hemorrhage noted. On 03/30/2019 transthoracic echocardiogram completed which showed no obvious evidence of an embolic source. On 03/31/2019 venous duplex completed to bilateral lower extremities negative for DVT. Patient lives in a 1 level home with spouse. Patient was independent with all mobility, ADLs, and driving prior to stroke. Patient does use a cane in the community. Plan - PT for mobility - OT for ADLs - ST speech and cognition - Analgesics PRN - Bowel protocol - Left MCA stroke post TPA - aspirin, metoprolol, lipitor Hgb 7.7 baseline, Heparin SQ d/c, recheck CT in am and Eliquis 2.5 mg bid started and ASA d/c. - Paroxysmal atrial fibrillation on aspirin, metoprolol - HTN on metoprolol - CHF on metoprolol - Hypothyroidism on levothyroxine - GERD on protonix - Bladder outlet obstruction from BPH - on flomax, consult Dr. Resendez, [place] D/C and voiding trials started per Dr. Resendez - Chronic anemia Hgb 7.7 at baseline, obtain stool for occult blood - DVT prophylaxis- heparin 5,000 units SQ BID D/C d/t Hgb , SCDs, Knee-high teds - Fall precautions - Further medical management per hospitalist recommendation, hospitalist consult - F/U with PCP, Neurology, Cardiology, and Urology -
--- NOTE | 2019-04-07 14:46 | CHAPLAIN ---
Type of Pastoral Visit _x__ Initial Visit ___ Follow-up Visit ___ On-call Visit ___ General Patient Visit ___ Spiritual Assessment ___ Family Conference ___ Bereavement ___ Rapid Response ___ Code Blue ___ Other (describe below) Pastoral Care Referral From _x__ Patient ___ Family ___ Nurse ___ Physician ___ Correction Officer [place] [facility] ___ Personnel Officer ___ Other (describe below) Sacrament/Intervention _x__ Active listening ___ Anointing ___ Jewish ___ Bereavement ___ Communion ___ Leela exploration ___ ___ Life review ___ Prayer ___ Reconciliation ___ Sacrament of Sick ___ Supportive presence ___ Wedding ___ Other (describe below) Pastoral Comments
--- NOTE | 2019-04-07 15:09 | PCM.PN.HOSP ---
Subjective: Feels well. Feels his strength is good on his right. Vitals/I&O's: Vital Signs Temp Pulse Resp BP Pulse Ox 36.3 C L 86 18 117/70 96 04/07/19 09:33 04/07/19 09:35 04/07/19 09:33 04/07/19 09:35 04/07/19 09:33 Oxygen Delivery Method Room Air Weight: 76.204 kg Body Mass Index (BMI) 22.1 Finger Stick Blood Glucose 69 Intake and Output for Last 24 Hours 04/05/19 04/06/19 04/07/19 23:59 23:59 23:59 Intake Total 180 / 180 1200 / 1200 Output Total 650 / 650 1100 / 1100 Balance -470 / -470 100 / 100 General: Alert, No apparent distress HEENT: Atraumatic, Normocephalic Oral: Moist Mucosa, No Gingival or Mucosal Lesions/ Ulcerations Lungs: Clear to auscultation, Normal air movement, No rhonchi, No wheeze Cardiovascular: Regular rate, Regular Rhythm, Normal S1, Normal S2, No murmurs Abdomen: Bowel Sounds Present, Soft, Non Tender, Non-Distended, No Hepato-splenomegaly Extremities: No edema, No Calf Tenderness Laboratory Results 04/07/19 05:15: WBC 10.0, RBC 3.02 L, Hgb 6.9 L, Hct 22.9 L, MCV 75.8 L, MCH 22.8 L, MCHC 30.1 L, RDW 19.9 H, RDW Differential 53.0 H, Plt Count 500 H, MPV 10.7, Immature Gran % (Auto) 0.300, Neut % (Auto) 63.8, Lymph % (Auto) 18.1 L, [place] % (Auto) 13.9 H, Eos % (Auto) 3.4, Baso % (Auto) 0.5, Absolute Neuts (auto) 6.4, Absolute Lymphs (auto) 1.81, Total Counted Not Reportable 04/07/19 05:15: Sodium 139, Potassium 4.7, Chloride 108 H, Carbon Dioxide 26.0, Anion Gap 5, BUN 44 H, Creatinine 1.71 H, Estim Creat Clear Calc 38.37, Est GFR (MDRD) Af Amer 50 L, Est GFR (MDRD) Non-Af 41 L, BUN/Creatinine Ratio 25.7 H, Glucose 85, Calcium 8.4 L, Total Bilirubin 0.30, AST 24, ALT 20, Alkaline Phosphatase 211 H, Total Protein 5.6 L, Albumin 2.3 L, Globulin 3.3, Albumin/Globulin Ratio 0.7 L 04/07/19 10:00: WBC 10.6, RBC 3.30 L, Hgb 7.7 L, Hct 24.8 L, MCV 75.2 L, MCH 23.3 L, MCHC 31.0 L, RDW 19.8 H, RDW Differential 54.5 H, Plt Count 539 H, MPV 9.3, Immature Gran % (Auto) 0.200, Neut % (Auto) 73.9 H, Lymph % (Auto) 11.3 L, [place] % (Auto) 11.0 H, Eos % (Auto) 2.7, Baso % (Auto) 0.9, Absolute Neuts (auto) 7.8 H, Absolute Lymphs (auto) 1.20, Total Counted Not Reportable Current Medications Acetaminophen (Tylenol) 650 mg PO Q6H PRN PRN PRN Reason: Mild Pain (0-3/10)/Headache Apixaban (Eliquis) 2.5 mg PO BID [facility] Atorvastatin Calcium (Lipitor) 40 mg PO QHS [facility] Last Admin: 04/06/19 22:07 Dose: 40 mg Bisacodyl (Dulcolax) 10 mg RECTAL .PRN X 1 PRN PRN Reason: Constipation Magnesium Hydroxide (Milk Of Magnesia) 30 ml PO .PRN X 1 PRN PRN Reason: Constipation Metoprolol Succinate (Toprol Xl (Beta Daryl)) 25 mg PO DAILY [facility] Last Admin: 04/07/19 09:35 Dose: 25 mg Nutritional Formula (Lactose Free) (Ensure Enlive) 120 ml PO 4X/DAY [facility] Last Admin: 04/07/19 14:48 Dose: 120 ml Pantoprazole Sodium (Protonix) 40 mg PO DAILY [facility] Last Admin: 04/07/19 09:35 Dose: 40 mg Senna/Docusate Sodium (Senokot-S, April-Colace) 2 tablet PO BID PRN PRN PRN Reason: Constipation Tamsulosin HCl (Flomax) 0.4 mg PO DAILY@1730 [facility] Last Admin: 04/06/19 17:20 Dose: 0.4 mg Medical Necessity - Tobacco Use Smoking Status: Never smoker Tobacco Use: Non-smoker Assessment/Plan 1. microcytic anemia has been anemic since February 2019, previously in July 2018, was 12 agree with hemoccult check iron, TIBC and ferritin 2. pAfib currently rate-controlled continue Metoprolol agree with apixaban 3. CKD4 improved from February monitor avoid nephrotoxic agents 4. 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 VTE proph: anticoagulated. Code Visit Inpatient E&M: 74903 Subs Hosp L2
--- NOTE | 2019-04-07 15:14 | PN_ITS ---
Subjective: Feels well. Feels his strength is good on his right. Vitals/I&O's: Vital Signs Temp Pulse Resp BP Pulse Ox 36.3 C L 86 18 117/70 96 04/07/19 09:33 04/07/19 09:35 04/07/19 09:33 04/07/19 09:35 04/07/19 09:33 Oxygen Delivery Method Room Air Weight: 76.204 kg Body Mass Index (BMI) 22.1 Finger Stick Blood Glucose 69 Intake and Output for Last 24 Hours 04/05/19 04/06/19 04/07/19 23:59 23:59 23:59 Intake Total 180 / 180 1200 / 1200 Output Total 650 / 650 1100 / 1100 Balance -470 / -470 100 / 100 General: Alert, No apparent distress HEENT: Atraumatic, Normocephalic Oral: Moist Mucosa, No Gingival or Mucosal Lesions/ Ulcerations Lungs: Clear to auscultation, Normal air movement, No rhonchi, No wheeze Cardiovascular: Regular rate, Regular Rhythm, Normal S1, Normal S2, No murmurs Abdomen: Bowel Sounds Present, Soft, Non Tender, Non-Distended, No Hepato- splenomegaly Extremities: No edema, No Calf Tenderness Laboratory Results 04/07/19 05:15: WBC 10.0, RBC 3.02 L, Hgb 6.9 L, Hct 22.9 L, MCV 75.8 L, MCH 22.8 L, MCHC 30.1 L, RDW 19.9 H, RDW Differential 53.0 H, Plt Count 500 H, MPV 10.7, Immature Gran % (Auto) 0.300, Neut % (Auto) 63.8, Lymph % (Auto) 18.1 L, [place] % (Auto) 13.9 H, Eos % (Auto) 3.4, Baso % (Auto) 0.5, Absolute Neuts (auto) 6.4, Absolute Lymphs (auto) 1.81, Total Counted Not Reportable 04/07/19 05:15: Sodium 139, Potassium 4.7, Chloride 108 H, Carbon Dioxide 26.0, Anion Gap 5, BUN 44 H, Creatinine 1.71 H, Estim Creat Clear Calc 38.37, Est GFR (MDRD) Af Amer 50 L, Est GFR (MDRD) Non-Af 41 L, BUN/Creatinine Ratio 25.7 H, Glucose 85, Calcium 8.4 L, Total Bilirubin 0.30, AST 24, ALT 20, Alkaline Phosphatase 211 H, Total Protein 5.6 L, Albumin 2.3 L, Globulin 3.3, Albumin/G lobulin Ratio 0.7 L 04/07/19 10:00: WBC 10.6, RBC 3.30 L, Hgb 7.7 L, Hct 24.8 L, MCV 75.2 L, MCH 23.3 L, MCHC 31.0 L, RDW 19.8 H, RDW Differential 54.5 H, Plt Count 539 H, MPV 9.3, Immature Gran % (Auto) 0.200, Neut % (Auto) 73.9 H, Lymph % (Auto) 11.3 L, [place] % (Auto) 11.0 H, Eos % (Auto) 2.7, Baso % (Auto) 0.9, Absolute Neuts (auto) 7.8 H, Absolute Lymphs (auto) 1.20, Total Counted Not Reportable Current Medications Acetaminophen (Tylenol) 650 mg PO Q6H PRN PRN PRN Reason: Mild Pain (0-3/10)/Headache Apixaban (Eliquis) 2.5 mg PO BID [facility] Atorvastatin Calcium (Lipitor) 40 mg PO QHS [facility] Last Admin: 04/06/19 22:07 Dose: 40 mg Bisacodyl (Dulcolax) 10 mg RECTAL .PRN X 1 PRN PRN Reason: Constipation Magnesium Hydroxide (Milk Of Magnesia) 30 ml PO .PRN X 1 PRN PRN Reason: Constipation Metoprolol Succinate (Toprol Xl (Beta Daryl)) 25 mg PO DAILY [facility] Last Admin: 04/07/19 09:35 Dose: 25 mg Nutritional Formula (Lactose Free) (Ensure Enlive) 120 ml PO 4X/DAY [facility] Last Admin: 04/07/19 14:48 Dose: 120 ml Pantoprazole Sodium (Protonix) 40 mg PO DAILY [facility] Last Admin: 04/07/19 09:35 Dose: 40 mg Senna/Docusate Sodium (Senokot-S, April-Colace) 2 tablet PO BID PRN PRN PRN Reason: Constipation Tamsulosin HCl (Flomax) 0.4 mg PO DAILY@1730 [facility] Last Admin: 04/06/19 17:20 Dose: 0.4 mg Medical Necessity - Tobacco Use Smoking Status: Never smoker Tobacco Use: Non-smoker Assessment/Plan 1. microcytic anemia * has been anemic since February 2019, previously in July 2018, was 12 * agree with hemoccult * check iron, TIBC and ferritin 2. pAfib * currently rate-controlled * continue Metoprolol * agree with apixaban 3. CKD4 * improved from February * monitor * avoid nephrotoxic agents 4. Left MCA CVA * s/p TPA and thrombectomy * ASA dc'd, started on Eliquis 5. VTE proph: anticoagulated. Code Visit Inpatient E&M: 67867 Subs Hosp L2
[2019-04-07 15:50] VITALS: BMI 22.1
[2019-04-07] MEDS: Tamsulosin HCl 0.4 MG Capsule PO (17:23)
--- NOTE | 2019-04-07 17:49 | NURSING ---
Per. Dr. Resendez dc'd jones at 1500 today will start voiding trials, pt tolerated well.
[2019-04-07 20:27] VITALS: BP 95/61; PULSE 73; RESP 16; TEMP 36.6; O2SAT 97
[2019-04-07] MEDS: Atorvastatin Calcium 40 MG Tablet PO (20:33)
[2019-04-07] MEDS: APIXABAN 2.5 MG TABLET PO (20:33)
[2019-04-07 23:38] VITALS: BMI 22.1
[2019-04-08] VITALS (9 sets, daily range): BP systolic 96–117; BP diastolic 49–66; PULSE 61–82; RESP 16–22; TEMP 36.6–36.8; O2SAT 94–99; BMI 22.1
--- NOTE | 2019-04-08 01:35 | NURSING ---
Straight cathed due to high residual. Tolerated well. Small amt bloody discharge s/p catherization
[2019-04-08 07:34] LABS: Absolute Lymphocyte Count 1.43 X10^3/ul (0.83-4.51); Absolute Neutrophil Count 6.2 X10^3/uL (2.0-7.7); Basophil# 0.07 X10^3/uL; Basophil% 0.8 % (0-1); Eosinophils% 3.3 % (0-5); Hematocrit 21.8 % (40-54); Hemoglobin 6.7 g/dl (13.0-16.5); Lymphocyte # 1.43 X10^3/ul (4.0); Lymphocyte % 15.5 % (19-41); Mean Corp Hgb Conc 30.7 g/gl (32-36); Mean Corpuscular Hgb 23.3 pg (27.0-32.0); Mean Platelet Vol. 9.6 fl (6.2-12.0); Monocyte# 1.17 X10^3/uL; Monocyte% 12.7 % (0-10); Neutrophil # 6.22 X10^3/uL (2.7-7.7); Neutrophil % 67.3 % (47-70); Platelet Count 501 K/mm3 (150-450); RBC Distribution Width SD 55.4 fl (35.1-43.9); Red Blood Count 2.87 M/mm3 (4.6-6.2); White Blood Count 9.2 K/mm3 (4.4-11.0)
[2019-04-08 07:46] LABS: Ferritin 73 ng/mL (26-388); Iron 17 ug/dL (65-175); Iron Binding Capacity,Total 302 ug/dL (250-450); PERCENT IRON SATURATION 5.6 % (15.0-55.0)
[2019-04-08 07:56] LABS: POSITIVE COUNT NO; POSITIVE DIFFERENTIAL NO; POSITIVE MORPHOLOGY NO
[2019-04-08] MEDS: Pantoprazole Sodium 40 MG Tablet PO (08:54)
--- NOTE | 2019-04-08 09:09 | NUR.TO.PHY ---
Per. Dr. Wilder johnson to give toprol and eliquis this AM, will repeat CBC.
[2019-04-08] MEDS: APIXABAN 2.5 MG TABLET PO ×2 (11:34→21:07)
[2019-04-08 13:51] LABS: Absolute Lymphocyte Count 1.86 X10^3/ul (0.83-4.51); Absolute Neutrophil Count 7.2 X10^3/uL (2.0-7.7); Basophil# 0.09 X10^3/uL; Basophil% 0.8 % (0-1); Eosinophils% 2.8 % (0-5); Hematocrit 22.5 % (40-54); Lymphocyte # 1.86 X10^3/ul (4.0); Lymphocyte % 17.5 % (19-41); Mean Corp Hgb Conc 31.1 g/gl (32-36); Mean Corpuscular Hgb 23.6 pg (27.0-32.0); Mean Corpuscular Volume 75.8 fL (80-94); Mean Platelet Vol. 9.4 fl (6.2-12.0); Monocyte# 1.16 X10^3/uL; Monocyte% 10.9 % (0-10); Neutrophil # 7.15 X10^3/uL (2.7-7.7); Neutrophil % 67.5 % (47-70); Platelet Count 529 K/mm3 (150-450); RBC Distribution Width CV 19.9 % (11.6-14.6); RBC Distribution Width SD 55.4 fl (35.1-43.9); Red Blood Count 2.97 M/mm3 (4.6-6.2); White Blood Count 10.6 K/mm3 (4.4-11.0)
[2019-04-08 13:52] LABS: POSITIVE COUNT NO; POSITIVE DIFFERENTIAL NO; POSITIVE MORPHOLOGY NO
--- NOTE | 2019-04-08 14:37 | PCM.PN.HOSP ---
Subjective: Denies hematochezia/melena. Catheter removed 2 days ago, said he has been able urinate since then has required straight catheter. Vitals/I&O's: Vital Signs Temp Pulse Resp BP Pulse Ox 36.8 C 61 18 96/49 L 94 04/08/19 07:42 04/08/19 11:21 04/08/19 07:42 04/08/19 11:21 04/08/19 07:42 Oxygen Delivery Method Room Air Weight: 76.204 kg Body Mass Index (BMI) 22.1 Finger Stick Blood Glucose 69 Intake and Output for Last 24 Hours 04/06/19 04/07/19 04/08/19 23:59 23:59 23:59 Intake Total 180 / 180 1380 / 1380 200 / 200 Output Total 650 / 650 1200 / 1200 0 / 0 Balance -470 / -470 180 / 180 200 / 200 General: Alert HEENT: Atraumatic, Normocephalic Neck: No Nodes, Thyroid Normal Size and Texture Lungs: Clear to auscultation, Normal air movement, No rhonchi, No wheeze Cardiovascular: Regular rate, Regular Rhythm, Normal S1, Normal S2, No murmurs Extremities: No edema, No Calf Tenderness Psych/Mental Status: Normal Affect, Appropriate Microbiology Past 72 Hours 04/08/19 00:08 Stool Stool Occult Blood ([facility]) - Final Laboratory Results 04/08/19 07:10: WBC 9.2, RBC 2.87 L, Hgb 6.7 L, Hct 21.8 L, MCV 76.0 L, MCH 23.3 L, MCHC 30.7 L, RDW 20.0 H, RDW Differential 55.4 H, Plt Count 501 H, MPV 9.6, Immature Gran % (Auto) 0.400, Neut % (Auto) 67.3, Lymph % (Auto) 15.5 L, [place] % (Auto) 12.7 H, Eos % (Auto) 3.3, Baso % (Auto) 0.8, Absolute Neuts (auto) 6.2, Absolute Lymphs (auto) 1.43, Total Counted Not Reportable 04/08/19 07:10: Iron 17 L, TIBC 302, Iron Saturation 5.6 L, Ferritin 73 04/08/19 13:40: WBC 10.6, RBC 2.97 L, Hgb 7.0 L, Hct 22.5 L, MCV 75.8 L, MCH 23.6 L, MCHC 31.1 L, RDW 19.9 H, RDW Differential 55.4 H, Plt Count 529 H, MPV 9.4, Immature Gran % (Auto) 0.500, Neut % (Auto) 67.5, Lymph % (Auto) 17.5 L, [place] % (Auto) 10.9 H, Eos % (Auto) 2.8, Baso % (Auto) 0.8, Absolute Neuts (auto) 7.2, Absolute Lymphs (auto) 1.86, Total Counted Not Reportable Current Medications Acetaminophen (Tylenol) 650 mg PO Q6H PRN PRN PRN Reason: Mild Pain (0-3/10)/Headache Apixaban (Eliquis) 2.5 mg PO BID [facility] Last Admin: 04/08/19 11:34 Dose: 2.5 mg Atorvastatin Calcium (Lipitor) 40 mg PO QHS [facility] Last Admin: 04/07/19 20:33 Dose: 40 mg Bisacodyl (Dulcolax) 10 mg RECTAL .PRN X 1 PRN PRN Reason: Constipation Ferrous Sulfate (Ferrous Sulfate) 325 mg PO 1200,1700 [facility] Magnesium Hydroxide (Milk Of Magnesia) 30 ml PO .PRN X 1 PRN PRN Reason: Constipation Metoprolol Succinate (Toprol Xl (Beta Daryl)) 25 mg PO DAILY [facility] Last Admin: 04/08/19 11:21 Dose: Not Given Nutritional Formula (Lactose Free) (Ensure Enlive) 120 ml PO 4X/DAY [facility] Last Admin: 04/08/19 13:16 Dose: 120 ml Pantoprazole Sodium (Protonix) 40 mg PO DAILY [facility] Last Admin: 04/08/19 08:54 Dose: 40 mg Senna/Docusate Sodium (Senokot-S, April-Colace) 2 tablet PO BID PRN PRN PRN Reason: Constipation Tamsulosin HCl (Flomax) 0.4 mg PO DAILY@1730 [facility] Last Admin: 04/07/19 17:23 Dose: 0.4 mg Medical Necessity - Tobacco Use Smoking Status: Never smoker Tobacco Use: Non-smoker Assessment/Plan 1. microcytic anemia has been anemic since February 2019, previously in July 2018, was 12 agree with hemoccult iron low, ferritin normal, but will start Ferrous Sulfate BID still low, will given 1 units. Discussed risks and benefits, patient agrees to proceed. 2. pAfib currently rate-controlled continue Metoprolol agree with apixaban 3. CKD4 improved from February monitor avoid nephrotoxic agents 4. 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 VTE proph: anticoagulated. Code Visit Inpatient E&M: 54743 Subs Hosp L2
--- NOTE | 2019-04-08 14:42 | PN_ITS ---
Subjective: Denies hematochezia/melena. Catheter removed 2 days ago, said he has been able urinate since then has required straight catheter. Vitals/I&O's: Vital Signs Temp Pulse Resp BP Pulse Ox 36.8 C 61 18 96/49 L 94 04/08/19 07:42 04/08/19 11:21 04/08/19 07:42 04/08/19 11:21 04/08/19 07:42 Oxygen Delivery Method Room Air Weight: 76.204 kg Body Mass Index (BMI) 22.1 Finger Stick Blood Glucose 69 Intake and Output for Last 24 Hours 04/06/19 04/07/19 04/08/19 23:59 23:59 23:59 Intake Total 180 / 180 1380 / 1380 200 / 200 Output Total 650 / 650 1200 / 1200 0 / 0 Balance -470 / -470 180 / 180 200 / 200 General: Alert HEENT: Atraumatic, Normocephalic Neck: No Nodes, Thyroid Normal Size and Texture Lungs: Clear to auscultation, Normal air movement, No rhonchi, No wheeze Cardiovascular: Regular rate, Regular Rhythm, Normal S1, Normal S2, No murmurs Extremities: No edema, No Calf Tenderness Psych/Mental Status: Normal Affect, Appropriate Microbiology Past 72 Hours 04/08/19 00:08 Stool Stool Occult Blood ([facility]) - Final Laboratory Results 04/08/19 07:10: WBC 9.2, RBC 2.87 L, Hgb 6.7 L, Hct 21.8 L, MCV 76.0 L, MCH 23.3 L, MCHC 30.7 L, RDW 20.0 H, RDW Differential 55.4 H, Plt Count 501 H, MPV 9.6, Immature Gran % (Auto) 0.400, Neut % (Auto) 67.3, Lymph % (Auto) 15.5 L, [place] % (Auto) 12.7 H, Eos % (Auto) 3.3, Baso % (Auto) 0.8, Absolute Neuts (auto) 6.2, Absolute Lymphs (auto) 1.43, Total Counted Not Reportable 04/08/19 07:10: Iron 17 L, TIBC 302, Iron Saturation 5.6 L, Ferritin 73 04/08/19 13:40: WBC 10.6, RBC 2.97 L, Hgb 7.0 L, Hct 22.5 L, MCV 75.8 L, MCH 23.6 L, MCHC 31.1 L, RDW 19.9 H, RDW Differential 55.4 H, Plt Count 529 H, MPV 9.4, Immature Gran % (Auto) 0.500, Neut % (Auto) 67.5, Lymph % (Auto) 17.5 L, [place] % (Auto) 10.9 H, Eos % (Auto) 2.8, Baso % (Auto) 0.8, Absolute Neuts (auto) 7.2, Absolute Lymphs (auto) 1.86, Total Counted Not Reportable Current Medications Acetaminophen (Tylenol) 650 mg PO Q6H PRN PRN PRN Reason: Mild Pain (0-3/10)/Headache Apixaban (Eliquis) 2.5 mg PO BID [facility] Last Admin: 04/08/19 11:34 Dose: 2.5 mg Atorvastatin Calcium (Lipitor) 40 mg PO QHS [facility] Last Admin: 04/07/19 20:33 Dose: 40 mg Bisacodyl (Dulcolax) 10 mg RECTAL .PRN X 1 PRN PRN Reason: Constipation Ferrous Sulfate (Ferrous Sulfate) 325 mg PO 1200,1700 [facility] Magnesium Hydroxide (Milk Of Magnesia) 30 ml PO .PRN X 1 PRN PRN Reason: Constipation Metoprolol Succinate (Toprol Xl (Beta Daryl)) 25 mg PO DAILY [facility] Last Admin: 04/08/19 11:21 Dose: Not Given Nutritional Formula (Lactose Free) (Ensure Enlive) 120 ml PO 4X/DAY [facility] Last Admin: 04/08/19 13:16 Dose: 120 ml Pantoprazole Sodium (Protonix) 40 mg PO DAILY [facility] Last Admin: 04/08/19 08:54 Dose: 40 mg Senna/Docusate Sodium (Senokot-S, April-Colace) 2 tablet PO BID PRN PRN PRN Reason: Constipation Tamsulosin HCl (Flomax) 0.4 mg PO DAILY@1730 [facility] Last Admin: 04/07/19 17:23 Dose: 0.4 mg Medical Necessity - Tobacco Use Smoking Status: Never smoker Tobacco Use: Non-smoker Assessment/Plan 1. microcytic anemia * has been anemic since February 2019, previously in July 2018, was 12 * agree with hemoccult * iron low, ferritin normal, but will start Ferrous Sulfate BID * still low, will given 1 units. Discussed risks and benefits, patient agrees to proceed. 2. pAfib * currently rate-controlled * continue Metoprolol * agree with apixaban 3. CKD4 * improved from February * monitor * avoid nephrotoxic agents 4. Left MCA CVA * s/p TPA and thrombectomy * ASA dc'd, started on Eliquis 5. VTE proph: anticoagulated. Code Visit Inpatient E&M: 06194 Subs Hosp L2
--- NOTE | 2019-04-08 15:34 | NURSING ---
Pt unable to urinate, bladder scan showing 700mls of urine, straight cath, small clot size of pencil eraser noted in urine, output 700mls of urine blood tinged, dark david. Pt. tolerated well.
[2019-04-08] MEDS: Ferrous Sulfate 325 MG Tablet PO (17:34)
[2019-04-08] MEDS: Tamsulosin HCl 0.4 MG Capsule PO (17:34)
[2019-04-08] MEDS: Atorvastatin Calcium 40 MG Tablet PO (21:07)
[2019-04-09 03:29] VITALS: BMI 22.1
[2019-04-09] MEDS: Levothyroxine 50 MCG Tablet PO (05:34)
[2019-04-09 07:37] VITALS: BP 111/74; PULSE 62; RESP 18; TEMP 37; O2SAT 94
[2019-04-09 08:18] LABS: Absolute Lymphocyte Count 1.51 X10^3/ul (0.83-4.51); Absolute Neutrophil Count 7.8 X10^3/uL (2.0-7.7); Basophil# 0.07 X10^3/uL; Basophil% 0.8 % (0-1); Eosinophil# 0.42 X10^3/uL; Eosinophils% 3.8 % (0-5); Hematocrit 26.7 % (40-54); Hemoglobin 8.4 g/dl (13.0-16.5); Lymphocyte # 1.51 X10^3/ul (4.0); Lymphocyte % 13.7 % (19-41); Mean Corp Hgb Conc 31.3 g/gl (32-36); Mean Corpuscular Hgb 23.9 pg (27.0-32.0); Mean Corpuscular Volume 76.4 fL (80-94); Mean Platelet Vol. 9.6 fl (6.2-12.0); Monocyte# 1.14 X10^3/uL; Monocyte% 10.4 % (0-10); Neutrophil # 7.81 X10^3/uL (2.7-7.7); Neutrophil % 72.1 % (47-70); POSITIVE COUNT NO; POSITIVE DIFFERENTIAL NO; POSITIVE MORPHOLOGY NO; Platelet Count 543 K/mm3 (150-450); RBC Distribution Width CV 19.2 % (11.6-14.6); RBC Distribution Width SD 53.2 fl (35.1-43.9); Red Blood Count 3.51 M/mm3 (4.6-6.2)
[2019-04-09 09:20] VITALS: BP 111/74; PULSE 62
[2019-04-09] MEDS: Metoprolol(XL)Succ 25 MG Tablet PO (09:20)
[2019-04-09] MEDS: Pantoprazole Sodium 40 MG Tablet PO (09:20)
[2019-04-09] MEDS: APIXABAN 2.5 MG TABLET PO ×2 (09:21→20:38)
[2019-04-09] MEDS: Ferrous Sulfate 325 MG Tablet PO ×2 (11:12→17:08)
--- NOTE | 2019-04-09 12:09 | PCM.PN.HOSP ---
Subjective: Catheter place last night for urinary retention. Urine has been blood-tinged without eduar hematuria. Vitals/I&O's: Vital Signs Temp Pulse Resp BP Pulse Ox 37.0 C 62 18 111/74 94 04/09/19 07:37 04/09/19 09:20 04/09/19 07:37 04/09/19 09:20 04/09/19 07:37 Oxygen Delivery Method Room Air Weight: 76.204 kg Body Mass Index (BMI) 22.1 Finger Stick Blood Glucose 69 Intake and Output for Last 24 Hours 04/07/19 04/08/19 04/09/19 23:59 23:59 23:59 Intake Total 1380 / 1380 491 / 491 Output Total 1200 / 1200 1250 / 1250 475 / 475 Balance 180 / 180 -759 / -759 -475 / -475 General: Alert, No apparent distress HEENT: Atraumatic, Normocephalic Oral: Moist Mucosa, No Gingival or Mucosal Lesions/ Ulcerations Neck: No Nodes, Thyroid Normal Size and Texture Lungs: Clear to auscultation, Normal air movement, No rhonchi, No wheeze Cardiovascular: Regular rate, Regular Rhythm, Normal S1, Normal S2 Abdomen: Bowel Sounds Present, Soft, Non Tender, Non-Distended Extremities: No edema, No Calf Tenderness Neurological: Motor Exam 5/5 strength throughout, - - no facial droop. Psych/Mental Status: Normal Affect, Appropriate Microbiology Past 72 Hours 04/08/19 00:08 Stool Stool Occult Blood ([facility]) - Final Laboratory Results 04/08/19 13:40: WBC 10.6, RBC 2.97 L, Hgb 7.0 L, Hct 22.5 L, MCV 75.8 L, MCH 23.6 L, MCHC 31.1 L, RDW 19.9 H, RDW Differential 55.4 H, Plt Count 529 H, MPV 9.4, Immature Gran % (Auto) 0.500, Neut % (Auto) 67.5, Lymph % (Auto) 17.5 L, [place] % (Auto) 10.9 H, Eos % (Auto) 2.8, Baso % (Auto) 0.8, Absolute Neuts (auto) 7.2, Absolute Lymphs (auto) 1.86, Total Counted Not Reportable 04/08/19 15:08: Blood Type B POSITIVE, Antibody Screen NEGATIVE, Crossmatch See Detail 04/09/19 08:00: WBC 11.0, RBC 3.51 L, Hgb 8.4 L, Hct 26.7 L, MCV 76.4 L, MCH 23.9 L, MCHC 31.3 L, RDW 19.2 H, RDW Differential 53.2 H, Plt Count 543 H, MPV 9.6, Immature Gran % (Auto) 0.400, Neut % (Auto) 72.1 H, Lymph % (Auto) 13.7 L, [place] % (Auto) 10.4 H, Eos % (Auto) 3.8, Baso % (Auto) 0.8, Absolute Neuts (auto) 7.8 H, Absolute Lymphs (auto) 1.51, Total Counted Not Reportable Current Medications Acetaminophen (Tylenol) 650 mg PO Q6H PRN PRN PRN Reason: Mild Pain (0-3/10)/Headache Apixaban (Eliquis) 2.5 mg PO BID [facility] Last Admin: 04/09/19 09:21 Dose: 2.5 mg Atorvastatin Calcium (Lipitor) 40 mg PO QHS [facility] Last Admin: 04/08/19 21:07 Dose: 40 mg Bisacodyl (Dulcolax) 10 mg RECTAL .PRN X 1 PRN PRN Reason: Constipation Ferrous Sulfate (Ferrous Sulfate) 325 mg PO 1200,1700 [facility] Last Admin: 04/09/19 11:12 Dose: 325 mg Levothyroxine Sodium (Synthroid) 50 mcg PO DAILY@0600 [facility] Last Admin: 04/09/19 05:34 Dose: 50 mcg Magnesium Hydroxide (Milk Of Magnesia) 30 ml PO .PRN X 1 PRN PRN Reason: Constipation Metoprolol Succinate (Toprol Xl (Beta Daryl)) 25 mg PO DAILY [facility] Last Admin: 04/09/19 09:20 Dose: 25 mg Nutritional Formula (Lactose Free) (Ensure Enlive) 120 ml PO 4X/DAY [facility] Last Admin: 04/09/19 09:20 Dose: 120 ml Pantoprazole Sodium (Protonix) 40 mg PO DAILY [facility] Last Admin: 04/09/19 09:20 Dose: 40 mg Senna/Docusate Sodium (Senokot-S, April-Colace) 2 tablet PO BID PRN PRN PRN Reason: Constipation Tamsulosin HCl (Flomax) 0.4 mg PO DAILY@1730 [facility] Last Admin: 04/08/19 17:34 Dose: 0.4 mg Medical Necessity - Tobacco Use Smoking Status: Never smoker Tobacco Use: Non-smoker Assessment/Plan 1. microcytic anemia improved after transfusion has been anemic since February 2019, previously in July 2018, was 12 agree with hemoccult iron low, ferritin normal, but will start Ferrous Sulfate BID 2. pAfib currently rate-controlled continue Metoprolol agree with apixaban 3. CKD4 improved from February monitor avoid nephrotoxic agents 4. 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 VTE proph: anticoagulated. 6. Hematuria: 2/2 catheter + apixaban. monitor. 7. Urinary retention: likely 2/2 BPH. already on Flomax. Continue catheter for now. Prior to discharge, remove catheter and check post-void residual. Code Visit Inpatient E&M: 17707 Subs Hosp L2
--- NOTE | 2019-04-09 12:14 | PN_ITS ---
Subjective: Catheter place last night for urinary retention. Urine has been blood-tinged without eduar hematuria. Vitals/I&O's: Vital Signs Temp Pulse Resp BP Pulse Ox 37.0 C 62 18 111/74 94 04/09/19 07:37 04/09/19 09:20 04/09/19 07:37 04/09/19 09:20 04/09/19 07:37 Oxygen Delivery Method Room Air Weight: 76.204 kg Body Mass Index (BMI) 22.1 Finger Stick Blood Glucose 69 Intake and Output for Last 24 Hours 04/07/19 04/08/19 04/09/19 23:59 23:59 23:59 Intake Total 1380 / 1380 491 / 491 Output Total 1200 / 1200 1250 / 1250 475 / 475 Balance 180 / 180 -759 / -759 -475 / -475 General: Alert, No apparent distress HEENT: Atraumatic, Normocephalic Oral: Moist Mucosa, No Gingival or Mucosal Lesions/ Ulcerations Neck: No Nodes, Thyroid Normal Size and Texture Lungs: Clear to auscultation, Normal air movement, No rhonchi, No wheeze Cardiovascular: Regular rate, Regular Rhythm, Normal S1, Normal S2 Abdomen: Bowel Sounds Present, Soft, Non Tender, Non-Distended Extremities: No edema, No Calf Tenderness Neurological: Motor Exam 5/5 strength throughout, - - no facial droop. Psych/Mental Status: Normal Affect, Appropriate Microbiology Past 72 Hours 04/08/19 00:08 Stool Stool Occult Blood ([facility]ITH) - Final Laboratory Results 04/08/19 13:40: WBC 10.6, RBC 2.97 L, Hgb 7.0 L, Hct 22.5 L, MCV 75.8 L, MCH 23.6 L, MCHC 31.1 L, RDW 19.9 H, RDW Differential 55.4 H, Plt Count 529 H, MPV 9.4, Immature Gran % (Auto) 0.500, Neut % (Auto) 67.5, Lymph % (Auto) 17.5 L, [place] % (Auto) 10.9 H, Eos % (Auto) 2.8, Baso % (Auto) 0.8, Absolute Neuts (auto) 7.2, Absolute Lymphs (auto) 1.86, Total Counted Not Reportable 04/08/19 15:08: Blood Type B POSITIVE, Antibody Screen NEGATIVE, Crossmatch See Detail 04/09/19 08:00: WBC 11.0, RBC 3.51 L, Hgb 8.4 L, Hct 26.7 L, MCV 76.4 L, MCH 23.9 L, MCHC 31.3 L, RDW 19.2 H, RDW Differential 53.2 H, Plt Count 543 H, MPV 9.6, Immature Gran % (Auto) 0.400, Neut % (Auto) 72.1 H, Lymph % (Auto) 13.7 L, [place] % (Auto) 10.4 H, Eos % (Auto) 3.8, Baso % (Auto) 0.8, Absolute Neuts (auto) 7.8 H, Absolute Lymphs (auto) 1.51, Total Counted Not Reportable Current Medications Acetaminophen (Tylenol) 650 mg PO Q6H PRN PRN PRN Reason: Mild Pain (0-3/10)/Headache Apixaban (Eliquis) 2.5 mg PO BID ON LICENSE OF [facility] Last Admin: 04/09/19 09:21 Dose: 2.5 mg Atorvastatin Calcium (Lipitor) 40 mg PO QHS ON LICENSE OF [facility] Last Admin: 04/08/19 21:07 Dose: 40 mg Bisacodyl (Dulcolax) 10 mg RECTAL .PRN X 1 PRN PRN Reason: Constipation Ferrous Sulfate (Ferrous Sulfate) 325 mg PO 1200,1700 ON LICENSE OF [facility] Last Admin: 04/09/19 11:12 Dose: 325 mg Levothyroxine Sodium (Synthroid) 50 mcg PO DAILY@0600 ON [facility] OF [facility] Last Admin: 04/09/19 05:34 Dose: 50 mcg Magnesium Hydroxide (Milk Of Magnesia) 30 ml PO .PRN X 1 PRN PRN Reason: Constipation Metoprolol Succinate (Toprol Xl (Beta Daryl)) 25 mg PO DAILY ON [facility] OF [facility] Last Admin: 04/09/19 09:20 Dose: 25 mg Nutritional Formula (Lactose Free) (Ensure Enlive) 120 ml PO 4X/DAY ON [facility] OF [facility] Last Admin: 04/09/19 09:20 Dose: 120 ml Pantoprazole Sodium (Protonix) 40 mg PO DAILY ON LICENSE OF [facility] Last Admin: 04/09/19 09:20 Dose: 40 mg Senna/Docusate Sodium (Senokot-S, April-Colace) 2 tablet PO BID PRN PRN PRN Reason: Constipation Tamsulosin HCl (Flomax) 0.4 mg PO DAILY@1730 ON LICENSE OF [facility] Last Admin: 04/08/19 17:34 Dose: 0.4 mg Medical Necessity - Tobacco Use Smoking Status: Never smoker Tobacco Use: Non-smoker Assessment/Plan 1. microcytic anemia * improved after transfusion * has been anemic since February 2019, previously in July 2018, was 12 * agree with hemoccult * iron low, ferritin normal, but will start Ferrous Sulfate BID 2. pAfib * currently rate-controlled * continue Metoprolol * agree with apixaban 3. CKD4 * improved from February * monitor * avoid nephrotoxic agents 4. Left MCA CVA * s/p TPA and thrombectomy * ASA dc'd, started on Eliquis 5. VTE proph: anticoagulated. 6. Hematuria: 2/2 catheter + apixaban. monitor. 7. Urinary retention: likely 2/2 BPH. already on Flomax. Continue catheter for now. Prior to discharge, remove catheter and check post-void residual. Code Visit Inpatient E&M: 42742 Subs Hosp L2
[2019-04-09 15:33] VITALS: BMI 22.1
[2019-04-09] MEDS: Tamsulosin HCl 0.4 MG Capsule PO (17:08)
--- NOTE | 2019-04-09 18:14 | NURSING ---
Dr Hdz informed that pt having large amounts of hematuria after having Avila catheter placed on 04/08. P/Dr Hdz it is from the trauma of inserting the Avila. Will recheck HGB in the morning.
[2019-04-09 19:22] VITALS: BP 111/52; PULSE 59; RESP 18; TEMP -13.2; TEMP 8.2; O2SAT 95
[2019-04-09 20:20] VITALS: PULSE 59; RESP 18; O2SAT 95; BMI 22.1
[2019-04-09] MEDS: Atorvastatin Calcium 40 MG Tablet PO (20:38)
--- NOTE | 2019-04-10 | RAD_ITS ---
STUDY: SWALLOWING STUDY REASON FOR EXAM: Male, 78 years old. Dysphasia. History of stroke. TECHNIQUE: The examination was performed with Speech Pathology in attendance. Under fluoroscopic observation, the patient ingested thin barium, thick barium, barium pudding, and barium coated cracker. FLUOROSCOPY TIME: 3:17 minutes/seconds. 2616 fluoroscopic images. RADIOLOGIST INVOLVEMENT: Radiologist was present and providing direct supervision. COMPARISON: None. FINDINGS: The following was observed during swallowing of the various mixtures of barium: Thin Barium: Silent aspiration with ingestion of thin liquids. Thick Barium: Silent aspiration with ingestion of nectar thickened liquids. Penetration with evacuation upon ingestion of honey thickened liquids. Barium Pudding: There was no evidence of aspiration or laryngeal penetration. Barium Coated Cracker: There was no evidence of aspiration or laryngeal penetration. RAD/Swallowing Function w/Video IMPRESSION: Cephalic aspiration with ingestion of thin liquids and nectar thickened liquids. Penetration with injection upon ingestion of honey thickened liquids. The swallow study findings were discussed with the patient by the speech pathologist at the conclusion of the examination. Please see speech pathology report for more information and recommendations. Electronically Signed: Mariano Stewart, at 15:12 EDT , Service support ,
--- NOTE | 2019-04-10 03:16 | NURSING ---
Reviewed and agree with REGIONAL SALES COORDINATOR documentation and FIMs charting.
[2019-04-10 05:58] LABS: Absolute Lymphocyte Count 1.66 X10^3/ul (0.83-4.51); Absolute Neutrophil Count 6.1 X10^3/uL (2.0-7.7); Basophil# 0.08 X10^3/uL; Basophil% 0.8 % (0-1); Eosinophil# 0.43 X10^3/uL; Eosinophils% 4.5 % (0-5); Hematocrit 23.7 % (40-54); Hemoglobin 7.4 g/dl (13.0-16.5); Lymphocyte # 1.66 X10^3/ul (4.0); Lymphocyte % 17.2 % (19-41); Mean Corp Hgb Conc 31.2 g/gl (32-36); Mean Corpuscular Hgb 23.8 pg (27.0-32.0); Mean Corpuscular Volume 76.2 fL (80-94); Mean Platelet Vol. 9.6 fl (6.2-12.0); Monocyte# 1.38 X10^3/uL; Monocyte% 14.3 % (0-10); Neutrophil # 6.05 X10^3/uL (2.7-7.7); Neutrophil % 62.8 % (47-70); Platelet Count 509 K/mm3 (150-450); RBC Distribution Width CV 19.7 % (11.6-14.6); RBC Distribution Width SD 54.7 fl (35.1-43.9); Red Blood Count 3.11 M/mm3 (4.6-6.2); White Blood Count 9.6 K/mm3 (4.4-11.0)
[2019-04-10] MEDS: Levothyroxine 50 MCG Tablet PO (06:10)
[2019-04-10 06:44] LABS: POSITIVE COUNT NO; POSITIVE DIFFERENTIAL NO; POSITIVE MORPHOLOGY NO
[2019-04-10 08:04] VITALS: BP 121/69; PULSE 65
[2019-04-10] MEDS: Metoprolol(XL)Succ 25 MG Tablet PO (08:04)
[2019-04-10] MEDS: Pantoprazole Sodium 40 MG Tablet PO (08:05)
[2019-04-10] MEDS: APIXABAN 2.5 MG TABLET PO ×2 (08:05→21:43)
[2019-04-10 10:00] VITALS: BP 121/69; PULSE 65; RESP 18; TEMP 36.6; O2SAT 97
--- NOTE | 2019-04-10 11:00 | NURSING ---
Dr Resendez notified of Avila catheter being reinserted d/t pt not being able to void.
[2019-04-10] MEDS: Ferrous Sulfate 325 MG Tablet PO ×2 (11:54→16:35)
--- NOTE | 2019-04-10 12:59 | PCM.PN.NEU ---
Subjective: Per nursing no issues overnight. On 04/08/2019 Hgb 6.7, recheck 7.0 and 1 unit of PRBC was ordered and was started on Ferrous sulfate, which Hgb increased to 8.4 on 04/09/19. Stool for Hemoccult negative. Currently patient is asymptomatic. Denies SOB, palpitations, dizziness or lightheadedness. Avila catheter was re-inserted on 04/08/2019 d/t urinary retention. Dr. Resendez updated per nursing for further direction. Per nursing when Avila was re-inserted hematuria noted, now urine is straw color. Team meeting held this am. Per therapies, patient is tolerating therapies well and per ST has a stutter at baseline and plan to have swallow study done today. Patient will be re-teamed next week. - Physical Exam General: Alert, Oriented x3, Cooperative HEENT: Atraumatic, PERRLA Oral: Moist Mucosa Neck: Supple, No JVD Lungs: Clear to auscultation, Normal air movement Abdomen: Bowel Sounds Present, Soft, Non Tender Extremities: No clubbing, No cyanosis, No edema Musculoskeletal: No Tenderness to Palpation of Joints or Extremities Neurological: - - Cranial nerves II-XII grossly intact, Deep Tendon Reflexes 2+/4 and Symmetrical, Neuro grossly intact, minimal facial droop - left, - - Strength: Right upper and lower extremity 5/5, Left upper extremity 4/5, Left lower extremity 3/5, speech slight slurred, at baseline has a stutter, NIH 1 Psych/Mental Status: Normal Affect, Appropriate, Alert and oriented to time, place, person, mood and affect Vital Signs Temp Pulse Resp BP Pulse Ox 97.9 F 65 18 121/69 H 97 04/10/19 10:00 04/10/19 10:00 04/10/19 10:00 04/10/19 10:00 04/10/19 10:00 Oxygen Delivery Method Room Air Weight: 76.204 kg Body Mass Index (BMI) 22.1 Finger Stick Blood Glucose 69 Intake and Output for Last 24 Hours 04/08/19 04/09/19 04/10/19 23:59 23:59 23:59 Intake Total 491 / 491 400 / 400 Output Total 1250 / 1250 1275 / 1275 500 / 500 Balance -759 / -759 -875 / -875 -500 / -500 Microbiology Past 72 Hours 04/08/19 00:08 Stool Occult Blood ([facility]) - Final Stool Laboratory Tests Past 24 Hrs 04/10/19 05:30 WBC 9.6 RBC 3.11 L Hgb 7.4 L Hct 23.7 L MCV 76.2 L MCH 23.8 L MCHC 31.2 L RDW 19.7 H RDW Differential 54.7 H Plt Count 509 H MPV 9.6 Immature Gran % (Auto) 0.400 Neut % (Auto) 62.8 Lymph % (Auto) 17.2 L [place] % (Auto) 14.3 H Eos % (Auto) 4.5 Baso % (Auto) 0.8 Absolute Neuts (auto) 6.1 Absolute Lymphs (auto) 1.66 Total Counted Not Reportable Medical Necessity - Tobacco Use Smoking Status: Never smoker Tobacco Use: Non-smoker Assessment/Plan The patient is a 78 year old M PMH paroxysmal atrial fibrillation, HTN, CHF, bradycardia post cardiac pacemaker, PVD, hypothyroidism, and GERD admitted [facility] on 04/06/2019 with debility secondary to Left acute arterial ischemic stroke, MCA for greater of 3 hours of therapy daily with a goal of returning back home at or near her prior level of functional dependence. Patient was previously admitted to [facility] on March 21 for new onset of CHF and Per mortuary technician's note pt had various cardiac arrhythmias with respect to sinus bradycardia, junctional rhythm, paroxysmal atrial fibrillation, and prolonged pauses and on 03/22/2019 PPM did show episodes of atrial fibrillation. 03/22/2019 EKG Patient was discharged home on March 28, 2019 with Avila catheter due to Bladder outlet obstruction from BPH, Dr. Resendez to follow. She returned back to [facility] emergency room on February 27, 2019 with Abrupt onset of aphasia, facial droop and weakness. NIH was 23. Diagnosis of left acute arterial ischemic stroke, MCA and patient received TPA and transferred to [facility]. At [facility] on 03/29/2019, patient had an endovascular stroke treatment of the left MCA M2 occlusion using the [place] stent retriever and circumflex system. There was reperfusion of the left MCA territory after 1 pass. On 03/30/2019 CT without contrast done for post TPA impression acute infarct of the left basal ganglia with involvement of the head of the left caudate, subtle loss of rai?white matter differentiation in the left insular cortex, which may also represent changes of acute ischemia, no intracranial hemorrhage noted. On 03/30/2019 transthoracic echocardiogram completed which showed no obvious evidence of an embolic source. On 03/31/2019 venous duplex completed to bilateral lower extremities negative for DVT. Patient lives in a 1 level home with spouse. Patient was independent with all mobility, ADLs, and driving prior to stroke. Patient does use a cane in the community. Plan - PT for mobility - OT for ADLs - ST speech and cognition - Analgesics PRN - Bowel protocol - Left MCA stroke post TPA - metoprolol, lipitor, Eliquis 2.5 mg bid - Paroxysmal atrial fibrillation on eliquis, metoprolol - HTN on metoprolol - CHF on metoprolol - Hypothyroidism on levothyroxine - GERD on protonix - Bladder outlet obstruction from BPH - on flomax, Avila re-inserted on 04/08/2019 d/t retention - Dr. Resendez to follow - Microcytic anemia 1 unit of PRBC on 04/08/2019, Hemoccult stool negative, ferrous sulfate BID, Hgb 7.4 on 04/10/19 stable - Hospitalist managing - DVT prophylaxis- heparin 5,000 units SQ BID D/C d/t Hgb , SCDs, Knee-high teds - Fall precautions - Further medical management per hospitalist recommendation, hospitalist consult - F/U with PCP, Neurology, Cardiology, and Urology -
--- NOTE | 2019-04-10 13:07 | PN.NEURO_ITS ---
Subjective: Per nursing no issues overnight. On 04/08/2019 Hgb 6.7, recheck 7.0 and 1 unit of PRBC was ordered and was started on Ferrous sulfate, which Hgb increased to 8.4 on 04/09/19. Stool for Hemoccult negative. Currently patient is asymptomatic. Denies SOB, palpitations, dizziness or lightheadedness. Avila catheter was re-inserted on 04/08/2019 d/t urinary retention. Dr. Resendez updated per nursing for further direction. Per nursing when Avila was re- inserted hematuria noted, now urine is straw color. Team meeting held this am. Per therapies, patient is tolerating therapies well and per ST has a stutter at baseline and plan to have swallow study done today. Patient will be re-teamed next week. - Physical Exam General: Alert, Oriented x3, Cooperative HEENT: Atraumatic, PERRLA Oral: Moist Mucosa Neck: Supple, No JVD Lungs: Clear to auscultation, Normal air movement Abdomen: Bowel Sounds Present, Soft, Non Tender Extremities: No clubbing, No cyanosis, No edema Musculoskeletal: No Tenderness to Palpation of Joints or Extremities Neurological: - - Cranial nerves II-XII grossly intact, Deep Tendon Reflexes 2+/4 and Symmetrical, Neuro grossly intact, minimal facial droop - left, - - Strength: Right upper and lower extremity 5/5, Left upper extremity 4/5, Left lower extremity 3/5, speech slight slurred, at baseline has a stutter, NIH 1 Psych/Mental Status: Normal Affect, Appropriate, Alert and oriented to time, place, person, mood and affect Vital Signs Temp Pulse Resp BP Pulse Ox 97.9 F 65 18 121/69 H 97 04/10/19 10:00 04/10/19 10:00 04/10/19 10:00 04/10/19 10:00 04/10/19 10:00 Oxygen Delivery Method Room Air Weight: 76.204 kg Body Mass Index (BMI) 22.1 Finger Stick Blood Glucose 69 Intake and Output for Last 24 Hours 04/08/19 04/09/19 04/10/19 23:59 23:59 23:59 Intake Total 491 / 491 400 / 400 Output Total 1250 / 1250 1275 / 1275 500 / 500 Balance -759 / -759 -875 / -875 -500 / -500 Microbiology Past 72 Hours 04/08/19 00:08 Stool Occult Blood ([facility]ITH) - Final Stool Laboratory Tests Past 24 Hrs 04/10/19 05:30 WBC 9.6 RBC 3.11 L Hgb 7.4 L Hct 23.7 L MCV 76.2 L MCH 23.8 L MCHC 31.2 L RDW 19.7 H RDW Differential 54.7 H Plt Count 509 H MPV 9.6 Immature Gran % (Auto) 0.400 Neut % (Auto) 62.8 Lymph % (Auto) 17.2 L [place] % (Auto) 14.3 H Eos % (Auto) 4.5 Baso % (Auto) 0.8 Absolute Neuts (auto) 6.1 Absolute Lymphs (auto) 1.66 Total Counted Not Reportable Medical Necessity - Tobacco Use Smoking Status: Never smoker Tobacco Use: Non-smoker Assessment/Plan The patient is a 78 year old M PMH paroxysmal atrial fibrillation, HTN, CHF, bradycardia post cardiac pacemaker, PVD, hypothyroidism, and GERD admitted to [facility] on 04/06/2019 with debility secondary to Left acute arterial ischemic stroke, MCA for greater of 3 hours of therapy daily with a goal of returning back home at or near her prior level of functional dependence. Patient was previously admitted to [facility] on March 21 for new onset of CHF and Per glove brusher's note pt had various cardiac arrhythmias with respect to sinus bradycardia, junctional rhythm, paroxysmal atr ial fibrillation, and prolonged pauses and on 03/22/2019 PPM did show episodes of atrial fibrillation. 03/22/2019 EKG Patient was discharged home on March 28, 2019 with Avila catheter due to Bladder outlet obstruction from BPH, Dr. Resendez to follow. She returned back to [facility] emergency room on February 27, 2019 with Abrupt onset of aphasia, facial droop and weakness. NIH was 23. Diagnosis of left acute arterial ischemic stroke, MCA and patient received TPA and transferred to [facility]. At [facility] on 03/29/2019, patient had an endovascular stroke treatment of the left MCA M2 occlusion using the [place] stent retriever and circumflex system. There was reperfusion of the left MCA territory after 1 pass. On 03/30/2019 CT without contrast done for post TPA impression acute infarct of the left basal ganglia with involvement of the head of the left caudate, subtle loss of rai?white matter differentiation in the left insular cortex, which may also represent changes of acute ischemia, no intracranial hemorrhage noted. On 03/30/2019 transthoracic echocardiogram completed which showed no obvious evidence of an embolic source. On 03/31/2019 venous duplex completed to bilateral lower extremities negative for DVT. Patient lives in a 1 level home with spouse. Patient was independent with all mobility, ADLs, and driving prior to stroke. Patient does use a cane in the community. Plan - PT for mobility - OT for ADLs - ST speech and cognition - Analgesics PRN - Bowel protocol - Left MCA stroke post TPA - metoprolol, lipitor, Eliquis 2.5 mg bid - Paroxysmal atrial fibrillation on eliquis, metoprolol - HTN on metoprolol - CHF on metoprolol - Hypothyroidism on levothyroxine - GERD on protonix - Bladder outlet obstruction from BPH - on flomax, Avila re-inserted on 04/08/2019 d/t retention - Dr. Resendez to follow - Microcytic anemia 1 unit of PRBC on 04/08/2019, Hemoccult stool negative, ferrous sulfate BID, Hgb 7.4 on 04/10/19 stable - Hospitalist managing - DVT prophylaxis- heparin 5,000 units SQ BID D/C d/t Hgb , SCDs, Knee-high teds - Fall precautions - Further medical management per hospitalist recommendation, hospitalist consult - F/U with PCP, Neurology, Cardiology, and Urology -
[2019-04-10 14:09] VITALS: BMI 22.1
--- NOTE | 2019-04-10 14:09 | PCM.PN.HOSP ---
Subjective: Denies any new complaints. Objective: dark david urine in jones. Vitals/I&O's: Vital Signs Temp Pulse Resp BP Pulse Ox 36.6 C 65 18 121/69 H 97 04/10/19 10:00 04/10/19 10:00 04/10/19 10:00 04/10/19 10:00 04/10/19 10:00 Oxygen Delivery Method Room Air Weight: 76.204 kg Body Mass Index (BMI) 22.1 Finger Stick Blood Glucose 69 Intake and Output for Last 24 Hours 04/08/19 04/09/19 04/10/19 23:59 23:59 23:59 Intake Total 491 / 491 400 / 400 Output Total 1250 / 1250 1275 / 1275 500 / 500 Balance -759 / -759 -875 / -875 -500 / -500 General: Alert, No apparent distress HEENT: Atraumatic, Normocephalic Lungs: Clear to auscultation, Normal air movement, No rhonchi, No wheeze Cardiovascular: Regular rate, Regular Rhythm, Normal S1, Normal S2 Abdomen: Bowel Sounds Present, Soft, Non Tender, Non-Distended, No Hepato-splenomegaly Extremities: No edema, No Calf Tenderness Skin: No rashes, No breakdown Microbiology Past 72 Hours 04/08/19 00:08 Stool Stool Occult Blood (FAITH) - Final Laboratory Results 04/10/19 05:30: WBC 9.6, RBC 3.11 L, Hgb 7.4 L, Hct 23.7 L, MCV 76.2 L, MCH 23.8 L, MCHC 31.2 L, RDW 19.7 H, RDW Differential 54.7 H, Plt Count 509 H, MPV 9.6, Immature Gran % (Auto) 0.400, Neut % (Auto) 62.8, Lymph % (Auto) 17.2 L, [place] % (Auto) 14.3 H, Eos % (Auto) 4.5, Baso % (Auto) 0.8, Absolute Neuts (auto) 6.1, Absolute Lymphs (auto) 1.66, Total Counted Not Reportable Current Medications Acetaminophen (Tylenol) 650 mg PO Q6H PRN PRN PRN Reason: Mild Pain (0-3/10)/Headache Apixaban (Eliquis) 2.5 mg PO BID [facility] Last Admin: 04/10/19 08:05 Dose: 2.5 mg Atorvastatin Calcium (Lipitor) 40 mg PO QHS [facility] Last Admin: 04/09/19 20:38 Dose: 40 mg Bisacodyl (Dulcolax) 10 mg RECTAL .PRN X 1 PRN PRN Reason: Constipation Ferrous Sulfate (Ferrous Sulfate) 325 mg PO 1200,1700 [facility] Last Admin: 04/10/19 11:54 Dose: 325 mg Levothyroxine Sodium (Synthroid) 50 mcg PO DAILY@0600 [facility] Last Admin: 04/10/19 06:10 Dose: 50 mcg Magnesium Hydroxide (Milk Of Magnesia) 30 ml PO .PRN X 1 PRN PRN Reason: Constipation Metoprolol Succinate (Toprol Xl (Beta Daryl)) 25 mg PO DAILY [facility] Last Admin: 04/10/19 08:04 Dose: 25 mg Nutritional Formula (Lactose Free) (Ensure Enlive) 120 ml PO 4X/DAY [facility] Last Admin: 04/10/19 13:49 Dose: Not Given Pantoprazole Sodium (Protonix) 40 mg PO DAILY [facility] Last Admin: 04/10/19 08:05 Dose: 40 mg Senna/Docusate Sodium (Senokot-S, April-Colace) 2 tablet PO BID PRN PRN PRN Reason: Constipation Tamsulosin HCl (Flomax) 0.4 mg PO DAILY@1730 [facility] Last Admin: 04/09/19 17:08 Dose: 0.4 mg Medical Necessity - Tobacco Use Smoking Status: Never smoker Tobacco Use: Non-smoker Assessment/Plan 1. microcytic anemia improved after transfusion, but down today has been anemic since February 2019, previously in July 2018, was 12 agree with hemoccult iron low, ferritin normal, but will start Ferrous Sulfate BID 2. pAfib currently rate-controlled continue Metoprolol agree with apixaban 3. CKD4 improved from February monitor avoid nephrotoxic agents 4. 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 VTE proph: anticoagulated. 6. Hematuria: resolved 2/2 catheter + apixaban. monitor. Urology on consult 7. Urinary retention: likely 2/2 BPH. already on Flomax. Continue catheter for now. on consult. Code Visit Inpatient E&M: 20414 Subs Hosp L2
--- NOTE | 2019-04-10 14:12 | PN_ITS ---
Subjective: Denies any new complaints. Objective: dark david urine in jones. Vitals/I&O's: Vital Signs Temp Pulse Resp BP Pulse Ox 36.6 C 65 18 121/69 H 97 04/10/19 10:00 04/10/19 10:00 04/10/19 10:00 04/10/19 10:00 04/10/19 10:00 Oxygen Delivery Method Room Air Weight: 76.204 kg Body Mass Index (BMI) 22.1 Finger Stick Blood Glucose 69 Intake and Output for Last 24 Hours 04/08/19 04/09/19 04/10/19 23:59 23:59 23:59 Intake Total 491 / 491 400 / 400 Output Total 1250 / 1250 1275 / 1275 500 / 500 Balance -759 / -759 -875 / -875 -500 / -500 General: Alert, No apparent distress HEENT: Atraumatic, Normocephalic Lungs: Clear to auscultation, Normal air movement, No rhonchi, No wheeze Cardiovascular: Regular rate, Regular Rhythm, Normal S1, Normal S2 Abdomen: Bowel Sounds Present, Soft, Non Tender, Non-Distended, No Hepato- splenomegaly Extremities: No edema, No Calf Tenderness Skin: No rashes, No breakdown Microbiology Past 72 Hours 04/08/19 00:08 Stool Stool Occult Blood (FAITH) - Final Laboratory Results 04/10/19 05:30: WBC 9.6, RBC 3.11 L, Hgb 7.4 L, Hct 23.7 L, MCV 76.2 L, MCH 23.8 L, MCHC 31.2 L, RDW 19.7 H, RDW Differential 54.7 H, Plt Count 509 H, MPV 9.6, Immature Gran % (Auto) 0.400, Neut % (Auto) 62.8, Lymph % (Auto) 17.2 L, Long % (Auto) 14.3 H, Eos % (Auto) 4.5, Baso % (Auto) 0.8, Absolute Neuts (auto) 6.1, Absolute Lymphs (auto) 1.66, Total Counted Not Reportable Current Medications Acetaminophen (Tylenol) 650 mg PO Q6H PRN PRN PRN Reason: Mild Pain (0-3/10)/Headache Apixaban (Eliquis) 2.5 mg PO BID JOVANI Last Admin: 04/10/19 08:05 Dose: 2.5 mg Atorvastatin Calcium (Lipitor) 40 mg PO QHS [facility] Last Admin: 04/09/19 20:38 Dose: 40 mg Bisacodyl (Dulcolax) 10 mg RECTAL .PRN X 1 PRN PRN Reason: Constipation Ferrous Sulfate (Ferrous Sulfate) 325 mg PO 1200,1700 [facility] Last Admin: 04/10/19 11:54 Dose: 325 mg Levothyroxine Sodium (Synthroid) 50 mcg PO DAILY@0600 [facility] Last Admin: 04/10/19 06:10 Dose: 50 mcg Magnesium Hydroxide (Milk Of Magnesia) 30 ml PO .PRN X 1 PRN PRN Reason: Constipation Metoprolol Succinate (Toprol Xl (Beta Daryl)) 25 mg PO DAILY [facility] Last Admin: 04/10/19 08:04 Dose: 25 mg Nutritional Formula (Lactose Free) (Ensure Enlive) 120 ml PO 4X/DAY [facility] Last Admin: 04/10/19 13:49 Dose: Not Given Pantoprazole Sodium (Protonix) 40 mg PO DAILY [facility] Last Admin: 04/10/19 08:05 Dose: 40 mg Senna/Docusate Sodium (Senokot-S, April-Colace) 2 tablet PO BID PRN PRN PRN Reason: Constipation Tamsulosin HCl (Flomax) 0.4 mg PO DAILY@1730 [facility] Last Admin: 04/09/19 17:08 Dose: 0.4 mg Medical Necessity - Tobacco Use Smoking Status: Never smoker Tobacco Use: Non-smoker Assessment/Plan 1. microcytic anemia * improved after transfusion, but down today * has been anemic since February 2019, previously in July 2018, was 12 * agree with hemoccult * iron low, ferritin normal, but will start Ferrous Sulfate BID 2. pAfib * currently rate-controlled * continue Metoprolol * agree with apixaban 3. CKD4 * improved from February * monitor * avoid nephrotoxic agents 4. Left MCA CVA * s/p TPA and thrombectomy * ASA dc'd, started on Eliquis 5. VTE proph: anticoagulated. 6. Hematuria: * resolved * 2/2 catheter + apixaban. monitor. * Urology on consult 7. Urinary retention: * likely 2/2 BPH. * already on Flomax. * Continue catheter for now. * on consult. Code Visit Inpatient E&M: 42081 Subs Hosp L2
--- NOTE | 2019-04-10 14:30 | SP.MBSS_ITS ---
PRIMARY / SECONDARY DIAGNOSIS: dysphagia (R13.12) REFERRING PHYSICIAN: Dr. Dick Hdz MD. 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 MEDICAL HISTORY: Prior left middle cerebral artery cerebrovascular accident, esophagitis (EGD 03/22/2019), gastroesophageal reflux disease, congestive heart failure, atrial fibrillation, hypothyroidism, bradycardia status post cardiac pacemaker placement. PREVIOUS MODIFIED BARIUM SWALLOW STUDY: None ADDITIONAL OBJECTIVE ASSESSMENT RESULTS: 03/30/2019 CT revealed an acute infarct of the left basal ganglia with involvement of the head of the left caudate; subtle loss of rai?white matter differentiation in the left insular cortex. ASSESSMENT PARAMETERS: The Patient participated in a Modified Barium Swallow (MBS) study on 04/10/2019. Dr. Stewart was the radiologist present for this evaluation. This study was recorded in the lateral view and images were sent to PACs for storage. Scoring was completed through each trial using the 8-point Penetration-Aspiration Scale (PAS) and Videofluoroscopic Scale Score (VSS), and summarized via the Modified Barium Swallow Impairment Profile (MBSImP) and the Bolus Residue Scale (BRS), with severity scoring through the Dysphagia Severity Rating Scale (DSRS) and Swallowing Performance Scale (SPS), and recommended diet textures through the International Dysphagia Diet Standardisation Initiative (IDDSI) RESULTS OF THE EVALUATION: The Patient presents with moderate oropharyngeal dysphagia (DSRS: 5; SPS: 5) with grade III and IV SILENT aspiration of thin and nectar thickened liquids secondary to a recent left middle cerebral artery acute infarct involving the left basal ganglia and caudate nucleus. OBJECTIVE ASSESSMENT OF SWALLOW FUNCTION (QUANTITATIVE ? PER TRIAL): PENETRATION / ASPIRATION SCALE (CARLSON): 1 = does not enter airway 2 = enters airway/above vocal folds/ejected 3 = enters airway/above vocal folds/not ejected 4 = enters airway/contacts vocal folds/ejected 5 = enters airway/contacts vocal folds/not ejected 6 = enters airway/below vocal folds/ejected 7 = enters airway/below vocal folds/not ejected despite effort 8 = enters airway/below vocal folds/no effort VIDEOFLOROSCOPIC SCALE SCORE (CARLSON): Grade I = aspiration of material that has penetrated into the laryngeal vestibule, intact cough reflex Grade II = aspiration < 10 % of the bolus, intact cough reflex Grade III = aspiration of < 10 % of the bolus, reduced cough reflex or aspiration of > 10 % of the bolus, intact cough reflex Grade IV = aspiration of > 10 % of the bolus, reduced cough reflex PENETRATION / ASPIRATION SCALE (SCORE) WITH VIDEOFLOROSCOPIC SCALE SCORE: Thin liquid - 5 mL tsp.: 8 ? Grade III Thin liquids via cup (single sip): 8 ? Grade III Thin liquids via cup (sequential swallows): 8 ? Grade IV [place] thickened liquids via cup (single sip): 6 ? Grade III [place] thickened liquids via cup (single sip): 7 ? Grade II [place] thickened liquids via cup (chin tuck): 8 ? Grade IV Honey thickened liquids via cup (single sip): 2 Honey thickened liquids via cup (single sip): 2 Pudding via spoon: 1 Regular textured cookie: 1 Honey thickened liquids via cup (single sip): 1 OBJECTIVE ASSESSMENT OF SWALLOW FUNCTION (QUANTITATIVE ? AGGREGATE): MODIFIED BARIUM SWALLOW IMPAIRMENT PROFILE (MBSImP) LABIAL SEAL: 0 (of 4) no labial escape TONGUE CONTROL: 2 (of 3) posterior escape < 50% BOLUS PREPARATION / MASTICATION: 0 (of 3) timely and efficient BOLUS TRANSPORT / LINGUAL MOTION: 3 (of 4) repetitive / disorganized motion ORAL RESIDUE: 1 (of 4) trace residue lining oral structures INITIATION OF PHARYNGEAL SWALLOW: 1 (of 4) valleculae SOFT PALATE ELEVATION: 1 (of 4) trace column between soft palate & pharyngeal wall LARYNGEAL ELEVATION: 1 (of 3) partial superior movement / approximation ANTERIOR HYOID EXCURSION: 1 (of 2) partial movement EPIGLOTTIC MOVEMENT: 1 (of 2) partial inversion LARYNGEAL VESTIBULE CLOSURE: 1 (of 2) incomplete closure PHARYNGEAL STRIPPING WAVE: 0 (of 2) present / complete PE SEGMENT OPENIN (of 3) partial distension / duration / obstruction TONGUE BASE RETRACTION: 2 (of 4) narrow column of contrast PHARYNGEAL RESIDUE: 2 (of 4) collection of residue ESOPHAGEAL BOLUS CLEARANCE: could not view BOLUS RESIDUE SCALE (BRS): 2 (of 6) residue in valleculae DYSPHAGIA SEVERITY RATING SCALE (DSRS): 5 (moderate-severe) SWALLOWING PERFORMANCE SCALE (SPS): 5 (moderate) OBJECTIVE ASSESSMENT OF SWALLOW FUNCTION (QUALITATIVE): ORAL PREPARATORY PHASE: competent bolus manipulation without fragmented swallowing; sufficient anterior oral containment; preserved management of breathing / bolus formation ORAL TRANSITIONAL PHASE: discoordinated lingual movements (tremor / undulations) with intermittent mild oral phase swallow onset delay (no more than 1-3 seconds in length); overall sufficient oral clearance; premature posterior bolus loss contributing to pre-prandial penetration / aspiration of thin and nectar thickened liquids. PHARYNGEAL PHASE: mild pharyngeal phase delay / dyssynchrony combining with inconsistent hyolaryngeal excursion contributing to prandial aspiration with insufficient laryngeal vestibule pressure generated to expel penetrated material; sufficient pharyngeal motility; mild velopharyngeal insufficiency without nasoregurgitation ESOPHAGEAL PHASE: no obvious esophageal phase abnormalities observed. CONTRIBUTING / COMPLICATING FACTORS AND NOTABLE FINDINGS: very weak / absent cough in response to tracheobronchial aspiration (atussia); very weak cued volitional cough intensity generated to expel penetrated material / tracheobronchial aspiration (dystussia vs. atussia); noted lordosis, no direct impact on pharyngoesophageal motility. RESPONSE TO STRATEGIES: insufficient effects noted from a variety of compensatory strategies implemented across the study, namely the chin tuck posture. RECOMMENDATIONS AND CONSIDERATIONS: The Patient was noted to SILENTLY aspirate with thin and nectar thickened liquids, with clinical assessment at bedside relying on identification of classic overt signs and symptoms of aspiration considered unreliable. Would strongly discourage advancement past honey thickened liquids without completion of a repeat modified barium swallow study due to the extent of aspirate identified that was SILENT in nature. Recommend a repeat modified barium swallow study within 2 - 4 weeks (if clinically appropriate) to further assess the presence and extent of silent and overt aspiration prior to advancement to a less restrictive diet. Recommend continued implementation of the Carbajal Free Water Protocol (FFWP) with Patient and family education indicated. The Patient requires intensive skilled speech-language intervention targeting diet texture management and training / implementation of recommended compensatory strategies; training and implementation of recommended oropharyngeal strengthening exercises to facilitate improved laryngeal vestibule closure / pressure and velopharyngeal competence; considerations for Expiratory Muscle Strength Training (EMST); training, implementation, and Patient / caregiver education regarding implementation of the Carbajal Free Water Protocol (FFWP); Patient education regarding stroke associated dysphagia; and Patient an/d caregiver training targeting meal preparation / thickened liquid preparation if unable to advance to baseline diet textures prior to discharge. DIET TEXTURE RECOMMENDATIONS: Will recommend a regular ? soft textured (IDDSI: 6), honey thickened liquid (IDDSI: 3) diet RECOMMENDED COMPENSATORY STRATEGIES: Direct supervision, consider cutting tougher textures into bite sized pieces, reduced bolus volume / rate of ingestion, seated upright at 90 degrees during PO intake, remain upright for 30-60 minutes post meal (GERD precaution), medications one at a time with a liquid chaser. IMAGE COUNT: [id number] Kalia Mccallum M.A., CCC-ASTROCHEMIST MBSImP Certified, LSVT Certified [facility] Speech-Language Pathology Department [email or web address]
[2019-04-10] MEDS: Tamsulosin HCl 0.4 MG Capsule PO (16:35)
--- NOTE | 2019-04-10 16:45 | CASEMGMT ---
Team meeting held in pt room with pt and in attendance. Pt is receiving PT/OT/ST and progressing. No d/c date has been set at this time. Pt plans to return home with his at time of discharge. Pt is available to assist as needed. Will continue with treatment plan and reteam next week. ISMA Dunaway
--- NOTE | 2019-04-10 17:02 | CHAPLAIN ---
Type of Pastoral Visit ___ Initial Visit _x__ Follow-up Visit ___ On-call Visit ___ General Patient Visit ___ Spiritual Assessment ___ Family Conference ___ Bereavement ___ Rapid Response ___ Code Blue ___ Other (describe below) Pastoral Care Referral From _x__ Patient _x__ Family ___ Nurse ___ Physician ___ Soap Press Feeder ___ Reading Intervention Teacher ___ Other (describe below) Sacrament/Intervention _x__ Active listening ___ Anointing ___ Taoism ___ Bereavement ___ Communion ___ Leela exploration ___ ___ Life review ___ Prayer ___ Reconciliation ___ Sacrament of Sick _x__ Supportive presence ___ Wedding ___ Other (describe below) Pastoral Comments
[2019-04-10 19:30] VITALS: BP 101/55; PULSE 61; RESP 18; TEMP 36.7; O2SAT 95
[2019-04-10 21:20] VITALS: PULSE 61; RESP 18; O2SAT 95
[2019-04-10 21:26] VITALS: BMI 22.1
[2019-04-10] MEDS: Atorvastatin Calcium 40 MG Tablet PO (21:43)
--- NOTE | 2019-04-11 01:33 | NURSING ---
Reviewed and agree with STRADDLE TRUCK OPERATOR documentation and FIMs charting.
[2019-04-11] MEDS: Levothyroxine 50 MCG Tablet PO (05:56)
[2019-04-11 06:06] LABS: Absolute Lymphocyte Count 1.78 X10^3/ul (0.83-4.51); Absolute Neutrophil Count 8.2 X10^3/uL (2.0-7.7); Basophil% 0.8 % (0-1); Eosinophil# 0.84 X10^3/uL; Eosinophils% 6.9 % (0-5); Hematocrit 24.1 % (40-54); Hemoglobin 7.5 g/dl (13.0-16.5); Lymphocyte # 1.78 X10^3/ul (4.0); Lymphocyte % 14.7 % (19-41); Mean Corp Hgb Conc 31.1 g/gl (32-36); Mean Corpuscular Hgb 23.9 pg (27.0-32.0); Mean Corpuscular Volume 76.8 fL (80-94); Mean Platelet Vol. 9.6 fl (6.2-12.0); Monocyte# 1.19 X10^3/uL; Monocyte% 9.8 % (0-10); Neutrophil # 8.19 X10^3/uL (2.7-7.7); Neutrophil % 67.6 % (47-70); Platelet Count 545 K/mm3 (150-450); RBC Distribution Width CV 19.6 % (11.6-14.6); RBC Distribution Width SD 55.1 fl (35.1-43.9); Red Blood Count 3.14 M/mm3 (4.6-6.2); White Blood Count 12.1 K/mm3 (4.4-11.0)
[2019-04-11 06:08] LABS: POSITIVE COUNT NO; POSITIVE DIFFERENTIAL NO; POSITIVE MORPHOLOGY NO
[2019-04-11 07:11] VITALS: BP 129/62; PULSE 72; RESP 17; TEMP 36.6; O2SAT 94
[2019-04-11 10:25] VITALS: BP 129/62; PULSE 72
[2019-04-11] MEDS: Metoprolol(XL)Succ 25 MG Tablet PO (10:25)
[2019-04-11] MEDS: APIXABAN 2.5 MG TABLET PO ×2 (10:25→21:04)
[2019-04-11] MEDS: Pantoprazole Sodium 40 MG Tablet PO (10:25)
[2019-04-11] MEDS: Ferrous Sulfate 325 MG Tablet PO ×2 (12:00→17:09)
--- NOTE | 2019-04-11 13:11 | PCM.PN.NEU ---
Subjective: Per nursing no issues overnight. Patient continues to tolerate therapies well. Denies chest pain or tightness, palpations, SOB, dizziness, or lightheadedness. Denies further questions or concerns. - Physical Exam General: Alert, Oriented x3, Cooperative HEENT: Atraumatic Oral: Moist Mucosa Neck: Supple, No JVD Lungs: Clear to auscultation, Normal air movement Cardiovascular: Regular rate, Regular Rhythm Abdomen: Bowel Sounds Present, Soft, Non Tender Extremities: No clubbing, No cyanosis, No edema Musculoskeletal: No Tenderness to Palpation of Joints or Extremities Neurological: - - Cranial nerves II-XII grossly intact, Deep Tendon Reflexes 2+/4 and Symmetrical, Neuro grossly intact, minimal facial droop - left, - - Strength: Right upper and lower extremity 5/5, Left upper extremity 4/5, Left lower extremity 3/5, speech slight slurred, at baseline has a stutter, NIH 1 Psych/Mental Status: Normal Affect, Appropriate, Alert and oriented to time, place, person, mood and affect Vital Signs Temp Pulse Resp BP Pulse Ox 97.9 F 72 17 129/62 H 94 04/11/19 07:11 04/11/19 10:25 04/11/19 07:11 04/11/19 10:25 04/11/19 07:11 Oxygen Delivery Method Room Air Weight: 76.204 kg Body Mass Index (BMI) 22.1 Finger Stick Blood Glucose 69 Intake and Output for Last 24 Hours 04/09/19 04/10/19 04/11/19 23:59 23:59 23:59 Intake Total 400 / 400 480 / 480 Output Total 1275 / 1275 500 / 500 Balance -875 / -875 -500 / -500 480 / 480 Microbiology Past 72 Hours 04/08/19 00:08 Stool Occult Blood (FAITH) - Final Stool Laboratory Tests Past 24 Hrs 04/11/19 05:20 WBC 12.1 H RBC 3.14 L Hgb 7.5 L Hct 24.1 L MCV 76.8 L MCH 23.9 L MCHC 31.1 L RDW 19.6 H RDW Differential 55.1 H Plt Count 545 H MPV 9.6 Immature Gran % (Auto) 0.200 Neut % (Auto) 67.6 Lymph % (Auto) 14.7 L [place] % (Auto) 9.8 Eos % (Auto) 6.9 H Baso % (Auto) 0.8 Absolute Neuts (auto) 8.2 H Absolute Lymphs (auto) 1.78 Total Counted Not Reportable Medical Necessity - Tobacco Use Smoking Status: Never smoker Tobacco Use: Non-smoker Assessment/Plan The patient is a 78 year old M PMH paroxysmal atrial fibrillation, HTN, CHF, bradycardia post cardiac pacemaker, PVD, hypothyroidism, and GERD admitted [facility] IP RU on 04/06/2019 with debility secondary to Left acute arterial ischemic stroke, MCA for greater of 3 hours of therapy daily with a goal of returning back home at or near her prior level of functional dependence. Patient was previously admitted to [facility] on March 21 for new onset of CHF and Per ditcher's note pt had various cardiac arrhythmias with respect to sinus bradycardia, junctional rhythm, paroxysmal atrial fibrillation, and prolonged pauses and on 03/22/2019 PPM did show episodes of atrial fibrillation. 03/22/2019 EKG Patient was discharged home on March 28, 2019 with Avila catheter due to Bladder outlet obstruction from BPH, Dr. Resendez to follow. She returned back to [facility] emergency room on February 27, 2019 with Abrupt onset of aphasia, facial droop and weakness. NIH was 23. Diagnosis of left acute arterial ischemic stroke, MCA and patient received TPA and transferred to [facility]. At [facility] on 03/29/2019, patient had an endovascular stroke treatment of the left MCA M2 occlusion using the [place] stent retriever and circumflex system. There was reperfusion of the left MCA territory after 1 pass. On 03/30/2019 CT without contrast done for post TPA impression acute infarct of the left basal ganglia with involvement of the head of the left caudate, subtle loss of rai?white matter differentiation in the left insular cortex, which may also represent changes of acute ischemia, no intracranial hemorrhage noted. On 03/30/2019 transthoracic echocardiogram completed which showed no obvious evidence of an embolic source. On 03/31/2019 venous duplex completed to bilateral lower extremities negative for DVT. Patient lives in a 1 level home with spouse. Patient was independent with all mobility, ADLs, and driving prior to stroke. Patient does use a cane in the community. Plan - PT for mobility - OT for ADLs - ST speech and cognition - Analgesics PRN - Bowel protocol - Left MCA stroke post TPA - metoprolol, lipitor, Eliquis 2.5 mg bid - Paroxysmal atrial fibrillation on eliquis, metoprolol - HTN on metoprolol - CHF on metoprolol - Hypothyroidism on levothyroxine - GERD on protonix - Bladder outlet obstruction from BPH - on flomax, Avila re-inserted on 04/08/2019 d/t retention - Dr. Resendez to follow - Microcytic anemia 1 unit of PRBC on 04/08/2019, Hemoccult stool negative, ferrous sulfate BID, Hgb 7.5 on 04/11/19 stable - Hospitalist managing - DVT prophylaxis- SCDs, Knee-high teds - Fall precautions - Further medical management per hospitalist recommendation, hospitalist consult - F/U with PCP, Neurology, Cardiology, and Urology -
--- NOTE | 2019-04-11 13:15 | PN.NEURO_ITS ---
Subjective: Per nursing no issues overnight. Patient continues to tolerate therapies well. Denies chest pain or tightness, palpations, SOB, dizziness, or lightheadedness. Denies further questions or concerns. - Physical Exam General: Alert, Oriented x3, Cooperative HEENT: Atraumatic Oral: Moist Mucosa Neck: Supple, No JVD Lungs: Clear to auscultation, Normal air movement Cardiovascular: Regular rate, Regular Rhythm Abdomen: Bowel Sounds Present, Soft, Non Tender Extremities: No clubbing, No cyanosis, No edema Musculoskeletal: No Tenderness to Palpation of Joints or Extremities Neurological: - - Cranial nerves II-XII grossly intact, Deep Tendon Reflexes 2+/4 and Symmetrical, Neuro grossly intact, minimal facial droop - left, - - Strength: Right upper and lower extremity 5/5, Left upper extremity 4/5, Left lower extremity 3/5, speech slight slurred, at baseline has a stutter, NIH 1 Psych/Mental Status: Normal Affect, Appropriate, Alert and oriented to time, place, person, mood and affect Vital Signs Temp Pulse Resp BP Pulse Ox 97.9 F 72 17 129/62 H 94 04/11/19 07:11 04/11/19 10:25 04/11/19 07:11 04/11/19 10:25 04/11/19 07:11 Oxygen Delivery Method Room Air Weight: 76.204 kg Body Mass Index (BMI) 22.1 Finger Stick Blood Glucose 69 Intake and Output for Last 24 Hours 04/09/19 04/10/19 04/11/19 23:59 23:59 23:59 Intake Total 400 / 400 480 / 480 Output Total 1275 / 1275 500 / 500 Balance -875 / -875 -500 / -500 480 / 480 Microbiology Past 72 Hours 04/08/19 00:08 Stool Occult Blood (FAITH) - Final Stool Laboratory Tests Past 24 Hrs 04/11/19 05:20 WBC 12.1 H RBC 3.14 L Hgb 7.5 L Hct 24.1 L MCV 76.8 L MCH 23.9 L MCHC 31.1 L RDW 19.6 H RDW Differential 55.1 H Plt Count 545 H MPV 9.6 Immature Gran % (Auto) 0.200 Neut % (Auto) 67.6 Lymph % (Auto) 14.7 L [place] % (Auto) 9.8 Eos % (Auto) 6.9 H Baso % (Auto) 0.8 Absolute Neuts (auto) 8.2 H Absolute Lymphs (auto) 1.78 Total Counted Not Reportable Medical Necessity - Tobacco Use Smoking Status: Never smoker Tobacco Use: Non-smoker Assessment/Plan The patient is a 78 year old M PMH paroxysmal atrial fibrillation, HTN, CHF, bradycardia post cardiac pacemaker, PVD, hypothyroidism, and GERD admitted to [facility] on 04/06/2019 with debility secondary to Left acute arterial ischemic stroke, MCA for greater of 3 hours of therapy daily with a goal of returning back home at or near her prior level of functional dependence. Patient was previously admitted to [facility] on March 21 for new onset of CHF and Per welt treater's note pt had various cardiac arrhythmias with respect to sinus bradycardia, junctional rhythm, paroxysmal atrial fibrillation, and prolonged pauses and on 03/22/2019 PPM did show episodes of atrial fibrillation. 03/22/2019 EKG Patient was discharged home on March 28, 2019 with Avila catheter due to Bladder outlet obstruction from BPH, Dr. Resendez to follow. She returned back to [facility] emergency room on February 27, 2019 with Abrupt onset of aphasia, facial droop and weakness. NIH was 23. Diagnosis of left acute arterial ischemic stroke, MCA and patient received TPA and transferred to [facility]. At [facility] on 03/29/2019, patient had an endovascular stroke treatment of the left MCA M2 occlusion using the [place] stent retriever and circumflex system. There was reperfusion of the left MCA territory after 1 pass. On 03/30/2019 CT without contrast done for post TPA impression acute infarct of the left basal ganglia with involvement of the head of the left caudate, subtle loss of rai?white matter differentiation in the left insular cortex, which may also represent changes of acute ischemia, no intracranial hemorrhage noted. On 03/30/2019 transthoracic echocardiogram completed which showed no obvious evidence of an embolic source. On 03/31/2019 venous duplex completed to bilateral lower extremities negative for DVT. Patient lives in a 1 level home with spouse. Patient was independent with all mobility, ADLs, and driving prior to stroke. Patient does use a cane in the community. Plan - PT for mobility - OT for ADLs - ST speech and cognition - Analgesics PRN - Bowel protocol - Left MCA stroke post TPA - metoprolol, lipitor, Eliquis 2.5 mg bid - Paroxysmal atrial fibrillation on eliquis, metoprolol - HTN on metoprolol - CHF on metoprolol - Hypothyroidism on levothyroxine - GERD on protonix - Bladder outlet obstruction from BPH - on flomax, Avila re-inserted on 2018 d/t retention - Dr. Resendez to follow - Microcytic anemia 1 unit of PRBC on 04/08/2019, Hemoccult stool negative, ferrous sulfate BID, Hgb 7.5 on 04/11/19 stable - Hospitalist managing - DVT prophylaxis- SCDs, Knee-high teds - Fall precautions - Further medical management per hospitalist recommendation, hospitalist consult - F/U with PCP, Neurology, Cardiology, and Urology -
--- NOTE | 2019-04-11 13:33 | NURSING ---
Spoke to Dr. Resendez's nurse she is going to text Dr. Resendez that pt had to have jones reinserted, and pt is unable to urinate on his own, informed nurse that pt is already on flomax 0.4mg daily. Monse orozco will call this RN back.
[2019-04-11 17:00] VITALS: BMI 22.1
[2019-04-11] MEDS: Tamsulosin HCl 0.4 MG Capsule PO (17:09)
[2019-04-11 19:43] VITALS: BP 138/72; PULSE 73; RESP 20; TEMP 36.8; O2SAT 94
[2019-04-11 21:00] VITALS: PULSE 73; O2SAT 94; BMI 22.1
[2019-04-11] MEDS: Atorvastatin Calcium 40 MG Tablet PO (21:04)
--- NOTE | 2019-04-12 01:09 | NURSING ---
Reviewed and agree with MAKING MACHINE CATCHER documentation and FIMs charting.
[2019-04-12] MEDS: Levothyroxine 50 MCG Tablet PO (05:04)
[2019-04-12] MEDS: 0.9% NaCl Peripheral Flush Adult/Peds IV (06:51)
[2019-04-12 07:11] VITALS: BP 133/72; PULSE 68; RESP 16; TEMP 36.7; O2SAT 95
[2019-04-12 08:11] VITALS: BP 133/72; PULSE 68
[2019-04-12] MEDS: APIXABAN 2.5 MG TABLET PO ×2 (08:11→22:55)
[2019-04-12] MEDS: Finasteride 5 MG Tablet PO (08:11)
[2019-04-12] MEDS: Pantoprazole Sodium 40 MG Tablet PO (08:11)
[2019-04-12] MEDS: Metoprolol(XL)Succ 25 MG Tablet PO (08:11)
--- NOTE | 2019-04-12 09:44 | PCM.PN.NEU ---
<Rosario Tran - Last Filed: 04/12/19 09:49> Subjective: Per nursing no issues overnight. Per Dr. Resendez added proscar and not to discontinue Jones catheter, that he would d/c Jones as outpatient. Patient denies SOB, chest pain or tightness, dizziness or lightheadedness. Patient tolerating therapies well. - Physical Exam General: Alert, Oriented x3, Cooperative HEENT: Atraumatic, PERRLA Oral: Moist Mucosa Neck: Supple, No JVD Lungs: Clear to auscultation, Normal air movement Cardiovascular: Regular rate, Regular Rhythm Abdomen: Bowel Sounds Present, Soft, Non Tender Extremities: No clubbing, No cyanosis, No edema Musculoskeletal: No Tenderness to Palpation of Joints or Extremities Neurological: - - Cranial nerves II-XII grossly intact, Deep Tendon Reflexes 2+/4 and Symmetrical, Neuro grossly intact, minimal facial droop - left, - - Strength: Right upper and lower extremity 5/5, Left upper extremity 4/5, Left lower extremity 3/5, speech slight slurred, at baseline has a stutter, NIH 1 Psych/Mental Status: Normal Affect, Appropriate, Alert and oriented to time, place, person, mood and affect Vital Signs Temp Pulse Resp BP Pulse Ox 98.0 F 68 16 133/72 H 95 04/12/19 07:11 04/12/19 08:11 04/12/19 07:11 04/12/19 08:11 04/12/19 07:11 Oxygen Delivery Method Room Air Weight: 72.5 kg Body Mass Index (BMI) 22.1 Finger Stick Blood Glucose 69 Intake and Output for Last 24 Hours 04/10/19 04/11/19 04/12/19 23:59 23:59 23:59 Intake Total 1560 / 1560 Output Total 500 / 500 1700 / 1700 Balance -500 / -500 -140 / -140 Medical Necessity - Tobacco Use Smoking Status: Never smoker Tobacco Use: Non-smoker Assessment/Plan The patient is a 78 year old M H paroxysmal atrial fibrillation, HTN, CHF, bradycardia post cardiac pacemaker, PVD, hypothyroidism, and GERD admitted [facility] IP RU on 04/06/2019 with debility secondary to Left acute arterial ischemic stroke, MCA for greater of 3 hours of therapy daily with a goal of returning back home at or near her prior level of functional dependence. Patient was previously admitted to [facility] on March 21 for new onset of CHF and Per cigarette carton sealer's note pt had various cardiac arrhythmias with respect to sinus bradycardia, junctional rhythm, paroxysmal atrial fibrillation, and prolonged pauses and on 03/22/2019 PPM did show episodes of atrial fibrillation. 03/22/2019 EKG Patient was discharged home on March 28, 2019 with Jones catheter due to Bladder outlet obstruction from BPH, Dr. Resendez to follow. She returned back to [facility] emergency room on February 27, 2019 with Abrupt onset of aphasia, facial droop and weakness. NIH was 23. Diagnosis of left acute arterial ischemic stroke, MCA and patient received TPA and transferred to [facility]. At [facility] on 03/29/2019, patient had an endovascular stroke treatment of the left MCA M2 occlusion using the [place] stent retriever and circumflex system. There was reperfusion of the left MCA territory after 1 pass. On 03/30/2019 CT without contrast done for post TPA impression acute infarct of the left basal ganglia with involvement of the head of the left caudate, subtle loss of rai?white matter differentiation in the left insular cortex, which may also represent changes of acute ischemia, no intracranial hemorrhage noted. On 03/30/2019 transthoracic echocardiogram completed which showed no obvious evidence of an embolic source. On 03/31/2019 venous duplex completed to bilateral lower extremities negative for DVT. Patient lives in a 1 level home with spouse. Patient was independent with all mobility, ADLs, and driving prior to stroke. Patient does use a cane in the community. Plan - PT for mobility - OT for ADLs - ST speech and cognition - Analgesics PRN - Bowel protocol - Left MCA stroke post TPA - metoprolol, lipitor, Eliquis 2.5 mg bid - Paroxysmal atrial fibrillation on eliquis, metoprolol - HTN on metoprolol - CHF on metoprolol - Hypothyroidism on levothyroxine - GERD on protonix - Bladder outlet obstruction from BPH - on flomax and proscar, Jones re-inserted on 04/08/2019 d/t retention - Dr. Resendez to follow adn will D/C jones as outpatient. - Microcytic anemia 1 unit of PRBC on 04/08/2019, Hemoccult stool negative, ferrous sulfate BID, Hgb 7.5 on 04/11/19 stable - Hospitalist managing - DVT prophylaxis- SCDs, Knee-high teds - Fall precautions - Further medical management per hospitalist recommendation, hospitalist consult - F/U with PCP, Neurology, Cardiology, and Urology - <Ayden Robles - Last Filed: 04/12/19 12:15> - Physical Exam Vital Signs Temp Pulse Resp BP Pulse Ox 36.7 C 68 16 133/72 H 95 04/12/19 07:11 04/12/19 08:11 04/12/19 07:11 04/12/19 08:11 04/12/19 07:11 Oxygen Delivery Method Room Air Weight: 72.5 kg Body Mass Index (BMI) 22.1 Finger Stick Blood Glucose 69 Intake and Output for Last 24 Hours 04/10/19 04/11/19 04/12/19 23:59 23:59 23:59 Intake Total 1560 / 1560 Output Total 500 / 500 1700 / 1700 Balance -500 / -500 -140 / -140 Assessment/Plan Patient interviewed and examined. Agree with SUBSTANCE ABUSE SERVICES DIRECTOR notes and plan as above. He has no complaints, denies pain. Tolerating therapies. His examination is stable with mild right-sided weakness and discoordination, a aphasia is improved. Plan as above.
--- NOTE | 2019-04-12 09:48 | PN.NEURO_ITS ---
<Rosario Tran - Last Filed: 04/12/19 09:49> Subjective: Per nursing no issues overnight. Per Dr. Resendez added proscar and not to discontinue Jones catheter, that he would d/c Jones as outpatient. Patient denies SOB, chest pain or tightness, dizziness or lightheadedness. Patient tolerating therapies well. - Physical Exam General: Alert, Oriented x3, Cooperative HEENT: Atraumatic, PERRLA Oral: Moist Mucosa Neck: Supple, No JVD Lungs: Clear to auscultation, Normal air movement Cardiovascular: Regular rate, Regular Rhythm Abdomen: Bowel Sounds Present, Soft, Non Tender Extremities: No clubbing, No cyanosis, No edema Musculoskeletal: No Tenderness to Palpation of Joints or Extremities Neurological: - - Cranial nerves II-XII grossly intact, Deep Tendon Reflexes 2+/4 and Symmetrical, Neuro grossly intact, minimal facial droop - left, - - Strength: Right upper and lower extremity 5/5, Left upper extremity 4/5, Left lower extremity 3/5, speech slight slurred, at baseline has a stutter, NIH 1 Psych/Mental Status: Normal Affect, Appropriate, Alert and oriented to time, place, person, mood and affect Vital Signs Temp Pulse Resp BP Pulse Ox 98.0 F 68 16 133/72 H 95 04/12/19 07:11 04/12/19 08:11 04/12/19 07:11 04/12/19 08:11 04/12/19 07:11 Oxygen Delivery Method Room Air Weight: 72.5 kg Body Mass Index (BMI) 22.1 Finger Stick Blood Glucose 69 Intake and Output for Last 24 Hours 04/10/19 04/11/19 04/12/19 23:59 23:59 23:59 Intake Total 1560 / 1560 Output Total 500 / 500 1700 / 1700 Balance -500 / -500 -140 / -140 Medical Necessity - Tobacco Use Smoking Status: Never smoker Tobacco Use: Non-smoker Assessment/Plan The patient is a 78 year old M H paroxysmal atrial fibrillation, HTN, CHF, bradycardia post cardiac pacemaker, PVD, hypothyroidism, and GERD admitted to [facility] on 04/06/2019 with debility secondary to Left acute arterial ischemic stroke, MCA for greater of 3 hours of therapy daily with a goal of returning back home at or near her prior level of functional dependence. Patient was previously admitted to [facility] on March 21 for new onset of CHF and Per graphic arts instructor's note pt had various cardiac arrhythmias with respect to sinus bradycardia, junctional rhythm, paroxysmal atrial fibrillation, and prolonged pauses and on 03/22/2019 PPM did show episodes of atrial fibrillation. 03/22/2019 EKG Patient was discharged home on March 28, 2019 with Jones catheter due to Bladder outlet obstruction from BPH, Dr. Resendez to follow. She returned back to [facility] emergency room on February 27, 2019 with Abrupt onset of aphasia, facial droop and weakness. NIH was 23. Diagnosis of left acute arterial ischemic stroke, MCA and patient received TPA and transferred to [facility]. At [facility] on 03/29/2019, patient had an endovascular stroke treatment of the left MCA M2 occlusion using the [place] stent retriever and circumflex system. There was reperfusion of the left MCA territory after 1 pass. On 03/30/2019 CT without contrast done for post TPA impression acute infarct of the left basal ganglia with involvement of the head of the left caudate, subtle loss of rai?white matter differentiation in the left insular cortex, which may also represent changes of acute ischemia, no intracranial hemorrhage noted. On 03/30/2019 transthoracic echocardiogram completed which showed no obvious evidence of an embolic source. On 03/31/2019 venous duplex completed to bilateral lower extremities negative for DVT. Patient lives in a 1 level home with spouse. Patient was independent with all mobility, ADLs, and driving prior to stroke. Patient does use a cane in the community. Plan - PT for mobility - OT for ADLs - ST speech and cognition - Analgesics PRN - Bowel protocol - Left MCA stroke post TPA - metoprolol, lipitor, Eliquis 2.5 mg bid - Paroxysmal atrial fibrillation on eliquis, metoprolol - HTN on metoprolol - CHF on metoprolol - Hypothyroidism on levothyroxine - GERD on protonix - Bladder outlet obstruction from BPH - on flomax and proscar, Jones re-inserted on 04/08/2019 d/t retention - Dr. Resendez to follow adn will D/C jones as outpatient. - Microcytic anemia 1 unit of PRBC on 04/08/2019, Hemoccult stool negative, ferrous sulfate BID, Hgb 7.5 on 04/11/19 stable - Hospitalist managing - DVT prophylaxis- SCDs, Knee-high teds - Fall precautions - Further medical management per hospitalist recommendation, hospitalist consult - F/U with PCP, Neurology, Cardiology, and Urology - <Ayden Robles - Last Filed: 04/12/19 12:15> - Physical Exam Vital Signs Temp Pulse Resp BP Pulse Ox 36.7 C 68 16 133/72 H 95 04/12/19 07:11 04/12/19 08:11 04/12/19 07:11 04/12/19 08:11 04/12/19 07:11 Oxygen Delivery Method Room Air Weight: 72.5 kg Body Mass Index (BMI) 22.1 Finger Stick Blood Glucose 69 Intake and Output for Last 24 Hours 04/10/19 04/11/19 04/12/19 23:59 23:59 23:59 Intake Total 1560 / 1560 Output Total 500 / 500 1700 / 1700 Balance -500 / -500 -140 / -140 Assessment/Plan Patient interviewed and examined. Agree with TEACHER OF THE EMOTIONALLY DISTURBED notes and plan as above. He has no complaints, denies pain. Tolerating therapies. His examination is stable with mild right-sided weakness and discoordination, a aphasia is improved. Plan as above.
[2019-04-12 10:08] VITALS: BMI 22.1
[2019-04-12] MEDS: Ferrous Sulfate 325 MG Tablet PO ×2 (11:24→17:30)
--- NOTE | 2019-04-12 14:11 | CASEMGMT ---
Insurance Clinical updates faxed. Will await continued stay determination. Auth # [id number] ISMA Dunaway
--- NOTE | 2019-04-12 15:05 | PCM.PN.HOSP ---
Subjective: Hematuria resolved. Denies any new complaints. Vitals/I&O's: Vital Signs Temp Pulse Resp BP Pulse Ox 36.7 C 68 16 133/72 H 95 04/12/19 07:11 04/12/19 08:11 04/12/19 07:11 04/12/19 08:11 04/12/19 07:11 Oxygen Delivery Method Room Air Weight: 72.5 kg Body Mass Index (BMI) 22.1 Finger Stick Blood Glucose 69 Intake and Output for Last 24 Hours 04/10/19 04/11/19 04/12/19 23:59 23:59 23:59 Intake Total 1560 / 1560 Output Total 500 / 500 1700 / 1700 Balance -500 / -500 -140 / -140 General: Alert, No apparent distress HEENT: Atraumatic, Normocephalic Oral: Moist Mucosa, No Gingival or Mucosal Lesions/ Ulcerations Neck: No Nodes, Thyroid Normal Size and Texture Lungs: Clear to auscultation, Normal air movement, No rhonchi, No wheeze Cardiovascular: Regular rate, Regular Rhythm, Normal S1, Normal S2, No murmurs Abdomen: Bowel Sounds Present, Soft, Non Tender, Non-Distended, No Hepato-splenomegaly Extremities: No edema, No Calf Tenderness Psych/Mental Status: Normal Affect, Appropriate Current Medications Acetaminophen (Tylenol) 650 mg PO Q6H PRN PRN PRN Reason: Mild Pain (0-3/10)/Headache Apixaban (Eliquis) 2.5 mg PO BID [facility] Last Admin: 04/12/19 08:11 Dose: 2.5 mg Atorvastatin Calcium (Lipitor) 40 mg PO QHS [facility] Last Admin: 04/11/19 21:04 Dose: 40 mg Bisacodyl (Dulcolax) 10 mg RECTAL .PRN X 1 PRN PRN Reason: Constipation Ferrous Sulfate (Ferrous Sulfate) 325 mg PO 1200,1700 [facility] Last Admin: 04/12/19 11:24 Dose: 325 mg Finasteride (Proscar) 5 mg PO DAILY [facility] Last Admin: 04/12/19 08:11 Dose: 5 mg Levothyroxine Sodium (Synthroid) 50 mcg PO DAILY@0600 [facility] Last Admin: 04/12/19 05:04 Dose: 50 mcg Magnesium Hydroxide (Milk Of Magnesia) 30 ml PO .PRN X 1 PRN PRN Reason: Constipation Metoprolol Succinate (Toprol Xl (Beta Daryl)) 25 mg PO DAILY [facility] Last Admin: 04/12/19 08:11 Dose: 25 mg Nutritional Formula (Lactose Free) (Ensure Enlive) 120 ml PO 4X/DAY [facility] Last Admin: 04/12/19 13:54 Dose: 120 ml Pantoprazole Sodium (Protonix) 40 mg PO DAILY [facility] Last Admin: 04/12/19 08:11 Dose: 40 mg Senna/Docusate Sodium (Senokot-S, April-Colace) 2 tablet PO BID PRN PRN PRN Reason: Constipation Sodium Chloride () 5 - 15 ml IV UD PRN PRN Reason: SALINE FLUSH Last Admin: 04/12/19 06:51 Dose: 10 ml Tamsulosin HCl (Flomax) 0.4 mg PO DAILY@1730 [facility] Last Admin: 04/11/19 17:09 Dose: 0.4 mg Medical Necessity - Tobacco Use Smoking Status: Never smoker Tobacco Use: Non-smoker Assessment/Plan 1. microcytic anemia improved after transfusion, stable has been anemic since February 2019, previously in July 2018, was 12 iron low, ferritin normal, but will start Ferrous Sulfate BID source: ? GI? 2. pAfib currently rate-controlled continue Metoprolol agree with apixaban 3. CKD4 improved from February monitor avoid nephrotoxic agents 4. 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 VTE proph: anticoagulated. 6. Hematuria: resolved 2/2 catheter + apixaban. Urology on consult 7. Urinary retention: likely 2/2 BPH. already on Flomax. started on Proscar on 04/12 Continue catheter for now. Follow up with as outpt. Code Visit Inpatient E&M: 09762 Subs Hosp L2
--- NOTE | 2019-04-12 15:07 | PN_ITS ---
Subjective: Hematuria resolved. Denies any new complaints. Vitals/I&O's: Vital Signs Temp Pulse Resp BP Pulse Ox 36.7 C 68 16 133/72 H 95 04/12/19 07:11 04/12/19 08:11 04/12/19 07:11 04/12/19 08:11 04/12/19 07:11 Oxygen Delivery Method Room Air Weight: 72.5 kg Body Mass Index (BMI) 22.1 Finger Stick Blood Glucose 69 Intake and Output for Last 24 Hours 04/10/19 04/11/19 04/12/19 23:59 23:59 23:59 Intake Total 1560 / 1560 Output Total 500 / 500 1700 / 1700 Balance -500 / -500 -140 / -140 General: Alert, No apparent distress HEENT: Atraumatic, Normocephalic Oral: Moist Mucosa, No Gingival or Mucosal Lesions/ Ulcerations Neck: No Nodes, Thyroid Normal Size and Texture Lungs: Clear to auscultation, Normal air movement, No rhonchi, No wheeze Cardiovascular: Regular rate, Regular Rhythm, Normal S1, Normal S2, No murmurs Abdomen: Bowel Sounds Present, Soft, Non Tender, Non-Distended, No Hepato- splenomegaly Extremities: No edema, No Calf Tenderness Psych/Mental Status: Normal Affect, Appropriate Current Medications Acetaminophen (Tylenol) 650 mg PO Q6H PRN PRN PRN Reason: Mild Pain (0-3/10)/Headache Apixaban (Eliquis) 2.5 mg PO BID [facility] Last Admin: 04/12/19 08:11 Dose: 2.5 mg Atorvastatin Calcium (Lipitor) 40 mg PO QHS [facility] Last Admin: 04/11/19 21:04 Dose: 40 mg Bisacodyl (Dulcolax) 10 mg RECTAL .PRN X 1 PRN PRN Reason: Constipation Ferrous Sulfate (Ferrous Sulfate) 325 mg PO 1200,1700 [facility] Last Admin: 04/12/19 11:24 Dose: 325 mg Finasteride (Proscar) 5 mg PO DAILY [facility] Last Admin: 04/12/19 08:11 Dose: 5 mg Levothyroxine Sodium (Synthroid) 50 mcg PO DAILY@0600 [facility] Last Admin: 04/12/19 05:04 Dose: 50 mcg Magnesium Hydroxide (Milk Of Magnesia) 30 ml PO .PRN X 1 PRN PRN Reason: Constipation Metoprolol Succinate (Toprol Xl (Beta Daryl)) 25 mg PO DAILY [facility] Last Admin: 04/12/19 08:11 Dose: 25 mg Nutritional Formula (Lactose Free) (Ensure Enlive) 120 ml PO 4X/DAY [facility] Last Admin: 04/12/19 13:54 Dose: 120 ml Pantoprazole Sodium (Protonix) 40 mg PO DAILY [facility] Last Admin: 04/12/19 08:11 Dose: 40 mg Senna/Docusate Sodium (Senokot-S, April-Colace) 2 tablet PO BID PRN PRN PRN Reason: Constipation Sodium Chloride () 5 - 15 ml IV UD PRN PRN Reason: SALINE FLUSH Last Admin: 04/12/19 06:51 Dose: 10 ml Tamsulosin HCl (Flomax) 0.4 mg PO DAILY@1730 [facility] Last Admin: 04/11/19 17:09 Dose: 0.4 mg Medical Necessity - Tobacco Use Smoking Status: Never smoker Tobacco Use: Non-smoker Assessment/Plan 1. microcytic anemia * improved after transfusion, stable * has been anemic since February 2019, previously in July 2018, was 12 * iron low, ferritin normal, but will start Ferrous Sulfate BID * source: ? GI? 2. pAfib * currently rate-controlled * continue Metoprolol * agree with apixaban 3. CKD4 * improved from February * monitor * avoid nephrotoxic agents 4. Left MCA CVA * s/p TPA and thrombectomy * ASA dc'd, started on Eliquis 5. VTE proph: anticoagulated. 6. Hematuria: * resolved * 2/2 catheter + apixaban. * Urology on consult 7. Urinary retention: * likely 2/2 BPH. * already on Flomax. * started on Proscar on 04/12 * Continue catheter for now. * Follow up with as outpt. Code Visit Inpatient E&M: 58724 Subs Hosp L2
[2019-04-12] MEDS: Tamsulosin HCl 0.4 MG Capsule PO (17:30)
[2019-04-12 19:44] VITALS: BP 100/63; PULSE 75; RESP 18; TEMP 36.6; O2SAT 96
[2019-04-12] MEDS: Atorvastatin Calcium 40 MG Tablet PO (22:55)
[2019-04-13 05:00] VITALS: BMI 22.1
[2019-04-13] MEDS: Levothyroxine 50 MCG Tablet PO (05:52)
[2019-04-13] MEDS: 0.9% NaCl Peripheral Flush Adult/Peds IV ×2 (05:53→22:05)
[2019-04-13 08:11] VITALS: BP 120/62; PULSE 80
[2019-04-13] MEDS: Pantoprazole Sodium 40 MG Tablet PO (08:11)
[2019-04-13] MEDS: Metoprolol(XL)Succ 25 MG Tablet PO (08:11)
[2019-04-13] MEDS: APIXABAN 2.5 MG TABLET PO ×2 (08:12→21:34)
[2019-04-13] MEDS: Finasteride 5 MG Tablet PO (08:12)
[2019-04-13 08:45] VITALS: BP 118/67; PULSE 65; RESP 16; TEMP 36.6; O2SAT 94
--- NOTE | 2019-04-13 08:47 | PCM.PN.NEU ---
Subjective: Per nursing no issues overnight. Per patient tolerating therapies well and denies further questions or concerns. - Physical Exam General: Alert, Oriented x3, Cooperative HEENT: Atraumatic, PERRLA Oral: Moist Mucosa Neck: Supple, No JVD Lungs: Clear to auscultation, Normal air movement Cardiovascular: Regular rate, Regular Rhythm Abdomen: Bowel Sounds Present, Soft, Non Tender Extremities: No clubbing, No cyanosis, No edema Musculoskeletal: No Tenderness to Palpation of Joints or Extremities Neurological: - - Cranial nerves II-XII grossly intact, Deep Tendon Reflexes 2+/4 and Symmetrical, Neuro grossly intact, minimal facial droop - left, - Strength: Right upper and lower extremity 5/5, Left upper extremity 4/5, Left lower extremity 3/5, speech slight slurred, at baseline has a stutter, NIH 1 Psych/Mental Status: Normal Affect, Appropriate, Alert and oriented to time, place, person, mood and affect Vital Signs Temp Pulse Resp BP Pulse Ox 98 F 65 16 118/67 94 04/13/19 08:45 04/13/19 08:45 04/13/19 08:45 04/13/19 08:45 04/13/19 08:45 Oxygen Delivery Method Room Air Weight: 72.5 kg Body Mass Index (BMI) 22.1 Finger Stick Blood Glucose 69 Intake and Output for Last 24 Hours 04/11/19 04/12/19 04/13/19 23:59 23:59 23:59 Intake Total 1560 / 1560 Output Total 1700 / 1700 275 / 275 325 / 325 Balance -140 / -140 -275 / -275 -325 / -325 Medical Necessity - Tobacco Use Smoking Status: Never smoker Tobacco Use: Non-smoker Assessment/Plan The patient is a 78 year old M H paroxysmal atrial fibrillation, HTN, CHF, bradycardia post cardiac pacemaker, PVD, hypothyroidism, and GERD admitted [facility] IP RU on 04/06/2019 with debility secondary to Left acute arterial ischemic stroke, MCA for greater of 3 hours of therapy daily with a goal of returning back home at or near her prior level of functional dependence. Patient was previously admitted to [facility] on March 21 for new onset of CHF and Per detail drafter's note pt had various cardiac arrhythmias with respect to sinus bradycardia, junctional rhythm, paroxysmal atrial fibrillation, and prolonged pauses and on 03/22/2019 PPM did show episodes of atrial fibrillation. 03/22/2019 EKG Patient was discharged home on March 28, 2019 with Jones catheter due to Bladder outlet obstruction from BPH, Dr. Resendez to follow. She returned back to [facility] emergency room on February 27, 2019 with Abrupt onset of aphasia, facial droop and weakness. NIH was 23. Diagnosis of left acute arterial ischemic stroke, MCA and patient received TPA and transferred to [facility]. At [facility] on 03/29/2019, patient had an endovascular stroke treatment of the left MCA M2 occlusion using the [place] stent retriever and circumflex system. There was reperfusion of the left MCA territory after 1 pass. On 03/30/2019 CT without contrast done for post TPA impression acute infarct of the left basal ganglia with involvement of the head of the left caudate, subtle loss of rai?white matter differentiation in the left insular cortex, which may also represent changes of acute ischemia, no intracranial hemorrhage noted. On 03/30/2019 transthoracic echocardiogram completed which showed no obvious evidence of an embolic source. On 03/31/2019 venous duplex completed to bilateral lower extremities negative for DVT. Patient lives in a 1 level home with spouse. Patient was independent with all mobility, ADLs, and driving prior to stroke. Patient does use a cane in the community. Plan - PT for mobility - OT for ADLs - ST speech and cognition - Analgesics PRN - Bowel protocol - Left MCA stroke post TPA - metoprolol, lipitor, Eliquis 2.5 mg bid - Paroxysmal atrial fibrillation on eliquis, metoprolol - HTN on metoprolol - CHF on metoprolol - Hypothyroidism on levothyroxine - GERD on protonix - Bladder outlet obstruction from BPH - on flomax and proscar, Jones re-inserted on 04/08/2019 d/t retention - Dr. Resendez to follow adn will D/C jones as outpatient. - Microcytic anemia 1 unit of PRBC on 04/08/2019, Hemoccult stool negative, ferrous sulfate BID, Hgb 7.5 on 04/11/19 stable - Hospitalist managing - DVT prophylaxis- SCDs, Knee-high teds - Fall precautions - Further medical management per hospitalist recommendation, hospitalist consult - F/U with PCP, Neurology, Cardiology, and Urology -
--- NOTE | 2019-04-13 08:51 | PN.NEURO_ITS ---
Subjective: Per nursing no issues overnight. Per patient tolerating therapies well and denies further questions or concerns. - Physical Exam General: Alert, Oriented x3, Cooperative HEENT: Atraumatic, PERRLA Oral: Moist Mucosa Neck: Supple, No JVD Lungs: Clear to auscultation, Normal air movement Cardiovascular: Regular rate, Regular Rhythm Abdomen: Bowel Sounds Present, Soft, Non Tender Extremities: No clubbing, No cyanosis, No edema Musculoskeletal: No Tenderness to Palpation of Joints or Extremities Neurological: - - Cranial nerves II-XII grossly intact, Deep Tendon Reflexes 2+/4 and Symmetrical, Neuro grossly intact, minimal facial droop - left, - Strength: Right upper and lower extremity 5/5, Left upper extremity 4/5, Left lower extremity 3/5, speech slight slurred, at baseline has a stutter, NIH 1 Psych/Mental Status: Normal Affect, Appropriate, Alert and oriented to time, place, person, mood and affect Vital Signs Temp Pulse Resp BP Pulse Ox 98 F 65 16 118/67 94 04/13/19 08:45 04/13/19 08:45 04/13/19 08:45 04/13/19 08:45 04/13/19 08:45 Oxygen Delivery Method Room Air Weight: 72.5 kg Body Mass Index (BMI) 22.1 Finger Stick Blood Glucose 69 Intake and Output for Last 24 Hours 04/11/19 04/12/19 04/13/19 23:59 23:59 23:59 Intake Total 1560 / 1560 Output Total 1700 / 1700 275 / 275 325 / 325 Balance -140 / -140 -275 / -275 -325 / -325 Medical Necessity - Tobacco Use Smoking Status: Never smoker Tobacco Use: Non-smoker Assessment/Plan The patient is a 78 year old M H paroxysmal atrial fibrillation, HTN, CHF, bradycardia post cardiac pacemaker, PVD, hypothyroidism, and GERD admitted to [facility] IP RU on 04/06/2019 with debility secondary to Left acute arterial ischemic stroke, MCA for greater of 3 hours of therapy daily with a goal of returning back home at or near her prior level of functional dependence. Patient was previously admitted to [facility] on March 21 for new onset of CHF and Per commanding officer garage's note pt had various cardiac arrhythmias with respect to sinus bradycardia, junctional rhythm, paroxysmal atrial fibrillation, and prolonged pauses and on 03/22/2019 PPM did show episodes of atrial fibrillation. 03/22/2019 EKG Patient was discharged home on March 28, 2019 with Jones catheter due to Bladder outlet obstruction from BPH, Dr. Resendez to follow. She returned back to [facility] emergency room on February 27, 2019 with Abrupt onset of aphasia, facial droop and weakness. NIH was 23. Diagnosis of left acute arterial ischemic stroke, MCA and patient received TPA and transferred to [facility]. At [facility] on 03/29/2019, patient had an endovascular stroke treatment of the left MCA M2 occlusion using the [place] stent retriever and circumflex system. There was reperfusion of the left MCA territory after 1 pass. On 03/30/2019 CT without contrast done for post TPA impression acute infarct of the left basal ganglia with involvement of the head of the left caudate, subtle loss of rai?white matter differentiation in the left insular cortex, which may also represent changes of acute ischemia, no intracranial hemorrhage noted. On 03/30/2019 transthoracic echocardiogram completed which showed no obvious evidence of an embolic source. On 03/31/2019 venous duplex completed to bilateral lower extremities negative for DVT. Patient lives in a 1 level home with spouse. Patient was independent with all mobility, ADLs, and driving prior to stroke. Patient does use a cane in the community. Plan - PT for mobility - OT for ADLs - ST speech and cognition - Analgesics PRN - Bowel protocol - Left MCA stroke post TPA - metoprolol, lipitor, Eliquis 2.5 mg bid - Paroxysmal atrial fibrillation on eliquis, metoprolol - HTN on metoprolol - CHF on metoprolol - Hypothyroidism on levothyroxine - GERD on protonix - Bladder outlet obstruction from BPH - on flomax and proscar, Jones re-inserted on 04/08/2019 d/t retention - Dr. Resendez to follow adn will D/C jones as outp atient. - Microcytic anemia 1 unit of PRBC on 04/08/2019, Hemoccult stool negative, ferrous sulfate BID, Hgb 7.5 on 04/11/19 stable - Hospitalist managing - DVT prophylaxis- SCDs, Knee-high teds - Fall precautions - Further medical management per hospitalist recommendation, hospitalist consult - F/U with PCP, Neurology, Cardiology, and Urology -
[2019-04-13] MEDS: Ferrous Sulfate 325 MG Tablet PO ×2 (12:06→17:00)
[2019-04-13 13:34] VITALS: BMI 22.1
--- NOTE | 2019-04-13 14:49 | CASEMGMT ---
Insurance: KEIKO spoke with Alejandrina Dennis at [facility]. Alejandrina stating pt could be d/c this weekend. SW spoke with PT/OT/SENIOR COMMISSIONS ANALYST. Staff does not feel pt is ready for d/c. Phone call to pt and she is also hesitant about pt return home. SW called Alejandrina and spoke with her about concerns. Alejandrina at [facility] granting continued stay with update due on Wednesday04/17/19. Auth# [id number] ISMA Dunaway
--- NOTE | 2019-04-13 14:53 | CASEMGMT ---
Social Work Pt, and staff updated on insurance decision for continued stay. Family training set up for tomorrow at 1000. will come in and PT/OT/ST/RN all notified of this. SW will continue to follow. ISMA Dunaway
[2019-04-13] MEDS: Tamsulosin HCl 0.4 MG Capsule PO (17:00)
[2019-04-13 19:21] VITALS: BP 127/71; PULSE 95; RESP 178; TEMP 36.4; O2SAT 99
[2019-04-13] MEDS: Atorvastatin Calcium 40 MG Tablet PO (21:34)
[2019-04-14 05:00] VITALS: BMI 22.1
[2019-04-14] MEDS: Levothyroxine 50 MCG Tablet PO (06:48)
[2019-04-14 07:28] VITALS: BP 121/68; PULSE 96; RESP 16; TEMP 36.6; O2SAT 96
[2019-04-14] MEDS: Finasteride 5 MG Tablet PO (07:49)
[2019-04-14] MEDS: APIXABAN 2.5 MG TABLET PO ×2 (07:49→20:13)
[2019-04-14 07:50] VITALS: PULSE 70
[2019-04-14] MEDS: Pantoprazole Sodium 40 MG Tablet PO (07:50)
[2019-04-14] MEDS: Metoprolol(XL)Succ 25 MG Tablet PO (07:50)
--- NOTE | 2019-04-14 10:25 | PCM.PN.NEU ---
Subjective: Per nursing no issues overnight. Jones catheter continues and urine is straw color. continues to discuss to increase fluid intake. Per patient is tolerating therapies well and denies further questions or concerns. - Physical Exam General: Alert, Oriented x3, Cooperative HEENT: Atraumatic, PERRLA Oral: Moist Mucosa Neck: Supple, No JVD Lungs: Clear to auscultation, Normal air movement Cardiovascular: Regular rate, Regular Rhythm Abdomen: Bowel Sounds Present, Soft, Non Tender Extremities: No clubbing, No cyanosis, No edema Musculoskeletal: No Tenderness to Palpation of Joints or Extremities Neurological: Cranial nerves II-XII grossly intact, Deep Tendon Reflexes 2+/4 and Symmetrical, Neuro grossly intact, - - Motor strenght 5/5 on Right side, Left upper and lower extremity 4/5 strength. speech slight slurred, at baseline has a stutter, NIH 1 Psych/Mental Status: Normal Affect, Appropriate, Alert and oriented to time, place, person, mood and affect Vital Signs Temp Pulse Resp BP Pulse Ox 97.8 F 70 16 121/68 H 96 04/14/19 07:28 04/14/19 07:50 04/14/19 07:28 04/14/19 07:28 04/14/19 07:28 Oxygen Delivery Method Room Air Weight: 72.5 kg Body Mass Index (BMI) 22.1 Finger Stick Blood Glucose 69 Intake and Output for Last 24 Hours 04/12/19 04/13/19 04/14/19 23:59 23:59 23:59 Intake Total 360 / 360 Output Total 275 / 275 1025 / 1025 Balance -275 / -275 -1025 / -1025 360 / 360 Medical Necessity - Tobacco Use Smoking Status: Never smoker Tobacco Use: Non-smoker Assessment/Plan The patient is a 78 year old M PMH paroxysmal atrial fibrillation, HTN, CHF, bradycardia post cardiac pacemaker, PVD, hypothyroidism, and GERD admitted [facility] IP RU on 04/06/2019 with debility secondary to Left acute arterial ischemic stroke, MCA for greater of 3 hours of therapy daily with a goal of returning back home at or near her prior level of functional dependence. Patient was previously admitted to [facility] on March 21 for new onset of CHF and Per relationship specialist's note pt had various cardiac arrhythmias with respect to sinus bradycardia, junctional rhythm, paroxysmal atrial fibrillation, and prolonged pauses and on 03/22/2019 PPM did show episodes of atrial fibrillation. 03/22/2019 EKG Patient was discharged home on March 28, 2019 with Jones catheter due to Bladder outlet obstruction from BPH, Dr. Resendez to follow. She returned back to [facility] emergency room on February 27, 2019 with Abrupt onset of aphasia, facial droop and weakness. NIH was 23. Diagnosis of left acute arterial ischemic stroke, MCA and patient received TPA and transferred to [facility]. At [facility] on 03/29/2019, patient had an endovascular stroke treatment of the left MCA M2 occlusion using the [place] stent retriever and circumflex system. There was reperfusion of the left MCA territory after 1 pass. On 03/30/2019 CT without contrast done for post TPA impression acute infarct of the left basal ganglia with involvement of the head of the left caudate, subtle loss of rai?white matter differentiation in the left insular cortex, which may also represent changes of acute ischemia, no intracranial hemorrhage noted. On 03/30/2019 transthoracic echocardiogram completed which showed no obvious evidence of an embolic source. On 03/31/2019 venous duplex completed to bilateral lower extremities negative for DVT. Patient lives in a 1 level home with spouse. Patient was independent with all mobility, ADLs, and driving prior to stroke. Patient does use a cane in the community. Plan - PT for mobility - OT for ADLs - ST speech and cognition - Analgesics PRN - Bowel protocol - Left MCA stroke post TPA - metoprolol, lipitor, Eliquis 2.5 mg bid - Paroxysmal atrial fibrillation on eliquis, metoprolol - HTN on metoprolol - CHF on metoprolol - Hypothyroidism on levothyroxine - GERD on protonix - Bladder outlet obstruction from BPH - on flomax and proscar, Jones re-inserted on 04/08/2019 d/t retention - Dr. Resendez to follow and will D/C jones as outpatient. - Microcytic anemia 1 unit of PRBC on 04/08/2019, Hemoccult stool negative, ferrous sulfate BID, Hgb 7.5 on 04/11/19 stable - Hospitalist managing - CKD 4 Cr 1.71 continue to monitor - DVT prophylaxis- SCDs, Knee-high teds - Fall precautions - Further medical management per hospitalist recommendation, hospitalist consult - F/U with PCP, Neurology, Cardiology, and Urology -
--- NOTE | 2019-04-14 10:33 | PN.NEURO_ITS ---
Subjective: Per nursing no issues overnight. Jones catheter continues and urine is straw color. continues to discuss to increase fluid intake. Per patient is tolerating therapies well and denies further questions or concerns. - Physical Exam General: Alert, Oriented x3, Cooperative HEENT: Atraumatic, PERRLA Oral: Moist Mucosa Neck: Supple, No JVD Lungs: Clear to auscultation, Normal air movement Cardiovascular: Regular rate, Regular Rhythm Abdomen: Bowel Sounds Present, Soft, Non Tender Extremities: No clubbing, No cyanosis, No edema Musculoskeletal: No Tenderness to Palpation of Joints or Extremities Neurological: Cranial nerves II-XII grossly intact, Deep Tendon Reflexes 2+/4 and Symmetrical, Neuro grossly intact, - - Motor strenght 5/5 on Right side, Left upper and lower extremity 4/5 strength. speech slight slurred, at baseline has a stutter, NIH 1 Psych/Mental Status: Normal Affect, Appropriate, Alert and oriented to time, place, person, mood and affect Vital Signs Temp Pulse Resp BP Pulse Ox 97.8 F 70 16 121/68 H 96 04/14/19 07:28 04/14/19 07:50 04/14/19 07:28 04/14/19 07:28 04/14/19 07:28 Oxygen Delivery Method Room Air Weight: 72.5 kg Body Mass Index (BMI) 22.1 Finger Stick Blood Glucose 69 Intake and Output for Last 24 Hours 04/12/19 04/13/19 04/14/19 23:59 23:59 23:59 Intake Total 360 / 360 Output Total 275 / 275 1025 / 1025 Balance -275 / -275 -1025 / -1025 360 / 360 Medical Necessity - Tobacco Use Smoking Status: Never smoker Tobacco Use: Non-smoker Assessment/Plan The patient is a 78 year old M PMH paroxysmal atrial fibrillation, HTN, CHF, bradycardia post cardiac pacemaker, PVD, hypothyroidism, and GERD admitted to [facility] IP RU on 04/06/2019 with debility secondary to Left acute arterial ischemic stroke, MCA for greater of 3 hours of therapy daily with a goal of returning back home at or near her prior level of functional dependence. Patient was previously admitted to [facility] on March 21 for new onset of CHF and Per director bioinformatics's note pt had various cardiac arrhythmias with respect to sinus bradycardia, junctional rhythm, paroxysmal atrial fibrillation, and prolonged pauses and on 03/22/2019 PPM did show episodes of atrial fibrillation. 03/22/2019 EKG Patient was discharged home on March 28, 2019 with Jones catheter due to Bladder outlet obstruction from BPH, Dr. Resendez to follow. She returned back to [facility] emergency room on February 27, 2019 with Abrupt onset of aphasia, facial droop and weakness. NIH was 23. Diagnosis of left acute arterial ischemic stroke, MCA and patient received TPA and transferred to [facility]. At [facility] on 03/29/2019, patient had an endovascular stroke treatment of the left MCA M2 occlusion using the [place] stent retriever and circumflex system. There was reperfusion of the left MCA territory after 1 pass. On 03/30/2019 CT without contrast done for post TPA impression acute infarct of the left basal ganglia with involvement of the head of the left caudate, subtle loss of rai?white matter differentiation in the left insular cortex, which may also represent changes of acute ischemia, no intracranial hemorrhage noted. On 03/30/2019 tr ansthoracic echocardiogram completed which showed no obvious evidence of an embolic source. On 03/31/2019 venous duplex completed to bilateral lower extremities negative for DVT. Patient lives in a 1 level home with spouse. Patient was independent with all mobility, ADLs, and driving prior to stroke. Patient does use a cane in the community. Plan - PT for mobility - OT for ADLs - ST speech and cognition - Analgesics PRN - Bowel protocol - Left MCA stroke post TPA - metoprolol, lipitor, Eliquis 2.5 mg bid - Paroxysmal atrial fibrillation on eliquis, metoprolol - HTN on metoprolol - CHF on metoprolol - Hypothyroidism on levothyroxine - GERD on protonix - Bladder outlet obstruction from BPH - on flomax and proscar, Jones re-inserted on 04/08/2019 d/t retention - Dr. Resendez to follow and will D/C jones as outpatient. - Microcytic anemia 1 unit of PRBC on 04/08/2019, Hemoccult stool negative, ferrous sulfate BID, Hgb 7.5 on 04/11/19 stable - Hospitalist managing - CKD 4 Cr 1.71 continue to monitor - DVT prophylaxis- SCDs, Knee-high teds - Fall precautions - Further medical management per hospitalist recommendation, hospitalist consult - F/U with PCP, Neurology, Cardiology, and Urology -
[2019-04-14] MEDS: Ferrous Sulfate 325 MG Tablet PO ×2 (12:08→16:38)
[2019-04-14 12:26] VITALS: BMI 22.1
[2019-04-14] MEDS: Tamsulosin HCl 0.4 MG Capsule PO (16:38)
[2019-04-14 19:56] VITALS: BP 112/64; PULSE 69; RESP 18; TEMP 36.7; O2SAT 95
[2019-04-14] MEDS: Atorvastatin Calcium 40 MG Tablet PO (20:13)
[2019-04-14 22:26] VITALS: BMI 22.1
[2019-04-15] MEDS: Levothyroxine 50 MCG Tablet PO (05:38)
[2019-04-15 07:00] VITALS: BP 122/71; PULSE 87; RESP 20; TEMP 36.7; O2SAT 94
[2019-04-15 08:04] LABS: Absolute Lymphocyte Count 1.38 X10^3/ul (0.83-4.51); Basophil# 0.07 X10^3/uL; Basophil% 0.7 % (0-1); Eosinophil# 0.57 X10^3/uL; Eosinophils% 5.8 % (0-5); Hematocrit 27.3 % (40-54); Hemoglobin 8.4 g/dl (13.0-16.5); Lymphocyte # 1.38 X10^3/ul (4.0); Mean Corp Hgb Conc 30.8 g/gl (32-36); Mean Platelet Vol. 9.5 fl (6.2-12.0); Monocyte# 0.81 X10^3/uL; Monocyte% 8.2 % (0-10); Neutrophil # 6.97 X10^3/uL (2.7-7.7); Platelet Count 602 K/mm3 (150-450); RBC Distribution Width CV 20.2 % (11.6-14.6); RBC Distribution Width SD 57.4 fl (35.1-43.9); White Blood Count 9.8 K/mm3 (4.4-11.0)
[2019-04-15 08:06] LABS: Differential Indicated SCAN CRITERIA MET; POSITIVE COUNT NO; POSITIVE DIFFERENTIAL NO; POSITIVE MORPHOLOGY YES
[2019-04-15 08:16] LABS: Anion Gap 6 (5-15); BUN 54 mg/dL (7-18); BUN/Creat Ratio 30.7 RATIO (10-20); Calcium,Total 8.6 mg/dL (8.5-10.1); Chloride 116 mmol/L (98-107); Creatinine, Serum 1.76 mg/dL (0.70-1.30); EST Glomerular Filtration Rate 40 mL/min (>60); Est Glom Filt Rate - Afr Amer 48 mL/min (>60); Estimated Creatinine Clearance 35.47 ml/min; Glucose 91 mg/dL (74-106); Potassium 4.1 mmol/L (3.5-5.1); Sodium Level 145 mmol/L (136-145)
[2019-04-15 08:28] VITALS: PULSE 77
[2019-04-15] MEDS: Metoprolol(XL)Succ 25 MG Tablet PO (08:28)
[2019-04-15] MEDS: APIXABAN 2.5 MG TABLET PO ×2 (08:28→20:49)
[2019-04-15] MEDS: Pantoprazole Sodium 40 MG Tablet PO (08:28)
[2019-04-15] MEDS: Finasteride 5 MG Tablet PO (08:29)
[2019-04-15 08:44] LABS: Anisocytosis 2+; Hypochromasia 1+; Platelet Estimate SLT INC (ADEQ)
[2019-04-15] MEDS: Ferrous Sulfate 325 MG Tablet PO ×2 (12:06→17:06)
--- NOTE | 2019-04-15 13:49 | PN_ITS ---
Subjective: feeling well. no complaints. plan on DC 04/17. Vitals/I&O's: Vital Signs Temp Pulse Resp BP Pulse Ox 36.7 C 77 20 H 122/71 H 94 04/15/19 07:00 04/15/19 08:28 04/15/19 07:00 04/15/19 07:00 04/15/19 07:00 Oxygen Delivery Method Room Air Weight: 72.5 kg Body Mass Index (BMI) 22.1 Finger Stick Blood Glucose 69 Intake and Output for Last 24 Hours 04/13/19 04/14/19 04/15/19 23:59 23:59 23:59 Intake Total 720 / 720 720 / 720 Output Total 1025 / 1025 Balance -1025 / -1025 720 / 720 720 / 720 General: Alert, No apparent distress, - - up in chair. afebrile. HEENT: Atraumatic, Normocephalic Oral: Moist Mucosa, No Gingival or Mucosal Lesions/ Ulcerations Neck: No Nodes, Thyroid Normal Size and Texture Lungs: Clear to auscultation, Normal air movement, No rhonchi, No wheeze Cardiovascular: Regular rate, Regular Rhythm, Normal S1, Normal S2 Abdomen: Bowel Sounds Present, Soft, Non Tender, Non-Distended, No Hepato- splenomegaly, - - david urine in jones bag Extremities: No edema, No Calf Tenderness Psych/Mental Status: Normal Affect, Appropriate Laboratory Results 04/15/19 07:26: WBC 9.8, RBC 3.50 L, Hgb 8.4 L, Hct 27.3 L, MCV 78.0 L, MCH 24.0 L, MCHC 30.8 L, RDW 20.2 H, RDW Differential 57.4 H, Plt Count 602 H, MPV 9.5, Immature Gran % (Auto) 0.300, Neut % (Auto) 71.0 H, Lymph % (Auto) 14.0 L, Porter % (Auto) 8.2, Eos % (Auto) 5.8 H, Baso % (Auto) 0.7, Absolute Neuts (auto) 7.0, Absolute Lymphs (auto) 1.38, Total Counted Not Reportable, Platelet Estimate SLT INC, Hypochromasia 1+, Anisocytosis 2+ 04/15/19 07:26: Sodium 145, Potassium 4.1, Chloride 116 H, Carbon Dioxide 23.0, Anion Gap 6, BUN 54 H, Creatinine 1.76 H, Estim Creat Clear Calc 35.47, Est GFR (MDRD) Af Amer 48 L, Est GFR (MDRD) Non-Af 40 L, BUN/Creatinine Ratio 30.7 H, Glucose 91, Calcium 8.6 Current Medications Acetaminophen (Tylenol) 650 mg PO Q6H PRN PRN PRN Reason: Mild Pain (0-3/10)/Headache Apixaban (Eliquis) 2.5 mg PO BID PENDING SALE TO [facility] Last Admin: 04/15/19 08:28 Dose: 2.5 mg Atorvastatin Calcium (Lipitor) 40 mg PO QHS PENDING SALE TO [facility] Last Admin: 04/14/19 20:13 Dose: 40 mg Bisacodyl (Dulcolax) 10 mg RECTAL .PRN X 1 PRN PRN Reason: Constipation Ferrous Sulfate (Ferrous Sulfate) 325 mg PO 1200,1700 PENDING SALE TO [facility] Last Admin: 04/15/19 12:06 Dose: 325 mg Finasteride (Proscar) 5 mg PO DAILY PENDING SALE TO [facility] Last Admin: 04/15/19 08:29 Dose: 5 mg Lactobacillus Acidophilus (Acidophilus) 1 tablet PO BID PENDING SALE TO [facility] Last Admin: 04/15/19 08:29 Dose: 1 tablet Levothyroxine Sodium (Synthroid) 50 mcg PO DAILY@0600 PENDING SALE TO [facility] Last Admin: 04/15/19 05:38 Dose: 50 mcg Magnesium Hydroxide (Milk Of Magnesia) 30 ml PO .PRN X 1 PRN PRN Reason: Constipation Metoprolol Succinate (Toprol Xl (Beta Daryl)) 25 mg PO DAILY PENDING SALE TO [facility] Last Admin: 04/15/19 08:28 Dose: 25 mg Pantoprazole Sodium (Protonix) 40 mg PO DAILY PENDING SALE TO [facility] Last Admin: 04/15/19 08:28 Dose: 40 mg Senna/Docusate Sodium (Senokot-S, April-Colace) 2 tablet PO BID PRN PRN PRN Reason: Constipation Sodium Chloride () 5 - 15 ml IV UD PRN PRN Reason: SALINE FLUSH Last Admin: 04/13/19 22:05 Dose: 10 ml Tamsulosin HCl (Flomax) 0.4 mg PO DAILY@1730 PENDING SALE TO [facility] Last Admin: 04/14/19 16:38 Dose: 0.4 mg Medical Necessity - Tobacco Use Smoking Status: Never smoker Tobacco Use: Non-smoker Assessment/Plan 1. microcytic anemia * improved after transfusion, stable * has been anemic since February 2019, previously in July 2018, was 12 * iron low, ferritin normal, but will start Ferrous Sulfate BID * source: ? GI? 2. pAfib * currently rate-controlled * continue Metoprolol * agree with apixaban 3. CKD4 * improved from February * monitor * avoid nephrotoxic agents 4. Left MCA CVA * s/p TPA and thrombectomy * ASA dc'd, started on Eliquis 5. VTE proph: anticoagulated. 6. Hematuria: * resolved * 2/2 catheter + apixaban. * Urology on consult 7. Urinary retention: * likely 2/2 BPH. * already on Flomax. * started on Proscar on 04/12 * Continue catheter for now. * Follow up with as outpt. Code Visit Inpatient E&M: 28604 Subs Hosp L2
[2019-04-15 17:00] VITALS: BMI 22.1
[2019-04-15] MEDS: Tamsulosin HCl 0.4 MG Capsule PO (17:06)
[2019-04-15 20:30] VITALS: BP 107/59; PULSE 61; RESP 20; TEMP 36.6; O2SAT 95
[2019-04-15] MEDS: Atorvastatin Calcium 40 MG Tablet PO (20:49)
[2019-04-15 21:13] VITALS: BMI 22.1
[2019-04-16] MEDS: Levothyroxine 50 MCG Tablet PO (05:48)
[2019-04-16 07:47] VITALS: BP 125/76; PULSE 90; RESP 16; TEMP 36.8; O2SAT 96
[2019-04-16 07:52] VITALS: BP 125/76; PULSE 90
[2019-04-16] MEDS: Metoprolol(XL)Succ 25 MG Tablet PO (07:52)
[2019-04-16] MEDS: Pantoprazole Sodium 40 MG Tablet PO (07:53)
[2019-04-16] MEDS: APIXABAN 2.5 MG TABLET PO ×2 (07:53→21:50)
[2019-04-16] MEDS: Finasteride 5 MG Tablet PO (07:53)
[2019-04-16] MEDS: Ferrous Sulfate 325 MG Tablet PO ×2 (11:50→16:48)
[2019-04-16 12:14] VITALS: BMI 22.1
--- NOTE | 2019-04-16 12:54 | NURSING ---
pt assisted to WC, took pt outside for fresh air
[2019-04-16] MEDS: Tamsulosin HCl 0.4 MG Capsule PO (16:48)
--- NOTE | 2019-04-16 17:21 | NURSING ---
reviewed and agree with BAT PERSON's FIMS and charting.
[2019-04-16 21:38] VITALS: BP 114/64; PULSE 61; RESP 16; TEMP 36.6; O2SAT 97
[2019-04-16] MEDS: Atorvastatin Calcium 40 MG Tablet PO (21:49)
[2019-04-16 22:20] VITALS: BMI 22.1
[2019-04-17] MEDS: Levothyroxine 50 MCG Tablet PO (05:58)
[2019-04-17 07:57] VITALS: PULSE 68
[2019-04-17] MEDS: Finasteride 5 MG Tablet PO (07:57)
[2019-04-17] MEDS: APIXABAN 2.5 MG TABLET PO ×2 (07:57→21:49)
[2019-04-17] MEDS: Pantoprazole Sodium 40 MG Tablet PO (07:57)
[2019-04-17] MEDS: Metoprolol(XL)Succ 25 MG Tablet PO (07:57)
[2019-04-17 08:15] VITALS: BP 114/67; PULSE 70; RESP 18; TEMP 36.7; O2SAT 96
[2019-04-17 08:22] VITALS: BMI 22.1
--- NOTE | 2019-04-17 11:10 | PCM.PN.NEU ---
Subjective: Per nursing no issues overnight. Team meeting held this am with present. Patient supervision with transfers and mobility and at times min assist with ADLs. Patient continues on puree with honey thickened liquids and weir water protocol. housekeeping worker updating insurance for continuation of stay. Patient and spouse denied further questions. - Physical Exam General: Alert, Oriented x3, Cooperative HEENT: Atraumatic, PERRLA Oral: Moist Mucosa Neck: Supple, No JVD Lungs: Clear to auscultation, Normal air movement Cardiovascular: Regular rate, Regular Rhythm Abdomen: Bowel Sounds Present, Soft, Non Tender Extremities: No clubbing, No cyanosis, No edema Musculoskeletal: No Tenderness to Palpation of Joints or Extremities Neurological: - - Cranial nerves II-XII grossly intact, Deep Tendon Reflexes 2+/4 and Symmetrical, Neuro grossly intact, Motor strenght 5/5 on Right side, Left upper and lower extremity 4/5 strength. speech slight slurred, at baseline has a stutter, NIH 1 Psych/Mental Status: Normal Affect, Appropriate, Alert and oriented to time, place, person, mood and affect Vital Signs Temp Pulse Resp BP Pulse Ox 98.1 F 70 18 114/67 96 04/17/19 08:15 04/17/19 08:15 04/17/19 08:15 04/17/19 08:15 04/17/19 08:15 Oxygen Delivery Method Room Air Weight: 72.5 kg Body Mass Index (BMI) 22.1 Finger Stick Blood Glucose 69 Intake and Output for Last 24 Hours 04/15/19 04/16/19 04/17/19 23:59 23:59 23:59 Intake Total 1080 / 1080 360 / 360 240 / 240 Output Total 1400 / 1400 800 / 800 Balance 1080 / 1080 -1040 / -1040 -560 / -560 Medical Necessity - Tobacco Use Smoking Status: Never smoker Tobacco Use: Non-smoker Assessment/Plan The patient is a 78 year old M PMH paroxysmal atrial fibrillation, HTN, CHF, bradycardia post cardiac pacemaker, PVD, hypothyroidism, and GERD admitted [facility] IP RU on 04/06/2019 with debility secondary to Left acute arterial ischemic stroke, MCA for greater of 3 hours of therapy daily with a goal of returning back home at or near her prior level of functional dependence. Patient was previously admitted to [facility] on March 21 for new onset of CHF and Per clinical information systems director's note pt had various cardiac arrhythmias with respect to sinus bradycardia, junctional rhythm, paroxysmal atrial fibrillation, and prolonged pauses and on 03/22/2019 PPM did show episodes of atrial fibrillation. 03/22/2019 EKG Patient was discharged home on March 28, 2019 with Jones catheter due to Bladder outlet obstruction from BPH, Dr. Resendez to follow. She returned back to [facility] [place] emergency room on February 27, 2019 with Abrupt onset of aphasia, facial droop and weakness. NIH was 23. Diagnosis of left acute arterial ischemic stroke, MCA and patient received TPA and transferred to [facility]. At [facility] on 03/29/2019, patient had an endovascular stroke treatment of the left MCA M2 occlusion using the [place] stent retriever and circumflex system. There was reperfusion of the left MCA territory after 1 pass. On 03/30/2019 CT without contrast done for post TPA impression acute infarct of the left basal ganglia with involvement of the head of the left caudate, subtle loss of rai?white matter differentiation in the left insular cortex, which may also represent changes of acute ischemia, no intracranial hemorrhage noted. On 03/30/2019 transthoracic echocardiogram completed which showed no obvious evidence of an embolic source. On 03/31/2019 venous duplex completed to bilateral lower extremities negative for DVT. Patient lives in a 1 level home with spouse. Patient was independent with all mobility, ADLs, and driving prior to stroke. Patient does use a cane in the community. Plan - PT for mobility - OT for ADLs - ST speech and cognition - Analgesics PRN - Bowel protocol - Left MCA stroke post TPA - metoprolol, lipitor, Eliquis 2.5 mg bid - Paroxysmal atrial fibrillation on eliquis, metoprolol - HTN on metoprolol - CHF on metoprolol - Hypothyroidism on levothyroxine - GERD on protonix - Bladder outlet obstruction from BPH - on flomax and proscar, Jones re-inserted on 04/08/2019 d/t retention - Dr. Resendez to follow and will D/C jones as outpatient. - Microcytic anemia 1 unit of PRBC on 04/08/2019, Hemoccult stool negative, ferrous sulfate BID, Hgb 8.4 on 04/15/19 stable - Hospitalist managing - CKD 4 Cr 1.76 on 04/15 continue to monitor - DVT prophylaxis- SCDs, Knee-high teds - Fall precautions - Further medical management per hospitalist recommendation, hospitalist consult - F/U with PCP, Neurology, Cardiology, and Urology -
--- NOTE | 2019-04-17 11:14 | PN.NEURO_ITS ---
Subjective: Per nursing no issues overnight. Team meeting held this am with present. Patient supervision with transfers and mobility and at times min assist with ADLs. Patient continues on puree with honey thickened liquids and weir water protocol. s iron worker updating insurance for continuation of stay. Patient and spouse denied further questions. - Physical Exam General: Alert, Oriented x3, Cooperative HEENT: Atraumatic, PERRLA Oral: Moist Mucosa Neck: Supple, No JVD Lungs: Clear to auscultation, Normal air movement Cardiovascular: Regular rate, Regular Rhythm Abdomen: Bowel Sounds Present, Soft, Non Tender Extremities: No clubbing, No cyanosis, No edema Musculoskeletal: No Tenderness to Palpation of Joints or Extremities Neurological: - - Cranial nerves II-XII grossly intact, Deep Tendon Reflexes 2+/4 and Symmetrical, Neuro grossly intact, Motor strenght 5/5 on Right side, Left upper and lower extremity 4/5 strength. speech slight slurred, at baseline has a stutter, NIH 1 Psych/Mental Status: Normal Affect, Appropriate, Alert and oriented to time, place, person, mood and affect Vital Signs Temp Pulse Resp BP Pulse Ox 98.1 F 70 18 114/67 96 04/17/19 08:15 04/17/19 08:15 04/17/19 08:15 04/17/19 08:15 04/17/19 08:15 Oxygen Delivery Method Room Air Weight: 72.5 kg Body Mass Index (BMI) 22.1 Finger Stick Blood Glucose 69 Intake and Output for Last 24 Hours 04/15/19 04/16/19 04/17/19 23:59 23:59 23:59 Intake Total 1080 / 1080 360 / 360 240 / 240 Output Total 1400 / 1400 800 / 800 Balance 1080 / 1080 -1040 / -1040 -560 / -560 Medical Necessity - Tobacco Use Smoking Status: Never smoker Tobacco Use: Non-smoker Assessment/Plan The patient is a 78 year old M PMH paroxysmal atrial fibrillation, HTN, CHF, bradycardia post cardiac pacemaker, PVD, hypothyroidism, and GERD admitted to [facility] on 04/06/2019 with debility secondary to Left acute arterial ischemic stroke, MCA for greater of 3 hours of therapy daily with a goal of returning back home at or near her prior level of functional dependence. Patient was previously admitted to [facility] on March 21 for new onset of CHF and Per gas analyst's note pt had various cardiac arrhythmias with respect to sinus bradycardia, junctional rhythm, paroxysmal atrial fibrillation, and prolonged pauses and on 03/22/2019 PPM did show episodes of atrial fibrillation. 03/22/2019 EKG Patient was discharged home on March 28, 2019 with Jones catheter due to Bladder outlet obstruction from BPH, Dr. Resendez to follow. She returned back to [facility] emergency room on February 27, 2019 with Abrupt onset of aphasia, facial droop and weakness. NIH was 23. Diagnosis of left acute arterial ischemic stroke, MCA and patient received TPA and transferred to [facility]. At [facility] on 03/29/2019, patient had an endovascular stroke treatment of the left MCA M2 occlusion using the [place] stent retriever and circumflex system. There was reperfusion of the left MCA territory after 1 pass. On 03/30/2019 CT without contrast done for post TPA impression acute infarct of the left basal ganglia with involvement of the head of the left caudate, subtle loss of rai?white matter differentiation in the left insular cortex, which may also represent changes of acute ischemia, no intracranial hemorrhage noted. On 03/30/2019 transthoracic echocardiogram completed which showed no obvious evidence of an embolic source. On 03/31/2019 venous duplex completed to bilateral lower extremities negative for DVT. Patient lives in a 1 level home with spouse. Patient was independent with all mobility, ADLs, and driving prior to stroke. Patient does use a cane in the community. Plan - PT for mobility - OT for ADLs - ST speech and cognition - Analgesics PRN - Bowel protocol - Left MCA stroke post TPA - metoprolol, lipitor, Eliquis 2.5 mg bid - Paroxysmal atrial fibrillation on eliquis, metoprolol - HTN on metoprolol - CHF on metoprolol - Hypothyroidism on levothyroxine - GERD on protonix - Bladder outlet obstruction from BPH - on flomax and proscar, Jones re-inserted on 04/08/2019 d/t retention - Dr. Resendez to follow and will D/C jones as ou tpatient. - Microcytic anemia 1 unit of PRBC on 04/08/2019, Hemoccult stool negative, ferrous sulfate BID, Hgb 8.4 on 04/15/19 stable - Hospitalist managing - CKD 4 Cr 1.76 on 04/15 continue to monitor - DVT prophylaxis- SCDs, Knee-high teds - Fall precautions - Further medical management per hospitalist recommendation, hospitalist consult - F/U with PCP, Neurology, Cardiology, and Urology -
--- NOTE | 2019-04-17 11:35 | CASEMGMT ---
Insurance: Clinical update faxed. Auth # [id number] ISMA Dunaway
--- NOTE | 2019-04-17 11:51 | CASEMGMT ---
Team meeting held with pt and present. Pt is receiving PT/OT/ST and continuing to improve with therapy. Insurance update due today and continued stay is not guaranteed. Pt has had family training and acknowledges she feels she can care for pt at home. Pt will need home health PT/OT/ST/SN/STONEWORKING SANDER and would like to use [facility]. Pt has a wheeled walker, bedside commode and comfort height toilet. Pt will need a straight cane at discharge. SW to submit insurance update and will notify team and family of insurance decision. ISMA Dunaway
[2019-04-17] MEDS: Ferrous Sulfate 325 MG Tablet PO ×2 (12:01→17:08)
--- NOTE | 2019-04-17 12:22 | CASEMGMT ---
Social Work Referral made to Angelia at [facility] and they are able to accept. Will need to notify with final d/c date. Script for Cane will need to be given to pt and she can pick cane up at [facility]. Will continue to follow. Plan: d/c home with with [facility] PT/OT/ST/RN/RETAIL GROCER, date of d/c pending insurance denial. ISMA Dunaway
--- NOTE | 2019-04-17 16:00 | NURSING ---
aware of Dr. Dipti esteban for tomorrow and she will transfer him to [facility].
[2019-04-17] MEDS: Tamsulosin HCl 0.4 MG Capsule PO (17:08)
[2019-04-17 18:42] VITALS: BP 118/70; PULSE 84; RESP 16; TEMP 36.8; O2SAT 95
[2019-04-17 19:45] VITALS: BMI 22.1
[2019-04-17 20:15] VITALS: PULSE 84; RESP 16
[2019-04-17] MEDS: Atorvastatin Calcium 40 MG Tablet PO (21:49)
[2019-04-18] MEDS: Levothyroxine 50 MCG Tablet PO (05:44)
[2019-04-18 07:00] VITALS: BP 118/66; PULSE 83; RESP 18; TEMP 36.7; O2SAT 97
[2019-04-18 07:59] VITALS: PULSE 67
[2019-04-18] MEDS: Metoprolol(XL)Succ 25 MG Tablet PO (07:59)
[2019-04-18] MEDS: APIXABAN 2.5 MG TABLET PO ×2 (07:59→20:24)
[2019-04-18] MEDS: Finasteride 5 MG Tablet PO (07:59)
[2019-04-18] MEDS: Pantoprazole Sodium 40 MG Tablet PO (07:59)
--- NOTE | 2019-04-18 10:43 | PCM.PN.NEU ---
Subjective: Per nursing no issues overnight. Patient has appointment with Dr. Resendez today for catheter reassessment. Patient states he is tolerating therapies well and is benefiting from rehab. Denies further questions or concerns. - Physical Exam General: Alert, Oriented x3, Cooperative HEENT: Atraumatic, PERRLA Oral: Moist Mucosa Neck: Supple, No JVD Lungs: Clear to auscultation, Normal air movement Cardiovascular: Regular rate, Regular Rhythm Abdomen: Bowel Sounds Present, Soft, Non Tender Extremities: No clubbing, No cyanosis, No edema Musculoskeletal: No Tenderness to Palpation of Joints or Extremities Neurological: - - Cranial nerves II-XII grossly intact, Deep Tendon Reflexes 2+/4 and Symmetrical, Neuro grossly intact, Motor strenght 5/5 on Right side, Left upper and lower extremity 4/5 strength. speech slight slurred, at baseline has a stutter, NIH 1 Psych/Mental Status: Normal Affect, Appropriate, Alert and oriented to time, place, person, mood and affect Vital Signs Temp Pulse Resp BP Pulse Ox 98.0 F 67 18 118/66 97 04/18/19 07:00 04/18/19 07:59 04/18/19 07:00 04/18/19 07:00 04/18/19 07:00 Oxygen Delivery Method Room Air Weight: 72.5 kg Body Mass Index (BMI) 22.1 Finger Stick Blood Glucose 69 Intake and Output for Last 24 Hours 04/16/19 04/17/19 04/18/19 23:59 23:59 23:59 Intake Total 360 / 360 240 / 240 60 / 60 Output Total 1400 / 1400 1200 / 1200 650 / 650 Balance -1040 / -1040 -960 / -960 -590 / -590 Medical Necessity - Tobacco Use Smoking Status: Never smoker Tobacco Use: Non-smoker Assessment/Plan The patient is a 78 year old M H paroxysmal atrial fibrillation, HTN, CHF, bradycardia post cardiac pacemaker, PVD, hypothyroidism, and GERD admitted [facility] IP on 04/06/2019 with debility secondary to Left acute arterial ischemic stroke, MCA for greater of 3 hours of therapy daily with a goal of returning back home at or near her prior level of functional dependence. Patient was previously admitted to [facility] on March 21 for new onset of CHF and Per digital content coordinator's note pt had various cardiac arrhythmias with respect to sinus bradycardia, junctional rhythm, paroxysmal atrial fibrillation, and prolonged pauses and on 03/22/2019 PPM did show episodes of atrial fibrillation. 03/22/2019 EKG Patient was discharged home on March 28, 2019 with Jones catheter due to Bladder outlet obstruction from BPH, Dr. Resendez to follow. She returned back to [facility] emergency room on February 27, 2019 with Abrupt onset of aphasia, facial droop and weakness. NIH was 23. Diagnosis of left acute arterial ischemic stroke, MCA and patient received TPA and transferred to [facility]. At [facility] on 03/29/2019, patient had an endovascular stroke treatment of the left MCA M2 occlusion using the [place] stent retriever and circumflex system. There was reperfusion of the left MCA territory after 1 pass. On 03/30/2019 CT without contrast done for post TPA impression acute infarct of the left basal ganglia with involvement of the head of the left caudate, subtle loss of rai?white matter differentiation in the left insular cortex, which may also represent changes of acute ischemia, no intracranial hemorrhage noted. On 03/30/2019 transthoracic echocardiogram completed which showed no obvious evidence of an embolic source. On 03/31/2019 venous duplex completed to bilateral lower extremities negative for DVT. Patient lives in a 1 level home with spouse. Patient was independent with all mobility, ADLs, and driving prior to stroke. Patient does use a cane in the community. Plan - PT for mobility - OT for ADLs - ST speech and cognition - Analgesics PRN - Bowel protocol - Left MCA stroke post TPA - metoprolol, lipitor, Eliquis 2.5 mg bid - Paroxysmal atrial fibrillation on eliquis, metoprolol - HTN on metoprolol - CHF on metoprolol - Hypothyroidism on levothyroxine - GERD on protonix - Bladder outlet obstruction from BPH - on flomax and proscar, Jones re-inserted on 04/08/2019 d/t retention - Dr. Resendez to follow and will D/C jones as outpatient. Appointment 04/18/19. - Microcytic anemia 1 unit of PRBC on 04/08/2019, Hemoccult stool negative, ferrous sulfate BID, Hgb 8.4 on 04/15/19 stable recheck on 04/19/19- Hospitalist managing - CKD 4 Cr 1.76 on 04/15 continue to monitor Recheck on 04/19/19 - DVT prophylaxis- SCDs, Knee-high teds - Fall precautions - Further medical management per hospitalist recommendation, hospitalist consult - F/U with PCP, Neurology, Cardiology, Pediatric Rn and Urology -
--- NOTE | 2019-04-18 10:45 | CASEMGMT ---
Insurance Multiple attempts yesterday to fax clinical update. Fax not going through. Spoke with Alejandrina at [facility] who states there are fax issues and requested fax be sent on 04/18. This morning Alejandrina provided new fax number. Clinical update faxed. Phone call to Alejandrina and informed her that fax was faxed and receipt states it went through. Alejandrina also notified pt will go to Urologist today to check on catheter and if removed, OFFICE MACHINE INSPECTOR feels pt would benefit to stay in facility to monitor pt ability to urinate without the cath. Will await continued stay determination. Auth# [id number] ISMA Dunaway
--- NOTE | 2019-04-18 10:46 | PN.NEURO_ITS ---
Subjective: Per nursing no issues overnight. Patient has appointment with Dr. Resendez today for catheter reassessment. Patient states he is tolerating therapies well and is benefiting from rehab. Denies further questions or concerns. - Physical Exam General: Alert, Oriented x3, Cooperative HEENT: Atraumatic, PERRLA Oral: Moist Mucosa Neck: Supple, No JVD Lungs: Clear to auscultation, Normal air movement Cardiovascular: Regular rate, Regular Rhythm Abdomen: Bowel Sounds Present, Soft, Non Tender Extremities: No clubbing, No cyanosis, No edema Musculoskeletal: No Tenderness to Palpation of Joints or Extremities Neurological: - - Cranial nerves II-XII grossly intact, Deep Tendon Reflexes 2+ /4 and Symmetrical, Neuro grossly intact, Motor strenght 5/5 on Right side, Left upper and lower extremity 4/5 strength. speech slight slurred, at baseline has a stutter, NIH 1 Psych/Mental Status: Normal Affect, Appropriate, Alert and oriented to time, place, person, mood and affect Vital Signs Temp Pulse Resp BP Pulse Ox 98.0 F 67 18 118/66 97 04/18/19 07:00 04/18/19 07:59 04/18/19 07:00 04/18/19 07:00 04/18/19 07:00 Oxygen Delivery Method Room Air Weight: 72.5 kg Body Mass Index (BMI) 22.1 Finger Stick Blood Glucose 69 Intake and Output for Last 24 Hours 04/16/19 04/17/19 04/18/19 23:59 23:59 23:59 Intake Total 360 / 360 240 / 240 60 / 60 Output Total 1400 / 1400 1200 / 1200 650 / 650 Balance -1040 / -1040 -960 / -960 -590 / -590 Medical Necessity - Tobacco Use Smoking Status: Never smoker Tobacco Use: Non-smoker Assessment/Plan The patient is a 78 year old M H paroxysmal atrial fibrillation, HTN, CHF, bradycardia post cardiac pacemaker, PVD, hypothyroidism, and GERD admitted to [facility] on 04/06/2019 with debility secondary to Left acute arterial ischemic stroke, MCA for greater of 3 hours of therapy daily with a goal of returning back home at or near her prior level of functional dependence. Patient was previously admitted to [facility] on March 21 for new onset of CHF and Per hammerer helper's note pt had various cardiac arrhythmias with respect to sinus bradycardia, junctional rhythm, paroxysmal atrial fibrillation, and prolonged pauses and on 03/22/2019 PPM did show episodes of atrial fibrillation. 03/22/2019 EKG Patient was discharged home on March 28, 2019 with Jones catheter due to Bladder outlet obstruction from BPH, Dr. Resendez to follow. She returned back to [facility] emergency room on February 27, 2019 with Abrupt onset of aphasia, facial droop and weakness. NIH was 23. Diagnosis of left acute arterial ischemic stroke, MCA and patient received TPA and transferred to [facility]. At [facility] on 03/29/2019, patient had an endovascular stroke treatment of the left MCA M2 occlusion using the [place] stent retriever and circumflex system. There was reperfusion of the left MCA territory after 1 pass. On 03/30/2019 CT without contrast done for post TPA impression acute infarct of the left basal ganglia with involvement of the head of the left caudate, subtle loss of rai?white matter differentiation in the left insular cortex, which may also represent changes of acute ischemia, no intracranial hemorrhage noted. On 03/30/2019 transthoracic echocardiogram completed which showed no obvious evidence of an embolic source. On 03/31/2019 venous duplex completed to bilateral lower extremities negative for DVT. Patient lives in a 1 level home with spouse. Patient was independent with all mobility, ADLs, and driving prior to stroke. Patient does use a cane in the community. Plan - PT for mobility - OT for ADLs - ST speech and cognition - Analgesics PRN - Bowel protocol - Left MCA stroke post TPA - metoprolol, lipitor, Eliquis 2.5 mg bid - Paroxysmal atrial fibrillation on eliquis, metoprolol - HTN on metoprolol - CHF on metoprolol - Hypothyroidism on levothyroxine - GERD on protonix - Bladder outlet obstruction from BPH - on flomax and proscar, Jones re-inserted on 04/08/2019 d/t retention - Dr. Resendez to follow and will D/C jones as outpatient. Appointment 04/18/19. - Microcytic anemia 1 unit of PRBC on 04/08/2019, Hemoccult stool negative, ferrous sulfate BID, Hgb 8.4 on 04/15/19 stable recheck on 04/19/19- Hospitalist managing - CKD 4 Cr 1.76 on 04/15 continue to monitor Recheck on 04/19/19 - DVT prophylaxis- SCDs, Knee-high teds - Fall precautions - Further medical management per hospitalist recommendation, hospitalist consult - F/U with PCP, Neurology, Cardiology, Sintering Plant Supervisor and Urology -
[2019-04-18 12:08] VITALS: BMI 22.1
[2019-04-18] MEDS: Ferrous Sulfate 325 MG Tablet PO ×2 (13:06→19:18)
--- NOTE | 2019-04-18 14:45 | NURSING ---
Dr Resendez office denied patient his visit today due to insurance confliction and required that we consult the DrMichael to come see patient on the floor. This nurse called back 2x's and had to leave message with no call back that the had already been consulted on 04-07 and it appeared as though the did not ever come see patient. Still awaiting call back. Patient remains with critical access hospital. Dr. Oseguera given update.
--- NOTE | 2019-04-18 14:50 | CASEMGMT ---
Insurance Return call from and fax not received. Clinical updated emailed. Return call from and continued stay approved with JERMAN 04/21/19 and d/c 04/22/19. Auth# [id number] Nursing notified and will update pt. Phone call to pt and she is agreeable with d/c on Wednesday. ISMA Dunaway
--- NOTE | 2019-04-18 16:27 | CHAPLAIN ---
Type of Pastoral Visit ___ Initial Visit _x__ Follow-up Visit ___ On-call Visit ___ General Patient Visit ___ Spiritual Assessment ___ Family Conference ___ Bereavement ___ Rapid Response ___ Code Blue ___ Other (describe below) Pastoral Care Referral From _x__ Patient ___ Family ___ Nurse ___ Physician ___ Nightclub Manager ___ Lithographic Press Operator Apprentice ___ Other (describe below) Sacrament/Intervention _x__ Active listening ___ Anointing ___ Anabaptist ___ Bereavement ___ Communion ___ Leela exploration ___ ___ Life review _x__ Prayer ___ Reconciliation ___ Sacrament of Sick ___ Supportive presence ___ Wedding ___ Other (describe below) Pastoral Comments
[2019-04-18 19:17] VITALS: BP 109/56; PULSE 58; RESP 18; TEMP 36.8; O2SAT 98
[2019-04-18] MEDS: Tamsulosin HCl 0.4 MG Capsule PO (19:18)
[2019-04-18 20:18] VITALS: BMI 22.1
[2019-04-18] MEDS: Atorvastatin Calcium 40 MG Tablet PO (20:23)
[2019-04-18 22:00] VITALS: PULSE 66; RESP 18
[2019-04-19 05:57] LABS: Absolute Lymphocyte Count 1.38 X10^3/ul (0.83-4.51); Absolute Neutrophil Count 6.5 X10^3/uL (2.0-7.7); Basophil# 0.04 X10^3/uL; Basophil% 0.4 % (0-1); Differential Indicated SCAN CRITERIA MET; Eosinophil# 0.47 X10^3/uL; Eosinophils% 4.9 % (0-5); Hematocrit 24.2 % (40-54); Hemoglobin 7.5 g/dl (13.0-16.5); Lymphocyte # 1.38 X10^3/ul (4.0); Lymphocyte % 14.5 % (19-41); Mean Corpuscular Volume 77.6 fL (80-94); Mean Platelet Vol. 10.4 fl (6.2-12.0); Monocyte# 1.19 X10^3/uL; Monocyte% 12.5 % (0-10); Neutrophil # 6.46 X10^3/uL (2.7-7.7); Neutrophil % 67.6 % (47-70); POSITIVE COUNT NO; POSITIVE DIFFERENTIAL NO; POSITIVE MORPHOLOGY YES; Platelet Count 492 K/mm3 (150-450); RBC Distribution Width CV 20.3 % (11.6-14.6); RBC Distribution Width SD 54.8 fl (35.1-43.9); Red Blood Count 3.12 M/mm3 (4.6-6.2); White Blood Count 9.6 K/mm3 (4.4-11.0)
[2019-04-19] MEDS: Levothyroxine 50 MCG Tablet PO (06:04)
[2019-04-19 06:13] LABS: Anion Gap 8 (5-15); BUN 47 mg/dL (7-18); Calcium,Total 8.3 mg/dL (8.5-10.1); Chloride 115 mmol/L (98-107); Creatinine, Serum 1.62 mg/dL (0.70-1.30); EST Glomerular Filtration Rate 44 mL/min (>60); Est Glom Filt Rate - Afr Amer 53 mL/min (>60); Estimated Creatinine Clearance 38.06 ml/min; Glucose 87 mg/dL (74-106); Potassium 4.2 mmol/L (3.5-5.1); Sodium Level 146 mmol/L (136-145)
[2019-04-19 06:35] LABS: Anisocytosis 2+; Differential Comment SCAN; Hypochromasia 1+; Microcytosis 1+; Platelet Estimate SLT INC (ADEQ); Polychromasia 1+
[2019-04-19 06:36] LABS: Acanthocytes RARE; Ovalocyte 1+; Platelet Morphology LARGE
[2019-04-19 07:00] VITALS: BP 127/73; PULSE 89; RESP 16; TEMP 36.4; O2SAT 96
--- NOTE | 2019-04-19 07:43 | CON.PCM_ITS ---
Problem List (1) Urinary retention Status: Acute Reason for Consult Date of Consultation: 04/19/19 Reason for Consultation: urinary retention History of Present Illness: The patient is a 78 year old Male with rehab while in hospital had retention on medical therapy for BPH. currently not surgical candidate. Past Medical History Past Medical History (Chronic Problems): Chronic Problems (Last Updated 04/06/19 @ 15:19 by Rosario Tran NP-C) CHF exacerbation (Chronic) PAF (paroxysmal atrial fibrillation) (Chronic) Cardiac pacemaker (Chronic) d/t bradycardia Stroke (Chronic) Left MCA Esophagitis (Chronic) EGD 03/22/19 PVD (peripheral vascular disease) (Chronic) Hypothyroidism (Chronic) GERD (gastroesophageal reflux disease) (Chronic) Medical History: Medical History (Last Reviewed 04/19/19 @ 07:41 by Kurt Resendez MD) PVD (peripheral vascular disease) (Chronic) I73.9 Hypothyroidism (Chronic) E03.9 GERD (gastroesophageal reflux disease) (Chronic) K21.9 Stroke I63.9 Postural vertigo H81.10 lower extremity vein surgery Allergies No Known Allergies Allergy (Verified 03/21/19 11:34) Home Medications: Ambulatory Orders Medication Instructions Recorded Levothyroxine [Synthroid] 50 mcg PO DAILY 12/30/15 Pantoprazole Sodium [Protonix] 40 mg PO DAILY #30 tablet 03/27/19 Tamsulosin HCl [Flomax] 0.4 mg PO DAILY@1730 04/06/19 Surgical History: Surgical History (Last Reviewed 04/19/19 @ 07:41 by Kurt Resendez MD) H/O cataract removal with insertion of prosthetic lens Z98.49, Z96.1 History of hydrocelectomy Z98.890 Surgical History: cataract, pacemaker implantation, - - right hydrocele, thrombectomy. Psychiatric History: No pertinent psych hx Lives: Spouse/ Significant Other Smoking Status: Never smoker Tobacco Use: Non-smoker Alcohol: None Drugs: None - *Family History Maternal Family History: Family History (Last Reviewed 04/19/19 @ 07:41 by Kurt Resendez MD) Brother CAD (coronary artery disease) History Items: Pulmonary Disease - Patient notes his mother with severe COPD, emphysema secondary to heavy tobacco use history. Paternal Family History: Family History (Last Reviewed 04/19/19 @ 07:41 by Kurt Resendez MD) Brother CAD (coronary artery disease) History Items: - - Patient notes that his father was very healthy with no history of heart disease, diabetes or cancer. Review of Systems Constitutional: Denies: Chills, Fever, Weight Change HEENT: Denies: Head Aches, Sinus Congestion, Sinus Drainage Cardiovascular: Denies: Chest Pain, Palpitations Respiratory: Denies: Cough, Shortness of breath at rest, Sputum production Gastrointestinal: Denies: Abdominal Pain, Nausea, Vomiting Genitourinary: Denies: Dysuria Musculoskeletal: Denies: Joint Pain, Joint Tenderness Skin: Denies: Rash, Wounds Neurological: Denies: Numbness, Tingling, Focal weakness Psychiatric: Denies: Anxiety, Depression, Homicidal Ideations, Suicidal Ideations Hematologic/ Lymphatic: Denies: Easy Bruising, Easy Bleeding Physical Exam - Physical Exam Vital Signs Temp 98.2 F 04/18/19 19:17 Pulse 66 04/18/19 22:00 Resp 18 04/18/19 22:00 BP 109/56 L 04/18/19 19:17 Pulse Ox 98 04/18/19 19:17 Intake & Output 04/17/19 04/18/19 04/19/19 23:59 23:59 23:59 Intake Total 240 / 240 300 / 300 360 / 360 Output Total 1200 / 1200 1250 / 1250 Balance -960 / -960 -950 / -950 360 / 360 Weight: 71.6 kg Intake: Oral 240 / 240 300 / 300 360 / 360 Output: Urine 1200 / 1200 1250 / 1250 Other: Number of Bowel Movements 1 General: Alert, Oriented x3 HEENT: Atraumatic Oral: Moist Mucosa Neck: Supple Lungs: Normal air movement Cardiovascular: Regular rate Abdomen: Soft Laboratory Tests Past 24 Hrs 04/19/19 04/19/19 05:10 05:10 WBC 9.6 RBC 3.12 L Hgb 7.5 L Hct 24.2 L MCV 77.6 L MCH 24.0 L MCHC 31.0 L RDW 20.3 H RDW Differential 54.8 H Plt Count 492 H MPV 10.4 Immature Gran % (Auto) 0.100 Neut % (Auto) 67.6 Lymph % (Auto) 14.5 L [place] % (Auto) 12.5 H Eos % (Auto) 4.9 Baso % (Auto) 0.4 Absolute Neuts (auto) 6.5 Absolute Lymphs (auto) 1.38 Total Counted Not Reportable Differential Comment SCAN Platelet Estimate SLT INC Plt Morphology Comment LARGE Polychromasia 1+ Hypochromasia 1+ Anisocytosis 2+ Microcytosis 1+ Ovalocytes 1+ Acanthocytes (Spur) RARE Sodium 146 H Potassium 4.2 Chloride 115 H Carbon Dioxide 23.0 Anion Gap 8 BUN 47 H Creatinine 1.62 H Estim Creat Clear Calc 38.06 Est GFR (MDRD) Af Amer 53 L Est GFR (MDRD) Non-Af 44 L BUN/Creatinine Ratio 29.0 H Glucose 87 Calcium 8.3 L Assessment/Plan All Active Problems (Last Updated 04/06/19 @ 15:19 by Rosario Tran, HOT METAL CRANE OPERATOR-C) Urinary retention (Acute) 78 yo male in rehab with jones on medical therapy d/c jones for TOV check PVR if cant void then straight cath if fails then home with jones to discuss options in my office.
[2019-04-19 09:50] VITALS: BP 127/73; PULSE 89
[2019-04-19] MEDS: Metoprolol(XL)Succ 25 MG Tablet PO (09:50)
[2019-04-19] MEDS: Finasteride 5 MG Tablet PO (09:51)
[2019-04-19] MEDS: APIXABAN 2.5 MG TABLET PO ×2 (09:51→21:51)
[2019-04-19] MEDS: Pantoprazole Sodium 40 MG Tablet PO (09:51)
[2019-04-19 10:08] VITALS: BMI 22.1
[2019-04-19] MEDS: Ferrous Sulfate 325 MG Tablet PO ×2 (12:04→16:58)
--- NOTE | 2019-04-19 13:27 | PCM.PN.NEU ---
Patient Problems: Active and Suspected Problems (Last Reviewed 04/19/19 @ 07:41 by Kurt Resendez MD) Urinary retention (Acute) Subjective: Per nursing no issues overnight. Dr. Resendez saw patient this am. Per his recommendations d/c jones for TOV, check PVR, if cant void then straight cath if fails then home with jones to discuss options in his office. Jones catheter was discontinued this am by nurse. Patient is tolerating therapy well and denies further questions or concerns. - Physical Exam General: Alert HEENT: Atraumatic, PERRLA Oral: Moist Mucosa Neck: Supple, No JVD Lungs: Clear to auscultation, Normal air movement Cardiovascular: Regular rate, Regular Rhythm Abdomen: Bowel Sounds Present, Soft, Non Tender Extremities: No clubbing, No cyanosis, No edema Musculoskeletal: No Tenderness to Palpation of Joints or Extremities Neurological: - - Cranial nerves II-XII grossly intact, Deep Tendon Reflexes 2+/4 and Symmetrical, Neuro grossly intact, Motor strenght 5/5 on Right side, Left upper and lower extremity 4/5 strength. speech slight slurred, at baseline has a stutter, NIH 1 Psych/Mental Status: Normal Affect, Appropriate, Alert and oriented to time, place, person, mood and affect Vital Signs Temp Pulse Resp BP Pulse Ox 97.6 F L 89 16 127/73 H 96 04/19/19 07:00 04/19/19 09:50 04/19/19 07:00 04/19/19 09:50 04/19/19 07:00 Oxygen Delivery Method Room Air Weight: 71.6 kg Body Mass Index (BMI) 22.1 Finger Stick Blood Glucose 69 Intake and Output for Last 24 Hours 04/17/19 04/18/19 04/19/19 23:59 23:59 23:59 Intake Total 240 / 240 300 / 300 720 / 720 Output Total 1200 / 1200 1250 / 1250 Balance -960 / -960 -950 / -950 720 / 720 Laboratory Tests Past 24 Hrs 04/19/19 04/19/19 05:10 05:10 WBC 9.6 RBC 3.12 L Hgb 7.5 L Hct 24.2 L MCV 77.6 L MCH 24.0 L MCHC 31.0 L RDW 20.3 H RDW Differential 54.8 H Plt Count 492 H MPV 10.4 Immature Gran % (Auto) 0.100 Neut % (Auto) 67.6 Lymph % (Auto) 14.5 L [place] % (Auto) 12.5 H Eos % (Auto) 4.9 Baso % (Auto) 0.4 Absolute Neuts (auto) 6.5 Absolute Lymphs (auto) 1.38 Total Counted Not Reportable Differential Comment SCAN Platelet Estimate SLT INC Plt Morphology Comment LARGE Polychromasia 1+ Hypochromasia 1+ Anisocytosis 2+ Microcytosis 1+ Ovalocytes 1+ Acanthocytes (Spur) RARE Sodium 146 H Potassium 4.2 Chloride 115 H Carbon Dioxide 23.0 Anion Gap 8 BUN 47 H Creatinine 1.62 H Estim Creat Clear Calc 38.06 Est GFR (MDRD) Af Amer 53 L Est GFR (MDRD) Non-Af 44 L BUN/Creatinine Ratio 29.0 H Glucose 87 Calcium 8.3 L Medical Necessity - Tobacco Use Smoking Status: Never smoker Tobacco Use: Non-smoker Assessment/Plan All Active Problems (Last Reviewed 04/19/19 @ 07:41 by Kurt Resendez MD) Urinary retention (Acute) The patient is a 78 year old M PMH paroxysmal atrial fibrillation, HTN, CHF, bradycardia post cardiac pacemaker, PVD, hypothyroidism, and GERD admitted [facility] IP RU on 04/06/2019 with debility secondary to Left acute arterial ischemic stroke, MCA for greater of 3 hours of therapy daily with a goal of returning back home at or near her prior level of functional dependence. Patient was previously admitted to [facility] on March 21 for new onset of CHF and Per protocol officer's note pt had various cardiac arrhythmias with respect to sinus bradycardia, junctional rhythm, paroxysmal atrial fibrillation, and prolonged pauses and on 03/22/2019 PPM did show episodes of atrial fibrillation. 03/22/2019 EKG Patient was discharged home on March 28, 2019 with Jones catheter due to Bladder outlet obstruction from BPH, Dr. Resendez to follow. She returned back to [facility] emergency room on February 27, 2019 with Abrupt onset of aphasia, facial droop and weakness. NIH was 23. Diagnosis of left acute arterial ischemic stroke, MCA and patient received TPA and transferred to [facility]. At [facility] on 03/29/2019, patient had an endovascular stroke treatment of the left MCA M2 occlusion using the [place] stent retriever and circumflex system. There was reperfusion of the left MCA territory after 1 pass. On 03/30/2019 CT without contrast done for post TPA impression acute infarct of the left basal ganglia with involvement of the head of the left caudate, subtle loss of rai?white matter differentiation in the left insular cortex, which may also represent changes of acute ischemia, no intracranial hemorrhage noted. On 03/30/2019 transthoracic echocardiogram completed which showed no obvious evidence of an embolic source. On 03/31/2019 venous duplex completed to bilateral lower extremities negative for DVT. Patient lives in a 1 level home with spouse. Patient was independent with all mobility, ADLs, and driving prior to stroke. Patient does use a cane in the community. Plan - PT for mobility - OT for ADLs - ST speech and cognition - Analgesics PRN - Bowel protocol - Left MCA stroke post TPA - metoprolol, lipitor, Eliquis 2.5 mg bid - Paroxysmal atrial fibrillation on eliquis, metoprolol - HTN on metoprolol - CHF on metoprolol - Hypothyroidism on levothyroxine - GERD on protonix - Bladder outlet obstruction from BPH - on flomax and proscar, Jones re-inserted on 04/08/2019 d/t retention - Dr. Resendez to follow and Jones d/c 04/19/19, monitor PVRs, st.cath prn. If patient is unable to void at discharge, then insert jones and f/u with Dr. Resendez - Microcytic anemia 1 unit of PRBC on 04/08/2019, Hemoccult stool negative, ferrous sulfate BID, Hgb 7.5 on 04/19- Hospitalist managing - CKD 4 Cr 1.62 on 04/19 continue to monitor Recheck on 04/19/19 - DVT prophylaxis- SCDs, Knee-high teds - Fall precautions - Further medical management per hospitalist recommendation, hospitalist consult - F/U with PCP, Neurology, Cardiology, Management Trainee Program Stores and Urology -
--- NOTE | 2019-04-19 13:33 | PN.NEURO_ITS ---
Patient Problems: Active and Suspected Problems (Last Reviewed 04/19/19 @ 07:41 by Kurt Resendez MD) Urinary retention (Acute) Subjective: Per nursing no issues overnight. Dr. Resendez saw patient this am. Per his recommendations d/c jones for TOV, check PVR, if cant void then straight cath if fails then home with jones to discuss options in his office. Jones catheter was discontinued this am by nurse. Patient is tolerating therapy well and denies further questions or concerns. - Physical Exam General: Alert HEENT: Atraumatic, PERRLA Oral: Moist Mucosa Neck: Supple, No JVD Lungs: Clear to auscultation, Normal air movement Cardiovascular: Regular rate, Regular Rhythm Abdomen: Bowel Sounds Present, Soft, Non Tender Extremities: No clubbing, No cyanosis, No edema Musculoskeletal: No Tenderness to Palpation of Joints or Extremities Neurological: - - Cranial nerves II-XII grossly intact, Deep Tendon Reflexes 2+/4 and Symmetrical, Neuro grossly intact, Motor strenght 5/5 on Right side, Left upper and lower extremity 4/5 strength. speech slight slurred, at baseline has a stutter, NIH 1 Psych/Mental Status: Normal Affect, Appropriate, Alert and oriented to time, place, person, mood and affect Vital Signs Temp Pulse Resp BP Pulse Ox 97.6 F L 89 16 127/73 H 96 04/19/19 07:00 04/19/19 09:50 04/19/19 07:00 04/19/19 09:50 04/19/19 07:00 Oxygen Delivery Method Room Air Weight: 71.6 kg Body Mass Index (BMI) 22.1 Finger Stick Blood Glucose 69 Intake and Output for Last 24 Hours 04/17/19 04/18/19 04/19/19 23:59 23:59 23:59 Intake Total 240 / 240 300 / 300 720 / 720 Output Total 1200 / 1200 1250 / 1250 Balance -960 / -960 -950 / -950 720 / 720 Laboratory Tests Past 24 Hrs 04/19/19 04/19/19 05:10 05:10 WBC 9.6 RBC 3.12 L Hgb 7.5 L Hct 24.2 L MCV 77.6 L MCH 24.0 L MCHC 31.0 L RDW 20.3 H RDW Differential 54.8 H Plt Count 492 H MPV 10.4 Immature Gran % (Auto) 0.100 Neut % (Auto) 67.6 Lymph % (Auto) 14.5 L [place] % (Auto) 12.5 H Eos % (Auto) 4.9 Baso % (Auto) 0.4 Absolute Neuts (auto) 6.5 Absolute Lymphs (auto) 1.38 Total Counted Not Reportable Differential Comment SCAN Platelet Estimate SLT INC Plt Morphology Comment LARGE Polychromasia 1+ Hypochromasia 1+ Anisocytosis 2+ Microcytosis 1+ Ovalocytes 1+ Acanthocytes (Spur) RARE Sodium 146 H Potassium 4.2 Chloride 115 H Carbon Dioxide 23.0 Anion Gap 8 BUN 47 H Creatinine 1.62 H Estim Creat Clear Calc 38.06 Est GFR (MDRD) Af Amer 53 L Est GFR (MDRD) Non-Af 44 L BUN/Creatinine Ratio 29.0 H Glucose 87 Calcium 8.3 L Medical Necessity - Tobacco Use Smoking Status: Never smoker Tobacco Use: Non-smoker Assessment/Plan All Active Problems (Last Reviewed 04/19/19 @ 07:41 by uKrt Resendez MD) Urinary retention (Acute) The patient is a 78 year old M PMH paroxysmal atrial fibrillation, HTN, CHF, bradycardia post cardiac pacemaker, PVD, hypothyroidism, and GERD admitted to [facility] on 04/06/2019 with debility secondary to Left acute arterial ischemic stroke, MCA for greater of 3 hours of therapy daily with a goal of returning back home at or near her prior level of functional dependence. Patient was previously admitted to [facility] on March 21 for new onset of CHF and Per cross country/track and field coach's note pt had various cardiac arrhythmias with respect to sinus bradycardia, junctional rhythm, paroxysmal atrial fibrillation, and prolonged pauses and on 03/22/2019 PPM did show episodes of atrial fibrillation. 03/22/2019 EKG Patient was discharged home on March 28, 2019 with Jones catheter due to Bladder outlet obstruction from BPH, Dr. Resendez to follow. She returned back to [facility] emergency room on February 27, 2019 with Abrupt onset of aphasia, facial droop and weakness. NIH was 23. Diagnosis of left acute arterial ischemic stroke, MCA and patient received TPA and transferred to [facility]. At [facility] on 03/29/2019, patient had an endovascular stroke treatment of the left MCA M2 occlusion using the [place] stent retriever and circumflex system. There was reperfusion of the left MCA territory after 1 pass. On 03/30/2019 CT without contrast done for post TPA impression acute infarct of the left basal ganglia with involvement of the head of the left caudate, subtle loss of rai?white matter differentiation in the left insular cortex, which may also represent changes of acute ischemia, no intracranial hemorrhage noted. On 03/30/2019 transthoracic echocardiogram completed which showed no obvious evidence of an embolic source. On 03/31/2019 venous duplex completed to bilateral lower extr emities negative for DVT. Patient lives in a 1 level home with spouse. Patient was independent with all mobility, ADLs, and driving prior to stroke. Patient does use a cane in the community. Plan - PT for mobility - OT for ADLs - ST speech and cognition - Analgesics PRN - Bowel protocol - Left MCA stroke post TPA - metoprolol, lipitor, Eliquis 2.5 mg bid - Paroxysmal atrial fibrillation on eliquis, metoprolol - HTN on metoprolol - CHF on metoprolol - Hypothyroidism on levothyroxine - GERD on protonix - Bladder outlet obstruction from BPH - on flomax and proscar, Jnoes re-inserted on 04/08/2019 d/t retention - Dr. Resendez to follow and Jones d/c 04/19/19, monitor PVRs, st.cath prn. If patient is unable to void at discharge, then insert jones and f/u with Dr. Resendez - Microcytic anemia 1 unit of PRBC on 04/08/2019, Hemoccult stool negative, ferrous sulfate BID, Hgb 7.5 on 04/19- Hospitalist managing - CKD 4 Cr 1.62 on 04/19 continue to monitor Recheck on 04/19/19 - DVT prophylaxis- SCDs, Knee-high teds - Fall precautions - Further medical management per hospitalist recommendation, hospitalist consult - F/U with PCP, Neurology, Cardiology, Focus Puller and Urology -
[2019-04-19] MEDS: Tamsulosin HCl 0.4 MG Capsule PO (16:58)
[2019-04-19 19:26] VITALS: BP 101/55; PULSE 73; RESP 16; TEMP 36.9; O2SAT 98
[2019-04-19] MEDS: Atorvastatin Calcium 40 MG Tablet PO (21:51)
[2019-04-20 02:11] VITALS: BMI 22.1
--- NOTE | 2019-04-20 02:55 | NURSING ---
Reviewed and agree with VENEER PRODUCTION MACHINE OPERATOR documentation and FIMs charting
--- NOTE | 2019-04-20 03:06 | NURSING ---
pt bladder scanned for amount of 575 ml at 0240 and denies urge to void. pt straight cathed per order at this time- second straight cath since jones removal. 625 ml of cloudy, yellow urine out with cath. urine had a foul odor. pt denies burning or urgency. pt tolerated procedure well. pt denies discomfort. will continue voiding trial and bladder scans prn.
[2019-04-20] MEDS: Levothyroxine 50 MCG Tablet PO (05:49)
[2019-04-20 08:48] VITALS: BP 134/77; PULSE 64; RESP 17; TEMP 36.7; O2SAT 92
[2019-04-20 11:00] VITALS: BP 134/77; PULSE 68
[2019-04-20] MEDS: Pantoprazole Sodium 40 MG Tablet PO (11:00)
[2019-04-20] MEDS: Finasteride 5 MG Tablet PO (11:00)
[2019-04-20] MEDS: Ferrous Sulfate 325 MG Tablet PO ×2 (11:00→18:03)
[2019-04-20] MEDS: Metoprolol(XL)Succ 25 MG Tablet PO (11:00)
[2019-04-20] MEDS: APIXABAN 2.5 MG TABLET PO ×2 (11:00→21:59)
--- NOTE | 2019-04-20 11:49 | PCM.PN.NEU ---
Patient Problems: Active and Suspected Problems (Last Reviewed 04/19/19 @ 07:41 by Kurt Resendez MD) Urinary retention (Acute) Subjective: Per nursing patient continues to have urinary retention. Avila catheter re-inserted per Dr. Resendez orders. Per therapy, patient is having increase weakness and gait instability. Will check UA C&Sand CT scan without contrast d/t increase weakness/gait instability and urinary retention Patient denies burning, frequency, suprapubic tenderness, urge to urinate, and without CVA tenderness. Patient verbalized understanding. - Physical Exam General: Alert, Oriented x3, Cooperative HEENT: Atraumatic, PERRLA Oral: Moist Mucosa Neck: Supple, No JVD Lungs: Clear to auscultation, Normal air movement Cardiovascular: Regular rate, Regular Rhythm Abdomen: Bowel Sounds Present, Soft, Non Tender Extremities: No clubbing, No cyanosis, No edema Musculoskeletal: No Tenderness to Palpation of Joints or Extremities Neurological: Cranial nerves II-XII grossly intact, Deep Tendon Reflexes 2+/4 and Symmetrical, - - Motor strenght 5/5 on Right side, Left upper and lower extremity 3/5 strength. speech slight slurred, at baseline has a stutter, NIH 1 Psych/Mental Status: Normal Affect, Appropriate, Alert and oriented to time, place, person, mood and affect Vital Signs Temp Pulse Resp BP Pulse Ox 98.1 F 68 17 134/77 H 92 04/20/19 08:48 04/20/19 11:00 04/20/19 08:48 04/20/19 11:00 04/20/19 08:48 Oxygen Delivery Method Room Air Weight: 71.6 kg Body Mass Index (BMI) 22.1 Finger Stick Blood Glucose 69 Intake and Output for Last 24 Hours 04/18/19 04/19/19 04/20/19 23:59 23:59 23:59 Intake Total 300 / 300 720 / 720 240 / 240 Output Total 1250 / 1250 625 / 625 Balance -950 / -950 720 / 720 -385 / -385 Medical Necessity - Tobacco Use Smoking Status: Never smoker Tobacco Use: Non-smoker Assessment/Plan All Active Problems (Last Reviewed 04/19/19 @ 07:41 by Kurt Resendez MD) Urinary retention (Acute) The patient is a 78 year old M H paroxysmal atrial fibrillation, HTN, CHF, bradycardia post cardiac pacemaker, PVD, hypothyroidism, and GERD admitted [facility] IP RU on 04/06/2019 with debility secondary to Left acute arterial ischemic stroke, MCA for greater of 3 hours of therapy daily with a goal of returning back home at or near her prior level of functional dependence. Patient was previously admitted to [facility] on March 21 for new onset of CHF and Per vacuum drier operator's note pt had various cardiac arrhythmias with respect to sinus bradycardia, junctional rhythm, paroxysmal atrial fibrillation, and prolonged pauses and on 03/22/2019 PPM did show episodes of atrial fibrillation. 03/22/2019 EKG Patient was discharged home on March 28, 2019 with Avila catheter due to Bladder outlet obstruction from BPH, Dr. Resendez to follow. She returned back to [facility] emergency room on February 27, 2019 with Abrupt onset of aphasia, facial droop and weakness. NIH was 23. Diagnosis of left acute arterial ischemic stroke, MCA and patient received TPA and transferred to [facility]. At [facility] on 03/29/2019, patient had an endovascular stroke treatment of the left MCA M2 occlusion using the [place] stent retriever and circumflex system. There was reperfusion of the left MCA territory after 1 pass. On 03/30/2019 CT without contrast done for post TPA impression acute infarct of the left basal ganglia with involvement of the head of the left caudate, subtle loss of rai?white matter differentiation in the left insular cortex, which may also represent changes of acute ischemia, no intracranial hemorrhage noted. On 03/30/2019 transthoracic echocardiogram completed which showed no obvious evidence of an embolic source. On 03/31/2019 venous duplex completed to bilateral lower extremities negative for DVT. Patient lives in a 1 level home with spouse. Patient was independent with all mobility, ADLs, and driving prior to stroke. Patient does use a cane in the community. Plan - PT for mobility - OT for ADLs - ST speech and cognition - Analgesics PRN - Bowel protocol - Left MCA stroke post TPA - metoprolol, lipitor, Eliquis 2.5 mg bid - Paroxysmal atrial fibrillation on eliquis, metoprolol - HTN on metoprolol - CHF on metoprolol - Hypothyroidism on levothyroxine - GERD on protonix - Bladder outlet obstruction from BPH - on flomax and proscar, Avila re-inserted on 04/08/2019 d/t retention - Dr. Resendez to follow and Avila d/c 04/19/19, Re-inserted on 04/20/[address] Resendez order. - Microcytic anemia 1 unit of PRBC on 04/08/2019, Hemoccult stool negative, ferrous sulfate BID, Hgb 7.5 on 04/19- Hospitalist managing - CKD 4 Cr 1.62 on 04/19 continue to monitor - increase weakness and instability, urinary retention obtain UA C&S and CT without contrast of brain - DVT prophylaxis- SCDs, Knee-high teds - Fall precautions - Further medical management per hospitalist recommendation, hospitalist consult - F/U with PCP, Neurology, Cardiology, Dog Show Judge and Urology -
--- NOTE | 2019-04-20 11:55 | PN.NEURO_ITS ---
Patient Problems: Active and Suspected Problems (Last Reviewed 04/19/19 @ 07:41 by Kurt Resendez MD) Urinary retention (Acute) Subjective: Per nursing patient continues to have urinary retention. Avila catheter re- inserted per Dr. Resendez orders. Per therapy, patient is having increase weakness and gait instability. Will check UA C&Sand CT scan without contrast d/t increase weakness/gait instability and urinary retention Patient denies burning, frequency, suprapubic tenderness, urge to urinate, and without CVA tenderness. Patient verbalized understanding. - Physical Exam General: Alert, Oriented x3, Cooperative HEENT: Atraumatic, PERRLA Oral: Moist Mucosa Neck: Supple, No JVD Lungs: Clear to auscultation, Normal air movement Cardiovascular: Regular rate, Regular Rhythm Abdomen: Bowel Sounds Present, Soft, Non Tender Extremities: No clubbing, No cyanosis, No edema Musculoskeletal: No Tenderness to Palpation of Joints or Extremities Neurological: Cranial nerves II-XII grossly intact, Deep Tendon Reflexes 2+/4 and Symmetrical, - - Motor strenght 5/5 on Right side, Left upper and lower extremity 3/5 strength. speech slight slurred, at baseline has a stutter, NIH 1 Psych/Mental Status: Normal Affect, Appropriate, Alert and oriented to time, place, person, mood and affect Vital Signs Temp Pulse Resp BP Pulse Ox 98.1 F 68 17 134/77 H 92 04/20/19 08:48 04/20/19 11:00 04/20/19 08:48 04/20/19 11:00 04/20/19 08:48 Oxygen Delivery Method Room Air Weight: 71.6 kg Body Mass Index (BMI) 22.1 Finger Stick Blood Glucose 69 Intake and Output for Last 24 Hours 04/18/19 04/19/19 04/20/19 23:59 23:59 23:59 Intake Total 300 / 300 720 / 720 240 / 240 Output Total 1250 / 1250 625 / 625 Balance -950 / -950 720 / 720 -385 / -385 Medical Necessity - Tobacco Use Smoking Status: Never smoker Tobacco Use: Non-smoker Assessment/Plan All Active Problems (Last Reviewed 04/19/19 @ 07:41 by Kurt Resendez MD) Urinary retention (Acute) The patient is a 78 year old M H paroxysmal atrial fibrillation, HTN, CHF, bradycardia post cardiac pacemaker, PVD, hypothyroidism, and GERD admitted to [facility] IP RU on 04/06/2019 with debility secondary to Left acute arterial ischemic stroke, MCA for greater of 3 hours of therapy daily with a goal of returning back home at or near her prior level of functional dependence. Patient was previously admitted to [facility] on March 21 for new onset of CHF and Per aesthetics instructor's note pt had various cardiac arrhythmias with respect to sinus bradycardia, junctional rhythm, paroxysmal atrial fibrillation, and prolonged pauses and on 03/22/2019 PPM did show episodes of atrial fibrillation. 03/22/2019 EKG Patient was discharged home on March 28, 2019 with Avila catheter due to Bladder outlet obstruction from BPH, Dr. Resendez to follow. She returned back to [facility] emergency room on February 27, 2019 with Abrupt onset of aphasia, facial droop and weakness. NIH was 23. Diagnosis of left acute arterial ischemic stroke, MCA and patient received TPA and transferred to [facility]. At [facility] on 03/29/2019, patient had an endovascular stroke treatment of the left MCA M2 occlusion using the [place] stent retriever and circumflex system. There was reperfusion of the left MCA territory after 1 pass. On 03/30/2019 CT without contrast done for post TPA impression acute infarct of the left basal ganglia with involvement of the head of the left caudate, subtle loss of rai?white matter differentiation in the left insular cortex, which may also represent changes of acute ischemia, no intracranial hemorrhage noted. On 03/30/2019 transthoracic echocardiogram completed which showed no obvious evidence of an embolic source. On 03/31/2019 venous duplex completed to bilateral lower extremities negative for DVT. Patient lives in a 1 level home with spouse. Patient was independent with all mobility, ADLs, and driving prior to stroke. Patient does use a cane in the community. Plan - PT for mobility - OT for ADLs - ST speech and cognition - Analgesics PRN - Bowel protocol - Left MCA stroke post TPA - metoprolol, lipitor, Eliquis 2.5 mg bid - Paroxysmal atrial fibrillation on eliquis, metoprolol - HTN on metoprolol - CHF on metoprolol - Hypothyroidism on levothyroxine - GERD on protonix - Bladder outlet obstruction from BPH - on flomax and proscar, Avila re-inserted on 04/08/2019 d/t retention - Dr. Resendez to follow and Avila d/c 04/19/19, Re- inserted on 04/20/[address] Resendez order. - Microcytic anemia 1 unit of PRBC on 04/08/2019, Hemoccult stool negative, ferrous sulfate BID, Hgb 7.5 on 04/19- Hospitalist managing - CKD 4 Cr 1.62 on 04/19 continue to monitor - increase weakness and instability, urinary retention obtain UA C&S and CT without contrast of brain - DVT prophylaxis- SCDs, Knee-high teds - Fall precautions - Further medical management per hospitalist recommendation, hospitalist consult - F/U with PCP, Neurology, Cardiology, Extension Service Specialist and Urology -
--- NOTE | 2019-04-20 12:08 | CT_ITS ---
STUDY: CT BRAIN WITHOUT CONTRAST REASON FOR EXAM: Male, 78 years old. Weakness. History of prior CVA in the [place]. RADIATION DOSAGE (If Supplied By Facility): CTDIvol = ( 44.99 ) mGy, DLP = ( 796.11 ) mGycm TECHNIQUE: Transaxial CT imaging of the brain was performed without administration of intravenous contrast material. Individualized dose optimization techniques were used for this CT. COMPARISON: Comparison is made with prior examination April 07, 2019. FINDINGS: Normal soft tissue structures. Normal calvarium. There is mild cerebral atrophy with widening of the extra-axial spaces and ventricular dilatation. There is evidence of decreased attenuation in the left basal ganglion as well as in the left frontal temporal parietal lobes in keeping with the prior infarction. Normal brainstem. Normal cerebellum. There is no intracranial hemorrhage. There are no findings of an acute ischemic infarction. Mucosal thickening of the base of left maxillary sinus. CT/Brain/Head without Contrast IMPRESSION: Decreased attenuation in the left temporoparietal frontal lobes as well as the left basal ganglion. Electronically Signed: Mariano Stewart, at 13:50 EDT , Service support ,
[2019-04-20 12:10] LABS: Color, Urine Yellow (Yellow); Glucose, Dipstick Normal (Normal); Ketone-Dipstick Negative (Negative); Leukocyte Esterase-Dipstick 500 /ul (Negative); Mucous, Urine 0 SEEN /hpf (<or=2+); Nitrite-Dipstick Positive (Negative); Occult Blood-Urine 250 /ul (Negative); Protein-Dipstick 100 mg/dl (Negative); Specific Gravity, Urine 1.015 (1.002-1.030); Urine Bilirubin Dipstick Negative (Negative); Urine Clarity Cloudy (Clear); Urine Urobilinogen Normal (Normal)
[2019-04-20 12:53] LABS: White Blood Cells >100 SEEN /hpf (0-5)
[2019-04-20 12:54] LABS: Bacteria 4+ /hpf (None Seen); Red Blood Cells-Urine 25-50 SEEN /hpf (0-5); Squamous Epithelial Cells - UA 0-5 SEEN /hpf (0-5)
--- NOTE | 2019-04-20 13:09 | PN_ITS ---
Patient Problems: Active and Suspected Problems (Last Reviewed 04/19/19 @ 07:41 by Kurt Resendez MD) Urinary retention (Acute) Subjective: Patient seen and examined. Patient reports increased weakness and fatigue which began yesterday. Denies new unilateral weakness or focal deficits. Avila reinserted by RN due to continued urinary retention. Avila with significant hematuria. - Physical Exam General: Alert, Oriented x3, Cooperative HEENT: Atraumatic, PERRLA, EOMI, Normocephalic Neck: Supple, No JVD, Negative Carotid Bruits Lungs: Clear to auscultation, Normal air movement Cardiovascular: Regular rate, Regular Rhythm, Normal S1, Normal S2, No murmurs Abdomen: Bowel Sounds Present, Soft, Non Tender, Non-Distended Extremities: No clubbing, No cyanosis, No edema, Capillary Refill Less than 3 Seconds Skin: No rashes, No breakdown Musculoskeletal: No Tenderness to Palpation of Joints or Extremities Neurological: Cranial nerves II-XII grossly intact, - - Mild left facial droop, aphasia, 4/5 left sided strength upper and lower. Psych/Mental Status: Normal Affect, Appropriate Vital Signs Temp Pulse Resp BP Pulse Ox 98.1 F 68 17 134/77 H 92 04/20/19 08:48 04/20/19 11:00 04/20/19 08:48 04/20/19 11:00 04/20/19 08:48 Oxygen Delivery Method Room Air Weight: 157 lb 13.616 oz Body Mass Index (BMI) 22.1 Finger Stick Blood Glucose 69 Intake and Output for Last 24 Hours 04/18/19 04/19/19 04/20/19 23:59 23:59 23:59 Intake Total 300 / 300 720 / 720 240 / 240 Output Total 1250 / 1250 625 / 625 Balance -950 / -950 720 / 720 -385 / -385 Laboratory Tests Past 24 Hrs 04/20/19 11:15 Urine Color Yellow Urine Clarity Cloudy Urine pH 6.0 Ur Specific [place] 1.015 Urine Protein 100 H Urine Glucose (UA) Normal Urine Ketones Negative Urine Occult Blood 250 H Urine Nitrite Positive H Urine Bilirubin Negative Urine Urobilinogen Normal Ur Leukocyte Esterase 500 H Urine RBC 25-50 SEEN Urine WBC >100 SEEN Ur Squamous Epith Cells 0-5 SEEN Urine Bacteria 4+ Urine Mucus 0 SEEN Medical Necessity - Tobacco Use Smoking Status: Never smoker Tobacco Use: Non-smoker Assessment/Plan All Active Problems (Last Reviewed 04/19/19 @ 07:41 by Kurt Resendez MD) Urinary retention (Acute) 1. Debility following recent Left MCA CVA- s/p TPA and thrombectomy at [facility]. PT/OT/ST. continue statin, Eliquis. 2. BPH/bladder outlet obstruction/Acute UTI- Continue Flomax regimen. Dr. Resendez consulted. DC Avila, check PVR. If fails voiding trial, discharge with Avila and outpatient follow-up with urology. UA completed today which shows 500 leukocytes, positive nitrites. Culture pending. Initiated on Rocephin pending culture. 3. Bradycardia status post pacemaker placement 4. Paroxysmal atrial fibrillation-continue metoprolol, Eliquis regimen. 5. Esophagitis/GERD-EGD 03/22/2019 with esophagitis. Continue PPI. 6. PVD-continue Eliquis, statin. 7. Hypothyroidism-continue Synthroid regimen. 8. Chronic diastolic CHF-no acute exacerbation. Echocardiogram 03/23/2019 with EF 55%. 9. Chronic microcytic anemia- stool for occult blood negative. Trend CBC. 10. Chronic kidney disease stage III-stable, trend BMP. DVT prophylaxis-Eliquis This patient was seen by BRINA Melchor under the supervision of Dr. Tenorio.
--- NOTE | 2019-04-20 13:38 | NURSING ---
Jones placed d/t urinary retention. Urine output 650mls, cloudy with small clots. Pt. denies burning/urgency UA ordered for increased confusion/weakness. Pt. tolerated jones placement well.
[2019-04-20 15:31] VITALS: BMI 22.1
[2019-04-20] MEDS: Ceftriaxone 1 GM/50 ML BAG IV (15:37)
[2019-04-20] MEDS: Tamsulosin HCl 0.4 MG Capsule PO (18:03)
[2019-04-20 19:08] VITALS: BP 107/63; PULSE 68; RESP 18; TEMP 36.8; O2SAT 97
[2019-04-20] MEDS: Atorvastatin Calcium 40 MG Tablet PO (21:59)
[2019-04-20] MEDS: 0.9% NaCl Peripheral Flush Adult/Peds IV (21:59)
[2019-04-21 05:00] VITALS: BMI 22.1
[2019-04-21] MEDS: Levothyroxine 50 MCG Tablet PO (06:13)
[2019-04-21 08:48] VITALS: BP 123/63; PULSE 62
[2019-04-21] MEDS: Metoprolol(XL)Succ 25 MG Tablet PO (08:48)
[2019-04-21] MEDS: Tamsulosin HCl 0.4 MG Capsule PO ×2 (08:49→16:45)
[2019-04-21] MEDS: APIXABAN 2.5 MG TABLET PO ×2 (08:49→20:16)
[2019-04-21] MEDS: Pantoprazole Sodium 40 MG Tablet PO (08:49)
[2019-04-21] MEDS: Finasteride 5 MG Tablet PO (08:49)
[2019-04-21 08:50] VITALS: BP 123/63; PULSE 65; RESP 20; TEMP 36.6; O2SAT 95
--- NOTE | 2019-04-21 10:01 | PCM.PN.NEU ---
Patient Problems: Active and Suspected Problems (Last Reviewed 04/19/19 @ 07:41 by Kurt Resendez MD) Urinary retention (Acute) Subjective: Per nursing no issues overnight. Patient was started on IV Rocephin for positive UA, pending CX and Flomax was increased to BID per hospitalist. CT of brain was done with no acute infarct or hemorrhage, no change from prior study. Per therapy patient's gait is improving with decrease instability. Avila catheter is maintained with dark yellow urine. Patient denies further questions or concerns. - Physical Exam General: Alert, Oriented x3, Cooperative HEENT: Atraumatic, PERRLA Oral: Moist Mucosa Neck: Supple, No JVD Lungs: Clear to auscultation, Normal air movement Cardiovascular: Regular rate, Regular Rhythm Abdomen: Bowel Sounds Present, Soft, Non Tender Extremities: No clubbing, No cyanosis, No edema Musculoskeletal: No Tenderness to Palpation of Joints or Extremities Neurological: - - Cranial nerves II-XII grossly intact, Deep Tendon Reflexes 2+/4 and Symmetrical, - - Motor strenght 5/5 on Right side, Left upper and lower extremity 4/5 strength. speech slight slurred, at baseline has a stutter, NIH 1 Psych/Mental Status: Normal Affect, Appropriate, Alert and oriented to time, place, person, mood and affect Vital Signs Temp Pulse Resp BP Pulse Ox 98 F 65 20 H 123/63 H 95 04/21/19 08:50 04/21/19 08:50 04/21/19 08:50 04/21/19 08:50 04/21/19 08:50 Oxygen Delivery Method Room Air Weight: 71.6 kg Body Mass Index (BMI) 22.1 Finger Stick Blood Glucose 69 Intake and Output for Last 24 Hours 04/19/19 04/20/19 04/21/19 23:59 23:59 23:59 Intake Total 720 / 720 240 / 240 120 / 120 Output Total 925 / 925 800 / 800 Balance 720 / 720 -685 / -685 -680 / -680 Laboratory Tests Past 24 Hrs 04/20/19 11:15 Urine Color Yellow Urine Clarity Cloudy Urine pH 6.0 Ur Specific [place] 1.015 Urine Protein 100 H Urine Glucose (UA) Normal Urine Ketones Negative Urine Occult Blood 250 H Urine Nitrite Positive H Urine Bilirubin Negative Urine Urobilinogen Normal Ur Leukocyte Esterase 500 H Urine RBC 25-50 SEEN Urine WBC >100 SEEN Ur Squamous Epith Cells 0-5 SEEN Urine Bacteria 4+ Urine Mucus 0 SEEN Medical Necessity - Tobacco Use Smoking Status: Never smoker Tobacco Use: Non-smoker Assessment/Plan All Active Problems (Last Reviewed 04/19/19 @ 07:41 by Kurt Resendez MD) Urinary retention (Acute) The patient is a 78 year old M PMH paroxysmal atrial fibrillation, HTN, CHF, bradycardia post cardiac pacemaker, PVD, hypothyroidism, and GERD admitted [facility] IP RU on 04/06/2019 with debility secondary to Left acute arterial ischemic stroke, MCA for greater of 3 hours of therapy daily with a goal of returning back home at or near her prior level of functional dependence. Patient was previously admitted to [facility] on March 21 for new onset of CHF and Per small arms repairer's note pt had various cardiac arrhythmias with respect to sinus bradycardia, junctional rhythm, paroxysmal atrial fibrillation, and prolonged pauses and on 03/22/2019 PPM did show episodes of atrial fibrillation. 03/22/2019 EKG Patient was discharged home on March 28, 2019 with Avila catheter due to Bladder outlet obstruction from BPH, Dr. Resendez to follow. She returned back to [facility] emergency room on February 27, 2019 with Abrupt onset of aphasia, facial droop and weakness. NIH was 23. Diagnosis of left acute arterial ischemic stroke, MCA and patient received TPA and transferred to [facility]. At [facility] on 03/29/2019, patient had an endovascular stroke treatment of the left MCA M2 occlusion using the [place] stent retriever and circumflex system. There was reperfusion of the left MCA territory after 1 pass. On 03/30/2019 CT without contrast done for post TPA impression acute infarct of the left basal ganglia with involvement of the head of the left caudate, subtle loss of rai?white matter differentiation in the left insular cortex, which may also represent changes of acute ischemia, no intracranial hemorrhage noted. On 03/30/2019 transthoracic echocardiogram completed which showed no obvious evidence of an embolic source. On 03/31/2019 venous duplex completed to bilateral lower extremities negative for DVT. Patient lives in a 1 level home with spouse. Patient was independent with all mobility, ADLs, and driving prior to stroke. Patient does use a cane in the community. Plan - PT for mobility - OT for ADLs - ST speech and cognition - Analgesics PRN - Bowel protocol - Left MCA stroke post TPA - metoprolol, lipitor, Eliquis 2.5 mg bid - Paroxysmal atrial fibrillation on eliquis, metoprolol - HTN on metoprolol - CHF on metoprolol - Hypothyroidism on levothyroxine - GERD on protonix - Bladder outlet obstruction from BPH - on flomax and proscar, Avila re-inserted on 04/08/2019 d/t retention - Dr. Resendez to follow and Avila d/c 04/19/19, Re-inserted on 04/20/[address] Resendez order. Flomax increased to BID - Microcytic anemia 1 unit of PRBC on 04/08/2019, Hemoccult stool negative, ferrous sulfate BID, Hgb 7.5 on 04/19- Hospitalist managing - CKD 4 Cr 1.62 on 04/19 continue to monitor - increase weakness and instability, urinary retention obtain UA C&S and CT without contrast of brain. Positive UA, IV Rocephin, CX pending. CT with no acute infarct or hemorrhage, no change from prior study. - DVT prophylaxis- SCDs, Knee-high teds - Fall precautions - Further medical management per hospitalist recommendation, hospitalist consult - F/U with PCP, Neurology, Cardiology, Therapeutic Assistant and Urology -
--- NOTE | 2019-04-21 10:10 | PN.NEURO_ITS ---
Patient Problems: Active and Suspected Problems (Last Reviewed 04/19/19 @ 07:41 by Kurt Resendez MD) Urinary retention (Acute) Subjective: Per nursing no issues overnight. Patient was started on IV Rocephin for positive UA, pending CX and Flomax was increased to BID per hospitalist. CT of brain was done with no acute infarct or hemorrhage, no change from prior study. Per therapy patient's gait is improving with decrease instability. Avila catheter is maintained with dark yellow urine. Patient denies further questions or concerns. - Physical Exam General: Alert, Oriented x3, Cooperative HEENT: Atraumatic, PERRLA Oral: Moist Mucosa Neck: Supple, No JVD Lungs: Clear to auscultation, Normal air movement Cardiovascular: Regular rate, Regular Rhythm Abdomen: Bowel Sounds Present, Soft, Non Tender Extremities: No clubbing, No cyanosis, No edema Musculoskeletal: No Tenderness to Palpation of Joints or Extremities Neurological: - - Cranial nerves II-XII grossly intact, Deep Tendon Reflexes 2+/4 and Symmetrical, - - Motor strenght 5/5 on Right side, Left upper and lower extremity 4/5 strength. speech slight slurred, at baseline has a stutter, NIH 1 Psych/Mental Status: Normal Affect, Appropriate, Alert and oriented to time, place, person, mood and affect Vital Signs Temp Pulse Resp BP Pulse Ox 98 F 65 20 H 123/63 H 95 04/21/19 08:50 04/21/19 08:50 04/21/19 08:50 04/21/19 08:50 04/21/19 08:50 Oxygen Delivery Method Room Air Weight: 71.6 kg Body Mass Index (BMI) 22.1 Finger Stick Blood Glucose 69 Intake and Output for Last 24 Hours 04/19/19 04/20/19 04/21/19 23:59 23:59 23:59 Intake Total 720 / 720 240 / 240 120 / 120 Output Total 925 / 925 800 / 800 Balance 720 / 720 -685 / -685 -680 / -680 Laboratory Tests Past 24 Hrs 04/20/19 11:15 Urine Color Yellow Urine Clarity Cloudy Urine pH 6.0 Ur Specific [place] 1.015 Urine Protein 100 H Urine Glucose (UA) Normal Urine Ketones Negative Urine Occult Blood 250 H Urine Nitrite Positive H Urine Bilirubin Negative Urine Urobilinogen Normal Ur Leukocyte Esterase 500 H Urine RBC 25-50 SEEN Urine WBC >100 SEEN Ur Squamous Epith Cells 0-5 SEEN Urine Bacteria 4+ Urine Mucus 0 SEEN Medical Necessity - Tobacco Use Smoking Status: Never smoker Tobacco Use: Non-smoker Assessment/Plan All Active Problems (Last Reviewed 04/19/19 @ 07:41 by Kurt Resendez MD) Urinary retention (Acute) The patient is a 78 year old M PMH paroxysmal atrial fibrillation, HTN, CHF, bradycardia post cardiac pacemaker, PVD, hypothyroidism, and GERD admitted to [facility] IP on 04/06/2019 with debility secondary to Left acute arterial ischemic stroke, MCA for greater of 3 hours of therapy daily with a goal of returning back home at or near her prior level of functional dependence. Patient was previously admitted to [facility] on March 21 for new onset of CHF and Per maintenance worker swimming pool's note pt had various cardiac arrhythmias with respect to sinus bradycardia, junctional rhythm, paroxysmal atrial fibrillation, and prolonged pauses and on 03/22/2019 PPM did show episodes of atrial fibrillation. 03/22/2019 EKG Patient was discharged home on March 28, 2019 with Avila catheter due to Bladder outlet obstruction from BPH, Dr. Resendez to follow. She returned back to [facility] emergency room on February 27, 2019 with Abrupt onset of aphasia, facial droop and weakness. NIH was 23. Diagnosis of left acute arterial ischemic stroke, MCA and patient received TPA and transferred to [facility]. At [facility] on 03/29/2019, patient had an endovascular stroke treatment of the left MCA M2 occlusion using the [place] stent retriever and circumflex system. There was reperfusion of the left MCA territory after 1 pass. On 03/30/2019 CT without contrast done for post TPA impression acute infarct of the left basal ganglia with involvement of the head of the left caudate, subtle loss of rai?white matter differentiation in the left insular cortex, which may also represent changes of acute ischemia, no intracranial hemorrhage noted. On 03/30/2019 transthoracic echocardiogram completed which showed no obvious evidence of an embolic source. On 03/31/2019 venous duplex completed to bilateral lower extremities negative for DVT. Patient lives in a 1 level home with spouse. Patient was independent with all mobility, ADLs, and driving prior to stroke. Patient does use a cane in the community. Plan - PT for mobility - OT for ADLs - ST speech and cognition - Analgesics PRN - Bowel protocol - Left MCA stroke post TPA - metoprolol, lipitor, Eliquis 2.5 mg bid - Paroxysmal atrial fibrillation on eliquis, metoprolol - HTN on metoprolol - CHF on metoprolol - Hypothyroidism on levothyroxine - GERD on protonix - Bladder outlet obstruction from BPH - on flomax and proscar, Avila re-inserted on 04/08/2019 d/t retention - Dr. Resendez to follow and Avila d/c 04/19/19, Re- inserted on 04/20/[address] Resendez order. Flomax increased to BID - Microcytic anemia 1 unit of PRBC on 04/08/2019, Hemoccult stool negative, ferrous sulfate BID, Hgb 7.5 on 04/19- Hospitalist managing - CKD 4 Cr 1.62 on 04/19 continue to monitor - increase weakness and instability, urinary retention obtain UA C&S and CT without contrast of brain. Positive UA, IV Rocephin, CX pending. CT with no acute infarct or hemorrhage, no change from prior study. - DVT prophylaxis- SCDs, Knee-high teds - Fall precautions - Further medical management per hospitalist recommendation, hospitalist consult - F/U with PCP, Neurology, Cardiology, Flat Folding Machine Operator and Urology -
[2019-04-21] MEDS: Ceftriaxone 1 GM/50 ML BAG IV (11:08)
[2019-04-21] MEDS: Ferrous Sulfate 325 MG Tablet PO ×2 (11:08→16:45)
[2019-04-21 11:46] LABS: Absolute Lymphocyte Count 1.15 X10^3/ul (0.83-4.51); Absolute Neutrophil Count 6.9 X10^3/uL (2.0-7.7); Basophil# 0.06 X10^3/uL; Basophil% 0.7 % (0-1); Differential Indicated SCAN CRITERIA MET; Eosinophil# 0.15 X10^3/uL; Eosinophils% 1.7 % (0-5); Hematocrit 24.7 % (40-54); Hemoglobin 7.6 g/dl (13.0-16.5); Lymphocyte # 1.15 X10^3/ul (4.0); Lymphocyte % 12.7 % (19-41); Mean Corp Hgb Conc 30.8 g/gl (32-36); Mean Corpuscular Hgb 23.9 pg (27.0-32.0); Mean Corpuscular Volume 77.7 fL (80-94); Mean Platelet Vol. 9.9 fl (6.2-12.0); Monocyte# 0.79 X10^3/uL; Monocyte% 8.7 % (0-10); Neutrophil % 76.1 % (47-70); POSITIVE COUNT NO; POSITIVE DIFFERENTIAL NO; POSITIVE MORPHOLOGY YES; Platelet Count 471 K/mm3 (150-450); RBC Distribution Width CV 20.2 % (11.6-14.6); RBC Distribution Width SD 57.7 fl (35.1-43.9); Red Blood Count 3.18 M/mm3 (4.6-6.2); White Blood Count 9.1 K/mm3 (4.4-11.0)
[2019-04-21 12:01] LABS: ALB/GLOB Ratio 0.6 RATIO (0.9-2.4); AST(SGOT) 24 U/L (15-37); Alanine Aminotransfer ALT/SGPT 29 U/L (16-61); Albumin, Serum 2.4 g/dL (3.2-5.0); Alkaline Phosphatase 260 U/L (45-117); Anion Gap 10 (5-15); BUN 52 mg/dL (7-18); BUN/Creat Ratio 27.4 RATIO (10-20); Calcium,Total 8.8 mg/dL (8.5-10.1); Chloride 114 mmol/L (98-107); EST Glomerular Filtration Rate 37 mL/min (>60); Est Glom Filt Rate - Afr Amer 44 mL/min (>60); Estimated Creatinine Clearance 32.45 ml/min; Globulin 4.1 g/dL (2.2-4.2); Glucose 110 mg/dL (74-106); Protein, Total 6.5 g/dL (6.4-8.2); Sodium Level 145 mmol/L (136-145)
[2019-04-21 12:17] LABS: Acanthocytes 1+; Anisocytosis 2+; Differential Comment SCANNED; Macrocytosis 1+; Microcytosis 1+; Ovalocyte 1+; Poikilocytosis 2+
--- NOTE | 2019-04-21 12:18 | CASEMGMT ---
Social Work D/C planned for tomorrow 04/22/19. Pt will be returning home with his . Message left with Angelia at [facility] and informed of d/c date. Call to pt and she is agreeable to d/c plan. Met with pt and he is also agreeable to d/c tomorrow. Pt has all needed DME including walker and cane. No further SW needs at this time. Plan: d/c 04/22/19 with [facility] PT/OT/ST//ISMA Cardenas
--- NOTE | 2019-04-21 13:28 | PCM.DC ---
- Discharge Diagnoses Current Active Problems: Current Active and Chronic Problems (Last Reviewed 04/19/19 @ 07:41 by Kurt Resendez MD) Stroke (Chronic) Left MCA Esophagitis (Chronic) EGD 03/22/19 Urinary retention (Acute) You will use the following diet at home:: Cardiac Your food should be the consistency of: Puree Your liquids should be the consistency of: Honey Thick Discharge Activity: Return to Normal Activity, May Not Drive, May Shower, Use Walker Call your doctor if you observe: Fever of 101 or Higher, Coldness, Increased Pain, Numbness or Tingling, Change in Color, Inability to have a bowel movement, Shortness of breath, Fainting spells, Swelling in the ankles, Chest pain, Prolonged hiccoughing, Increased palpitations (irregular heartbeat), Calf discomfort, Uncontrolled pain Additional Instructions: Start keflex on Wednesday04/23/2019. Cleanse around jones catheter insertion site with soap and water daily Pending Tests on Discharge: Urine culture final results pending Allergies/Adverse Reactions: Allergies No Known Allergies Allergy (Verified 03/21/19 11:34) Medications to take at Discharge Pantoprazole Sodium [Protonix] 40 mg PO DAILY #30 tablet 03/27/19 Tamsulosin HCl [Flomax] 0.4 mg PO DAILY@1730 04/06/19 Apixaban [Eliquis] 2.5 mg PO BID #60 tablet 04/21/19 Atorvastatin Calcium [Lipitor] 40 mg PO QHS #30 tablet 04/21/19 Cephalexin [Keflex] 500 mg PO Q12 7 Days #14 capsule 04/21/19 Ferrous Sulfate 325 mg PO 1200,1700 #60 tablet 04/21/19 Finasteride [Proscar] 5 mg PO DAILY #30 tablet 04/21/19 Lactobacillus Acidophilus [Acidophilus] 1 tablet PO BID tablet 04/21/19 Levothyroxine [Synthroid] 50 mcg PO DAILY@0600 tablet 04/21/19 Metoprolol(XL)Succ [Toprol Xl (Beta Daryl)] 25 mg PO DAILY #30 tablet 04/21/19 Pantoprazole Sodium [Protonix] 40 mg PO DAILY #30 tablet 04/21/19 Tamsulosin HCl [Flomax] 0.4 mg PO BID@0830,1730 #60 capsule 04/21/19 The following prescriptions were given: Atorvastatin Calcium [Lipitor] 40 mg PO QHS #30 tablet Cephalexin [Keflex] 500 mg PO Q12 7 Days #14 capsule Ferrous Sulfate 325 mg PO 1200,1700 #60 tablet Finasteride [Proscar] 5 mg PO DAILY #30 tablet Metoprolol(XL)Succ [Toprol Xl (Beta Daryl)] 25 mg PO DAILY #30 tablet Pantoprazole Sodium [Protonix] 40 mg PO DAILY #30 tablet Tamsulosin HCl [Flomax] 0.4 mg PO BID@0830,1730 #60 capsule Apixaban [Eliquis] 2.5 mg PO BID #60 tablet Primary Care Physician: Dick Chan MD [Primary Care Provider] - Test Results: Test results from this visit will be discussed in further detail at your follow-up appointment, if applicable. Please Follow Up With: Dr. Dick Chan Please Follow Up With: Dr. Kurt Resendez Please Follow Up With: Rosario Tran, INSTRUCTOR BUSINESS EDUCATION-C Please Follow Up With: Yobany Kemp MD Please Follow Up With: [facility], PT/OT/ST/RN/MED ADMIN When: they will call you to set up a time to come to your house Proposed Discharge Date: 04/22/19
[2019-04-21 13:31] VITALS: BMI 22.1
--- NOTE | 2019-04-21 13:32 | DCINST_ITS ---
- Discharge Diagnoses Current Active Problems: Current Active and Chronic Problems (Last Reviewed 04/19/19 @ 07:41 by Kurt Resendez MD) Stroke (Chronic) Left MCA Esophagitis (Chronic) EGD 03/22/19 Urinary retention (Acute) You will use the following diet at home:: Cardiac Your food should be the consistency of: Puree Your liquids should be the consistency of: Honey Thick Discharge Activity: Return to Normal Activity, May Not Drive, May Shower, Use Walker Call your doctor if you observe: Fever of 101 or Higher, Coldness, Increased Pain, Numbness or Tingling, Change in Color, Inability to have a bowel movement, Shortness of breath, Fainting spells, Swelling in the ankles, Chest pain, Prolonged hiccoughing, Increased palpitations (irregular heartbeat), Calf discomfort, Uncontrolled pain Additional Instructions: Start keflex on Wednesday04/23/2019. Cleanse around jones catheter insertion site with soap and water daily Pending Tests on Discharge: Urine culture final results pending Allergies/Adverse Reactions: Allergies No Known Allergies Allergy (Verified 03/21/19 11:34) Medications to take at Discharge Pantoprazole Sodium [Protonix] 40 mg PO DAILY #30 tablet 03/27/19 Tamsulosin HCl [Flomax] 0.4 mg PO DAILY@1730 04/06/19 Apixaban [Eliquis] 2.5 mg PO BID #60 tablet 04/21/19 Atorvastatin Calcium [Lipitor] 40 mg PO QHS #30 tablet 04/21/19 Cephalexin [Keflex] 500 mg PO Q12 7 Days #14 capsule 04/21/19 Ferrous Sulfate 325 mg PO 1200,1700 #60 tablet 04/21/19 Finasteride [Proscar] 5 mg PO DAILY #30 tablet 04/21/19 Lactobacillus Acidophilus [Acidophilus] 1 tablet PO BID tablet 04/21/19 Levothyroxine [Synthroid] 50 mcg PO DAILY@0600 tablet 04/21/19 Metoprolol(XL)Succ [Toprol Xl (Beta Daryl)] 25 mg PO DAILY #30 tablet 04/21/19 Pantoprazole Sodium [Protonix] 40 mg PO DAILY #30 tablet 04/21/19 Tamsulosin HCl [Flomax] 0.4 mg PO BID@0830,1730 #60 capsule 04/21/19 The following prescriptions were given: Atorvastatin Calcium [Lipitor] 40 mg PO QHS #30 tablet Cephalexin [Keflex] 500 mg PO Q12 7 Days #14 capsule Ferrous Sulfate 325 mg PO 1200,1700 #60 tablet Finasteride [Proscar] 5 mg PO DAILY #30 tablet Metoprolol(XL)Succ [Toprol Xl (Beta Daryl)] 25 mg PO DAILY #30 tablet Pantoprazole Sodium [Protonix] 40 mg PO DAILY #30 tablet Tamsulosin HCl [Flomax] 0.4 mg PO BID@0830,1730 #60 capsule Apixaban [Eliquis] 2.5 mg PO BID #60 tablet Primary Care Physician: Dick Chan MD [Primary Care Provider] - Test Results: Test results from this visit will be discussed in further detail at your follow- up appointment, if applicable. Please Follow Up With: Dr. Dick Chan Please Follow Up With: Dr. Kurt Resendez Please Follow Up With: Rosario Tran, CALL CENTER ASSISTANT-C Please Follow Up With: Yobany Kemp MD Please Follow Up With: [facility], PT/OT/ST/RN/BARYTES GRINDER When: they will call you to set up a time to come to your house Proposed Discharge Date: 04/22/19
--- NOTE | 2019-04-21 13:38 | PCM.RU.DC ---
Rehab Discharge Summary DATE OF ADMISSION: 04/06/19 DATE OF DISCHARGE: 04/22/2019 - Rehab Diagnosis Debility secondary to Left MCA stroke post TPA Patient Problems: Active and Suspected Problems (Last Reviewed 04/19/19 @ 07:41 by Kurt Resendez MD) Urinary retention (Acute) Subjective: Patient aware of discharge date on Wednesday04/22/2019. Patient will be changed to Keflex 500 mg BID x 7 days from IV Rocephin, first dose on 04/23/2019 for positive UA. Final CX results pending. Family training was completed this week with spouse and will have Home PT/ST/OT/ICE BAG ASSEMBLER/Nurse. Patient aware that he will be discharged home with Avila catheter and will F/U with Dr. Resendez. Patient denied further questions or concerns. - Physical Exam General: Alert, Oriented x3, Cooperative HEENT: Atraumatic, PERRLA Oral: Moist Mucosa Neck: Supple, No JVD Lungs: Clear to auscultation, Normal air movement Cardiovascular: Regular rate, Regular Rhythm Abdomen: Bowel Sounds Present, Soft, Non Tender Extremities: No clubbing, No cyanosis, No edema Musculoskeletal: No Tenderness to Palpation of Joints or Extremities Neurological: - - Cranial nerves II-XII grossly intact, Deep Tendon Reflexes 2+/4 and Symmetrical, - - Motor strenght 5/5 on Right side, Left upper and lower extremity 4/5 strength. speech slight slurred, at baseline has a stutter, NIH 1 Psych/Mental Status: Normal Affect, Appropriate, Alert and oriented to time, place, person, mood and affect Vital Signs Temp Pulse Resp BP Pulse Ox 98 F 65 20 H 123/63 H 95 04/21/19 08:50 04/21/19 08:50 04/21/19 08:50 04/21/19 08:50 04/21/19 08:50 Oxygen Delivery Method Room Air Weight: 71.6 kg Body Mass Index (BMI) 22.1 Finger Stick Blood Glucose 69 Intake and Output for Last 24 Hours 04/19/19 04/20/19 04/21/19 23:59 23:59 23:59 Intake Total 720 / 720 240 / 240 360 / 360 Output Total 925 / 925 800 / 800 Balance 720 / 720 -685 / -685 -440 / -440 Microbiology Past 72 Hours 04/20/19 11:15 Urine Culture - Preliminary Urine, Catheterized Presumptive E. coli Laboratory Tests Past 24 Hrs 04/21/19 04/21/19 11:20 11:20 WBC 9.1 RBC 3.18 L Hgb 7.6 L Hct 24.7 L MCV 77.7 L MCH 23.9 L MCHC 30.8 L RDW 20.2 H RDW Differential 57.7 H Plt Count 471 H MPV 9.9 Immature Gran % (Auto) 0.100 Neut % (Auto) 76.1 H Lymph % (Auto) 12.7 L [place] % (Auto) 8.7 Eos % (Auto) 1.7 Baso % (Auto) 0.7 Absolute Neuts (auto) 6.9 Absolute Lymphs (auto) 1.15 Total Counted Not Reportable Differential Comment SCANNED Poikilocytosis 2+ Anisocytosis 2+ Microcytosis 1+ Macrocytosis 1+ Ovalocytes 1+ Acanthocytes (Spur) 1+ Sodium 145 Potassium 4.0 Chloride 114 H Carbon Dioxide 21.0 Anion Gap 10 BUN 52 H Creatinine 1.90 H Estim Creat Clear Calc 32.45 Est GFR (MDRD) Af Amer 44 L Est GFR (MDRD) Non-Af 37 L BUN/Creatinine Ratio 27.4 H Glucose 110 H Calcium 8.8 Total Bilirubin 0.30 AST 24 ALT 29 Alkaline Phosphatase 260 H Total Protein 6.5 Albumin 2.4 L Globulin 4.1 Albumin/Globulin Ratio 0.6 L Discharge Diet: Swallowing Precautions, - - puree diet with honey thickened liquids, Carbajal water protocol Discharge Activity: Return to Normal Activity, May Not Drive, May Shower, Use Walker Weight Bearing Status: Weight bearing as tolerated Call your doctor if you observe: Fever of 101 or Higher, Coldness, Increased Pain, Numbness or Tingling, Change in Color, Inability to have a bowel movement, Shortness of breath, Fainting spells, Swelling in the ankles, Chest pain, Prolonged hiccoughing, Increased palpitations (irregular heartbeat), Calf discomfort, Uncontrolled pain Home Medications: Medications to take at Discharge Pantoprazole Sodium [Protonix] 40 mg PO DAILY #30 tablet 03/27/19 Tamsulosin HCl [Flomax] 0.4 mg PO DAILY@1730 04/06/19 Apixaban [Eliquis] 2.5 mg PO BID #60 tablet 04/21/19 Atorvastatin Calcium [Lipitor] 40 mg PO QHS #30 tablet 04/21/19 Cephalexin [Keflex] 500 mg PO Q12 7 Days #14 capsule 04/21/19 Ferrous Sulfate 325 mg PO 1200,1700 #60 tablet 04/21/19 Finasteride [Proscar] 5 mg PO DAILY #30 tablet 04/21/19 Lactobacillus Acidophilus [Acidophilus] 1 tablet PO BID tablet 04/21/19 Levothyroxine [Synthroid] 50 mcg PO DAILY@0600 tablet 04/21/19 Metoprolol(XL)Succ [Toprol Xl (Beta Daryl)] 25 mg PO DAILY #30 tablet 04/21/19 Pantoprazole Sodium [Protonix] 40 mg PO DAILY #30 tablet 04/21/19 Tamsulosin HCl [Flomax] 0.4 mg PO BID@0830,1730 #60 capsule 04/21/19 Following Prescrptions Were Given to Patient: Atorvastatin Calcium [Lipitor] 40 mg PO QHS #30 tablet Cephalexin [Keflex] 500 mg PO Q12 7 Days #14 capsule Ferrous Sulfate 325 mg PO 1200,1700 #60 tablet Finasteride [Proscar] 5 mg PO DAILY #30 tablet Metoprolol(XL)Succ [Toprol Xl (Beta Daryl)] 25 mg PO DAILY #30 tablet Pantoprazole Sodium [Protonix] 40 mg PO DAILY #30 tablet Tamsulosin HCl [Flomax] 0.4 mg PO BID@0830,1730 #60 capsule Apixaban [Eliquis] 2.5 mg PO BID #60 tablet Primary Care Physician: Dick Chan MD [Primary Care Provider] - Please Follow Up With: Dr. Dick Chan Please Follow Up With: Dr. Kurt Resendez When: Wednesday Please Follow Up With: Rosario Tran NP-C When: Wednesday Please Follow Up With: Yobany Kemp MD When: Wednesday Please Follow Up With: [facility], PT/OT/ST/RN/ICE BAG ASSEMBLER When: they will call you to set up a time to come to your house Additional Instructions: Start taking Keflex on Wednesday04/23/2019 Cleanse around Avila catheter insertion site daily with soap and water. Pending Tests Upon Discharge: Pending Final urine CX results Disposition: Home with Home Health Patient Condition:: Stable Rehab Course The patient is a 78 year old M PMH paroxysmal atrial fibrillation, HTN, CHF, bradycardia post cardiac pacemaker, PVD, hypothyroidism, and GERD admitted [facility] IP RU on 04/06/2019 with debility secondary to Left acute arterial ischemic stroke, MCA for greater of 3 hours of therapy daily with a goal of returning back home at or near her prior level of functional dependence. Patient was previously admitted to [facility] on March 21 for new onset of CHF and Per fuel dock attendant's note pt had various cardiac arrhythmias with respect to sinus bradycardia, junctional rhythm, paroxysmal atrial fibrillation, and prolonged pauses and on 03/22/2019 PPM did show episodes of atrial fibrillation. 03/22/2019 EKG Patient was discharged home on March 28, 2019 with Avila catheter due to Bladder outlet obstruction from BPH, Dr. Resendez to follow. She returned back to [facility] emergency room on February 27, 2019 with Abrupt onset of aphasia, facial droop and weakness. NIH was 23. Diagnosis of left acute arterial ischemic stroke, MCA and patient received TPA and transferred to [facility]. At [facility] on 03/29/2019, patient had an endovascular stroke treatment of the left MCA M2 occlusion using the [place] stent retriever and circumflex system. There was reperfusion of the left MCA territory after 1 pass. On 03/30/2019 CT without contrast done for post TPA impression acute infarct of the left basal ganglia with involvement of the head of the left caudate, subtle loss of rai?white matter differentiation in the left insular cortex, which may also represent changes of acute ischemia, no intracranial hemorrhage noted. On 03/30/2019 transthoracic echocardiogram completed which showed no obvious evidence of an embolic source. On 03/31/2019 venous duplex completed to bilateral lower extremities negative for DVT. Patient lives in a 1 level home with spouse. Patient was independent with all mobility, ADLs, and driving prior to stroke. Patient does use a cane in the community. During IP RU patient was started on eliquis 2.5 mg bid on 04/07/2019 after discussion with hospitalist in regards to microcytic anemia. Avila catheter was placed on 04/20/[address] Resendez orders after trials of voiding and will be discharged home with catheter. UA C&S and CT of brain was done on 04/20/2019 d/t gait instability and increase weakness. Brain CT was unchanged from prior study and did not show acute infarct or hemorrhage. UA was positive and was started on IV rocephin and will be discharged home on Keflex 500 mg bid x7 days to start on 04/23/2019. Urine CX preliminary 80,000-100,00 presumptive E.coli, Final CX results pending. Patient will follow up with Dr. Resendez for urinary retention, Enamel Finisher for microcytic anemia, Nail Feeder and Neurologist. Patient strength and mobility increased and will be discharged home with spouse on a pureed diet, honey thickened liquids, Carbajal water protocol and with Home PT/OT/ST/ICE BAG ASSEMBLER/Nurse. Meaningful Use Info Meaningful Use Diagnoses (Choose all that apply): Ischemic CVA - CVA Therapy Assessed for PT,OT and/or ST?: Yes - Ischemic Stroke Antithrombotic order at d/c?: Yes Dx of Atrial fib/flutter?: Yes Anticoagulant at discharge?: Yes Statins at discharge?: Yes Primary Dx Acute Ischemic CVA?: Yes IV tPA ordered during stay?: Yes
--- NOTE | 2019-04-21 13:42 | DS.PCM_ITS ---
Rehab Discharge Summary DATE OF ADMISSION: 04/06/19 DATE OF DISCHARGE: 04/22/2019 - Rehab Diagnosis Debility secondary to Left MCA stroke post TPA Patient Problems: Active and Suspected Problems (Last Reviewed 04/19/19 @ 07:41 by Kurt Resendez MD) Urinary retention (Acute) Subjective: Patient aware of discharge date on Wednesday04/22/2019. Patient will be changed to Keflex 500 mg BID x 7 days from IV Rocephin, first dose on 04/23/2019 for positive UA. Final CX results pending. Family training was completed this week with spouse and will have Home PT/ST/OT/SOFTWARE IMPLEMENTATION PROJECT MANAGER/Nurse. Patient aware that he will be discharged home with Avila catheter and will F/U with Dr. Resendez. Patient denied further questions or concerns. - Physical Exam General: Alert, Oriented x3, Cooperative HEENT: Atraumatic, PERRLA Oral: Moist Mucosa Neck: Supple, No JVD Lungs: Clear to auscultation, Normal air movement Cardiovascular: Regular rate, Regular Rhythm Abdomen: Bowel Sounds Present, Soft, Non Tender Extremities: No clubbing, No cyanosis, No edema Musculoskeletal: No Tenderness to Palpation of Joints or Extremities Neurological: - - Cranial nerves II-XII grossly intact, Deep Tendon Reflexes 2+/4 and Symmetrical, - - Motor strenght 5/5 on Right side, Left upper and lower extremity 4/5 strength. speech slight slurred, at baseline has a stutter, NIH 1 Psych/Mental Status: Normal Affect, Appropriate, Alert and oriented to time, place, person, mood and affect Vital Signs Temp Pulse Resp BP Pulse Ox 98 F 65 20 H 123/63 H 95 04/21/19 08:50 04/21/19 08:50 04/21/19 08:50 04/21/19 08:50 04/21/19 08:50 Oxygen Delivery Method Room Air Weight: 71.6 kg Body Mass Index (BMI) 22.1 Finger Stick Blood Glucose 69 Intake and Output for Last 24 Hours 04/19/19 04/20/19 04/21/19 23:59 23:59 23:59 Intake Total 720 / 720 240 / 240 360 / 360 Output Total 925 / 925 800 / 800 Balance 720 / 720 -685 / -685 -440 / -440 Microbiology Past 72 Hours 04/20/19 11:15 Urine Culture - Preliminary Urine, Catheterized Presumptive E. coli Laboratory Tests Past 24 Hrs 04/21/19 04/21/19 11:20 11:20 WBC 9.1 RBC 3.18 L Hgb 7.6 L Hct 24.7 L MCV 77.7 L MCH 23.9 L MCHC 30.8 L RDW 20.2 H RDW Differential 57.7 H Plt Count 471 H MPV 9.9 Immature Gran % (Auto) 0.100 Neut % (Auto) 76.1 H Lymph % (Auto) 12.7 L [place] % (Auto) 8.7 Eos % (Auto) 1.7 Baso % (Auto) 0.7 Absolute Neuts (auto) 6.9 Absolute Lymphs (auto) 1.15 Total Counted Not Reportable Differential Comment SCANNED Poikilocytosis 2+ Anisocytosis 2+ Microcytosis 1+ Macrocytosis 1+ Ovalocytes 1+ Acanthocytes (Spur) 1+ Sodium 145 Potassium 4.0 Chloride 114 H Carbon Dioxide 21.0 Anion Gap 10 BUN 52 H Creatinine 1.90 H Estim Creat Clear Calc 32.45 Est GFR (MDRD) Af Amer 44 L Est GFR (MDRD) Non-Af 37 L BUN/Creatinine Ratio 27.4 H Glucose 110 H Calcium 8.8 Total Bilirubin 0.30 AST 24 ALT 29 Alkaline Phosphatase 260 H Total Protein 6.5 Albumin 2.4 L Globulin 4.1 Albumin/Globulin Ratio 0.6 L Discharge Diet: Swallowing Precautions, - - puree diet with honey thickened liquids, Carbajal water protocol Discharge Activity: Return to Normal Activity, May Not Drive, May Shower, Use Walker Weight Bearing Status: Weight bearing as tolerated Call your doctor if you observe: Fever of 101 or Higher, Coldness, Increased Pain, Numbness or Tingling, Change in Color, Inability to have a bowel movement, Shortness of breath, Fainting spells, Swelling in the ankles, Chest pain, Prolonged hiccoughing, Increased palpitations (irregular heartbeat), Calf discomfort, Uncontrolled pain Home Medications: Medications to take at Discharge Pantoprazole Sodium [Protonix] 40 mg PO DAILY #30 tablet 03/27/19 Tamsulosin HCl [Flomax] 0.4 mg PO DAILY@1730 04/06/19 Apixaban [Eliquis] 2.5 mg PO BID #60 tablet 04/21/19 Atorvastatin Calcium [Lipitor] 40 mg PO QHS #30 tablet 04/21/19 Cephalexin [Keflex] 500 mg PO Q12 7 Days #14 capsule 04/21/19 Ferrous Sulfate 325 mg PO 1200,1700 #60 tablet 04/21/19 Finasteride [Proscar] 5 mg PO DAILY #30 tablet 04/21/19 Lactobacillus Acidophilus [Acidophilus] 1 tablet PO BID tablet 04/21/19 Levothyroxine [Synthroid] 50 mcg PO DAILY@0600 tablet 04/21/19 Metoprolol(XL)Succ [Toprol Xl (Beta Dayrl)] 25 mg PO DAILY #30 tablet 04/21/19 Pantoprazole Sodium [Protonix] 40 mg PO DAILY #30 tablet 04/21/19 Tamsulosin HCl [Flomax] 0.4 mg PO BID@0830,1730 #60 capsule 04/21/19 Following Prescrptions Were Given to Patient: Atorvastatin Calcium [Lipitor] 40 mg PO QHS #30 tablet Cephalexin [Keflex] 500 mg PO Q12 7 Days #14 capsule Ferrous Sulfate 325 mg PO 1200,1700 #60 tablet Finasteride [Proscar] 5 mg PO DAILY #30 tablet Metoprolol(XL)Succ [Toprol Xl (Beta Daryl)] 25 mg PO DAILY #30 tablet Pantoprazole Sodium [Protonix] 40 mg PO DAILY #30 tablet Tamsulosin HCl [Flomax] 0.4 mg PO BID@0830,1730 #60 capsule Apixaban [Eliquis] 2.5 mg PO BID #60 tablet Primary Care Physician: Dick Chan MD [Primary Care Provider] - Please Follow Up With: Dr. Dick Chan Please Follow Up With: Dr. Kurt Resendez When: Wednesday Please Follow Up With: Rosario Tran NP-C When: Wednesday Please Follow Up With: Yobany Kemp MD When: Wednesday Please Follow Up With: [facility], PT/OT/ST/RN/SOFTWARE IMPLEMENTATION PROJECT MANAGER When: they will call you to set up a time to come to your house Additional Instructions: Start taking Keflex on Wednesday04/23/2019 Cleanse around Avila catheter insertion site daily with soap and water. Pending Tests Upon Discharge: Pending Final urine CX results Disposition: Home with Home Health Patient Condition:: Stable Rehab Course The patient is a 78 year old M PMH paroxysmal atrial fibrillation, HTN, CHF, bradycardia post cardiac pacemaker, PVD, hypothyroidism, and GERD admitted to [facility] IP RU on 04/06/2019 with debility secondary to Left acute arterial ischemic stroke, MCA for greater of 3 hours of therapy daily with a goal of returning back home at or near her prior level of functional dependence. Patient was previously admitted to [facility] on March 21 for new onset of CHF and Per rim fire charger operator's note pt had various cardiac arrhythmias with respect to sinus bradycardia, junctional rhythm, paroxysmal atrial fibrillation, and prolonged pauses and on 03/22/2019 PPM did show epis odes of atrial fibrillation. 03/22/2019 EKG Patient was discharged home on March 28, 2019 with Avila catheter due to Bladder outlet obstruction from BPH, Dr. Resendez to follow. She returned back to [facility] emergency room on February 27, 2019 with Abrupt onset of aphasia, facial droop and weakness. NIH was 23. Diagnosis of left acute arterial ischemic stroke, MCA and patient received TPA and transferred to [facility]. At [facility] on 03/29/2019, patient had an endovascular stroke treatment of the left MCA M2 occlusion using the [place] stent retriever and circumflex system. There was reperfusion of the left MCA territory after 1 pass. On 03/30/2019 CT without contrast done for post TPA impression acute infarct of the left basal ganglia with involvement of the head of the left caudate, subtle loss of rai?white matter differentiation in the left insular cortex, which may also represent changes of acute ischemia, no intracranial hemorrhage noted. On 03/30/2019 transthoracic echocardiogram completed which showed no obvious evidence of an embolic source. On 03/31/2019 venous duplex completed to bilateral lower extremities negative for DVT. Patient lives in a 1 level home with spouse. Patient was independent with all mobility, ADLs, and driving prior to stroke. Patient does use a cane in the community. During IP RU patient was started on eliquis 2.5 mg bid on 04/07/2019 after discussion with hospitalist in regards to microcytic anemia. Avila catheter was placed on 04/20/[address] Resendez orders after trials of voiding and will be discharged home with catheter. UA C&S and CT of brain was done on 04/20/2019 d/t gait instability and increase weakness. Brain CT was unchanged from prior study and did not show acute infarct or hemorrhage. UA was positive and was started on IV rocephin and will be discharged home on Keflex 500 mg bid x7 days to start on 04/23/2019. Urine CX preliminary 80,000-100,00 presumptive E.coli, Final CX results pending. Patient will follow up with Dr. Resendez for urinary retention, Steno Typist for microcytic anemia, Dining Car Hop and Neurologist. Patient strength and mobility increased and will be discharged home with spouse on a pureed diet, honey thickened liquids, Carbajal water protocol and with Home PT/OT/ST/SOFTWARE IMPLEMENTATION PROJECT MANAGER/Nurse. Meaningful Use Info Meaningful Use Diagnoses (Choose all that apply): Ischemic CVA - CVA Therapy Assessed for PT,OT and/or ST?: Yes - Ischemic Stroke Antithrombotic order at d/c?: Yes Dx of Atrial fib/flutter?: Yes Anticoagulant at discharge?: Yes Statins at discharge?: Yes Primary Dx Acute Ischemic CVA?: Yes IV tPA ordered during stay?: Yes
[2019-04-21 20:08] VITALS: BP 105/50; PULSE 60; RESP 16; TEMP 36.7; O2SAT 98
[2019-04-21] MEDS: 0.9% NaCl Peripheral Flush Adult/Peds IV (20:17)
[2019-04-21] MEDS: Atorvastatin Calcium 40 MG Tablet PO (20:17)
[2019-04-21 23:37] VITALS: BMI 22.1
[2019-04-22] MEDS: Levothyroxine 50 MCG Tablet PO (06:06)
[2019-04-22] MEDS: 0.9% NaCl Peripheral Flush Adult/Peds IV ×2 (06:14→08:54)
[2019-04-22 07:49] VITALS: PULSE 77
[2019-04-22] MEDS: Metoprolol(XL)Succ 25 MG Tablet PO (07:49)
[2019-04-22] MEDS: APIXABAN 2.5 MG TABLET PO (07:49)
[2019-04-22] MEDS: Pantoprazole Sodium 40 MG Tablet PO (07:49)
[2019-04-22] MEDS: Tamsulosin HCl 0.4 MG Capsule PO (07:49)
[2019-04-22] MEDS: Finasteride 5 MG Tablet PO (07:50)
[2019-04-22 08:30] VITALS: BP 108/73; PULSE 77; RESP 17; TEMP 36.7; O2SAT 96
[2019-04-22] MEDS: Ceftriaxone 1 GM/50 ML BAG IV (08:53)
[2019-04-22] MEDS: Ferrous Sulfate 325 MG Tablet PO (08:53)
[2019-04-22 10:45] VITALS: BMI 22.1
--- NOTE | 2019-04-22 10:50 | NURSING ---
Discharge to home. reported that the nurse yesterday went over the dc instruct, medications, treatments, jones care, and appts with her and she refused to have this nurse go over it again.
[2019-04-22 12:02] VITALS: BP 108/73; PULSE 77; RESP 17; TEMP 36.7; O2SAT 96
== END 2019-04-22 10:50 | disposition home health service (06) | DRG 57 ==
PROVIDERS: Nurse Practitioner Family; Admitting Provider Psychiatry & Neurology Neurology; Family Provider Family Medicine; PCP Family Medicine; Referring Provider Psychiatry & Neurology Neurology; Visit Provider Family Medicine
DX: I69.354 Hemiplegia and hemiparesis following cerebral infarction affecting left non-dominant side (principal); I13.0 Hypertensive heart and chronic kidney disease with heart failure and stage 1 through stage 4 chronic kidney disease, or unspecified chronic kidney disease; I50.32 Chronic diastolic (congestive) heart failure; N18.4 Chronic kidney disease, stage 4 (severe); N13.8 Other obstructive and reflux uropathy; I69.320 Aphasia following cerebral infarction; I69.392 Facial weakness following cerebral infarction; I69.398 Other sequelae of cerebral infarction; I48.0 Paroxysmal atrial fibrillation; E03.9 Hypothyroidism, unspecified; I73.9 Peripheral vascular disease, unspecified; Z95.0 Presence of cardiac pacemaker; I69.328 Other speech and language deficits following cerebral infarction; N40.1 Benign prostatic hyperplasia with lower urinary tract symptoms; R33.8 Other retention of urine; I69.322 Dysarthria following cerebral infarction; D50.9 Iron deficiency anemia, unspecified; K21.9 Gastro-esophageal reflux disease without esophagitis; E78.5 Hyperlipidemia, unspecified; D63.8 Anemia in other chronic diseases classified elsewhere
CPT/HCPCS: 36415; 70450; 74230; 80048; 80053; 81001; 82274; 82728; 83540; 83550; 85025; 86850; 86900; 86920; 86922; 87086; 87088; 87186; 92507; 92523; 92526; 92610; 92611; 97110; 97112; 97116; 97162; 97166; 97530; 97535; J7040; P9016; A4216

== ENCOUNTER → 2019-05-03 14:08 | Outpatient (CLI) | payer MEDICARE, SELFPAY ==
[2019-04-22 10:45] VITALS: BMI 22.1
[2019-05-03 15:53] LABS: ALB/GLOB Ratio 0.8 RATIO (0.9-2.4); AST(SGOT) 24 U/L (15-37); Alanine Aminotransfer ALT/SGPT 28 U/L (16-61); Albumin, Serum 2.7 g/dL (3.2-5.0); Alkaline Phosphatase 225 U/L (45-117); Anion Gap 9 (5-15); BUN 48 mg/dL (7-18); BUN/Creat Ratio 26.7 RATIO (10-20); Calcium,Total 8.5 mg/dL (8.5-10.1); Chloride 113 mmol/L (98-107); EST Glomerular Filtration Rate 39 mL/min (>60); Est Glom Filt Rate - Afr Amer 47 mL/min (>60); Globulin 3.4 g/dL (2.2-4.2); Glucose 80 mg/dL (74-106); Potassium 4.6 mmol/L (3.5-5.1); Protein, Total 6.1 g/dL (6.4-8.2); Sodium Level 145 mmol/L (136-145)
[2019-05-03 15:57] LABS: Absolute Lymphocyte Count 1.39 X10^3/ul (0.83-4.51); Absolute Neutrophil Count 5.2 X10^3/uL (2.0-7.7); Basophil# 0.02 X10^3/uL; Basophil% 0.3 % (0-1); Eosinophil# 0.15 X10^3/uL; Hematocrit 20.2 % (40-54); Lymphocyte # 1.39 X10^3/ul (4.0); Lymphocyte % 18.4 % (19-41); Mean Corp Hgb Conc 29.2 g/gl (32-36); Mean Corpuscular Volume 82.1 fL (80-94); Mean Platelet Vol. 10.9 fl (6.2-12.0); Monocyte# 0.73 X10^3/uL; Monocyte% 9.7 % (0-10); Neutrophil # 5.24 X10^3/uL (2.7-7.7); Neutrophil % 69.2 % (47-70); Platelet Count 410 K/mm3 (150-450); RBC Distribution Width CV 22.3 % (11.6-14.6); RBC Distribution Width SD 63.5 fl (35.1-43.9); Red Blood Count 2.46 M/mm3 (4.6-6.2); White Blood Count 7.6 K/mm3 (4.4-11.0)
[2019-05-03 16:04] LABS: Differential Indicated SCAN CRITERIA MET; POSITIVE COUNT YES; POSITIVE DIFFERENTIAL NO; POSITIVE MORPHOLOGY YES
[2019-05-03 16:05] LABS: Hemoglobin 5.9 g/dl (13.0-16.5)
[2019-05-03 16:24] LABS: BNP,B-Type NATRIURETIC PEPTIDE 956.5 pg/mL (0-100)
[2019-05-03 16:50] LABS: Acanthocytes 1+; Anisocytosis 1+; Ovalocyte 1+; Platelet Estimate ADEQUATE (ADEQ); Red Cell Morphology N CHROM NORMAL (NORM C&C); Schistocytes RARE
[2019-05-04 15:39] LABS: Pathologist Review Reviewed
== END ==
PROVIDERS: Family Provider Family Medicine; PCP Family Medicine; Referring Provider Family Medicine; Visit Provider Family Medicine
DX: D64.9 Anemia, unspecified (principal); I50.9 Heart failure, unspecified
CPT/HCPCS: 36415; 80053; 83880; 85025

== ENCOUNTER → 2019-05-04 08:50 | Outpatient (CLI) | payer MEDICARE, SELFPAY ==
[2019-04-22 10:45] VITALS: BMI 22.1
[2019-05-04] VITALS (8 sets, daily range): BP systolic 84–118; BP diastolic 46–69; PULSE 60–73; RESP 16–18; TEMP 35.9–36.1; O2SAT 98–100; BMI 21.1
[2019-05-04] MEDS: Acetaminophen 325 MG Tablet 650 MG PO (09:11)
[2019-05-04] MEDS: Furosemide 20 MG/2 ML VIAL IV (12:57)
== END ==
PROVIDERS: Family Provider Family Medicine; PCP Family Medicine; Referring Provider Family Medicine; Visit Provider Family Medicine
DX: D64.9 Anemia, unspecified (principal); I50.9 Heart failure, unspecified
CPT/HCPCS: 36415; 36430; 86850; 86900; 86920; 86922; J7040; P9016; A4216; J1940

== ENCOUNTER 2019-05-09 01:03 | Emergency (ER) | payer MEDICARE, SELFPAY ==
[2019-05-04 09:25] VITALS: BMI 21.1
[2019-05-09 01:04] VITALS: BP 122/38; O2SAT 44; O2SAT 58; O2SAT 80
--- NOTE | 2019-05-09 01:15 | ED.VISSUMM ---
- ER Visit Summary Date of Service: 05/09/19 Chief Complaint: Cardiac arrest History of Present Illness: The patient is a 78 M who presents after witnessed cardiac arrest. CPR in progress by bystander on EMS arrival. They initially noted fine V. fib and patient was given 1 shock. All rhythm checks afterwards were asystole. Patient had an LMA. End-tidal CO2 38-40. Patient underwent CPR with an automated device. Downtime was 30 minutes already on arrival here to the emergency department. Further history unable to be obtained. Physical Examination: Blood pressure was 122/38 with compressions no spontaneous respirations, no spontaneous heart rate, pulse ox was 44% with Ambu bag No spontaneous respirations No palpable central pulses No evidence of trauma Abdomen is soft, nondistended Extremities no edema GCS of 3 Test Results: Not indicated Emergency Department Course and Treatment: Patient presented in asystole. He was given IV epinephrine. On next recheck he was still in asystole. He was then given bicarbonate and epinephrine. On recheck he is essentially asystole with rare agonal beat. No meaningful cardiac activity on bedside transthoracic cardiac ultrasound. At this time patient's downtime had been 40 minutes without ROSC. Resuscitation efforts were terminated and patient pronounced. Treatment Plan: [] Disposition: Impression: Cardiac arrest This note was generated with [employer] dictation software. It may contain incorrect words, spelling, and punctuation that were not noted in review of the chart prior to signing ED Disposition - Plan for ED Patient: Referrals: Dick Chan MD [Primary Care Provider] -
--- NOTE | 2019-05-09 02:05 | ED.RN ---
SEE CODE DOCUMENTATION
== END 2019-05-09 03:29 ==
PROVIDERS: Emergency Provider Emergency Medicine; Family Provider Family Medicine; PCP Family Medicine
DX: I46.9 Cardiac arrest, cause unspecified (principal); I50.9 Heart failure, unspecified; Z79.01 Long term (current) use of anticoagulants; Z79.899 Other long term (current) drug therapy; Z86.73 Personal history of transient ischemic attack (TIA), and cerebral infarction without residual deficits; Z95.0 Presence of cardiac pacemaker
CPT/HCPCS: 92950; 94770; 99291; J7030; A4216